=== PATIENT | female | born 1935 | race Caucasian/White ===

== ENCOUNTER 2018-02-03 22:24 | Emergency (ER) | payer MEDICARE, OTHER ==
[~2018-02-03] VITALS: Ht 160 cm; Wt 59.0 kg
--- OUTSIDE RECORDS SUMMARY | 2018-02-03 22:32 | XMS REPORT ---
Author Author [facility] Medical Staff Organization [facility] Address [address], [place] [address] Phone [phone] Summary purpose TRANSITION OF CARE AUTO GENERATION Chief Complaint and Reason for Visit No authorized Reason for Visit (Admitting Diagnosis) is available for this visit. Problem list No authorized problems tracked for continuity of care are available for this visit. Encounters No authorized problems tracked for encounter diagnoses are available for this visit. Medications No medications recorded for this patient visit Allergies, adverse reactions, alerts Allergen Category Ingredient Status Reaction Severity Onset NKDA Drug Allergy NKDA Confirmed but Inactive Bactrim Drug Allergy Bactrim Confirmed or Verified Bactrim Drug Allergy sulfamethoxazole Confirmed or Verified Bactrim Drug Allergy trimethoprim Confirmed or Verified Immunizations No immunizations recorded for this patient visit Relevant diagnostic tests and/or laboratory data RESULTS Chemistry [id number]:00 Result Normal Range Units Sodium 137 134-145 mEq/l Potassium 4.6 3.5-5.1 mEq/l Chloride 103 98-107 mEq/l CO2 25.3 22-28 mEq/l Glucose H 183 70-105 mg/dl BUN H 32 7-18 mg/dl Creatinine H 1.38 0.6-1.0 mg/dl Calcium 8.6 8.4-10.2 mg/dl Magnesium 1.9 1.7-2.8 mg/dl Osmolality 285.4 280-300 mOsm/L Anion GAP 8.7 8-16 BUN/Creatinine Ratio H 23.2 10-20 Estimated GFR L 37 >=60 mL/min/1.7 History of procedures No procedures recorded for this patient visit. Functional status No functional or cognitive status observations are available for this visit. Vital signs No authorized vital signs are available for this visit. Social history No Social History or smoking status observations were recorded for this visit. ( Unknown if ever smoked.) Treatment Plan No treatment plan text is available for this visit. Hospital discharge instructions No discharge instruction text is available for this visit.
--- OUTSIDE RECORDS SUMMARY | 2018-02-03 22:32 | XMS REPORT ---
Author Author [facility] [employer] [facility] Medical Staff Organization [facility] REG [facility] CTR Address [address] [place], [place] [address] Phone [phone] Care Team Providers Care Sr Technical Sales Consultant Name Role Phone SUZIE HERNANDEZ MD PP [phone] Summary purpose TRANSITION OF CARE AUTO GENERATION [...] visit Relevant diagnostic tests and/or laboratory data No authorized results are available for this patient visit History of procedures No procedures recorded for [...]
--- OUTSIDE RECORDS SUMMARY | 2018-02-03 22:32 | XMS REPORT ---
Author Author [facility] [employer] MED CTR Medical Staff Organization [facility] MED [facility] Address [address] [place], [place] [address] Phone [phone] Care Team Providers Care Filenet Developer Name Role Phone SUZIE HERNANDEZ MD PP [phone] Summary purpose TRANSITION OF CARE AUTO GENERATION [...] Bactrim Drug Allergy trimethoprim Confirmed or Verified metformin Drug Allergy metformin Confirmed or Verified Immunizations No immunizations recorded for this patient visit Relevant diagnostic tests and/or laboratory data No authorized results are available for this patient visit History of procedures Procedure Code Code Type Description Date Performed Performing Physician 53833 CPT-4 EMERGENCY DEPT VISIT 11-30-2015 SWATHI LUCIEN Functional status Functional Status Finding Observation Time Oxygen no : Temp >100.4 no :29 Temp <96.8 no :29 Chills with rigors no :29 HR > 90bpm no :29 Respirations > 20 no :29 Systolic <90 no :29 headache stiff neck no :29 Nursing Note Pt left AMA- registration attempted to get pt to wait to sign AMA paper work but pt refused. :15 Vital signs Type Value Date Respiration Rate 18breaths per minute :29 Pulse 86beats per minute :29 Oxygen Saturation 93% :29 BP Systolic 122mmHg :29 BP Diastolic 62mmHg :29 Temperature 99.5F :29 Social history Type Value Smoking Status NEVER SMOKER Treatment Plan No treatment plan text is available for this visit. Hospital discharge instructions DC Inst/Educ Give Comment: AMA Flu Vac 2014
--- OUTSIDE RECORDS SUMMARY | 2018-02-03 22:32 | XMS REPORT ---
Author Author [facility] [employer] [facility] Medical Staff Organization [facility] Address [address] [place], [place] [address] Phone [phone] Care Team Providers Care Hr Analyst Name Role Phone DAVID VARELA, SUZIE OSBORN [phone] Summary purpose TRANSITION OF CARE AUTO GENERATION [...] Code Type Description Date Performed Performing Physician 45332 CPT-4 NEUROMUSCULAR REEDUCATION 03-20-2015 SUZIE HERNANDEZ 84797 CPT-4 NEUROMUSCULAR REEDUCATION 03-27-2015 SUZIE HERNANDEZ Functional status No functional or cognitive status [...]
--- OUTSIDE RECORDS SUMMARY | 2018-02-03 22:32 | XMS REPORT ---
Author Author [employer] REG MED CTR Medical Staff Organization [facility] MED CTR Address [address] [place], [place] [address] Phone [phone] Care Team Providers Care Block Breaker Name Role Phone SUZIE HERNANDEZ MD PP [phone] Summary purpose TRANSITION OF CARE AUTO GENERATION Chief Complaint and Reason for Visit Admit Diagnosis 1 ADJUST DIS-ANXIETY/DEPR Problem list No authorized problems tracked for [...]
--- OUTSIDE RECORDS SUMMARY | 2018-02-03 22:32 | XMS REPORT ---
Author Author [facility] [employer] REG [facility] CTR Medical Staff Organization [facility] REG MED CTR Address [address] [place], [place] [address] Phone [phone] Care Team Providers Care Laborer Petroleum Refinery Name Role Phone SUZIE HERNANDEZ MD PP [phone] Summary purpose TRANSITION OF CARE AUTO GENERATION [...]
--- OUTSIDE RECORDS SUMMARY | 2018-02-03 22:32 | XMS REPORT ---
Author Author [email or web address] [employer] REG MED CTR Medical Staff Organization [facility] REG MED CTR Address [address] [place] [address] Phone [phone] Care Team Providers Care Ironing Pleater Name Role Phone SUZIE HERNANDEZ MD PP [phone] Summary purpose TRANSITION OF CARE AUTO GENERATION [...] Code Type Description Date Performed Performing Physician 74116 CPT-4 PSYTX PT&/FAMILY 45 MINUTES 03-25-2015 KARLEE SETTNIRAV Functional status No functional or cognitive status [...]
--- OUTSIDE RECORDS SUMMARY | 2018-02-03 22:32 | XMS REPORT ---
Author Author [facility] [employer] [facility] Medical Staff Organization [facility] Address [address] [place], [place] [address] Phone [phone] Summary purpose TRANSITION OF CARE AUTO GENERATION [...] Relevant diagnostic tests and/or laboratory data RESULTS Radiology Results [id number] CAROTID DUPLEX PACs Image DATE OF EXAM: Nov 06 2015 [id number] CAROTID DUPLEX SONO : RADIOLOGY REPORT DATE OF SERVICE: 11/06/2015 HISTORY: Patient has hyperlipidemia, transient ischemic attack, and dizziness. CAROTID DOPPLER SONOGRAM 1450 HOURS There is plaque formation of mild to perhaps moderate degree in the carotid bulb locations bilaterally. However, no increase of velocities or velocity ratios is seen of any significance. Vertebral arteries show antegrade flow. IMPRESSION:Less than 40% stenosis bilaterally. This is not considered hemodynamically significant. DO SUZANNE Merlos/cdj11/06/2015 18:37:00 / 11/06/2015 21:16:40 cc:Martha Johnston PA-C This document has been electronically Signed by: On: DATE OF EXAM: Nov 06 2015 [id number] CAROTID DUPLEX SONO : RADIOLOGY REPORT DATE OF SERVICE: 11/06/2015 HISTORY: Patient has hyperlipidemia, transient ischemic attack, and dizziness. CAROTID DOPPLER SONOGRAM 1450 HOURS There is plaque formation of mild to perhaps moderate degree in the carotid bulb locations bilaterally. However, no increase of velocities or velocity ratios is seen of any significance. Vertebral arteries show antegrade flow. IMPRESSION:Less than 40% stenosis bilaterally. This is not considered hemodynamically significant. Swathi Padilla DO MW/cdj11/06/2015 18:37:00 / 11/06/2015 21:16:40 cc:Martha Johnston PA-C This document has been electronically Signed by: SWATHI APDILLA DO On: Nov 07 20154:27P Result Amended on 2015-11-07 at 16:27:29. Previous status was HI. History of procedures Procedure Code Code Type Description Date Performed Performing Physician 52576 CPT-4 EXTRACRANIAL STUDY 11-06-2015 MARTHA JOHNSTON Functional status No functional or cognitive status [...]
--- OUTSIDE RECORDS SUMMARY | 2018-02-03 22:32 | XMS REPORT ---
Author Author [employer] [facility] Medical Staff Organization [facility] [employer] MED CTR Address [address] [place], [place] [address] Phone [phone] Care Team Providers Care Geriatric Social Worker Name Role Phone SUZIE HERNANDEZ MD PP [phone] Summary purpose TRANSITION OF CARE AUTO GENERATION [...]
--- OUTSIDE RECORDS SUMMARY | 2018-02-03 22:32 | XMS REPORT ---
Author Author [facility] [employer] [facility] Medical Staff Organization [facility] MED [facility] Address [address] [place], [place] [address] Phone [phone] Care Team Providers Care Senior Strategy Manager Name Role Phone SUZIE HERNANDEZ MD PP [phone] Summary purpose TRANSITION OF CARE AUTO GENERATION [...] recorded for this patient visit. Functional status Functional Status Finding Observation Time Oxygen no :29 Temp >100.4 no : Temp <96.8 no :29 Chills with rigors [...] Oxygen Saturation 93% :29 BP Systolic 122mmHg [id number]:29 BP Diastolic 62mmHg :29 Temperature 99.5F :29 Social history Type Value Smoking Status NEVER SMOKER Treatment Plan No treatment plan text is available for this visit. Hospital discharge instructions DC Inst/Educ Give Comment: AMA Flu Vac 2014
--- OUTSIDE RECORDS SUMMARY | 2018-02-03 22:32 | XMS REPORT ---
Author Author [facility] [employer] REG MED CTR Medical Staff Organization [facility] REG [facility] Address [address] [place], [place] [address] Phone [phone] Care Team Providers Care Bag Filler Name Role Phone SUZIE HERNANDEZ MD PP [phone] Summary purpose TRANSITION OF CARE AUTO GENERATION [...]
--- OUTSIDE RECORDS SUMMARY | 2018-02-03 22:32 | XMS REPORT ---
Author Author [facility] Medical Staff Organization [facility] MED [facility] Address [address] [place], [place] [address] Phone [phone] Care Team Providers Care Chief Lock Tender Operator Name Role Phone SUZIE HERNANDEZ MD PP [phone] Summary purpose TRANSITION OF CARE AUTO GENERATION [...]
--- OUTSIDE RECORDS SUMMARY | 2018-02-03 22:33 | XMS REPORT ---
Author Author [employer] REG MED CTR Medical Staff Organization [facility] [employer] MED CTR Address [address] [place], [place] [address] Phone [phone] Care Team Providers Care Director Of Special Events Name Role Phone SUZIE HERNANDEZ MD PP [phone] Summary purpose TRANSITION OF CARE AUTO GENERATION [...]
--- OUTSIDE RECORDS SUMMARY | 2018-02-03 22:33 | XMS REPORT ---
Author Author [facility] Medical Staff Organization [facility] Address [address] [place], [place] [address] Phone [phone] Summary purpose TRANSITION OF CARE AUTO GENERATION [...] Code Type Description Date Performed Performing Physician 17103 CPT-4 PSYTX PT&/FAMILY 45 MINUTES 10-22-2015 KARLEE SETTER Functional status No functional or cognitive status [...]
--- OUTSIDE RECORDS SUMMARY | 2018-02-03 22:33 | XMS REPORT ---
Author Author [facility] [employer] REG [facility] CTR Medical Staff Organization [facility] REG [facility] Address [address] [place], [place] [address] Phone [phone] Care Team Providers Care Youth Director Name Role Phone SUZIE HERNANDEZ MD PP [phone] Summary purpose TRANSITION OF CARE AUTO GENERATION [...]
--- OUTSIDE RECORDS SUMMARY | 2018-02-03 22:33 | XMS REPORT ---
Author Author [facility] [employer] REG [facility] Medical Staff Organization [facility] Address [address] [place] [address] Phone [phone] Care Team Providers Care Lab Instructor Name Role Phone SUZIE HERNANDEZ MD PP [phone] Summary purpose TRANSITION OF CARE AUTO GENERATION [...]
--- OUTSIDE RECORDS SUMMARY | 2018-02-03 22:33 | XMS REPORT ---
Author Author [facility] [employer] REG MED CTR Medical Staff Organization [facility] REG MED CTR Address [address] [place], [place] [address] Phone [phone] Care Team Providers Care Financial Accountant Name Role Phone SUZIE HERNANDEZ MD PP [phone] Summary purpose TRANSITION OF CARE AUTO GENERATION [...]
--- OUTSIDE RECORDS SUMMARY | 2018-02-03 22:33 | XMS REPORT ---
Author Author [facility] [employer] REG [facility] CTR Medical Staff Organization [facility] REG MED CTR Address [address] [place], [place] [address] Phone [phone] Care Team Providers Care Ballistics Professor Name Role Phone SUZIE HERNANDEZ MD PP [phone] Summary purpose TRANSITION OF CARE AUTO GENERATION [...]
--- OUTSIDE RECORDS SUMMARY | 2018-02-03 22:33 | XMS REPORT ---
Author Author [facility] Medical Staff Organization [facility] Address [address], [place] [address] Phone [phone] Care Team Providers Care Scientist Name Role Phone DAVID VARELA, SUZIE PP [phone] SUZIE HERNANDEZ MD, PP [phone] Summary purpose TRANSITION OF CARE AUTO GENERATION Chief Complaint and Reason for Visit Admit Diagnosis 1 HYPERGLYCEMIA FEVER UNKNOWN ORIGIN Admit Diagnosis 2 LACTIC ACIDOSIS Problem list No authorized problems tracked for continuity of care are available for this visit. Encounters The following conditions tracked for encounter diagnoses were recorded for this visit: Finding or Diagnosis Status Certainty Chronicity Onset *FEVER Active *DIABETES MELLITUS TYPE 1 UNCONTROLLED Active Medications Discharge Medications Status Medication Directions Current aspirin 81 mg tablet 81 milligram (s) oral Daily Current enalapril maleate 10 mg tablet 1 tab(s) oral Daily in evening Current Fish Oil Concentrate 1,000 mg capsule 1 capsule(s) oral 3 xDaily Current fluoxetine 10 mg capsule 1 capsule(s) oral Daily Current glyburide 2.5 mg tablet 2.5 milligram (s) oral Daily Current Levemir 100 unit/mL subcutaneous solution 7 unit(s) subcutaneous Bedtime daily Current magnesium oxide 400 mg tablet 400 milligram (s) oral Daily Current metformin 500 mg tablet 1 tab(s) oral Twice a day Current metoprolol tartrate 25 mg tablet 12.5 milligram (s) oral Twice a day Current multivitamin tablet 1 tab(s) oral Daily Current omeprazole 20 mg capsule,delayed release 1 capsule(s) oral Daily Current oxybutynin chloride 5 mg Tab 5 milligram (s) oral Twice a day Current simvastatin 40 mg Tab 40 milligram (s) oral Bedtime daily Current Vitamin C 500 mg capsule,extended release 1 capsule(s) oral Daily Allergies, adverse reactions, alerts Allergen Category Ingredient Status Reaction Severity Onset NKDA Drug Allergy NKDA Confirmed but Inactive Bactrim Drug Allergy Bactrim Confirmed or Verified Bactrim Drug Allergy sulfamethoxazole Confirmed or Verified Bactrim Drug Allergy trimethoprim Confirmed or Verified Immunizations No immunizations recorded for this patient visit Relevant diagnostic tests and/or laboratory data RESULTS [id number]:14:00 Discharge Summary DISCHARGE SUMMARY ADMITTING DIAGNOSIS:Hyperglycemia, lactic acidosis, fever of unknown origin. DISCHARGE DIAGNOSIS: Hyperglycemia. HISTORY OF PRESENT ILLNESS: This 80 year old female was admitted from the emergency room due to complaints of persistent headache and episode of confusion. She had described this headache as something she has never experienced before. She lives with her granddaughter who witnessed an episode of confusion and encouraged her to go to the emergency room. PHYSICAL EXAMINATION: HEART: Normal sinus rhythm. LUNGS: Sounds clear. ABDOMEN: Soft and nontender. EXTREMITIES: Without edema.VITAL SIGNS: Patient was afebrile with a temperature of 97.3, pulse 70, blood pressure 163/69, respirations 18 with an oxygen saturation of 96% on room air. LABORATORY/X-RAY/EKG DATA: White blood cell count 6100, hemoglobin 12.7. Chemistries were within normal range, creatinine 1.12 with an estimated GFR 47, BUN 15, hemoglobin A1c 10. HOSPITAL COURSE: Upon admission to the emergency room a chest x-ray was obtained with no acute abnormality, CT of head without contrast due to history of headache, brief history of dizziness, confusion and balance disturbance with impression of chronic left parietal infarct and chronic right basal ganglia infarct and there was no acute intracranial process, an MRI with and without contrast of head was ordered, but patient refused. She states she has a history of refusing MRIs. The nature of the exam and question of results had been clearly explained and patient continued to refuse. She was placed on normal saline IV fluids, metoprolol 12.5 mg twice a day for hypertension, Phenergan 12.5 mg IV as needed for nausea, Dilaudid 0.5 mg IV every 4 hours as needed for pain and she was on NovoLog FlexPen sliding scale. DISCHARGE INSTRUCTIONS: MEDICATIONS: Resume with Aspirin 81 mg daily, Enalapril 10 mg daily, Fish oil 1000 mg three times a day, Fluoxetine 10 mg daily, Glyburide 2.5 mg daily, Levemir 100 unit subcutaneous with 7 units at bedtime, Magnesium oxide 400 mg tablet daily, Metformin 500 mg tablet twice a day, Metoprolol 25 mg tablet 1/2 tablet twice a day, Multivitamin daily, Omeprazole 20 mg daily, Oxybutynin 5mg twice a day, Simvastatin 40 mg at bedtime, Vitamin C 500 mg daily. DIET: Patient was counseled on accurate blood sugar log and diabetic diet. FOLLOW UP: A consultation appointment will be set up with Chela Conte for further diabetic counseling and medication adjustments. Patient is to followup in clinic next week. Ashwini Edge RN, BUGGY LADLE TENDER for Suzie Hernandez MD /ma 10/01/2015 12:14:28/10/01/2015 13:17:15 <[facility] [address] [facility] [place] [address] <END HEADER> [id number]:10:00 Progress Note PROGRESS NOTE 09/30/2015 09:10:00 S:Bhupinder is resting in bed this morning. She awakens easily. She denies any complaints of pain. She states she has not eaten breakfast due to feeling a little nauseous. She states her headache has greatly improved since yesterday. O: VITAL SIGNS:The patient is afebrile with a temperature of 98, pulse 82, blood pressure 180/91, respirations 20, and oxygen saturation 96% on room air. LABORATORY/X-RAY/ELECTROCARDIOGRAM DATA:White blood cell count is 5700, hemoglobin 11.6, glucose has improved from yesterday at 229, creatinine 1.27 with estimated glomerular filtration rate of 40, fluid balance yesterday was positive for 310. HEART: Normal sinus rhythm. LUNGS: Clear. ABDOMEN: Soft and nontender. EXTREMITIES:Without edema. A: 1.Headache, improving. 2.Hyperglycemia. 3.History of fever of unknown origin. P: 1.I have ordered Phenergan as needed to help with nausea. 2.We will check a hemoglobin A1c today. 3.Recheck a complete blood count with manual differential and basic metabolic profile in the morning. 4.We will review home medications and look at restarting those with her history of hypertension. Ashwini Edge RN, BUGGY LADLE TENDER for MD SAY Pizarro/cdj09/30/2015 09:10:00/09/30/2015 12:10:08 Clinic Code: cc: <[facility] [address] [place] [address]<END HEADER> Routine Urinalysis [id number]:00:00 Result Normal Range Units Color YELLOW Clarity Clear Specific Kimberly 1.010 1.003-1.035 pH 5.5 4.5-8.0 Glucose 3+ Bilirubin NEGATIVE Ketones NEGATIVE Protein NEGATIVE Urobilinogen 0.2 0-0.2 E.U./dL Nitrites NEGATIVE Blood NEGATIVE Leukocytes NEGATIVE WBCs 0-5 RBCs No RBC's Seen. Squamous Epithelial Few Blood Cultures [id number]:35:00 Blood Culture Plate Date and Time 09/29/2015 21:40 SourceBLOOD CULTURE REPORT NoGrowth at 1 day. Unless otherwise notified. Final report in 5 Days. Release Date/Time: 10/01/2015 08:04 RIGHT ARM CULTURE REPORT No growth in 5 days. Release Date/Time: 10/05/2015 08:59 RIGHT ARM [id number]:20:00 Blood Culture Plate Date and Time 09/29/2015 21:40 SourceBLOOD CULTURE REPORT NoGrowth at 1 day. Unless otherwise notified. Final report in 5 Days. Release Date/Time: 10/01/2015 08:04 LEFT HAND CULTURE REPORT No growth in 5 days. Release Date/Time: 10/05/2015 08:59 LEFT HAND Chemistry [id number]:45:00 Result Normal Range Units Sodium 136 134-145 mEq/l Potassium 4.2 3.5-5.1 mEq/l Chloride 106 98-107 mEq/l CO2 22.9 22-28 mEq/l Glucose H 190 70-105 mg/dl BUN 15 7-18 mg/dl Creatinine H 1.12 0.6-1.0 mg/dl Calcium L 8.2 8.4-10.2 mg/dl Osmolality L 277.9 280-300 mOsm/L Anion GAP L 7.1 8-16 BUN/Creatinine Ratio 13.4 10-20 Estimated GFR L 47 >=60 mL/min/1.7 [id number]:00:00 Result Normal Range Units Sodium 136 134-145 mEq/l Potassium 4.2 3.5-5.1 mEq/l Chloride 103 98-107 mEq/l CO2 25.8 22-28 mEq/l Glucose H 229 70-105 mg/dl BUN 15 7-18 mg/dl Creatinine H 1.27 0.6-1.0 mg/dl Calcium 8.4 8.4-10.2 mg/dl Osmolality 280.0 280-300 mOsm/L Anion GAP L 7.2 8-16 BUN/Creatinine Ratio 11.8 10-20 Estimated GFR L 40 >=60 mL/min/1.7 Lactic Acid 1.4 0.4-2.0 mmol/L :15:00 Result Normal Range Units Lactic Acid 1.2 0.4-2.0 mmol/L :35:00 Result Normal Range Units Lactic Acid H 2.8 0.4-2.0 mmol/L :20:00 Result Normal Range Units Sodium L 132 134-145 mEq/l Potassium 4.4 3.5-5.1 mEq/l Chloride L 97 98-107 mEq/l CO2 24.8 22-28 mEq/l Glucose H@ 650 70-105 mg/dl Repeated Test BUN H 20 7-18 mg/dl Creatinine H 1.65 0.6-1.0 mg/dl Calcium 8.8 8.4-10.2 mg/dl TP - Total Protein 7.7 6.0-8.3 g/dl Albumin 3.5 3.5-5 g/dl Bilirubin - Total 0.3 0.1-1.0 mg/dl AST 14 10-42 IU/L ALT 17 12-65 IU/L ALP H 79 25-72 IU/L Osmolality 297.8 280-300 mOsm/L Albumin/Globulin Ratio 0.8 0-8 Anion GAP 10.2 8-16 BUN/Creatinine Ratio 12.1 10-20 Estimated GFR L 30 >=60 mL/min/1.7 Hematology [id number]:45:00 Result Normal Range Units WBC 6.1 4.8-10.8 103/uL RBC 4.2 4.2-5.4 106/uL HGB 12.7 12.0-16.0 g/dl HCT 38.3 36.9-47.0 % MCV 90.8 81-99 FL MCH 30.1 27-31 pg MCHC 33.2 33-37 g/dl RDW 12.2 11.5-15.5 % PLT 196 130-400 103/uL MPV H 11.0 7.3-10.4 FL Neutro % 42.2 40-70 % Lymph % H 46.4 20-40 % [place] % 7.9 0-10.0 % Eos % 2.5 0-7.0 % Baso % 0.7 0-2 % Neutro # 2.6 1.5-7.5 103/uL Lymph # 2.8 0.9-4.0 103/uL [place] # 0.5 0-0.8 103/uL Eos # 0.2 0-0.6 103/uL Baso # 0.0 0-0.1 103/uL [id number]:00:00 Result Normal Range Units WBC 5.7 4.8-10.8 103/uL RBC L 4.0 4.2-5.4 106/uL HGB L 11.6 12.0-16.0 g/dl HCT L 34.7 36.9-47.0 % MCV 87.4 81-99 FL MCH 29.2 27-31 pg MCHC 33.4 33-37 g/dl RDW 12.0 11.5-15.5 % PLT 195 130-400 103/uL MPV H 10.6 7.3-10.4 FL Neutro % 50.1 40-70 % Lymph % 37.7 20-40 % [place] % 9.4 0-10.0 % Eos % 1.9 0-7.0 % Baso % 0.7 0-2 % Neutro # 2.9 1.5-7.5 103/uL Lymph # 2.2 0.9-4.0 103/uL [place] # 0.5 0-0.8 103/uL Eos # 0.1 0-0.6 103/uL Baso # 0.0 0-0.1 103/uL :20:00 Result Normal Range Units WBC 6.0 4.8-10.8 103/uL RBC 4.6 4.2-5.4 106/uL HGB 13.5 12.0-16.0 g/dl HCT 40.6 36.9-47.0 % MCV 88.6 81-99 FL MCH 29.5 27-31 pg MCHC 33.3 33-37 g/dl RDW 12.3 11.5-15.5 % PLT 219 130-400 103/uL MPV H 11.4 7.3-10.4 FL Neutro % 60.0 40-70 % Lymph % 29.6 20-40 % [place] % 7.9 0-10.0 % Eos % 1.5 0-7.0 % Baso % 0.8 0-2 % Neutro # 3.6 1.5-7.5 103/uL Lymph # 1.8 0.9-4.0 103/uL [place] # 0.5 0-0.8 103/uL Eos # 0.1 0-0.6 103/uL Baso # 0.1 0-0.1 103/uL Special Chemistry [id number]:00:00 Result Normal Range Units Hemoglobin A1C H 10.0 4.5-6.2 % Body Fluid [id number]:00:00 Result Normal Range Units pH 5.5 4.5-8.0 Radiology Results [id number]:45:00 Result Normal Range Units MPV H 11.0 7.3-10.4 FL [id number]:44:00 CT HEAD W/O CONT PACs Image DATE OF EXAM: Sep 29 2015 [id number] HEAD WO CONTRAST : RADIOLOGY REPORT DATE OF SERVICE: 09/29/15 HISTORY: Headache, currently being treated for UTI. There is also a history of dizziness and balance disturbance. NONCONTRAST CT [id number] HOURS Axial scans were obtained at 5 mm intervals. No contrast was administered. The prior MRI brain study of 11/15/2012 is not currently available for comparison. There is a 2.7 x 4 cm area of lucency in the left posterior parietal lobe consistent with chronic infarct. Tiny chronic lacunar infarct is also present in the right basal ganglia. There is no mass or midline shift. Ventricular size is normal. There is no hemorrhage or additional infarction. The cerebellum and brainstem are normal. The bony calvarium is intact. 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 No other acute intracranial process. MD MARIANA Delgado/ma09/30/2015 08:38:00 / 09/30/2015 08:43:25 cc:Dr. Suzie Hernandez This document has been electronically Signed by: On: DATE OF EXAM: Sep 29 2015 [id number] HEAD WO CONTRAST : RADIOLOGY REPORT DATE OF SERVICE: 09/29/15 HISTORY: Headache, currently being treated for UTI. There is also a history of dizziness and balance disturbance. NONCONTRAST CT [id number] HOURS Axial scans were obtained at 5 mm intervals. No contrast was administered. The prior MRI brain study of 11/15/2012 is not currently available for comparison. There is a 2.7 x 4 cm area of lucency in the left posterior parietal lobe consistent with chronic infarct. Tiny chronic lacunar infarct is also present in the right basal ganglia. There is no mass or midline shift. Ventricular size is normal. There is no hemorrhage or additional infarction. The cerebellum and brainstem are normal. The bony calvarium is intact. 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 No other acute intracranial process. MD MARIANA Delgado/ma09/30/2015 08:38:09/30/2015 08:43:25 cc:Dr. Suzie Hernandez This document has been electronically Signed by: GABINO SALEH MD On: Sep 30 2015 10:44A HYPERGLYCEMIAFEVER UNKNOWN O LACTIC ACIDOSIS Result Amended on 2015-09-30 at 10:44:33. Previous status was NH. HYPERGLYCEMIAFEVER UNKNOWN O LACTIC ACIDOSIS Chest X-Ray - 2 View PACs Image DATE OF EXAM: Sep 29 2015 RAD 0300-CHEST XRAY 2 VIEW : RADIOLOGY REPORT DATE OF SERVICE: 09/29/15 HISTORY: Headache, urinary tract infection, history of coronary artery disease. CHEST 2 VIEWS 2248 HOURS Comparison is made with 09/26/2011. The lungs are clear. Heart size and pulmonary vessels are normal. The thoracic aorta is atherosclerotic. There are changes of prior coronary artery surgery. There are old healed rib fractures on the right side. IMPRESSION: No acute chest abnormality. MD MARIANA Delgado/ma09/30/2015 08:13: / 09/30/2015 08:30:36 cc:Dr. Suzie Hernandez This document has been electronically Signed by: On: DATE OF EXAM: Sep 29 2015 RAD 0300-CHEST XRAY 2 VIEW : RADIOLOGY REPORT DATE OF SERVICE: 09/29/15 HISTORY: Headache, urinary tract infection, history of coronary artery disease. CHEST 2 VIEWS 2248 HOURS Comparison is made with 09/26/2011. The lungs are clear. Heart size and pulmonary vessels are normal. The thoracic aorta is atherosclerotic. There are changes of prior coronary artery surgery. There are old healed rib fractures on the right side. IMPRESSION: No acute chest abnormality. Gabino Saleh MD MWOsbaldo/nh09/30/2015 08:13:00 / 09/30/2015 08:30:36 cc:Dr. Suzie Hernandez This document has been electronically Signed by: GABINO SALEH MD On: Sep 30 2015 10:44A HYPERGLYCEMIAFEVER UNKNOWN O LACTIC ACIDOSIS Result Amended on 2015-09-30 at 10:45:02. Previous status was NH. HYPERGLYCEMIAFEVER UNKNOWN O LACTIC ACIDOSIS [id number]:00:00 Result Normal Range Units MPV H 10.6 7.3-10.4 FL [id number]:20:00 Result Normal Range Units MPV H 11.4 7.3-10.4 FL History of procedures No procedures recorded for this patient visit. Functional status Functional Status Finding Observation Time Hearing Prob Loc none 90-67-112792:22 Vision Problems yes :22 Vision Correct Dev glasses 08-66-867782:22 Ambulation Asst Dev cane 02-46-569860:22 Range of Motion full 80-14-542665:12 Muscle Strength RUE 5 ROM full resist 14-87-569441:12 Muscle Strength RLE 5 ROM full resist 90-34-834073:12 Muscle Strength LUE 5 ROM full resist 57-46-401150:12 Muscle Strength LLE 5 ROM full resist 79-96-215850:12 Transfers assist x 1 00-35-075408:12 Ambulation in hallway 06-33-612736:12 Balance steady 70-18-725836:12 Bathing Assistance none :22 Eating Assistance none :22 Dressing Assistance none 07-43-942203:22 Toileting Assistance none :22 Transfer Assistance none :22 Decline Slf Care/Mob no 49-33-121006:22 Phys Cond Stable yes :22 Nutrition normal :12 Diet ADA specify calorie Comment: 1800 :12 Oral Cavity moist and intact 36-51-164610:12 Teeth intact 90-99-583601:12 Dental Hygiene good 53-07-401959:12 Abdomen Appearance round 04-02-878410:12 Abdomen soft :12 Bowel Sounds present :12 NG Tube no :12 Feeding Tube none :12 [place] no :12 Cont Bladder Irr no :12 Ostomy no :12 Stool other (specify) Comment: none noted at this time :12 Urination normal :12 Urine Clarity clear :12 Urine Color pale yellow 28-93-363173:12 Quality sym/unlabored :12 Cough absent :12 Secretions no :12 Breath Sounds RUL clear :12 Breath Sounds RML clear :12 Breath Sounds RLL clear :12 Breath Sounds EULALIA clear :12 Breath Sounds LLL clear 01-81-158458:12 Airway natural :12 Chest Tube no :12 Oxygen no 91-97-473174:18 Oxygen Flow Rate RA 16-57-898265:12 C-PAP no :12 BI-PAP no :12 Temp >100.4 no :12 Temp <96.8 no :12 Chills with rigors no :12 HR > 90bpm no :12 Respirations > 20 no :12 Systolic <90 no 25-42-242685:12 headache stiff neck no 70-38-400626:12 WBC > 96807 no 63-26-960750:12 WBC < 4000 no :12 IV Site Location Right wrist :15 IV Type peripheral :15 IV Site Information discontinued :15 IV Site Start Attmpt 2 times 27-76-567421:15 IV Site Samy 20 :14 IV Site Appearance WNL :14 IV Site Color clear :14 IV Site Patent yes :14 Dressing Changed no (explain) Comment: c/d/i :14 Dressing Type occlusive :14 Nursing Note Pt reports she is feeling much better, did not realize how bad she felt before. She is getting around the house, is able to eat and drink, and is using the bathroom without difficulty. f/u is scheduled for Friday 10/06 @ 1330 with Bonifacio Bruce, pt reports she is aware. :45 Cognitive Status Finding Observation Time Oriented To Date 5 Yes :[address] 5 Yes : Name 3 Objects 3 Yes : Name Object in Rm 2 Yes : Recall 3 Objects 3 Yes :22 Repeats a Phrase 1 Yes : Follows Verbal Direc 3 Yes : Follows Written Dire 1 Yes : Write a Sentance 1 Yes : Draw an Object 1 Yes :22 Mini Mental Total 25 points :22 Less than 20 Phys not applicable :22 Learning Ability comprehends well :14 Neurological no :14 Psychological no :14 Physical no :14 Hearing no :14 Sharepoint Web Developer Needed no :14 Sign Language no :14 Emotional no :14 Vision yes :14 Laguage no :14 Financial no :14 Vital signs Type Value Date Respiration Rate 18breaths per minute : Pulse 75beats per minute :18 Oxygen Saturation 95% :18 BP Systolic 155mmHg :18 BP Diastolic 74mmHg :18 Temperature 98.9F :18 Height 60inches :14 Weight 140.3LB 76-12-362857:14 Social history Type Value Smoking Status NEVER SMOKER Treatment Plan No treatment plan text is available for this visit. Hospital discharge instructions Discharge Date/Time 10-01-2015 13:25:00 Accompanied By Natalia Relationship other (explain) Comment: granddaughter Dismissal Condition good Disposition on DC home Valuables yes Valuable Type billfold/purse Comment: cell phone, cane, clothing Valuables Returned T patient DC Inst/Educ Give yes Exit Care Educ Given yes Med/Side Effects Rev yes DC Med Rec Rev yes PNE Vac 2015 Flu Vac unknown Tetanus Vac 07-30-2010 Medical Equipment cane Comment: from home Diet Explained yes Follow up appt already scheduled Follow Up Appt D/T 10-07-15 13:30:00
--- OUTSIDE RECORDS SUMMARY | 2018-02-03 22:33 | XMS REPORT ---
Author Author [facility] Medical Staff Organization [facility] Address [address] [place], [place] [address] Phone [phone] Care Team Providers Care Ignition Mechanic Name Role Phone SUZIE HERNANDEZ MD PP [phone] Summary purpose TRANSITION OF CARE AUTO GENERATION [...] Code Type Description Date Performed Performing Physician 17520 CPT-4 PSYTX PT&/FAMILY 45 MINUTES 03-25-2015 KARLEE [...]
--- OUTSIDE RECORDS SUMMARY | 2018-02-03 22:33 | XMS REPORT ---
Author Author [facility] [facility] Medical Staff Organization [facility] Address [address] [place], [place] [address] Phone [phone] Care Team Providers Care Masonry Teacher Name Role Phone SUZIE HERNANDEZ MD PP [phone] Summary purpose TRANSITION OF CARE AUTO GENERATION [...]
--- OUTSIDE RECORDS SUMMARY | 2018-02-03 22:33 | XMS REPORT ---
Author Author [facility] Medical Staff Organization [facility] Address [address] [place], [place] [address] Phone [phone] Care Team Providers Care Pulpwood Buyer Name Role Phone SUZIE HERNANDEZ MD PP [phone] Summary purpose TRANSITION OF CARE AUTO GENERATION [...]
--- OUTSIDE RECORDS SUMMARY | 2018-02-03 22:33 | XMS REPORT ---
Author Author [facility] Medical Staff Organization [facility] Address [address] [place], [place] [address] Phone [phone] Care Team Providers Care Air/Ocean Export Clerk Name Role Phone DAVID VARELA, SUZIE OSBORN [phone] Summary purpose TRANSITION OF CARE AUTO GENERATION [...] Code Type Description Date Performed Performing Physician 08206 CPT-4 NEUROMUSCULAR REEDUCATION 03-20-2015 SUZIE HERNANDEZ 23631 CPT-4 NEUROMUSCULAR REEDUCATION 03-27-2015 SUZIE HERNANDEZ Functional [...]
--- OUTSIDE RECORDS SUMMARY | 2018-02-03 22:34 | XMS REPORT ---
Author Author [facility] Medical [facility] Organization [facility] Address [address], [place] [address] Phone [phone] Summary purpose TRANSITION OF CARE AUTO GENERATION [...] Code Type Description Date Performed Performing Physician 17967 CPT-4 PSYTX PT&/FAMILY 45 MINUTES 10-22-2015 KARLEE [...]
--- OUTSIDE RECORDS SUMMARY | 2018-02-03 22:34 | XMS REPORT ---
Author Author [facility] Medical Staff Organization [facility] Address [address] [place] [address] Phone [phone] Care Team Providers Care Waterproofer Helper Name Role Phone SUZIE HERNANDEZ MD PP [phone] Summary purpose TRANSITION OF CARE AUTO GENERATION [...]
--- OUTSIDE RECORDS SUMMARY | 2018-02-03 22:34 | XMS REPORT ---
Author [facility] Organization [facility] Address [address], [place] [address] Phone [phone] Care Team Providers Care Automatic Vulcanizing Operator Name Role Phone DAVID VARELA, SUZIE PP [phone] SUZIE HERNANDEZ MD, PP [phone] Summary purpose TRANSITION OF CARE AUTO GENERATION [...] Relevant diagnostic tests and/or laboratory data RESULTS [id number]:14:00 Discharge Summary DISCHARGE SUMMARY ADMITTING DIAGNOSIS:Hyperglycemia, lactic [...] in clinic next week. Ashwini Edge RN, BOBTAIL DRIVER for Suzie Hernandez MD /al 10/01/2015 12:14:28/10/01/2015 13:17:15 <[facility] [address] [facility] [address] <END HEADER> [id number]:10:00 Progress Note PROGRESS NOTE 09/30/2015 09:10:00 S:Vanesa is resting in bed this morning. She [...] her history of hypertension. Ashwini Edge RN, BOBTAIL DRIVER for MD SAY Pizarro/cdj09/30/2015 09:10:00/09/30/2015 12:10:08 Clinic Code: cc: <[facility] [address] [place] [address]<END HEADER> Routine Urinalysis [id number]:00:00 Result Normal Range Units Color YELLOW Clarity Clear Specific Aubrey 1.010 1.003-1.035 pH 5.5 4.5-8.0 Glucose 3+ Bilirubin NEGATIVE Ketones NEGATIVE Protein NEGATIVE Urobilinogen 0.2 0-0.2 E.U./dL Nitrites NEGATIVE Blood NEGATIVE Leukocytes NEGATIVE WBCs 0-5 RBCs No RBC's Seen. Squamous Epithelial Few Blood Cultures [id number]:35:00 Blood Culture Plate Date and Time 09/29/2015 21:40 SourceBLOOD CULTURE REPORT NoGrowth at 1 day. Unless otherwise notified. Final report in 5 Days. Release Date/Time: 10/01/2015 08:04 RIGHT ARM [id number]:20:00 Blood Culture Plate Date and Time 09/29/2015 21:40 SourceBLOOD CULTURE REPORT NoGrowth at 1 day. Unless otherwise notified. Final report in 5 Days. Release Date/Time: 10/01/2015 08:04 LEFT HAND Chemistry [id number]:45:00 Result Normal Range Units Sodium 136 134-145 mEq/l Potassium 4.2 3.5-5.1 mEq/l Chloride 106 98-107 mEq/l CO2 22.9 22-28 mEq/l Glucose H 190 70-105 mg/dl BUN 15 7-18 mg/dl Creatinine H 1.12 0.6-1.0 mg/dl Calcium L 8.2 8.4-10.2 mg/dl Osmolality L 277.9 280-300 mOsm/L Anion GAP L 7.1 8-16 BUN/Creatinine Ratio 13.4 10-20 Estimated GFR L 47 >=60 mL/min/1.7 [id number]:00:00 Result Normal Range Units Sodium 136 134-145 [...] Estimated GFR L 30 >=60 mL/min/1.7 Hematology :45:00 Result Normal Range Units WBC 6.1 4.8-10.8 103/uL RBC 4.2 4.2-5.4 106/uL HGB 12.7 12.0-16.0 g/dl HCT 38.3 36.9-47.0 % MCV 90.8 81-99 FL MCH 30.1 27-31 pg MCHC 33.2 33-37 g/dl RDW 12.2 11.5-15.5 % PLT 196 130-400 103/uL MPV H 11.0 7.3-10.4 FL Neutro % 42.2 40-70 % Lymph % H 46.4 20-40 % [place] % 7.9 0-10.0 % Eos % 2.5 0-7.0 % Baso % 0.7 0-2 % Neutro # 2.6 1.5-7.5 103/uL Lymph # 2.8 0.9-4.0 103/uL [place] # 0.5 0-0.8 103/uL Eos # 0.2 0-0.6 103/uL Baso # 0.0 0-0.1 103/uL :00:00 Result Normal Range Units WBC 5.7 4.8-10.8 103/uL RBC L 4.0 4.2-5.4 106/uL HGB L 11.6 12.0-16.0 g/dl HCT L 34.7 36.9-47.0 % MCV 87.4 81-99 FL MCH 29.2 27-31 pg MCHC 33.4 33-37 g/dl RDW 12.0 11.5-15.5 % PLT 195 130-400 103/uL MPV H 10.6 7.3-10.4 FL Neutro % 50.1 40-70 % Lymph % 37.7 20-40 % [place] % 9.4 0-10.0 % Eos % 1.9 0-7.0 % Baso % 0.7 0-2 % Neutro # 2.9 1.5-7.5 103/uL Lymph # 2.2 0.9-4.0 103/uL [place] # 0.5 0-0.8 103/uL Eos # 0.1 [...] 40-70 % Lymph % 29.6 20-40 % [place] % 7.9 0-10.0 % Eos % 1.5 0-7.0 % Baso % 0.8 0-2 % Neutro # 3.6 1.5-7.5 103/uL Lymph # 1.8 0.9-4.0 103/uL [place] # 0.5 0-0.8 103/uL Eos # 0.1 0-0.6 103/uL Baso # 0.1 0-0.1 103/uL Special Chemistry [id number]:00:00 Result Normal Range Units Hemoglobin A1C H 10.0 4.5-6.2 % Body Fluid [id number]:00:00 Result Normal Range Units pH 5.5 4.5-8.0 Radiology Results [id number]:45:00 Result Normal Range Units MPV H 11.0 7.3-10.4 FL [id number]:44:00 CT HEAD W/O CONT PACs Image DATE OF EXAM: Sep 29 2015 [id number] HEAD WO CONTRAST : RADIOLOGY REPORT DATE OF SERVICE: 09/29/15 HISTORY: Headache, currently being treated for UTI. There is also a history of dizziness and balance disturbance. NONCONTRAST CT [id number] HOURS Axial scans were obtained at 5 [...] No other acute intracranial process. MD MARIANA Delgado/al09/30/2015 08:38:00 / 09/30/2015 08:43:25 cc:Dr. Suzie Hernandez This document has been electronically Signed by: On: DATE OF EXAM: Sep 29 2015 [id number] HEAD WO CONTRAST : RADIOLOGY REPORT DATE OF SERVICE: 09/29/15 HISTORY: Headache, currently being treated for UTI. There is also a history of dizziness and balance disturbance. NONCONTRAST CT [id number] HOURS Axial scans were obtained at 5 [...] No other acute intracranial process. MD MARIANA Delgado/ilene09/30/2015 08:38:09/30/2015 08:43:25 cc:Dr. Suzie Hernandez This document has been electronically Signed by: GABINO DOTY MD On: Sep 30 2015 10:44A HYPERGLYCEMIAFEVER UNKNOWN O LACTIC ACIDOSIS Result Amended on 2015-09-30 at 10:44:33. Previous status was ND. HYPERGLYCEMIAFEVER UNKNOWN O LACTIC ACIDOSIS Chest X-Ray [...] IMPRESSION: No acute chest abnormality. MD MARIANA Delgado/ilene09/30/2015 08:13:09/30/2015 08:30:36 cc:Dr. Suzie Hernandez This document has [...] IMPRESSION: No acute chest abnormality. MD MARIANA Delgado/sharifa 08:13:09/30/2015 08:30:36 cc:Dr. Suzie Hernandez This document has been electronically Signed by: GABINO DOTY MD On: Sep 30 2015 10:44A HYPERGLYCEMIAFEVER UNKNOWN O LACTIC ACIDOSIS Result Amended on 2015-09-30 at 10:45:02. Previous status was ND. HYPERGLYCEMIAFEVER UNKNOWN O LACTIC ACIDOSIS :00:00 Result Normal Range Units MPV H 10.6 7.3-10.4 FL :20:00 Result Normal Range Units MPV H 11.4 7.3-10.4 FL History of procedures No procedures recorded for this patient visit. Functional status Functional Status Finding Observation Time Hearing Prob Loc none :22 Vision Problems yes :22 Vision Correct Dev glasses :22 Ambulation Asst Dev cane 81-37-123740:22 Range of Motion full 28-57-675517:12 Muscle Strength RUE 5 ROM full resist 50-69-878769:12 Muscle Strength RLE 5 ROM full resist 93-85-572431:12 Muscle Strength LUE 5 ROM full resist 57-84-075252:12 Muscle Strength LLE 5 ROM full resist 58-91-150880:12 Transfers assist x 1 12-51-909403:12 [address] in hallway 24-92-599911:12 Balance steady 99-52-065640:12 Bathing Assistance none 17-46-071428:22 Eating Assistance none :22 Dressing Assistance none :22 Toileting Assistance none :22 Transfer Assistance none :22 Decline Slf Care/Mob no :22 Phys Cond Stable yes 54-49-594783:22 Nutrition normal 16-15-910662:12 Diet ADA specify calorie Comment: 1800 33-10-113981:12 Oral Cavity moist and intact 33-32-385442:12 Teeth intact 51-83-459966:12 Dental Hygiene good 67-17-742952:12 Abdomen Appearance round 27-93-727799:12 Abdomen soft 19-40-255309:12 Bowel Sounds present 40-93-675918:12 NG Tube no 57-20-737746:12 Feeding Tube none 10-90-723406:12 [place] no :12 Cont Bladder Irr no :12 Ostomy no :12 Stool other (specify) Comment: none noted at this time :12 Urination normal :12 Urine Clarity clear :12 Urine Color pale yellow :12 Quality sym/unlabored :12 Cough absent :12 Secretions no :12 Breath Sounds RUL clear :12 Breath Sounds RML clear :12 Breath Sounds RLL clear :12 Breath Sounds EULALIA clear :12 Breath Sounds LLL clear :12 Airway natural :12 Chest Tube no :12 Oxygen no :18 Oxygen Flow Rate RA :12 C-PAP no :12 BI-PAP no :12 Temp >100.4 no :12 Temp <96.8 no :12 Chills with rigors no :12 HR > 90bpm no :12 Respirations > 20 no :12 Systolic <90 no :12 headache stiff neck no :12 WBC > 86634 no :12 WBC < 4000 no 13-20-643063:12 IV Site Location Right wrist :15 IV Type peripheral :15 IV Site Information discontinued :15 IV Site Start Attmpt 2 times :15 IV Site Samy 20 :14 IV Site Appearance WNL :14 IV Site Color clear :14 IV Site Patent yes :14 Dressing Changed no (explain) Comment: c/d/i :14 Dressing Type occlusive :14 Nursing Note Pt left floor via wheelchair in good condition accompanied by her granddaughter, Natalia. :25 Cognitive Status Finding Observation Time Oriented To Date 5 Yes : Oriented To Place 5 Yes :22 Name 3 Objects 3 Yes : Name Object in Rm 2 Yes : Recall 3 Objects 3 Yes : Repeats a Phrase 1 Yes : Follows Verbal Direc 3 Yes : Follows Written Dire 1 Yes : Write a Sentance 1 Yes : Draw an Object 1 Yes : Mini Mental Total 25 points : Less than 20 Phys not applicable : Learning Ability comprehends well :14 Neurological no :14 Psychological no :14 Physical no :14 Hearing no :14 Potable Water Treatment Operator Needed no :14 Sign Language no :14 Emotional no :14 Vision yes :14 Laguage no :14 Financial no :14 Vital signs Type Value Date Respiration Rate 18breaths per minute : Pulse 75beats per minute :18 Oxygen Saturation 95% :18 BP Systolic 155mmHg :18 BP Diastolic 74mmHg :18 Temperature 98.9F :18 Height 60inches :14 Weight 140.3LB :14 Social history Type Value Smoking Status NEVER [...] DC Med Rec Rev yes PNE Vac 2014 Flu Vac unknown Tetanus Vac 07-30-2010 Medical Equipment cane Comment: from home Diet Explained yes Follow up appt already scheduled Follow Up Appt D/T 10-06-16 13:30:00
--- OUTSIDE RECORDS SUMMARY | 2018-02-03 22:34 | XMS REPORT ---
Author Author [facility] Organization [facility] Address [address], [place] [address] Phone [phone] Summary purpose TRANSITION OF CARE AUTO GENERATION [...] Relevant diagnostic tests and/or laboratory data RESULTS Routine Urinalysis [id number]:04:00 Result Normal Range Units Color YELLOW Clarity Cloudy Specific Newton 1.015 1.003-1.035 pH 6.0 4.5-8.0 Glucose NEGATIVE Bilirubin NEGATIVE Ketones NEGATIVE Protein NEGATIVE Urobilinogen 0.2 0-0.2 E.U./dL Nitrites POSITIVE Blood 1+ Leukocytes 3+ WBCs Too numerous to count RBCs 5-10 Squamous Epithelial Few Bacteria 2+ Body Fluid [id number]:04:00 Result Normal Range Units pH 6.0 4.5-8.0 History of procedures No procedures recorded for [...]
--- OUTSIDE RECORDS SUMMARY | 2018-02-03 22:34 | XMS REPORT ---
Author Author [facility] Medical Staff Organization [facility] Address [address] [place], [place] [address] Phone [phone] Care Team Providers Care Crm Architect Name Role Phone DAVID VARELA, SUZIE PP [phone] Summary purpose TRANSITION OF CARE AUTO GENERATION [...] tests and/or laboratory data RESULTS Routine Urinalysis [id number]:28:00 Result Normal Range Units Color YELLOW Clarity Slighty cloudy Specific Viola 1.025 1.003-1.035 pH 6.0 4.5-8.0 Glucose 2+ Bilirubin NEGATIVE Ketones NEGATIVE Protein NEGATIVE Urobilinogen 0.2 0-0.2 E.U./dL Nitrites NEGATIVE Blood NEGATIVE Leukocytes NEGATIVE WBCs 10-20 RBCs 0-5 Squamous Epithelial 3+ Bacteria Occasional Body Fluid 74-55-643333:28:00 Result Normal Range Units pH 6.0 4.5-8.0 [...]
--- OUTSIDE RECORDS SUMMARY | 2018-02-03 22:34 | XMS REPORT ---
Author [facility] Medical Staff Organization [facility] Address [address], [place] [address] Phone [phone] Care Team Providers Care Salesperson Women'S Hats Name Role Phone SUZIE HERNANDEZ MD PP [phone] Summary purpose TRANSITION OF CARE AUTO GENERATION [...] Code Type Description Date Performed Performing Physician 38028 CPT-4 URINALYSIS, AUTO W/SCOPE 09-29-2015 TUCKER DIAZ 16620 CPT-4 BLOOD CULTURE FOR BACTERIA 09-29-2015 TUCKER DIAZ 91960 CPT-4 BLOOD CULTURE FOR BACTERIA 09-29-2015 TUCKER DIAZ 82029 CPT-4 CHEST X-RAY 09-29-2015 TUCKER DIAZ 49060 CPT-4 ASSAY OF LACTIC ACID 09-29-2015 TUCKER DIAZ 35633 CPT-4 COMPLETE CBC W/AUTO DIFF WBC 09-29-2015 TUCKER DIAZ 33688 CPT-4 COMPREHEN METABOLIC PANEL 09-29-2015 TUCKER DIAZ 60179 CPT-4 CT HEAD/BRAIN W/O DYE 09-29-2015 TUCKER DIAZ J1170 CPT-4 HYDROMORPHONE INJECTION 09-29-2015 TUCKER DIAZ J7030 CPT-4 NORMAL SALINE SOLUTION INFUS 09-29-2015 TUCKER DIAZ 51804 CPT-4 ROUTINE VENIPUNCTURE 09-29-2015 TUCKER DIAZ 45819 CPT-4 ROUTINE VENIPUNCTURE 09-29-2015 TUCKER DIAZ 84926 CPT-4 EMERGENCY DEPT VISIT 09-29-2015 TUCKER DIAZ 29947 CPT-4 EMERGENCY DEPT VISIT 09-29-2015 TUCKER DIAZ 44820 CPT-4 TX/PRO/DX INJ NEW DRUG ADDON 09-29-2015 TUCKER DIAZ 74220 CPT-4 THER/PROPH/DIAG IV INF, INIT 09-29-2015 TUCKER DIAZ 54643 CPT-4 HYDRATE IV INFUSION, ADD-ON 09-29-2015 TUCKER DIAZ J7120 CPT-4 RINGERS LACTATE INFUSION 09-29-2015 TUCKER DIAZ J1956 CPT-4 LEVOFLOXACIN INJECTION 09-29-2015 TUCKER DIAZ Functional status No functional or cognitive status [...]
--- OUTSIDE RECORDS SUMMARY | 2018-02-03 22:34 | XMS REPORT ---
Author Author [employer] [facility] Medical Staff Organization [facility] Address [address] [place], [place] [address] Phone [phone] Care Team Providers Care Shipping And Receiving Assistant Name Role Phone SUZIE HERNANDEZ MD PP [phone] Summary purpose TRANSITION OF CARE AUTO GENERATION Chief Complaint and Reason for Visit Admit Diagnosis 1 ADJUST DIS-ANXIETY/DEPR Problem list No authorized problems tracked for continuity of care are available for this visit. Encounters No authorized problems tracked for encounter diagnoses are available for this visit. Medications No home medications recorded for this patient visit Allergies, [...]
--- OUTSIDE RECORDS SUMMARY | 2018-02-03 22:34 | XMS REPORT ---
Author Author [facility] [employer] [facility] Medical Staff Organization [facility] Address [address] [place], [place] [address] Phone [phone] Care Team Providers Care Housekeeping Room Inspector Name Role Phone SUZIE HERNANDEZ MD PP [phone] Summary purpose TRANSITION OF CARE AUTO GENERATION [...]
--- OUTSIDE RECORDS SUMMARY | 2018-02-03 22:34 | XMS REPORT ---
Author Author [employer] [facility] Medical Staff Organization [facility] Address [address] [place], [place] [address] Phone [phone] Care Team Providers Care Special Forces Officer Name Role Phone SUZIE HERNANDEZ MD PP [phone] Summary purpose TRANSITION OF CARE AUTO GENERATION [...]
--- OUTSIDE RECORDS SUMMARY | 2018-02-03 22:35 | XMS REPORT ---
Author Author [facility] Medical Staff Organization [facility] Address [address] [place], [place] [address] Phone [phone] Care Team Providers Care Tool And Die Inspector Name Role Phone SUZIE HERNANDEZ MD [phone] Summary purpose TRANSITION OF CARE AUTO GENERATION Chief Complaint and Reason for Visit Admit Diagnosis 1 SHLDR/UPPER ARM INJ NOS Problem list No authorized problems tracked for [...] tests and/or laboratory data RESULTS Radiology Results [id number]:49:00 SHOULDER XRAY - 3 VIEW PACs Image DATE OF EXAM: Nov 26 2014 RAD 1415-SHOULDER XRAY-3 VIEW- RIGHT: RADIOLOGY REPORT DATE OF SERVICE: 11/26/14 HISTORY: Injury on 11/19/2014, pain RIGHT SHOULDER 3 VIEWS 1013 HOURS There is no fracture. Faint calcifications are present superiorly in the rotator cuff consistent with calcific tendinitis. The AC joint is normal. There are old healed right rib fractures. IMPRESSION: No acute bony abnormality. Old right rib fractures. 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 MD MARIANA Delgado/al11/26/2014 11:47:00 / 11/26/2014 11:49:53 cc:Martha Ghosh PA-C This document has been electronically Signed by: On: DATE OF EXAM: Nov 26 2014 RAD 1415-SHOULDER XRAY-3 VIEW- RIGHT: RADIOLOGY REPORT DATE OF SERVICE: 11/26/14 HISTORY: Injury on 11/19/2014, pain RIGHT SHOULDER 3 VIEWS 1013 HOURS There is no fracture. Faint calcifications are present superiorly in the rotator cuff consistent with calcific tendinitis. The AC joint is normal. There are old healed right rib fractures. IMPRESSION: No acute bony abnormality. Old right rib fractures. 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 Mikel Saleh MD MWOsbaldo/nh11/26/2014 11:47:00 / 11/26/2014 11:49:53 cc:Martha Ghosh PA-C This document has been electronically Signed by: MIKEL SALEH On: Nov 27 20148:49A Result Amended on 2014-11-27 at 08:49:35. Previous status was AL. History of procedures Procedure Code Code Type Description Date Performed Performing Physician 49231 CPT-4 X-RAY EXAM OF SHOULDER 11-26-2014 MARTHA GHOSH Functional status No functional or cognitive status [...]
--- OUTSIDE RECORDS SUMMARY | 2018-02-03 22:35 | XMS REPORT ---
Author Author [employer] [facility] Medical Staff Organization [facility] [employer] [facility] Address [address] [place], [place] [address] Phone [phone] Care Team Providers Care Necktie Turner Name Role Phone SUZIE HERNANDEZ MD PP [phone] Summary purpose TRANSITION OF CARE AUTO GENERATION [...]
--- OUTSIDE RECORDS SUMMARY | 2018-02-03 22:35 | XMS REPORT ---
Author Author [facility] Organization [facility] Address [address], [place] [address] Phone [phone] Summary purpose TRANSITION OF CARE AUTO GENERATION [...]
--- OUTSIDE RECORDS SUMMARY | 2018-02-03 22:35 | XMS REPORT ---
Author Author [facility] [employer] [facility] CTR Medical Staff Organization [facility] Address [address] [place], [place] [address] Phone [phone] Care Team Providers Care Supervisor Dimension Warehouse Name Role Phone DAVID VARELA, SUZIE PP [phone] Summary purpose TRANSITION OF CARE AUTO GENERATION [...] Code Type Description Date Performed Performing Physician 09079 CPT-4 PT EVALUATION 02-17-2015 SUZIE HERNANDEZ 50279 CPT-4 NEUROMUSCULAR REEDUCATION 02-17-2015 SUZIE HERNANDEZ G8981 CPT-4 BODY POS CURRENT STATUS 02-17-2015 SUZIE HERNANDEZ G8982 CPT-4 BODY POS GOAL STATUS 02-17-2015 SUZIE HERNANDEZ 91055 CPT-4 NEUROMUSCULAR REEDUCATION 02-20-2015 MARTHA JOHNSTON Functional status No functional or [...]
--- OUTSIDE RECORDS SUMMARY | 2018-02-03 22:35 | XMS REPORT ---
Author Author [employer] [facility] Medical Staff Organization [facility] [facility] Address [address] [place], [place] [address] Phone [phone] Care Team Providers Care Medical Terminologist Name Role Phone SUZIE HERNANDEZ MD PP [phone] Summary purpose TRANSITION OF CARE AUTO GENERATION [...]
--- OUTSIDE RECORDS SUMMARY | 2018-02-03 22:35 | XMS REPORT ---
Author Author [employer] [facility] Medical Staff Organization [facility] [employer] [facility] Address [address] [place], [place] [address] Phone [phone] Care Team Providers Care Tracing Lathe Set Up Operator Name Role Phone SUZIE HERNANDEZ MD PP [phone] Summary purpose TRANSITION OF CARE AUTO GENERATION [...]
--- OUTSIDE RECORDS SUMMARY | 2018-02-03 22:35 | XMS REPORT ---
Author Author [facility] [employer] [facility] Medical Staff Organization [facility] Address [address] [place] [address] Phone [phone] Care Team Providers Care Temporary Administrative Assistant Name Role Phone SUZIE HERNANDEZ MD PP [phone] Summary purpose TRANSITION OF CARE AUTO GENERATION [...]
--- OUTSIDE RECORDS SUMMARY | 2018-02-03 22:35 | XMS REPORT ---
Author Author [facility] Medical Staff Organization [facility] Address [address] [place], [place] [address] Phone [phone] Care Team Providers Care Sample Mounter Name Role Phone SUZIE HERNANDEZ MD PP [phone] Summary purpose TRANSITION OF CARE AUTO GENERATION [...]
--- OUTSIDE RECORDS SUMMARY | 2018-02-03 22:35 | XMS REPORT ---
Author Author [employer] [facility] [employer] [facility] Medical Staff Organization [facility] Address [address] [place], [place] [address] Phone [phone] Care Team Providers Care Mirror Maker Name Role Phone SUZIE HERNANDEZ MD PP [phone] Summary purpose TRANSITION OF CARE AUTO GENERATION [...]
--- OUTSIDE RECORDS SUMMARY | 2018-02-03 22:36 | XMS REPORT ---
Author Author [email or web address] [employer] [facility] Medical Staff Organization [facility] Address [address] [place], [place] [address] Phone [phone] Care Team Providers Care Sports Analyst Name Role Phone SUZIE HERNANDEZ MD PP [phone] Summary purpose TRANSITION OF CARE AUTO GENERATION [...]
--- OUTSIDE RECORDS SUMMARY | 2018-02-03 22:36 | XMS REPORT ---
Author Author [facility] [facility] Medical Staff Organization [facility] Address [address] [place], [place] [address] Phone [phone] Care Team Providers Care Process Improvement Engineer Name Role Phone DAVID VARELA, SUZIE PP [phone] Summary purpose TRANSITION OF CARE AUTO GENERATION [...] Code Type Description Date Performed Performing Physician 70458 CPT-4 PT EVALUATION 02-17-2015 SUZIE HERNANDEZ 05653 CPT-4 NEUROMUSCULAR REEDUCATION 02-17-2015 SUZIE HERNANDEZ G8981 CPT-4 BODY POS CURRENT STATUS 02-17-2015 SUZIE HERNANDEZ G8982 CPT-4 BODY POS GOAL STATUS 02-17-2015 SUZIE HERNANDEZ 66399 CPT-4 NEUROMUSCULAR REEDUCATION 02-20-2015 MARTHA JOHNSTON Functional [...]
--- OUTSIDE RECORDS SUMMARY | 2018-02-03 22:36 | XMS REPORT ---
Author Author [employer] [facility] Medical Staff Organization [facility] [employer] [facility] Address [address] [place], [place] [address] Phone [phone] Care Team Providers Care Direct Sales Professional Name Role Phone SUZIE HERNANDEZ MD PP [phone] Summary purpose TRANSITION OF CARE AUTO GENERATION [...]
--- OUTSIDE RECORDS SUMMARY | 2018-02-03 22:36 | XMS REPORT ---
Author Author [employer] [facility] Medical Staff Organization [facility] Address [address] [place], [place] [address] Phone [phone] Care Team Providers Care Ferry Captain Name Role Phone SUZIE HERNANDEZ MD PP [phone] Summary purpose TRANSITION OF CARE AUTO GENERATION [...]
--- OUTSIDE RECORDS SUMMARY | 2018-02-03 22:36 | XMS REPORT ---
Author Author [facility] Medical Staff Organization [facility] Address [address] [place], [place] [address] Phone [phone] Care Team Providers Care Dimpling Machine Operator Name Role Phone SUZIE HERNANDEZ MD PP [phone] Summary purpose TRANSITION OF CARE AUTO GENERATION [...]
--- OUTSIDE RECORDS SUMMARY | 2018-02-03 22:36 | XMS REPORT ---
Author Author [facility] Medical Staff Organization [facility] Address [address], [place] [address] Phone [phone] Care Team Providers Care Switchboard Operator Helper Name Role Phone SUZIE HERNANDEZ MD [phone] Summary purpose TRANSITION OF CARE AUTO GENERATION [...] tests and/or laboratory data RESULTS Routine Urinalysis [id number]:04:00 Result Normal Range Units Color YELLOW Clarity Cloudy Specific [place] 1.015 1.003-1.035 pH 6.0 4.5-8.0 Glucose NEGATIVE Bilirubin NEGATIVE Ketones NEGATIVE Protein NEGATIVE Urobilinogen 0.2 0-0.2 E.U./dL Nitrites POSITIVE Blood 1+ Leukocytes 3+ WBCs Too numerous to count RBCs 5-10 Squamous Epithelial Few Bacteria 2+ Routine Cultures [id number]:04:00 Urine Culture Plate Date and Time 11/26/2015 13:04 SourceURINE CULTURE REPORT >100,000 colonies/ml Gram Negative Rods ID & Sensitivity to follow Release Date/Time: 11/27/2015 07:44 ORGID #1:>100,000 colonies/ml ESCHERICHIA COLI Release Date/Time: 11/28/2015 09:00 Sensitivity #1: ESCCOL AMPICILLIN <=8S AMOX CLAV<=8/4 S CEFTRIAXONE<=1S CEFTAZIDIME<=1S CEFOTAXIME <=2S CEFAZOLIN<=2S CIPROFLOXACIN<=1S CEFEPIME <=4S CEFUROXIME <=4S ERTAPENEM<=0.5S GENTAMICIN <=2S AMPICILLIN SULBACTAM <=8/4 S IMIPENEM <=1S LEVOFLOXACIN <=2S MEROPENEM<=1S TRIMETHSULFA <=2/38S TETRACYCLINE <=4S PIPTAZO<=16 S Body Fluid [id number]:04:00 Result Normal Range Units pH 6.0 4.5-8.0 History of procedures Procedure Code Code Type Description Date Performed Performing Physician 85423 CPT-4 URINE CULTURE/COLONY COUNT 11-26-2015 MARTHA JOHNSTON 58440 CPT-4 URINALYSIS, AUTO W/SCOPE 11-26-2015 MARTHA JOHNSTON 31093 CPT-4 CULTURE AEROBIC IDENTIFY 11-26-2015 MARTHA JOHNSTON 55643 CPT-4 MICROBE SUSCEPTIBLE, ESTEBAN 11-26-2015 MARTHA JOHNSTON Functional status No functional or [...]
--- OUTSIDE RECORDS SUMMARY | 2018-02-03 22:36 | XMS REPORT ---
Author Author [facility] Medical Staff Organization [facility] Address [address], [place] [address] Phone [phone] Summary purpose TRANSITION OF CARE AUTO GENERATION [...] diagnostic tests and/or laboratory data RESULTS Chemistry [id number]:00 Result Normal Range Units Sodium 137 134-145 [...] L 37 >=60 mL/min/1.7 History of procedures Procedure Code Code Type Description Date Performed Performing Physician 82491 CPT-4 METABOLIC PANEL TOTAL CA 10-15-2015 MARTHA JOHNSTON 51028 CPT-4 ASSAY OF MAGNESIUM 10-15-2015 MARTHA JOHNSTON Functional status No functional or [...]
--- OUTSIDE RECORDS SUMMARY | 2018-02-03 22:36 | XMS REPORT ---
Author Author [facility] Medical Staff Organization [facility] [facility] Address [address] [place], [place] [address] Phone [phone] Care Team Providers Care Academic Services Professional Name Role Phone SUZIE HERNANDEZ MD PP [phone] Summary purpose TRANSITION OF CARE AUTO GENERATION [...]
--- OUTSIDE RECORDS SUMMARY | 2018-02-03 22:36 | XMS REPORT ---
Author Author [facility] Medical Staff Organization [facility] [facility] Address [address] [place], [place] [address] Phone [phone] Care Team Providers Care Refinery Operator Alkylation Name Role Phone SUZIE HERNANDEZ MD PP [phone] Summary purpose TRANSITION OF CARE AUTO GENERATION [...]
--- OUTSIDE RECORDS SUMMARY | 2018-02-03 22:36 | XMS REPORT ---
Author Author [facility] Medical Staff Organization [facility] Address [address] [place], [place] [address] Phone [phone] Care Team Providers Care Dry Transfer Worker Name Role Phone SUZIE HERNANDEZ MD PP [phone] Summary purpose TRANSITION OF CARE AUTO GENERATION [...]
--- OUTSIDE RECORDS SUMMARY | 2018-02-03 22:36 | XMS REPORT | Clinical Summary ---
Author Author Admin, HERBER Organization [employer] Address Unknown Phone Unavailable Allergies, Adverse Reactions, Alerts Allergy Name Reaction Description Start Date Severity Status Provider BACTRIM Critical Active Viky Mcpherson MD Conditions or Problems Problem Name Problem Code Onset Date Status Entry Date Provider Comment Standard Description Annotate U T I-Recurrent 599.0 Active Viky Mcpherson MD Urinary tract infection, site not specified Incomplete Bladder Emptying 788.21 Active Viky Mcpherson MD Incomplete bladder emptying FH Lung Cancer V16.1 Active Susan Burris CABIN EQUIPMENT SUPERVISOR Family history of malignant neoplasm of trachea, bronchus, and lung Rectal bleeding 569.3 Active Susan Burris CABIN EQUIPMENT SUPERVISOR Hemorrhage of rectum and anus Medication List Medication Instructions Start Date Stop Date Generic Name NDC Status Provider Patient Instruction MAGNESIUM OXIDE 400 MG TABS Take one by mouth daily MAGNESIUM OXIDE 99437142032 No Longer Active Viky Mcpherson MD Active ZOLPIDEM TARTRATE 10 MG TABS 1 tablet by mouth at bedtime as needed for sleep ZOLPIDEM TARTRATE 48818143132 No Longer Active Viky Mcpherson MD Active OXYBUTYNIN CHLORIDE 5 MG TABS Take 1 tablet by mouth twice daily OXYBUTYNIN CHLORIDE 25828436887 No Longer Active Viky Mcpherson MD Active METFORMIN HCL 500 MG TABS 1 tablet by mouth twice daily METFORMIN HCL 21834765127 No Longer Active Viky Mcpherson MD Active OXYBUTYNIN CHLORIDE 5 MG TABS OXYBUTYNIN CHLORIDE 12055900663 No Longer Active Viky Mcpherson MD Active LEVEMIR FLEXPEN 100 UNIT/ML SOLN 7 units SC at bedtime INSULIN DETEMIR 34774223446 Active Susan Burris APRN Active METOPROLOL SUCCINATE 25 MG [id number] 1 pill by mouth twice daily for blood pressure METOPROLOL SUCCINATE 12031856113 Active Susan Burris APRN Active FLUOXETINE HCL 10 MG TABS Take one by mouth daily FLUOXETINE HCL 10815012229 Active Susan Burris APRN Active GLYBURIDE 2.5 MG TAB 1 tablet per day GLYBURIDE 74654987129 No Longer Active Susan Burris APRN Active ENALAPRIL MALEATE 10 MG TABS Take one tablet in the morning. Take two tablets in the evening ENALAPRIL MALEATE 63380839514 Active Viky Mcpherson MD Active ASPIRIN 81 MG TAB 1 tablet by mouth daily ASPIRIN 28444263308 Active Viky Mcpherson MD Active OMEPRAZOLE 20 MG CPDR 1 tablet by mouth daily OMEPRAZOLE 63213025301 Active Viky Mcpherson MD Active SIMVASTATIN 40 MG TABS 1 tab daily at bedtime SIMVASTATIN 46378000096 Active Viky Mcpherson MD Active GLYBURIDE 2.5 MG TAB 1 tablet per day GLYBURIDE 2.5 MG TAB 435774 GLYBURIDE Inactive OXYBUTYNIN CHLORIDE 5 MG TABS OXYBUTYNIN CHLORIDE 5 MG TABS 644926 OXYBUTYNIN CHLORIDE Inactive METFORMIN HCL 500 MG TABS 1 tablet by mouth twice daily METFORMIN HCL 500 MG TABS 569770 METFORMIN HCL Inactive OXYBUTYNIN CHLORIDE 5 MG TABS Take 1 tablet by mouth twice daily OXYBUTYNIN CHLORIDE 5 MG TABS 331198 OXYBUTYNIN CHLORIDE Inactive ZOLPIDEM TARTRATE 10 MG TABS 1 tablet by mouth at bedtime as needed for sleep ZOLPIDEM TARTRATE 10 MG TABS 708570 ZOLPIDEM TARTRATE Inactive MAGNESIUM OXIDE 400 MG TABS Take one by mouth daily MAGNESIUM OXIDE 400 MG TABS 903134 MAGNESIUM OXIDE Inactive Vital Signs Date Name Value Unit Range Description blood pressure, diastolic - 8462-4 87 mm[Hg] BP faria blood pressure, systolic - 8480-6 168 mm[Hg] BP sys pulse rate E&M - 8867-4 83 /min Heart rate temperature E&M 98.0 [degF] Body temperature weight E&M - 3141-9 138 [lb_av] Weight Measured Diagnostic Results Date Name Value Unit Range Description Office Visit: Consult for Chronic Urinary Tract Infections - Chemistry RBC, urine, dipstick non-hemolyzed trace protein, total urine random negative mg/dL Office Visit: Consult for Chronic Urinary Tract Infections - Urinalysis pH, urine, semiquantitative 6 specific gravity, urine 1.015 urinalysis, routine Clean Catch culture status No ketones, urine, by test strip negative bilirubin, urine negative glucose, urine, semiquantitative negative urine color yellow appearance, urine clear leukocyte esterase, urine, by dipstick 1+ nitrite, urine, semiquantitative negative urobilinogen, urine, semiquantitative (dipstick) negative protein, urine, semiquantitative (dipstick) negative Encounters Code Encounter Date Provider Facility CPT-64557 Level 3 Est. Patient 21:12:55 CDT Viky Mcpherson MD [facility] CPT-69209 Level 3 New Patient 16:47:25 CDT Viky Mcpherson MD [facility] Procedures Code Procedure Name Date Entry Date Standard Description CPT-07280 Dil F ureth int 16:47:26 CDT CPT-33328 Bladder Scan 16:47:26 CDT
--- OUTSIDE RECORDS SUMMARY | 2018-02-03 22:36 | XMS REPORT ---
Author Author [facility] Medical [facility] Organization [facility] Address [address] [place], [place] [address] Phone [phone] Care Team Providers Care Spinning Lathe Operator Automatic Name Role Phone SUZIE HERNANDEZ MD PP [phone] Summary purpose TRANSITION OF CARE AUTO GENERATION [...] tests and/or laboratory data RESULTS Routine Urinalysis [id number]:28:00 Result Normal Range Units Color YELLOW Clarity Slighty cloudy Specific [place] 1.025 1.003-1.035 pH 6.0 4.5-8.0 Glucose 2+ Bilirubin NEGATIVE Ketones NEGATIVE Protein NEGATIVE Urobilinogen 0.2 0-0.2 E.U./dL Nitrites NEGATIVE Blood NEGATIVE Leukocytes NEGATIVE WBCs 10-20 RBCs 0-5 Squamous Epithelial 3+ Bacteria Occasional Routine Cultures [id number]:28:00 Urine Culture Plate Date and Time 09/26/2015 13:08 SourceURINE CULTURE REPORT 10,000 colonies/ml Mixed Gram Pos Zandra Release Date/Time: 09/27/2015 07:29 CULTURE REPORT >100,000 colonies/ml Mixed Gram Pos Zandra Release Date/Time: 09/29/2015 07:52 Body Fluid [id number]:28:00 Result Normal Range Units pH 6.0 4.5-8.0 History of procedures Procedure Code Code Type Description Date Performed Performing Physician 47203 CPT-4 URINALYSIS, AUTO W/SCOPE 09-26-2015 SUZIE HERNANDEZ 13900 CPT-4 URINE CULTURE/COLONY COUNT 09-26-2015 SUZIE HERNANDEZ Functional status No functional or [...]
--- OUTSIDE RECORDS SUMMARY | 2018-02-03 22:37 | XMS REPORT | Clinical Summary ---
Author Author Admin, HERBER Organization [facility] Address Unknown Phone Unavailable Allergies, Adverse Reactions, [...] FH Lung Cancer V16.1 Active Susan Burris APRN Family history of malignant neoplasm of trachea, bronchus, and lung Rectal bleeding 569.3 Active Susan Burris APRN Hemorrhage of rectum and anus Medication List Medication Instructions Start Date Stop Date Generic Name NDC Status Provider Patient Instruction LEVEMIR FLEXPEN 100 UNIT/ML SOLN 7 units SC at bedtime INSULIN DETEMIR 56781417728 Active Ssuan Burris APRN Active MAGNESIUM OXIDE 400 MG TABS Take one by mouth daily MAGNESIUM OXIDE 21394272000 Active Susan Burris APRN Active METOPROLOL SUCCINATE 25 MG [id number] 1 pill by mouth twice daily for blood pressure METOPROLOL SUCCINATE 66715258650 Active Susan Wrenl AUTOMOTIVE PARTS SPECIALIST Active FLUOXETINE HCL 10 MG TABS Take one by mouth daily FLUOXETINE HCL 10980373169 Active Susan Burris APRN Active GLYBURIDE 2.5 MG TAB 1 tablet per day GLYBURIDE 51472623216 No Longer Active Susan Burris APRN Active OXYBUTYNIN CHLORIDE 5 MG TABS OXYBUTYNIN CHLORIDE 09899361272 Active Viky Mcpherson MD Active ENALAPRIL MALEATE 10 MG TABS Take one tablet in the morning. Take two tablets in the evening ENALAPRIL MALEATE 19115385380 Active Viky Mcpherson MD Active ZOLPIDEM TARTRATE 10 MG TABS 1 tablet by mouth at bedtime as needed for sleep ZOLPIDEM TARTRATE 52731722931 Active Viky Mcpherson MD Active OXYBUTYNIN CHLORIDE 5 MG TABS Take 1 tablet by mouth twice daily OXYBUTYNIN CHLORIDE 48943689634 Active Viky Mcpherson MD Active METFORMIN HCL 500 MG TABS 1 tablet by mouth twice daily METFORMIN HCL 01206734752 Active Viky Mcpherson MD Active ASPIRIN 81 MG TAB 1 tablet by mouth daily ASPIRIN 48789904740 Active Viky Mcpherson MD Active OMEPRAZOLE 20 MG CPDR 1 tablet by mouth daily OMEPRAZOLE 43113959482 Active Viky Mcpherson MD Active SIMVASTATIN 40 MG TABS 1 tab daily at bedtime SIMVASTATIN 52754095442 Active Viky Mcpherson MD Active GLYBURIDE 2.5 MG TAB 1 tablet per day GLYBURIDE 2.5 MG TAB 267615 GLYBURIDE Inactive Vital Signs Date Name Value Unit Range Description blood pressure, diastolic - 8462-4 74 mm[Hg] BP faria blood pressure, systolic - 8480-6 154 mm[Hg] BP sys pulse rate E&M - 8867-4 61 /min Heart rate temperature E&M 98.5 [degF] Body temperature weight E&M - 3141-9 138 [lb_av] Weight Measured blood pressure, diastolic - 8462-4 92 mm[Hg] BP faria blood pressure, systolic - 8480-6 189 mm[Hg] BP sys height E&M - 8302-2 59 [in_us] Bdy height pulse rate E&M - 8867-4 65 /min Heart rate temperature E&M 99.2 [degF] Body temperature weight E&M - 3141-9 141 [lb_av] Weight Measured Diagnostic Results Date Name Value Unit Range Description Office Visit: ACUTE CYSTITIS - Chemistry RBC, urine, dipstick negative protein, total urine random negative mg/dL Office Visit: ACUTE CYSTITIS - Urinalysis urinalysis, routine Clean Catch ketones, urine, by test strip negative bilirubin, urine negative glucose, urine, semiquantitative negative pH, urine, semiquantitative 5 specific gravity, urine 1.010 urine color yellow appearance, urine clear leukocyte esterase, urine, by dipstick negative nitrite, urine, semiquantitative negative urobilinogen, urine, semiquantitative (dipstick) negative protein, urine, semiquantitative (dipstick) negative Encounters Code Encounter Date Provider Facility CPT-54400 Level 3 New Patient 16:47:25 CDT J Max Mcpherson MD [facility] Procedures Code Procedure Name Date Entry Date Standard Description CPT-61454 Dil F ureth int 16:47:26 CDT CPT-72925 Bladder Scan 16:47:26 CDT
--- OUTSIDE RECORDS SUMMARY | 2018-02-03 22:37 | XMS REPORT ---
Author Author [facility] Medical Staff Organization [facility] Address [address] [place], [place] [address] Phone [phone] Care Team Providers Care Jumpbasting Lining Baster Name Role Phone SUZIE HERNANDEZ MD PP [phone] Summary purpose TRANSITION OF CARE AUTO GENERATION [...]
--- OUTSIDE RECORDS SUMMARY | 2018-02-03 22:37 | XMS REPORT ---
Author Author [facility] Medical Staff Organization [facility] Address [address] [place], [place] [address] Phone [phone] Care Team Providers Care Energy Systems Engineer Name Role Phone DAVID VARELA, SUZIE PP [phone] Summary purpose TRANSITION OF CARE AUTO GENERATION [...] diagnostic tests and/or laboratory data RESULTS Chemistry [id number]:06:00 Result Normal Range Units Potassium 4.9 3.5-5.1 mEq/l History of procedures No procedures recorded for [...]
--- OUTSIDE RECORDS SUMMARY | 2018-02-03 22:37 | XMS REPORT ---
Author Author [facility] Medical Staff Organization [place] [facility] Address [address] [place], [place] [address] Phone [phone] Care Team Providers Care Case Assembler Name Role Phone SUZIE HERNANDEZ MD PP [phone] Summary purpose TRANSITION OF CARE AUTO GENERATION [...]
--- OUTSIDE RECORDS SUMMARY | 2018-02-03 22:37 | XMS REPORT | Clinical Summary ---
Author Author Admin, HERBER Organization [facility] Address Unknown Phone Unavailable Allergies, Adverse Reactions, [...] Active Viky Mcpherson MD Incomplete bladder emptying Medication List Medication Instructions Start Date Stop Date Generic Name [facility] Status Provider Patient Instruction OXYBUTYNIN CHLORIDE 5 MG TABS OXYBUTYNIN CHLORIDE 28576726081 Active Viky Mcpherson MD Active ENALAPRIL MALEATE 10 MG TABS Take one tablet in the morning. Take two tablets in the evening ENALAPRIL MALEATE 61840308989 Active Viky Mcpherson MD Active ZOLPIDEM TARTRATE 10 MG TABS 1 tablet by mouth at bedtime as needed for sleep ZOLPIDEM TARTRATE 07081039487 Active Viky Mcpherson MD Active OXYBUTYNIN CHLORIDE 5 MG TABS Take 1 tablet by mouth twice daily OXYBUTYNIN CHLORIDE 33515179946 Active Viky Mcpherson MD Active GLYBURIDE 2.5 MG TAB 1 tablet per day GLYBURIDE 54929555398 Active Viky Mcpherson MD Active METFORMIN HCL 500 MG TABS 1 tablet by mouth twice daily METFORMIN HCL 85397153398 Active Viky Mcpherson MD Active ASPIRIN 81 MG TAB 1 tablet by mouth daily ASPIRIN 97003944332 Active Viky Mcpherson MD Active OMEPRAZOLE 20 MG CPDR 1 tablet by mouth daily OMEPRAZOLE 87826241147 Active Viky Mcpherson MD Active SIMVASTATIN 40 MG TABS 1 tab daily at bedtime SIMVASTATIN 33682050747 Active J Max Mcpherson MD Active Vital Signs Date Name Value Unit Range Description blood pressure, diastolic - 8462-4 92 mm[Hg] [...] negative Encounters Code Encounter Date Provider Facility CPT-53024 Level 3 New Patient 16:47:25 CDT Viky Mcpherson MD [facility] Procedures Code Procedure Name Date Entry Date Standard Description CPT-46742 Dil F ureth int 16:47:26 CDT CPT-96599 Bladder Scan 16:47:26 CDT
--- OUTSIDE RECORDS SUMMARY | 2018-02-03 22:37 | XMS REPORT ---
Author Author [employer] [facility] Medical Staff Organization [place] [facility] [facility] Address [address] [place], [place] [address] Phone [phone] Care Team Providers Care Software Developer Manager Name Role Phone SUZIE HERNANDEZ MD PP [phone] Summary purpose TRANSITION OF CARE AUTO GENERATION [...]
--- OUTSIDE RECORDS SUMMARY | 2018-02-03 22:37 | XMS REPORT ---
Author Author [facility] Medical Staff Organization [facility] Address [address] [place], [place] [address] Phone [phone] Care Team Providers Care Customer Operations Manager Name Role Phone SUZIE HERNANDEZ MD PP [phone] Summary purpose TRANSITION OF CARE AUTO GENERATION [...]
--- OUTSIDE RECORDS SUMMARY | 2018-02-03 22:37 | XMS REPORT | Clinical Summary ---
Author Author Admin, HERBER Organization [facility] Address Unknown Phone Unavailable Allergies, Adverse [...] 7 units SC at bedtime INSULIN DETEMIR 28712464569 Active Susan Burris APRN Active MAGNESIUM OXIDE 400 MG TABS Take one by mouth daily MAGNESIUM OXIDE 02725080029 Active Susan Burris APRN Active METOPROLOL SUCCINATE 25 MG [id number] 1 pill by mouth twice daily for blood pressure METOPROLOL SUCCINATE 80574740918 Active Susan Wrenl SCHOOL OCCUPATIONAL THERAPIST Active FLUOXETINE HCL 10 MG TABS Take one by mouth daily FLUOXETINE HCL 44494750808 Active Susan Burris APRN Active GLYBURIDE 2.5 MG TAB 1 tablet per day GLYBURIDE 55359348297 No Longer Active Susan Burris APRN Active OXYBUTYNIN CHLORIDE 5 MG TABS OXYBUTYNIN CHLORIDE 78388757601 Active Viky Mcphersno MD Active ENALAPRIL MALEATE 10 MG TABS Take one tablet in the morning. Take two tablets in the evening ENALAPRIL MALEATE 99634906643 Active Viky Mcpherson MD Active ZOLPIDEM TARTRATE 10 MG TABS 1 tablet by mouth at bedtime as needed for sleep ZOLPIDEM TARTRATE 67700950837 Active Viky Mcpherson MD Active OXYBUTYNIN CHLORIDE 5 MG TABS Take 1 tablet by mouth twice daily OXYBUTYNIN CHLORIDE 82783666161 Active Viky Mcpherson MD Active METFORMIN HCL 500 MG TABS 1 tablet by mouth twice daily METFORMIN HCL 43361971529 Active Viky Mcpherson MD Active ASPIRIN 81 MG TAB 1 tablet by mouth daily ASPIRIN 26440239912 Active Viky Mcpherson MD Active OMEPRAZOLE 20 MG CPDR 1 tablet by mouth daily OMEPRAZOLE 21372711638 Active Viky Mcpherson MD Active SIMVASTATIN 40 MG TABS 1 tab daily at bedtime SIMVASTATIN 64367338241 Active Viky Mcpherson MD Active GLYBURIDE 2.5 MG TAB 1 tablet per day GLYBURIDE 2.5 MG TAB 291147 GLYBURIDE Inactive Vital Signs Date Name Value Unit Range Description blood pressure, diastolic 74 mm[Hg] BP faria blood pressure, systolic 154 mm[Hg] BP sys pulse rate E&M 61 /min Heart rate temperature E&M 98.5 [degF] Body temperature weight E&M 138 [lb_av] Weight Measured blood pressure, diastolic 92 mm[Hg] BP faria blood pressure, systolic 189 mm[Hg] BP sys height E&M 59 [in_us] Bdy height pulse rate E&M 65 /min Heart rate temperature E&M 99.2 [degF] Body temperature weight E&M 141 [lb_av] Weight Measured Diagnostic Results Date [...] negative Encounters Code Encounter Date Provider Facility CPT-06231 Level 3 New Patient 16:47:25 CDT J Max Mcpherson MD [facility] Procedures Code Procedure Name Date Entry Date Standard Description CPT-78593 Dil F ureth int 16:47:26 CDT CPT-79780 Bladder Scan 16:47:26 CDT
--- OUTSIDE RECORDS SUMMARY | 2018-02-03 22:37 | XMS REPORT ---
Author Author [facility] Medical Staff Organization [facility] Address [address] [place], [place] [address] Phone [phone] Care Team Providers Care Buckle Sewer Name Role Phone SUZIE HERNANDEZ MD PP [phone] Summary purpose TRANSITION OF CARE AUTO GENERATION [...]
--- OUTSIDE RECORDS SUMMARY | 2018-02-03 22:37 | XMS REPORT | Clinical Summary ---
Author Author Admin, HERBER Organization [facility] Address Unknown Phone Unavailable Allergies, Adverse Reactions, [...] 7 units SC at bedtime INSULIN DETEMIR 36386130932 Active Susan Burris APRN Active MAGNESIUM OXIDE 400 MG TABS Take one by mouth daily MAGNESIUM OXIDE 36050265940 Active Susan Burris APRN Active METOPROLOL SUCCINATE 25 MG [id number] 1 pill by mouth twice daily for blood pressure METOPROLOL SUCCINATE 11918862321 Active Susan Wrenl CATTLE CARE WORKER Active FLUOXETINE HCL 10 MG TABS Take one by mouth daily FLUOXETINE HCL 82282004975 Active Susan Burris APRN Active GLYBURIDE 2.5 MG TAB 1 tablet per day GLYBURIDE 63231865773 No Longer Active Susan Burris APRN Active OXYBUTYNIN CHLORIDE 5 MG TABS OXYBUTYNIN CHLORIDE 41876302909 Active Viky Mcpherson MD Active ENALAPRIL MALEATE 10 MG TABS Take one tablet in the morning. Take two tablets in the evening ENALAPRIL MALEATE 35475067007 Active Viky Mcpherson MD Active ZOLPIDEM TARTRATE 10 MG TABS 1 tablet by mouth at bedtime as needed for sleep ZOLPIDEM TARTRATE 71638423513 Active Viky Mcpherson MD Active OXYBUTYNIN CHLORIDE 5 MG TABS Take 1 tablet by mouth twice daily OXYBUTYNIN CHLORIDE 50592681425 Active Viky Mcpherson MD Active METFORMIN HCL 500 MG TABS 1 tablet by mouth twice daily METFORMIN HCL 82999665534 Active Viky Mcpherson MD Active ASPIRIN 81 MG TAB 1 tablet by mouth daily ASPIRIN 01635923421 Active Viky Mcpherson MD Active OMEPRAZOLE 20 MG CPDR 1 tablet by mouth daily OMEPRAZOLE 82322129098 Active Viky Mcpherson MD Active SIMVASTATIN 40 MG TABS 1 tab daily at bedtime SIMVASTATIN 28027087108 Active Viky Mcpherson MD Active GLYBURIDE 2.5 MG TAB 1 tablet per day GLYBURIDE 2.5 MG TAB 959396 GLYBURIDE Inactive Vital Signs Date Name Value [...] negative Encounters Code Encounter Date Provider Facility CPT-74966 Level 3 New Patient 16:47:25 CDT J Max Mcpherson MD [facility] Procedures Code Procedure Name Date Entry Date Standard Description CPT-07021 Dil F ureth int 16:47:26 CDT CPT-77499 Bladder Scan 16:47:26 CDT
--- OUTSIDE RECORDS SUMMARY | 2018-02-03 22:38 | XMS REPORT | Clinical Summary ---
Author Author Admin, HERBER Organization [facility] Address Unknown Phone Unavailable Allergies, Adverse Reactions, [...] 7 units SC at bedtime INSULIN DETEMIR 03483230185 Active Susan Burris APRN Active MAGNESIUM OXIDE 400 MG TABS Take one by mouth daily MAGNESIUM OXIDE 51644653652 Active Susan Burris APRN Active METOPROLOL SUCCINATE 25 MG [id number] 1 pill by mouth twice daily for blood pressure METOPROLOL SUCCINATE 38742822041 Active Susan Wrenl EXPERIMENTAL PLASTICS FABRICATOR Active FLUOXETINE HCL 10 MG TABS Take one by mouth daily FLUOXETINE HCL 89482332576 Active Susan Burris APRN Active GLYBURIDE 2.5 MG TAB 1 tablet per day GLYBURIDE 00061471256 No Longer Active Susan Burris APRN Active OXYBUTYNIN CHLORIDE 5 MG TABS OXYBUTYNIN CHLORIDE 38836616167 Active Viky Mcpherson MD Active ENALAPRIL MALEATE 10 MG TABS Take one tablet in the morning. Take two tablets in the evening ENALAPRIL MALEATE 95836849667 Active Viky Mcpherson MD Active ZOLPIDEM TARTRATE 10 MG TABS 1 tablet by mouth at bedtime as needed for sleep ZOLPIDEM TARTRATE 24663986314 Active Viky Mcpherson MD Active OXYBUTYNIN CHLORIDE 5 MG TABS Take 1 tablet by mouth twice daily OXYBUTYNIN CHLORIDE 04402156644 Active Viky Mcpherson MD Active METFORMIN HCL 500 MG TABS 1 tablet by mouth twice daily METFORMIN HCL 02086472259 Active Viky Mcpherson MD Active ASPIRIN 81 MG TAB 1 tablet by mouth daily ASPIRIN 12193869958 Active Viky Mcpherson MD Active OMEPRAZOLE 20 MG CPDR 1 tablet by mouth daily OMEPRAZOLE 01838890774 Active Viky Mcpherson MD Active SIMVASTATIN 40 MG TABS 1 tab daily at bedtime SIMVASTATIN 91977014074 Active Viky Mcpherson MD Active GLYBURIDE 2.5 MG TAB 1 tablet per day GLYBURIDE 2.5 MG TAB 097645 GLYBURIDE Inactive Vital Signs Date Name Value [...] negative Encounters Code Encounter Date Provider Facility CPT-00631 Level 3 New Patient 16:47:25 CDT J Max Mcpherson MD [facility] Procedures Code Procedure Name Date Entry Date Standard Description CPT-05773 Dil F ureth int 16:47:26 CDT CPT-40331 Bladder Scan 16:47:26 CDT
--- OUTSIDE RECORDS SUMMARY | 2018-02-03 22:38 | XMS REPORT ---
Author Author [facility] Medical Staff Organization [facility] Address [address] [place], [place] [address] Phone [phone] Care Team Providers Care Shingle Bolt Cutter Name Role Phone SUZIE HERNANDEZ MD PP [phone] Summary purpose TRANSITION OF CARE AUTO GENERATION [...]
--- OUTSIDE RECORDS SUMMARY | 2018-02-03 22:38 | XMS REPORT ---
Author Author [facility] Medical Staff Organization [facility] Address [address] [place], [place] [address] Phone [phone] Care Team Providers Care Wind Development Director Name Role Phone SUZIE HERNANDEZ MD PP [phone] Summary purpose TRANSITION OF CARE AUTO GENERATION [...]
--- OUTSIDE RECORDS SUMMARY | 2018-02-03 22:38 | XMS REPORT ---
Author Author [facility] Organization [facility] Address [address] [place], [place] [address] Phone [phone] Care Team Providers Care Dealer Card Room Name Role Phone SUZIE HERNANDEZ MD PP [phone] Summary purpose TRANSITION OF CARE AUTO GENERATION Chief Complaint and Reason for Visit Admit Diagnosis 1 COLONOSCOPY Problem list No authorized problems tracked for continuity of care are available for this visit. Encounters The following conditions tracked for encounter diagnoses were recorded for this visit: Finding or Diagnosis Status Certainty Chronicity Onset *COLONOSCOPY Active Medications Home Medications Medication Directions Started Status Source oxybutynin chloride 5 mg Tab 5 mg Oral 2 Times Daily Current Medication bottle label omeprazole 20 mg Cap, delayed release 20 mg Oral 1 Daily Current Medication bottle label enalapril maleate 20 mg Tab 20 mg Oral 1 Daily Current Medication bottle label simvastatin 40 mg Tab 40 mg Oral At Bed Time Current Doctor's office zolpidem 10 mg tablet 10 mg Oral At Bed Time Current Doctor's office aspirin 81 mg tablet 1 tablet Oral 1 Daily Current Doctor's office magnesium oxide 400 mg tablet 400 mg Oral 2 Times Daily Current Doctor' s office multivitamin tablet 1 tablet Oral 1 Daily Current Doctor's office Vitamin D3 400 unit tablet 2 tablet Oral 1 Daily Current Doctor's office Fish Oil Concentrate 1,000 mg capsule 1 capsule Oral 3 Times Daily Current Doctor's office Xanax 0.25 mg tablet 0.25 mg Oral PRN 3 Times A Day Current Doctor's office glyburide 2.5 mg tablet 2.5 mg Oral 1 Daily Current Doctor's office enalapril maleate 10 mg tablet 1 tablet oral 1 Daily Current metoprolol tartrate 25 mg tablet 1/2 tablet oral 2 Times Daily Current Patient recall Levemir 100 unit/mL subcutaneous solution 7 units subQ At Bed Time Current Allergies, adverse reactions, alerts Allergen Category Ingredient [...] Correct Dev glasses :22 Ambulation Asst Dev none :22 Range of Motion full :40 Muscle Strength RUE 5 ROM full resist :40 Muscle Strength RLE 5 ROM full resist :40 Muscle Strength LUE 5 ROM full resist :40 Muscle Strength LLE 5 ROM full resist :40 Transfers assist x 1 :40 Ambulation in room :40 Balance unsteady :40 Bathing Assistance none :22 Eating Assistance none :22 Dressing Assistance none :22 Toileting Assistance none :22 Transfer Assistance none :22 Decline Slf Care/Mob no :22 Phys Cond Stable yes :22 Cognitive Status Finding Observation Time Learning Ability comprehends well :30 Neurological no :30 Psychological no :30 Physical no :30 Hearing no :30 Manager Call Center Needed no :30 Sign Language no :30 Emotional no :30 Vision yes :30 Laguage no :30 Financial no :30 Vital signs Type Value Date Respiration Rate 20breaths per minute :30 Pulse 53beats per minute :30 Oxygen Saturation 98% :30 BP Systolic 161mmHg :30 BP Diastolic 66mmHg 69-88-491151:30 Temperature 97.5F 63-15-245021:40 Height 60inches :18 Weight 140LB :18 Social history Type Value Smoking Status NEVER SMOKER Treatment Plan No treatment plan text is available for this visit. Hospital discharge instructions Valuables no
--- OUTSIDE RECORDS SUMMARY | 2018-02-03 22:38 | XMS REPORT ---
Author Author [facility] Medical Staff Organization [facility] Address [address] [place], [place] [address] Phone [phone] Care Team Providers Care Shell Core And Molding Supervisor Name Role Phone SUZIE HERNANDEZ MD PP [phone] Summary purpose TRANSITION OF CARE AUTO GENERATION [...]
--- OUTSIDE RECORDS SUMMARY | 2018-02-03 22:38 | XMS REPORT ---
Author Author [facility] Medical Staff Organization [facility] Address [address] [place], [place] [address] Phone [phone] Care Team Providers Care Automotive Generator Repairer Name Role Phone DAVID VARELA, SUZIE PP [phone] Summary purpose TRANSITION OF CARE AUTO GENERATION Chief Complaint and Reason for Visit Admit Diagnosis 1 HYPERPOTASSEMIA Problem list No authorized problems tracked for [...] diagnostic tests and/or laboratory data RESULTS Chemistry [id number] Result Normal Range Units Potassium 4.9 3.5-5.1 mEq/l History of procedures Procedure Code Code Type Description Date Performed Performing Physician [id number] CPT-4 ASSAY OF SERUM POTASSIUM 03-11-2014 MARTHA JOHNSTON Functional status No functional or [...]
--- OUTSIDE RECORDS SUMMARY | 2018-02-03 22:38 | XMS REPORT | Clinical Summary ---
Author Author Admin, HERBER Organization [facility] Address Unknown Phone Unavailable Allergies, Adverse [...] 7 units SC at bedtime INSULIN DETEMIR 59368017928 Active Susan Burris APRN Active MAGNESIUM OXIDE 400 MG TABS Take one by mouth daily MAGNESIUM OXIDE 26808068841 Active Susan Burris APRN Active METOPROLOL SUCCINATE 25 MG [id number] 1 pill by mouth twice daily for blood pressure METOPROLOL SUCCINATE 14423959073 Active Susan Wrenl COMPUTER TERMINAL OPERATOR Active FLUOXETINE HCL 10 MG TABS Take one by mouth daily FLUOXETINE HCL 03525455003 Active Susan Burris APRN Active GLYBURIDE 2.5 MG TAB 1 tablet per day GLYBURIDE 63207168487 No Longer Active Susan Burris APRN Active OXYBUTYNIN CHLORIDE 5 MG TABS OXYBUTYNIN CHLORIDE 99817244377 Active Viky Mcpherson MD Active ENALAPRIL MALEATE 10 MG TABS Take one tablet in the morning. Take two tablets in the evening ENALAPRIL MALEATE 55368193512 Active Viky Mcpherson MD Active ZOLPIDEM TARTRATE 10 MG TABS 1 tablet by mouth at bedtime as needed for sleep ZOLPIDEM TARTRATE 25021443005 Active Viky Mcpherson MD Active OXYBUTYNIN CHLORIDE 5 MG TABS Take 1 tablet by mouth twice daily OXYBUTYNIN CHLORIDE 27613745312 Active Viky Mcpherson MD Active METFORMIN HCL 500 MG TABS 1 tablet by mouth twice daily METFORMIN HCL 10065746237 Active Viky Mcpherson MD Active ASPIRIN 81 MG TAB 1 tablet by mouth daily ASPIRIN 92980102835 Active Viky Mcpherson MD Active OMEPRAZOLE 20 MG CPDR 1 tablet by mouth daily OMEPRAZOLE 58734036516 Active Viky Mcpherson MD Active SIMVASTATIN 40 MG TABS 1 tab daily at bedtime SIMVASTATIN 82073614051 Active Viky Mcpherson MD Active GLYBURIDE 2.5 MG TAB 1 tablet per day GLYBURIDE 2.5 MG TAB 058741 GLYBURIDE Inactive Vital Signs Date Name Value [...] negative Encounters Code Encounter Date Provider Facility CPT-01919 Level 3 New Patient 16:47:25 CDT J Max Mcpherson MD [facility] Procedures Code Procedure Name Date Entry Date Standard Description CPT-25666 Dil F ureth int 16:47:26 CDT CPT-15175 Bladder Scan 16:47:26 CDT
--- OUTSIDE RECORDS SUMMARY | 2018-02-03 22:38 | XMS REPORT ---
Author Author [facility] Medical Staff Organization [facility] Address [address] [place], [place] [address] Phone [phone] Care Team Providers Care Instructional Technologist Name Role Phone SUZIE HERNANDEZ MD PP [phone] Summary purpose TRANSITION OF CARE AUTO GENERATION [...]
--- OUTSIDE RECORDS SUMMARY | 2018-02-03 22:38 | XMS REPORT ---
Author Author [facility] Medical Staff Organization [facility] Address [address] [place], [place] [address] Phone [phone] Care Team Providers Care Bus Operator Name Role Phone SUZIE HERNANDEZ MD PP [phone] Summary purpose TRANSITION OF CARE AUTO GENERATION [...]
--- OUTSIDE RECORDS SUMMARY | 2018-02-03 22:39 | XMS REPORT | Continuity of Care Document ---
Author Author [facility] Organization [facility] Address Unknown Phone Unavailable Allergies Active Description Code Type Severity Reaction Onset Reported/Identified Relationship to Patient Clinical Status Yes Bactrim 5086 Drug Allergy Unknown N/A Yes Januvia 160352 Drug Allergy Unknown N/A Yes Keflex 6608 Drug Allergy Unknown N/A Yes Metformin 4534 Drug Allergy Unknown N/A Yes Bactrim 5086 Drug Allergy N/A N/A Yes metformin 4534 Drug Allergy N/ A N/A Confirmed or Verified Yes NKDA NKDA Drug Allergy N/A N/A Confirmed but inactive Yes sulfamethoxazole 2827 Drug Allergy N/A N/A Confirmed or Verified Yes trimethoprim 2873 Drug Allergy N/A N/A Confirmed or Verified Yes Bactrim Drug N/A N /A Yes Januvia Drug Mild N/A Yes metFORMIN Drug Severe N/A Yes DIABETIC ADIEB Food Allergy N/ A N/A 03/16/2005 Yes NO KNOWN ALLERGY ANKA Miscellaneous Allergy N/A N/A 03/16/2005 Yes Keflex Drug N/A [id number] 01/14/2016 Medications Medication Packaging Start Date Stop Date Route Dosage Sig MECLIZINE 10/03/2017 10/07/2017 TIDPRN HEPARIN (PORCINE) 5000 UNIT/ML 10/03/2017 PRN HEPARIN (PORCINE)-0.45% NACL 10/03/2017 TITRATE ACETAMINOPHEN 10/03/2017 10/03/2017 Q4HPRN MORPHINE 10/03/2017 PRNACS ONDANSETRON HCL 10/03/2017 10/03/2017 Q6HPRN NITROGLYCERIN IN D5W 10/03/2017 10/07/2017 PRNIV ASPIRIN EC 10/03/2017 10/03/2017 0700 glyBURIDE 10/03/2017 10/07/2017 0700 INSULIN NOVOLOG 10/03/2017 10/07/2017 TIDWM PIPERACILLIN-TAZOBACTAM 201710/04/2017 Q6H ENALAPRIL MALEATE 10/03/2017 10/07/2017 QD FAMOTIDINE 10/03/2017 10/07/2017 BID FLUoxetine 10/03/2017 10/07/2017 QD SODIUM CHLORIDE 0.9 % 10/03/2017 10/07/2017 PRNIV METOPROLOL SUCCINATE 10/03/2017 10/07/2017 QD ACETAMINOPHEN 10/03/2017 10/06/2017 Q4HPRN ONDANSETRON HCL 10/03/2017 10/07/2017 Q6HPRN CLOPIDOGREL 10/03/2017 10/03/2017 ONCE ASPIRIN 10/03/2017 0700 ATORVASTATIN 10/03/2017 10/07/2017 HS SIMVASTATIN 10/03/2017 10/03/2017 HS INSULIN LEVEMIR 10/03/2017 10/07/2017 HS INSULIN NOVOLOG 10/03/2017 10/03/2017 ONCE SODIUM CHLORIDE 0.9 % 10/04/2017 10/07/2017 PRNIV CLOPIDOGREL 10/04/2017 10/07/2017 QD PIPERACILLIN-TAZOBACTAM 201710/07/2017 Q6H ACETAMINOPHEN 10/06/2017 10/07/2017 Q4HPRN ONDANSETRON HCL 10/06/2017 10/06/2017 Q6HPRN CLOPIDOGREL 10/06/2017 10/06/2017 ONCE ASPIRIN 10/06/2017 0700 METOPROLOL TARTRATE 10/06/2017 10/06/2017 ONCE ALBUTEROL SULFATE 10/07/2017 10/07/2017 PRN FUROSEMIDE 10/07/2017 10/07/2017 ONCE amLODIPine 10/07/2017 10/07/2017 ONCE CLOPIDOGREL 10/07/2017 10/06/2017 QD Problems Date Dx Coded Attending Type Code Diagnosis Diagnosed By 07/08/2013 KARLEE ELIZONDO 309.28 ADJUST DIS-ANXIETY/DEPR 07/08/2013 CARO KARLEE D 309.28 ADJUST DIS-ANXIETY/DEPR 08/29/2013 CARO, KARLEE D 309.28 ADJUST DIS-ANXIETY/DEPR 09/13/2013 CARO KARLEE D 309.28 ADJUST DIS-ANXIETY/DEPR 06/15/2014 CARO KARLEE D 309.28 ADJUST DIS-ANXIETY/DEPR 11/26/2014 KARLEE ELIZONDO 309.28 ADJUST DIS-ANXIETY/DEPR 02/12/2015 KARLEE ELIZONDO 309.28 ADJUST DIS-ANXIETY/DEPR Procedures Code Description [place] [address] [place] HEAD/BRAIN W/O DYE 07/08/2013 81229 COMPLETE CBC W/AUTO DIFF WBC 07/08/2013 G0001 SPECIMEN COLLECTION 07/08/2013 J2550 PROMETHAZIEN 25MG/ML 07/08/[address] HEAD/BRAIN W/O DYE 07/08/2013 06150 COMPLETE CBC W/AUTO DIFF WBC 07/08/2013 G0001 SPECIMEN COLLECTION 07/08/2013 J2550 PROMETHAZIEN 25MG/ML 07/08/[address] HEAD/BRAIN W/O DYE 08/29/2013 88982 COMPLETE CBC W/AUTO DIFF WBC 08/29/2013 G0001 SPECIMEN COLLECTION 08/29/2013 J2550 PROMETHAZIEN 25MG/ML 08/29/[address] HEAD/BRAIN W/O DYE 10/01/2013 07508 COMPLETE CBC W/AUTO DIFF WBC 10/01/2013 G0001 SPECIMEN COLLECTION 10/01/2013 J2550 PROMETHAZIEN 25MG/ML 10/01/[address] HEAD/BRAIN W/O DYE 10/21/2013 18694 COMPLETE CBC W/AUTO DIFF WBC 10/21/2013 G0001 SPECIMEN COLLECTION 10/21/2013 J2550 PROMETHAZIEN 25MG/ML 10/21/[address] HEAD/BRAIN W/O DYE 10/21/2013 03195 COMPLETE CBC W/AUTO DIFF WBC 10/21/2013 G0001 SPECIMEN COLLECTION 10/21/2013 J2550 PROMETHAZIEN 25MG/ML 10/21/[address] HEAD/BRAIN W/O DYE 11/26/2014 08499 COMPLETE CBC W/AUTO DIFF WBC 11/26/2014 G0001 SPECIMEN COLLECTION 11/26/2014 J2550 PROMETHAZIEN 25MG/ML 11/26/[address] HEAD/BRAIN W/O DYE 02/17/2015 07803 COMPLETE CBC W/AUTO DIFF WBC 02/17/2015 G0001 SPECIMEN COLLECTION 02/17/2015 J2550 PROMETHAZIEN 25MG/ML 02/17/2015 56647 URINALYSIS, AUTO W/SCOPE 09/26/2015 67088 URINE CULTURE/COLONY COUNT 09/26/[address] HEAD/BRAIN W/O DYE 09/26/2015 64158 COMPLETE CBC W/AUTO DIFF WBC 09/26/2015 G0001 SPECIMEN COLLECTION 09/26/2015 J2550 PROMETHAZIEN 25MG/ML 09/26/[address] HEAD/BRAIN W/O DYE 09/29/2015 52232 COMPLETE CBC W/AUTO DIFF WBC 09/29/2015 G0001 SPECIMEN COLLECTION 09/29/2015 J2550 PROMETHAZIEN 25MG/ML 09/29/2015 72936 ROUTINE VENIPUNCTURE 09/29/[address] HEAD/BRAIN W/O DYE 09/29/2015 15374 CHEST X-RAY 09/29/2015 82755 COMPREHEN METABOLIC PANEL 09/29/2015 04006 URINALYSIS, AUTO W/SCOPE 09/29/2015 31519 ASSAY OF LACTIC ACID 09/29/2015 92625 COMPLETE CBC W/AUTO DIFF WBC 09/29/2015 17731 BLOOD CULTURE FOR BACTERIA 09/29/2015 75055 HYDRATE IV INFUSION, ADD-ON 09/29/2015 26961 THER/PROPH/DIAG IV INF, INIT 09/29/2015 65061 TX/PRO/DX INJ NEW DRUG ADDON 09/29/2015 83186 EMERGENCY DEPT VISIT 09/29/2015 J7120 RINGERS LACTATE INFUSION 09/29/[address] HEAD/BRAIN W/O DYE 09/30/2015 50975 COMPLETE CBC W/AUTO DIFF WBC 09/30/2015 G0001 SPECIMEN COLLECTION 09/30/2015 J2550 PROMETHAZIEN 25MG/ML 09/30/2015 52242 METABOLIC PANEL TOTAL CA 10/15/2015 40493 ASSAY OF MAGNESIUM 10/15/2015 02661 PSYTX PT&/FAMILY 45 MINUTES 11/05/2015 82098 EXTRACRANIAL STUDY 11/06/[address] HEAD/BRAIN W/O DYE 11/06/2015 60272 COMPLETE CBC W/AUTO DIFF WBC 11/06/2015 G0001 SPECIMEN COLLECTION 11/06/2015 J2550 PROMETHAZIEN 25MG/ML 11/06/2015 27039 PSYTX PT&/FAMILY 45 MINUTES 11/06/2015 91456 PSYTX PT&/FAMILY 45 MINUTES 11/13/[address] HEAD/BRAIN W/O DYE 11/25/2015 98687 COMPLETE CBC W/AUTO DIFF WBC 11/25/2015 G0001 SPECIMEN COLLECTION 11/25/2015 J2550 PROMETHAZIEN 25MG/ML 11/25/2015 92420 PSYTX PT&/FAMILY 45 MINUTES 02/27/2016 25175 PSYTX PT&/FAMILY 45 MINUTES 03/26/2016 77360 PSYTX PT&/FAMILY 45 MINUTES 03/26/2016 66735 PSYTX PT&/FAMILY 45 MINUTES 03/26/2016 29925 PSYTX PT&/FAMILY 45 MINUTES 05/20/2016 21922 PSYTX PT&/FAMILY 45 MINUTES 05/20/2016 93718 PSYTX PT&/FAMILY 45 MINUTES 05/20/2016 Results Test Result Range UA - 08/29/13 00:00 PH 7.0 4.5-8.0 SG 1.020 1.003-1.035 UABILI NEGATIVE UABLD 3+ UACOLOR RED UAGLU 1+ UAKET NEGATIVE UALEUK 1+ UANIT NEGATIVE UAURO 0.2 0-0.2 CLARITY CLD PROTEIN 2+ UA WBC R510 UA RBC TNTC SQUAMOUS EPITHELIAL CELLS NOSQUAM BACTERIA 1+ UA - 10/21/13 00:00 PH P7.0 SG 1.010 1.003-1.035 UABILI NEGATIVE UABLD 3+ UACOLOR PINK UAGLU NEGATIVE UAKET NEGATIVE UALEUK 3+ UANIT NEGATIVE UAURO U0.2 CLARITY CLD PROTEIN 1+ UA WBC TNTC UA RBC R2030 SQUAMOUS EPITHELIAL CELLS FEW BACTERIA 2+ K - 03/11/14 00:00 K 4.9 MEQ/L 3.5-5.1 UA - 09/26/15 00:00 PH 6.0 4.5-8.0 SG 1.025 1.003-1.035 UABILI NEGATIVE UABLD NEGATIVE UACOLOR YEL UAGLU 2+ UAKET NEGATIVE UALEUK NEGATIVE UANIT NEGATIVE UAURO 0.2 0-0.2 UCX YES CLARITY SLTCLDY PROTEIN NEGATIVE UA WBC R1020 UA RBC R05 SQUAMOUS EPITHELIAL CELLS 3+ BACTERIA OCC UA - 09/29/15 00:00 PH 5.5 4.5-8.0 SG 1.010 1.003-1.035 UABILI NEGATIVE UABLD NEGATIVE UACOLOR YEL UAGLU 3+ UAKET NEGATIVE UALEUK NEGATIVE UANIT NEGATIVE UAURO 0.2 0-0.2 UCX NO CLARITY CL PROTEIN NEGATIVE UA WBC R05 UA RBC NORBC SQUAMOUS EPITHELIAL CELLS FEW CBC WITH DIFF - 09/29/15 00:00 BASO% 0.8 % 0-2 EOS% 1.5 % 0-7.0 HCT 40.6 % 36.9-47.0 HGB 13.5 G/DL 12.0-16.0 LYMPH% 29.6 % 20-40 MCH 29.5 PG 27-31 MCHC 33.3 G/DL 33-37 MCV 88.6 FL 81-99 MONO% 7.9 % 0-10.0 MPV 11.4 FL 7.3-10.4 NEUTRO% 60.0 % 40-70 PLT 219 10^3u 130-400 RBC 4.6 10^6u 4.2-5.4 RDW 12.3 % 11.5-15.5 WBC 6.0 10^3u 4.8-10.8 NEUTRO# 3.6 10^3u 1.5-7.5 LYMPH# 1.8 10^3u 0.9-4.0 MONO# 0.5 10^3u 0-0.8 EOS# 0.1 10^3u 0-0.6 BASO# 0.1 10^3u 0-0.1 IMM GRANULOCYTE % 0.2 % IMM GRANULOCYTE # 0.0 10^3u 0-5 LACTIC ACID - 09/29/15 00:00 LA 2.8 MMOLL 0.4-2.0 CMP - 09/29/15 00:00 ALB 3.5 G/DL 3.5-5 ALP 79 IU/L 25-72 ALT 17 IU/L 12-65 AST 14 IU/L 10-42 BCR 12.1 10-20 BUN 20 MG/DL 7-18 CA 8.8 MG/DL 8.4-10.2 CL 97 MEQ/L 98-107 CO2 24.8 MEQ/L 22-28 CREA 1.65 MG/DL 0.6-1.0 EGFR 30 eGFR >=60 GLU 650 MG/DL 70-105 K 4.4 MEQ/L 3.5-5.1 NA 132 MEQ/L 134-145 OSMSC 297.8 MOSML 280-300 TBIL 0.3 MG/DL 0.1-1.0 TP 7.7 G/DL 6.0-8.3 Albumin/Globulin Ratio 0.8 0-8 Anion Gap 10.2 8-16 LACTIC ACID - 09/30/15 00:00 LA 1.2 MMOLL 0.4-2.0 CBC WITH DIFF - 09/30/15 00:00 BASO% 0.7 % 0-2 EOS% 1.9 % 0-7.0 HCT 34.7 % 36.9-47.0 HGB 11.6 G/DL 12.0-16.0 LYMPH% 37.7 % 20-40 MCH 29.2 PG 27-31 MCHC 33.4 G/DL 33-37 MCV 87.4 FL 81-99 MONO% 9.4 % 0-10.0 MPV 10.6 FL 7.3-10.4 NEUTRO% 50.1 % 40-70 PLT 195 10^3u 130-400 RBC 4.0 10^6u 4.2-5.4 RDW 12.0 % 11.5-15.5 WBC 5.7 10^3u 4.8-10.8 NEUTRO# 2.9 10^3u 1.5-7.5 LYMPH# 2.2 10^3u 0.9-4.0 MONO# 0.5 10^3u 0-0.8 EOS# 0.1 10^3u 0-0.6 BASO# 0.0 10^3u 0-0.1 IMM GRANULOCYTE % 0.2 % IMM GRANULOCYTE # 0.0 10^3u 0-5 BMP - 09/30/15 00:00 BCR 11.8 10-20 BUN 15 MG/DL 7-18 CA 8.4 MG/DL 8.4-10.2 CL 103 MEQ/L 98-107 CO2 25.8 MEQ/L 22-28 CREA 1.27 MG/DL 0.6-1.0 EGFR 40 eGFR >=60 GLU 229 MG/DL 70-105 K 4.2 MEQ/L 3.5-5.1 NA 136 MEQ/L 134-145 OSMSC 280.0 MOSML 280-300 Anion Gap 7.2 8-16 LACTIC ACID - 09/30/15 00:00 LA 1.4 MMOLL 0.4-2.0 HA1C - 09/30/15 00:00 HA1C 10.0 % 4.5-6.2 CBC WITH DIFF - 10/01/15 00:00 BASO% 0.7 % 0-2 EOS% 2.5 % 0-7.0 HCT 38.3 % 36.9-47.0 HGB 12.7 G/DL 12.0-16.0 LYMPH% 46.4 % 20-40 MCH 30.1 PG 27-31 MCHC 33.2 G/DL 33-37 MCV 90.8 FL 81-99 MONO% 7.9 % 0-10.0 MPV 11.0 FL 7.3-10.4 NEUTRO% 42.2 % 40-70 PLT 196 10^3u 130-400 RBC 4.2 10^6u 4.2-5.4 RDW 12.2 % 11.5-15.5 WBC 6.1 10^3u 4.8-10.8 NEUTRO# 2.6 10^3u 1.5-7.5 LYMPH# 2.8 10^3u 0.9-4.0 MONO# 0.5 10^3u 0-0.8 EOS# 0.2 10^3u 0-0.6 BASO# 0.0 10^3u 0-0.1 IMM GRANULOCYTE % 0.3 % IMM GRANULOCYTE # 0.0 10^3u 0-5 [facility] - 10/01/15 00:00 BCR 13.4 10-20 BUN 15 MG/DL 7-18 CA 8.2 MG/DL 8.4-10.2 CL 106 MEQ/L 98-107 CO2 22.9 MEQ/L 22-28 CREA 1.12 MG/DL 0.6-1.0 EGFR 47 eGFR >=60 GLU 190 MG/DL 70-105 K 4.2 MEQ/L 3.5-5.1 NA 136 MEQ/L 134-145 OSMSC 277.9 MOSML 280-300 Anion Gap 7.1 8-16 MG - 10/15/15 00:00 MG 1.9 MG/DL 1.7-2.8 [facility] - 10/15/15 00:00 BCR 23.2 10-20 BUN 32 MG/DL 7-18 CA 8.6 MG/DL 8.4-10.2 CL 103 MEQ/L 98-107 CO2 25.3 MEQ/L 22-28 CREA 1.38 MG/DL 0.6-1.0 EGFR 37 eGFR >=60 GLU 183 MG/DL 70-105 K 4.6 MEQ/L 3.5-5.1 NA 137 MEQ/L 134-145 OSMSC 285.4 MOSML 280-300 Anion Gap 8.7 8-16 UA - 11/26/15 00:00 PH 6.0 4.5-8.0 SG 1.015 1.003-1.035 UABILI NEGATIVE UABLD 1+ UACOLOR YEL UAGLU NEGATIVE UAKET NEGATIVE UALEUK 3+ UANIT POSITIVE UAURO 0.2 0-0.2 UCX YES CLARITY CLD PROTEIN NEGATIVE UA WBC TNTC UA RBC R510 SQUAMOUS EPITHELIAL CELLS FEW BACTERIA 2+ GLUCOSE, ACCUCHEK - 10/03/17 02:47 GLUCOSE (ACCUCHEK) 174 mg/dl 74- 105 CBC NO DIFF (HEMOGRAM) - 10/03/17 02:48 WBC - WHITE CELL COUNT 8.4 X10(3) uL 4.5-11.0 RBC - RED CELL COUNT 4.53 X10(6) uL 4.20-5.40 PLATELET COUNT 218 X10(3) uL 150-450 HEMOGLOBIN 13.6 g/dl 12.0- 16.0 HEMATOCRIT 40.0 % 38.0- 47.0 MCV 88.3 fL 80.0- 96.0 MCH 30 pg 27-31 MCHC 34.0 % 32.0- 36.0 PTT - 10/03/17 02:48 PTT 45.7 secs 23.0- 33.0 CMP - COMPREHENSIVE METABOLIC PANEL - 10/03/17 02:48 GLUCOSE 152 mg/dl 74- 106 BUN 33 mg/dl 7-18 CREATININE 1.36 mg/dl 0.55- 1.02 SODIUM (NA) 137 mEq/L 136- 146 POTASSIUM, BLOOD 4.0 mEq/L 3.5- 5.1 CHLORIDE 103 mEq/L 98- 107 CO2 (BICARBONATE) 24 mEq/L 21-32 CALCIUM 8.8 mg/dl 8.5- 10.1 ALBUMIN, SERUM 3.5 g/dl 3.4- 5.0 PROTEIN, TOTAL 7.6 g/dl 6.4- 8.2 AST (SGOT) 24 U/L 15-37 ALT (SGPT) 18 U/L 14-59 ALK PHOS 67 U/L 46-116 BILIRUBIN, TOTAL 0.4 mg/dl 0.2- 1.0 eGFR mL/min >=59 CKMB (INCLD. CK, CKMB, INDEX) - 10/03/17 02:48 CPK-CREATINE KINASE 115.00 U/L 26.00 -192.00 CKMB 12.1 ng/ml <= 3.6 CKMB MASS INDEX 10.5 MAGNESIUM - 10/03/17 02:48 MAGNESIUM 1.7 mg/dl 1.8- 2.4 LIPID PANEL - 10/03/17 02:48 CHOLESTEROL 183 mg/dl <=199 HDL CHOLESTEROL 27 mg/dl 40-60 TRIGLYCERIDES 169 mg/dl <=200 LDL, CALCULATED 122.2 mg/dl 0.0- 99.0 VLDL, CALCULATED 33.8 mg/dl 0.0- 130.0 CARDIAC RISK 7 TROPONIN-I - 10/03/17 02:48 TROPONIN-I 2.35 ng/ml <= 0.05 HOLD SPECIMEN FOR BLOOD BANK - 10/03/17 02:48 HOLD SPECIMEN FOR BLOOD BANK [facility] URINALYSIS W/MICROSCOPIC - 10/03/17 05:15 COLOR STRAW STRAW CLARITY/APPEARANCE TURBID CLEAR BILIRUBIN URINE HEADER Interpret positive Bilirubin results with caution. Large amounts of urobilinogen in the urine affect the color change of the bilirubin test (false positive). Highly basic urines (pH>9) might show false-positive readings on bilirubin. False-positive readings are obtained during treatment with imipenem, penicillin, and p- aminosalicyclic acid. UROBILINOGEN (URINALYSIS) NORMAL NORMAL YEAST (URINALYSIS) per hpf UA MICRO VOL HEADER Microscopic reference ranges are based on 12ml total spun volume. CRYSTALS (URINALYSIS) per hpf SP GRAV 1.015 1.005-1.025 PH 5.0 6.0-8.0 LEUKO 500 Ava/ul NEG NITRITE NEG NEG PROTEIN NEG. NEG. GLUCOSE NORMAL NORMAL KETONES NEG NEG BILIRUBIN NEG NEG BLOOD 50 Latrell/uL NEG WBC >50 per hpf NEG. RBC 2-5 per hpf NEG EPITH 0-2 per hpf NEG. BACTERIA NUMEROUS per hpf NEG. MUCUS per hpf NEG. HYAL CAST per lpf NEG. GRAN CAST per lpf SPUN VOLUME 12 ml MRSA SCREEN, INFECTION CONTROL - 10/03/17 09:38 MRSA Screen by Culture Source: Nares Collected: 10/03/17 09:38 GLUCOSE, ACCUCHEK - 10/03/17 10:02 GLUCOSE (ACCUCHEK) 184 mg/dl 74- 105 PTT - 10/03/17 11:03 PTT 81.8 secs 23.0- 33.0 TROPONIN-I - 10/03/17 11:03 TROPONIN-I 1.73 ng/ml <= 0.05 CKMB (INCLD. CK, CKMB, INDEX) - 10/03/17 11:03 CPK-CREATINE KINASE 95.00 U/L 26.00- 192.00 CKMB 8.4 ng/ml <=3.6 CKMB MASS INDEX 8.8 GLUCOSE, ACCUCHEK - 10/03/17 16:21 GLUCOSE (ACCUCHEK) 182 mg/dl 74- 105 GLUCOSE, ACCUCHEK - 10/03/17 22:19 GLUCOSE (ACCUCHEK) 274 mg/dl 74- 105 CKMB (INCLD. CK, CKMB, INDEX) - 10/04/17 00:23 CPK-CREATINE KINASE 62.00 U/L 26.00- 192.00 CKMB 3.1 ng/ml <=3.6 CKMB MASS INDEX 5.0 TROPONIN-I - 10/04/17 00:23 TROPONIN-I 0.56 ng/ml <= 0.05 GLUCOSE, ACCUCHEK - 10/04/17 00:27 GLUCOSE (ACCUCHEK) 163 mg/dl 74- 105 CBC NO DIFF (HEMOGRAM) - 10/04/17 04:30 WBC - WHITE CELL COUNT 8.3 X10(3) uL 4.5-11.0 RBC - RED CELL COUNT 3.36 X10(6) uL 4.20-5.40 PLATELET COUNT 208 X10(3) uL 150-450 HEMOGLOBIN 10.2 g/dl 12.0- 16.0 HEMATOCRIT 29.7 % 38.0- 47.0 MCV 88.4 fL 80.0- 96.0 MCH 30 pg 27-31 MCHC 34.3 % 32.0- 36.0 BMP - BASIC METABOLIC PANEL - 10/04/17 04:30 GLUCOSE 78 mg/dl 74-106 BUN 27 mg/dl 7-18 CREATININE 1.60 mg/dl 0.55- 1.02 SODIUM (NA) 137 mEq/L 136- 146 POTASSIUM, BLOOD 4.3 mEq/L 3.5- 5.1 CHLORIDE 105 mEq/L 98- 107 CO2 (BICARBONATE) 22 mEq/L 21-32 CALCIUM 7.7 mg/dl 8.5- 10.1 eGFR mL/min >=59 GLUCOSE, ACCUCHEK - 10/04/17 09:51 GLUCOSE (ACCUCHEK) 100 mg/dl 74- 105 GLUCOSE, ACCUCHEK - 10/04/17 14:57 GLUCOSE (ACCUCHEK) 177 mg/dl 74- 105 GLUCOSE, ACCUCHEK - 10/04/17 21:19 GLUCOSE (ACCUCHEK) 105 mg/dl 74- 105 CBC NO DIFF (HEMOGRAM) - 10/05/17 04:46 WBC - WHITE CELL COUNT 8.1 X10(3) uL 4.5-11.0 RBC - RED CELL COUNT 2.81 X10(6) uL 4.20-5.40 PLATELET COUNT 163 X10(3) uL 150-450 HEMOGLOBIN 8.6 g/dl 12.0- 16.0 HEMATOCRIT 25.1 % 38.0- 47.0 MCV 89.3 fL 80.0- 96.0 MCH 31 pg 27-31 MCHC 34.3 % 32.0- 36.0 BMP - BASIC METABOLIC PANEL - 10/05/17 04:46 GLUCOSE 123 mg/dl 74- 106 BUN 28 mg/dl 7-18 CREATININE 1.61 mg/dl 0.55- 1.02 SODIUM (NA) 142 mEq/L 136- 146 POTASSIUM, BLOOD 3.8 mEq/L 3.5- 5.1 CHLORIDE 112 mEq/L 98- 107 CO2 (BICARBONATE) 22 mEq/L 21-32 CALCIUM 7.4 mg/dl 8.5- 10.1 eGFR mL/min >=59 GLUCOSE, ACCUCHEK - 10/05/17 10:09 GLUCOSE (ACCUCHEK) 76 mg/dl 74-105 GLUCOSE, ACCUCH - 10/05/17 14:34 GLUCOSE (ACCUCHEK) 207 mg/dl 74- 105 GLUCOSE, ACCUCHEK - 10/05/17 20:42 GLUCOSE (ACCUCHEK) 187 mg/dl 74- 105 CBC NO DIFF (HEMOGRAM) - 10/06/17 04:45 WBC - WHITE CELL COUNT 8.2 X10(3) uL 4.5-11.0 RBC - RED CELL COUNT 2.84 X10(6) uL 4.20-5.40 PLATELET COUNT 167 X10(3) uL 150-450 HEMOGLOBIN 8.6 g/dl 12.0- 16.0 HEMATOCRIT 25.2 % 38.0- 47.0 MCV 88.7 fL 80.0- 96.0 MCH 30 pg 27-31 MCHC 34.1 % 32.0- 36.0 HOLD SPECIMEN FOR BLOOD BANK - 10/06/17 04:45 HOLD SPECIMEN FOR BLOOD BANK [facility] - BASIC METABOLIC PANEL - 10/06/17 04:45 GLUCOSE 91 mg/dl 74-106 BUN 26 mg/dl 7-18 CREATININE 1.48 mg/dl 0.55- 1.02 SODIUM (NA) 139 mEq/L 136- 146 POTASSIUM, BLOOD 3.7 mEq/L 3.5- 5.1 CHLORIDE 109 mEq/L 98- 107 CO2 (BICARBONATE) 19 mEq/L 21-32 CALCIUM 8.0 mg/dl 8.5- 10.1 eGFR mL/min >=59 GLUCOSE, ACCUCHEK - 10/06/17 10:16 GLUCOSE (ACCUCHEK) 97 mg/dl 74-105 GLUCOSE, ACCUCHEK - 10/06/17 14:44 GLUCOSE (ACCUCHEK) 140 mg/dl 74- 105 GLUCOSE, ACCUCHEK - 10/06/17 22:35 GLUCOSE (ACCUCHEK) 171 mg/dl 74- 105 CBC NO DIFF (HEMOGRAM) - 10/07/17 05:15 WBC - WHITE CELL COUNT 9.6 X10(3) uL 4.5-11.0 RBC - RED CELL COUNT 3.12 X10(6) uL 4.20-5.40 PLATELET COUNT 179 X10(3) uL 150-450 HEMOGLOBIN 9.5 g/dl 12.0- 16.0 HEMATOCRIT 27.7 % 38.0- 47.0 MCV 88.8 fL 80.0- 96.0 MCH 30 pg 27-31 MCHC 34.3 % 32.0- 36.0 [facility] - BASIC METABOLIC PANEL - 10/07/17 05:15 GLUCOSE 159 mg/dl 74- 106 BUN 22 mg/dl 7-18 CREATININE 1.45 mg/dl 0.55- 1.02 SODIUM (NA) 136 mEq/L 136- 146 POTASSIUM, BLOOD 3.6 mEq/L 3.5- 5.1 CHLORIDE 104 mEq/L 98- 107 CO2 (BICARBONATE) 21 mEq/L 21-32 CALCIUM 9.1 mg/dl 8.5- 10.1 eGFR mL/min >=59 GLUCOSE, ACCUCHEK - 10/07/17 10:03 GLUCOSE (ACCUCHEK) 148 mg/dl 74- 105 Encounters ACCT No. Visit Date/Time Discharge Status Pt. Type Provider Facility Loc./Unit Complaint [id number] 10/03/2017 02:20:00 10/07/2017 13:00:00 DIS Inpatient MELISSA KNAPP [facility] 200 NSTEMI [id number] 01/20/2018 14:30:00 01/20/2018 23:59:59 CLS Outpatient FLOYD DINERO [facility] [id number] 01/13/2018 23:34:24 01/20/2018 14:05:00 DIS Inpatient SUZIE HERNANDEZ [facility] [place] altered mental status uncontrolled type 2 diabetes weakness [id number] 01/13/2018 22:35:00 01/13/2018 23:30:00 DIS Emergency MENDY ORTIZ [facility] ED ED VISIT [id number] 01/01/2018 23:00:00 01/01/2018 23:59:59 DIS Outpatient SWATHI MCGRAW [facility] [id number] 01/01/2018 15:28:00 01/01/2018 17:30:00 DIS Emergency Chanelle Lee [facility] ER [id number] 12/16/2017 15:45:00 12/16/2017 23:59:59 CLS Outpatient NIRAV DINEROIKA [facility] [id number] 12/14/2017 14:07:00 12/14/2017 23:59:59 CLS Outpatient TUCKER DIAZ [facility] [id number] 12/14/2017 14:32:00 12/14/2017 15:40:00 DIS Emergency SWATHI BULLARD [facility] ED VISIT [id number] 12/09/2017 14:03:45 12/13/2017 13:42:00 DIS Inpatient SUZIE HERNANDEZ [facility] [place] CVA [id number] 12/09/2017 00:00:00 12/09/2017 23:59:59 CLS Outpatient SUZIE HERNANDEZ [facility] [id number] 12/04/2017 00:30:48 12/09/2017 13:55:00 DIS Inpatient SUZIE HERNANDEZ [facility] [place] UTI, altered mental status [id number] 12/05/2017 13:30:00 12/05/2017 23:59:59 CLS Outpatient BAR FLOYD [facility] [id number] 12/03/2017 21:37:00 12/03/2017 23:58:00 DIS Emergency TUCKER DIAZ [facility] ED ed visit [id number] 12/02/2017 13:19:00 12/02/2017 23:59:59 DIS Outpatient TUCKER DIAZ [facility] [id number] 12/02/2017 13:54:00 12/02/2017 16:37:00 DIS Emergency Chanelle Lee [facility] ER VISIT [id number] 11/17/2017 10:30:00 11/17/2017 23:59:59 CLS Outpatient BAR FLOYD [facility] [id number] 10/18/2017 14:30:00 10/18/2017 23:59:59 CLS Outpatient Madhavi Patterson [facility] [id number] 10/12/2017 14:33:39 10/12/2017 23:59:59 DIS Outpatient MELISSA KNAPP [facility] lab [id number] 10/12/2017 14:15:16 10/12/2017 23:59:59 DIS Outpatient FLOYD DINERO [facility] [id number] 10/02/2017 11:51:00 10/03/2017 01:15:00 DIS V SUZIE HERNANDEZ [facility] OBS Chest pain, rule out [place] [id number] 10/02/2017 21:41:17 10/02/2017 23:59:59 DIS Outpatient TUCKER DIAZ Ena [facility] [id number] 10/02/2017 11:22:00 10/02/2017 23:59:59 DIS Outpatient SWATHI MCGRAW [place] [facility] [id number] 09/14/2017 14:52:01 09/14/2017 23:59:59 DIS Outpatient BAR [facility] [id number] 09/12/2017 13:42:51 09/12/2017 23:59:59 DIS Outpatient BAR [facility] lab [id number] 09/12/2017 13:42:06 09/12/2017 23:59:59 DIS Outpatient BAR [facility] [id number] 08/31/2017 11:20:27 08/31/2017 23:59:59 DIS Outpatient Hay [facility] lab [id number] 08/31/2017 10:30:00 08/31/2017 23:59:59 DIS Outpatient Hay [facility] [id number] 08/03/2017 14:30:00 08/03/2017 23:59:59 DIS Outpatient Hay [facility] [id number] 07/19/2017 09:45:00 07/19/2017 23:59:59 CLS Outpatient BAR [facility] [id number] 07/15/2017 14:30:00 07/15/2017 23:59:59 CLS Outpatient BAR [facility] [id number] 07/06/2017 09:30:00 07/06/2017 23:59:59 CLS Outpatient BAR [facility] [id number] 06/29/2017 10:45:00 06/29/2017 23:59:59 CLS Outpatient BAR [facility] [id number] 06/22/2017 15:00:00 06/22/2017 23:59:59 CLS Outpatient FLOYD DINERO [facility] [id number] 06/20/2017 13:30:00 06/20/2017 23:59:59 DIS Outpatient FLOYD DINERO [facility] [id number] 06/13/2017 12:30:03 06/14/2017 16:45:00 DIS Inpatient DAVID KAMILLENELSON [place] [facility] [place] uncontrolled diabetes alt mental status leukocytosis [id number] 06/13/2017 00:00:00 06/13/2017 23:59:59 CLS Outpatient DAVID KAMILLENELSON [place] [facility] [id number] 06/12/2017 04:52:00 06/13/2017 12:28:00 DIS V DAVID KAMILLENELSON [place] [facility] OBS Nausea, vomiting, diarrhea , dehydration, hyperglycemia [id number] 06/12/2017 23:57:48 06/12/2017 23:59:59 DIS Outpatient TUCKER DIAZ [facility] [id number] 06/07/2017 12:27:27 06/07/2017 23:59:59 CLS Preadmit [facility] PT vertigo/weakness [id number] 06/06/2017 14:40:36 06/06/2017 23:59:59 DIS Outpatient BAR FLOYD [facility] [id number] 05/18/2017 14:30:00 05/18/2017 23:59:59 DIS Outpatient BAR FLOYD [facility] [id number] 04/13/2017 16:39:18 04/13/2017 23:59:59 DIS Outpatient BAR [facility] lab [id number] 04/13/2017 15:45:00 04/13/2017 23:59:59 DIS Outpatient BAR [facility] [id number] 03/16/2017 13:30:00 03/16/2017 23:59:59 CLS Outpatient ERIK ARMANDO [facility] [id number] 02/17/2017 13:21:30 02/17/2017 23:59:59 CLS Preadmit BAR [facility] RAD post menopausal, osteoporosis screening [id number] 02/10/2017 10:54:02 02/10/2017 23:59:59 DIS Outpatient BAR [facility] [id number] 02/01/2017 09:45:00 02/01/2017 23:59:59 DIS Outpatient BAR [facility] [id number] 01/04/2017 11:59:12 01/04/2017 23:59:59 DIS Outpatient SUZIE HERNANDEZ [facility] lab [id number] 01/04/2017 11:45:00 01/04/2017 23:59:59 DIS Outpatient SUZIE HERNANDEZ [facility] [id number] 12/21/2016 10:55:59 12/21/2016 23:59:59 DIS Outpatient SUZIE HERNANDEZ [facility] lab [id number] 12/21/2016 10:14:27 12/21/2016 23:59:59 DIS Outpatient BAR [facility] [id number] 10/28/2016 09:00:46 11/23/2016 17:00:00 DIS R BAR [facility] STEVEN PT Balance Difficulties [id number] 10/20/2016 11:35:58 10/20/2016 23:59:59 CLS Outpatient BAR [facility] lab [id number] 10/20/2016 10:33:14 10/20/2016 23:59:59 CLS Outpatient BAR [facility] [id number] 09/24/2016 14:23:38 09/24/2016 23:59:59 CLS Outpatient BAR [facility] lab [id number] 09/24/2016 13:51:25 09/24/2016 23:59:59 CLS Outpatient BAR [facility] [id number] 08/26/2016 14:11:34 08/26/2016 23:59:59 CLS Outpatient FLOYD DINERO [facility] lab [id number] 08/26/2016 13:00:00 08/26/2016 23:59:59 CLS Outpatient BAR [facility] [id number] 07/26/2016 13:34:04 07/26/2016 23:59:59 CLS Outpatient BAR [facility] lab [id number] 07/26/2016 13:00:00 07/26/2016 23:59:59 CLS Outpatient BAR [facility] [id number] 07/21/2016 14:27:24 07/21/2016 23:59:59 CLS Outpatient SUZIE HERNANDEZ [facility] STEVEN LAB lab [id number] 06/28/2016 13:58:38 06/28/2016 23:59:59 CLS Outpatient BAR [facility] Lab lab [id number] 06/28/2016 13:18:40 06/28/2016 23:59:59 CLS Outpatient BAR [facility] [id number] 06/21/2016 14:18:33 06/21/2016 23:59:59 CLS Outpatient BAR [facility] Med Lab xray [id number] 06/21/2016 13:27:50 06/21/2016 23:59:59 CLS Outpatient BAR [facility] [id number] 06/18/2016 11:53:23 06/19/2016 12:45:00 DIS V SUZIE HERNANDEZ [facility] STEVEN OBS uncontrolled diabetes type II left second toe cellulitis [id number] 06/18/2016 09:58:33 06/18/2016 23:59:59 CLS Outpatient MARTHA JOHNSTON [facility] [id number] 06/15/2016 16:27:42 06/15/2016 23:59:59 CLS Outpatient PRESTON [facility] lab [id number] 06/15/2016 15:08:29 06/15/2016 23:59:59 CLS Outpatient PRESTON [facility] [id number] 05/25/2016 14:11:41 05/25/2016 23:59:59 CLS Outpatient PRESTON [facility] lab [id number] 05/25/2016 13:07:41 05/25/2016 23:59:59 CLS Outpatient PRESTON [facility] [id number] 04/30/2016 12:24:01 04/30/2016 23:59:59 CLS Outpatient DAVIDKAMILLE HIGGINSNELSON [place] [facility] STEVEN LAB basic meabolic [id number] 04/26/2016 16:08:40 04/26/2016 23:59:59 CLS Outpatient PRESTON [facility] lab [id number] 04/26/2016 14:15:00 04/26/2016 23:59:59 CLS Outpatient PRESTON [facility] [id number] 04/16/2016 19:21:00 04/16/2016 20:45:00 DIS Emergency Arielle Mckeon [facility] STEVEN ED high glucose level feet swelling [id number] 12/20/2017 02:10:06 Document Registration [id number] 06/12/2017 04:58:43 Document Registration [id number] 03/30/2017 13:12:15 ACT R CARO [facility] STEVEN SS counseling [id number] 09/01/2016 13:16:40 ACT R CARO [facility] STEVEN SS 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 [id number] 04/26/2016 15:24:23 Document Registration [id number] 04/16/2016 19:55:04 Document Registration [id number] 08/01/2017 10:58:01 ACT Unknown [id number] 02/14/2016 00:00:00 03/15/2016 16:02:00 DIS Outpatient SETTER, [facility] PSYCH [id number] 01/15/2016 12:00:00 02/13/2016 16:02:00 DIS Outpatient SETTER, [facility] PSYCH [id number] 12/15/2015 00:01:00 01/14/2016 16:02:00 DIS Outpatient SETTER, [facility] PSYCH [id number] 11/14/2015 00:01:00 12/14/2015 23:59:00 DIS Outpatient SETTER, [facility] PSYCH [id number] 11/30/2015 16:27:00 11/30/2015 17:16:00 DIS Emergency SWATHI MCGRAW [facility] EMR [id number] 11/26/2015 12:07:00 11/26/2015 12:07:00 DIS Outpatient PRESTON [facility] PANACE [id number] 10/15/2015 12:00:00 11/13/2015 23:59:00 DIS Outpatient SETTER, [facility] PSYCH [id number] 11/06/2015 14:16:00 11/06/2015 14:16:00 DIS Outpatient PRESTON [facility] RAD [id number] 10/15/2015 16:20:00 10/15/2015 16:20:00 DIS Outpatient PRESTON MARTHA [facility] PANACE [id number] 09/14/2015 00:01:00 10/14/2015 12:00:00 DIS Outpatient SETTER, [facility] PSYCH [id number] 09/29/2015 23:31:00 10/01/2015 13:25:00 DIS Inpatient SUZIE HERNANDEZ [facility] 2F [id number] 09/29/2015 20:31:00 09/29/2015 23:31:00 DIS Emergency TUCKER DIAZ [facility] EMR [id number] 09/26/2015 10:20:00 09/26/2015 10:20:00 DIS Outpatient SUZIE HERNANDEZ [facility] PANACE [id number] 08/15/2015 00:01:00 09/13/2015 23:59:00 DIS Outpatient SETTER, [facility] PSYCH [id number] 07/15/2015 00:01:00 08/14/2015 23:59:00 DIS Outpatient SETTER, [facility] PSYCH [id number] 06/16/2015 00:01:00 07/14/2015 23:59:00 DIS Outpatient SETTER, [facility] PSYCH [id number] 05/16/2015 00:01:00 06/15/2015 23:59:00 DIS Outpatient SETTER, [facility] PSYCH [id number] 04/15/2015 00:01:00 05/15/2015 23:59:00 DIS Outpatient SETTER, [facility] PSYCH [id number] 04/15/2015 00:01:00 05/15/2015 23:59:00 DIS Outpatient SUZIE HERNANDEZ [facility] PT [id number] 03/16/2015 00:01:00 04/14/2015 23:59:00 DIS Outpatient SETTER, [facility] PSYCH [id number] 03/16/2015 00:01:00 04/14/2015 23:59:00 DIS Outpatient SUZIE HERNANDEZ [facility] PT [id number] 02/17/2015 13:18:00 03/15/2015 23:59:00 DIS Outpatient SUZIE HERNANDEZ [facility] PT [id number] 02/13/2015 00:01:00 03/15/2015 23:59:00 DIS Outpatient SETTER, [facility] PSYCH [id number] 01/14/2015 00:01:00 02/12/2015 23:59:00 DIS Outpatient SETTER, [facility] PSYCH [id number] 12/14/2014 00:01:00 01/13/2015 23:59:00 DIS Outpatient SETTER, [facility] PSYCH [id number] 11/13/2014 00:01:00 12/13/2014 23:59:00 DIS Outpatient SETTER, [facility] PSYCH [id number] 11/26/2014 09:55:00 11/26/2014 09:55:00 DIS Outpatient MARTHA JOHNSTON [facility] PANACE [id number] 10/14/2014 00:01:00 11/12/2014 23:59:00 DIS Outpatient SETTER, [facility] PSYCH [id number] 09/13/2014 00:01:00 10/13/2014 23:59:00 DIS Outpatient SETTER, [facility] PSYCH [id number] 08/14/2014 00:01:00 09/12/2014 23:59:00 DIS Outpatient SETTER, [facility] PSYCH [id number] 07/14/2014 00:01:00 08/13/2014 23:59:00 DIS Outpatient SETTER, [facility] PSYCH [id number] 05/16/2014 00:01:00 05/16/2014 23:59:59 CLS Outpatient SETTER, [facility] PSYCH [id number] 04/15/2014 00:01:00 05/15/2014 23:59:00 DIS Outpatient SETTER, [facility] PSYCH [id number] 03/16/2014 00:01:00 04/14/2014 23:59:00 DIS Outpatient SETTER, [facility] PSYCH [id number] 03/26/2014 06:40:00 03/26/2014 11:50:00 DIS Inpatient ARNAV MACEDO [facility] OPS [id number] 02/13/2014 00:01:00 03/15/2014 23:59:00 DIS Outpatient SETTER, [facility] PSYCH [id number] 03/11/2014 15:16:00 03/11/2014 15:16:00 DIS Outpatient MARTHA JOHNSTON [facility] PANACE [id number] 01/14/2014 00:01:00 02/12/2014 23:59:00 DIS Outpatient SETTER, [facility] PSYCH [id number] 12/14/2013 00:01:00 01/13/2014 23:59:00 DIS Outpatient SETTER, [facility] PSYCH [id number] 01/04/2014 06:30:00 01/04/2014 06:30:00 DIS Outpatient SUZIE HERNANDEZ [facility] RAD [id number] 10/21/2013 17:06:00 10/21/2013 18:15:00 DIS Emergency TUCKER DIAZ [facility] EMR [id number] 10/14/2013 00:00:00 10/14/2013 23:59:59 CLS Outpatient SETTER, [facility] PSYCH [id number] 08/14/2013 00:01:00 09/12/2013 23:59:00 DIS Outpatient SETTER, [facility] PSYCH [id number] 08/29/2013 17:01:00 08/29/2013 18:35:00 DIS Emergency SUZIE HERNANDEZ [facility] EMR [id number] 07/14/2013 00:01:00 08/13/2013 23:59:00 DIS Outpatient SETTER, [facility] PSYCH [id number] 06/16/2013 00:01:00 07/13/2013 23:59:00 DIS Outpatient SETTER, [facility] PSYCH [id number] 07/08/2013 11:14:00 07/08/2013 12:20:00 DIS Emergency ALF SOLANO [facility] EMR [id number] 04/14/2015 00:00:00 Document Registration [id number] 04/14/2015 00:00:00 Document Registration [id number] 04/14/2015 00:00:00 Document Registration [id number] 04/14/2015 00:00:00 Document Registration [id number] 07/08/2013 01:01:53 Document Registration [id number] 04/14/2013 00:00:00 Document Registration [id number] 04/14/2013 00:00:00 Document Registration [id number] 04/14/2013 00:00:00 Document Registration [id number] 05/23/2002 14:08:00 Document Registration
[2018-02-03] MEDS ORDERED: ACETAMINOPHEN 650 MG SUPP (TYLENOL) PR ONE (22:45)
[2018-02-03 22:47] LABS: BILIRUBIN,URINE NEGATIVE (NEGATIVE); CLARITY,URINE SLIGHTLY CLOUDY; COLOR,URINE YELLOW; GLUCOSE, URINE (UA) 2+ (NEGATIVE); KETONES,URINE NEGATIVE (NEGATIVE); LEUKOCYTE ESTERASE ,URINE 1+ (NEGATIVE); NITRITE,URINE NEGATIVE (NEGATIVE); PH,URINE 7 (5-9); PROTEIN,URINE 3+ (NEGATIVE); UROBILINOGEN,URINE NORMAL (NORMAL)
[2018-02-03 22:47] LABS: BASOPHILS % (AUTO) 0 % (0-10); EOSINOPHILS # (AUTO) 0.1 10^3/uL (0.0-0.3); EOSINOPHILS % (AUTO) 1 % (0-10); HEMATOCRIT 40 % (35-52); HEMOGLOBIN 13.1 G/DL (11.5-16.0); LYMPHOCYTES # (AUTO) 0.9 X 10^3 (1.0-4.0); LYMPHOCYTES % (AUTO) 7 % (12-44); MEAN CORPUSCULAR HEMOGLOBIN 29 PG (25-34); MEAN CORPUSCULAR HGB CONC 33 G/DL (32-36); MEAN CORPUSCULAR VOLUME 87 FL (80-99); MEAN PLATELET VOLUME 11.2 FL (7.4-10.4); MONOCYTES # (AUTO) 0.8 X 10^3 (0.0-1.0); MONOCYTES % (AUTO) 6 % (0-12); NEUTROPHILS # (AUTO) 10.5 X 10^3 (1.8-7.8); NEUTROPHILS % (AUTO) 86 % (42-75); PLATELET COUNT 234 10^3/uL (130-400); RED BLOOD COUNT 4.53 10^6/uL (4.35-5.85); RED CELL DISTRIBUTION WIDTH 14.5 % (10.0-14.5); WHITE BLOOD COUNT 12.3 10^3/uL (4.3-11.0)
--- NOTE | 2018-02-03 22:50 | ED General ---
General Chief Complaint: Fever-Adult/Adol Stated Complaint: INCREASED CONFUSION Source of Information: Patient Exam Limitations: No Limitations History of Present Illness Date Seen by Provider: Feb 03, 2018 Time Seen by Provider: 22:48 Initial Comments Patient is an 83-year-old female who presents to the emergency room by [facility] from [facility] with complaints of a sudden onset of nausea , vomiting, high fevers. The patient is alert and oriented on arrival to the emergency room. Denies pain, nausea, or any general complaints. Fever was 102 on arrival to the emergency room. Timing/Duration: Resolved Prior to Arrival Allergies and Home Medications Allergies Coded Allergies: cephalexin (Verified Allergy, Unknown, 02/03/18) metformin (Verified Allergy, Unknown, 02/03/18) sitagliptin (Verified Allergy, Unknown, 02/03/18) sulfamethoxazole (Verified Allergy, Unknown, 02/03/18) trimethoprim (Verified Allergy, Unknown, 02/03/18) Home Medications Ciprofloxacin HCl 500 Mg Tablet, 500 MG PO BID Prescribed by: FREDDY ESCOBAR on 02/04/18 0018 Ondansetron 4 Mg Tab.rapdis, 4 MG SL Q4H PRN for NAUSEA/VOMITING-1ST LINE Prescribed by: FREDDY ESCOBAR on 02/04/18 0018 Patient Home Medication List Home Medication List Reviewed: Yes Review of Systems Review of Systems Constitutional: see HPI; No chills; fever Gastrointestinal: see HPI, nausea, vomiting All Other Systems Reviewed Negative Unless Noted: Yes Past Vjzmmug-Vdnwcl-Qtvbgz Hx Past Med/Social Hx: Reviewed Nursing Past Med/Soc Hx Patient Social History Physical Abuse: No Sexual Abuse: No Family Medical History Reviewed Nursing Family Hx Physical Exam Vital Signs Vital Signs - First Documented 02/03/18 22:24 Temp 102.5 Pulse 81 Resp 26 B/P (MAP) 198/90 (126) Pulse Ox 97 O2 Flow Rate 2.00 Capillary Refill : Height, Weight, BMI Height: '" Weight: lbs. oz. kg; BMI Method: General Appearance: No Apparent Distress, WD/WN Eyes: Bilateral Eye Normal Inspection, Bilateral Eye PERRL, Bilateral Eye EOMI Neck: Full Range of Motion, Normal Inspection, Non Tender, Supple, Carotid Bruit Respiratory: Chest Non Tender, Lungs Clear, Normal Breath Sounds, No Accessory Muscle Use, No Respiratory Distress Cardiovascular: Regular Rate, Rhythm, No Edema, No Gallop, No JVD, No Murmur, Normal Peripheral Pulses Gastrointestinal: Normal Bowel Sounds, No Organomegaly, No Pulsatile Mass, Non Tender, Soft Neurologic/Psychiatric: Alert, Oriented x3, Normal Mood/Affect Skin: Normal Color, Warm/Dry Focused Exam Lactate Level Lactic Acid Level Progress/Results/Core Measures Suspected Sepsis SIRS Temperature: Pulse: Respiratory Rate: Blood Pressure / Mean: Results/Orders Lab Results My Orders Medications Given in ED Vital Signs/I&O Capillary Refill : Progress Note : Time: 00:15 Progress Note I have seen and evaluated the patient. She is still free of nausea and vomiting. Her fever has broken. Her blood pressure has improved. I have given her a dose of iv abx and she agrees with plans for discharge. [facility] was called for transport. Return precautions were given. Departure Impression Primary Impression: Urinary tract infection Disposition: 01 HOME, SELF-CARE Condition: Stable/Unchanged Departure-Patient Inst. Decision time for Depature: 00:16 Referrals: UNKNOWN (PCP) Primary Care Physician Patient Instructions: Urinary Tract Infection, Adult (DC) Add. Discharge Instructions: Take medication as directed. Ibuprofen and Tylenol for fever. Drink plenty of clear liquids to stay hydrated. Follow-up with primary care provider within 1 week for recheck. Return back to the emergency room for any worsening symptoms or concerns as needed. All discharge instructions reviewed with patient and/or family. Voiced understanding. Scripts Ondansetron (Zofran Odt) 4 Mg Tab.rapdis 4 MG SL Q4H PRN for NAUSEA/VOMITING-1ST LINE, #14 TAB Prov: FREDDY ESCOBAR 02/04/18 Ciprofloxacin HCl (Cipro) 500 Mg Tablet 500 MG PO BID for 7 Days, #14 TAB Prov: FREDDY ESCOBAR 02/04/18 FREDDY ESCOBAR Feb 03, 2018 22:50
[2018-02-03 22:55] LABS: WBC,URINE 25-50 /HPF
[2018-02-03 22:56] LABS: BACTERIA,URINE FEW /HPF
[2018-02-03 23:01] LABS: BAND NEUTROPHILS 16 %; BASOPHILS % (MANUAL) 1 %; EOSINOPHILS % (MANUAL) 0 %; LYMPHOCYTES % (MANUAL) 13 %; MONOCYTES % (MANUAL) 6 %; NEUTROPHILS % (MANUAL) 64 %; RBC MORPH NORMAL
[2018-02-03 23:07] LABS: ALBUMIN 4.1 GM/DL (3.2-4.5); BILIRUBIN,TOTAL 0.3 MG/DL (0.1-1.0); CALCIUM 9.3 MG/DL (8.5-10.1); CREATININE SERUM 1.7 MG/DL (0.60-1.30); POTASSIUM 4.1 MMOL/L (3.6-5.0); TOTAL PROTEIN 7.9 GM/DL (6.4-8.2)
[2018-02-03] MEDS ORDERED: NS IV 1000 ML 1,000 ML IV SCH (23:30)
[2018-02-04] MEDS ORDERED: CIPROFLOXACIN 500 MG (CIPRO) TABLET PO SCH (00:15)
[2018-02-04] MEDS ORDERED: CIPR-225 PO (00:18)
[2018-02-04] MEDS ORDERED: ONDA4TAB8 SL (00:18)
[2018-02-04 02:19] VITALS: BP 148/62
== END 2018-02-04 02:19 | disposition home or self-care (01) ==
LOC: ER 22:26
DX: N39.0 Urinary tract infection, site not specified (principal); I10 Essential (primary) hypertension; Z88.1 Allergy status to other antibiotic agents; Z88.8 Allergy status to other drugs, medicaments and biological substances; Z88.2 Allergy status to sulfonamides; Z88.6 Allergy status to analgesic agent
CPT/HCPCS: 36415; 80053; 81000; 82150; 83605; 83690; 85007; 85027; 87040; 87088; 96360; 96361

== ENCOUNTER 2018-04-24 12:58 | Inpatient (IN) | payer MEDICARE ==
[~2018-04-24] VITALS: Ht 167.6 cm; Wt 67.3 kg
[~2018-04-24 12:58] MED LIST: CIPR-225 PO; ONDA4TAB8 SL
--- OUTSIDE RECORDS SUMMARY | 2018-04-24 13:09 | XMS REPORT ---
Author Author ALDEN PACHECO Organization [facility] Address [address] [place] [address] Care Team Providers Care Manager Urgent Care Name Role Phone ALDEN PACHECO Unavailable PROBLEMS Type Condition ICD9-CM Code [id number] Code Onset Dates Condition Status SNOMED Code Problem Type 2 diabetes mellitus with hyperosmolarity without nonketotic hyperglycemic-hyperosmolar coma ([facility]) E11.00 Active 18067188 Problem Inappropriate behavior F99 Active 670231445 Problem snf current use of insulin Z79.4 Active 904021584 Problem Type 2 diabetes mellitus with hyperglycemia E11.65 Active 25765419 Problem Major depressive disorder with single episode, 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 Active 12922239 Problem Coronary artery disease involving [place] coronary artery of [place] heart without angina pectoris I25.10 Active 3914592896326 Problem Gastroesophageal reflux disease, esophagitis presence not specified K21.9 Active 579995799 Problem Type 2 diabetes mellitus with other circulatory complication, without long-term current 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 Active 23882798 Problem Essential hypertension I10 Active 49213571 ALLERGIES No Information ENCOUNTERS Encounter Location Date Diagnosis [facility] [address] [id number] [address] Feb, [facility] [address] [place] [id number] Feb, [facility] [address] [place] [id number] Feb, Discharge planning issues Z02.9 and Noncompliance with diabetes treatment Z91.19 [facility] [id number] [place] [id number] Feb, [facility] [address] [place] [id number] Feb, 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 ; Type 2 diabetes mellitus with hyperglycemia E11.65 and Noncompliance with diabetes treatment Z91.19 [facility] [address] [facility] [id number] [place] [id number] 20 Jan, 2018 [facility] [address] [facility] [id number] [phone] 14 Jan, 2018 Type 2 diabetes mellitus with other circulatory complication , without long-term current 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 ; Coronary artery disease involving [place] coronary artery of [place] heart without angina pectoris I25.10 ; Major depressive disorder with single episode, 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 ; Gastroesophageal reflux disease, esophagitis presence not specified K21.9 and Essential hypertension I10 [facility] [employer] [facility] [address] [place] [id number] 11 Jan, 2018 Type 2 diabetes mellitus with hyperosmolarity without nonketotic hyperglycemic-hyperosmolar coma ([facility]) E11.00 ; Inappropriate behavior F99 and snf current use of insulin Z79.4 IMMUNIZATIONS No Known Immunizations SOCIAL HISTORY Never Assessed REASON FOR VISIT FYI PLAN OF CARE VITAL SIGNS MEDICATIONS Unknown Medications RESULTS No Results PROCEDURES No Known procedures INSTRUCTIONS MEDICATIONS ADMINISTERED No Known Medications MEDICAL (GENERAL) HISTORY Type Description Date Medical History mitral valve regurgitation Medical History Hx of CHF Medical History Type II DM Medical History hyperlipidemia Medical History Hypertension Medical History GERD Medical History Osteoarthritis Medical History Chronic renal insufficiency Medical History recurrent UTI Medical History Frequent falls Surgical History cholecystectomy Surgical History BTL Surgical History Colonoscopy Surgical History Carpal tunnel Surgical History Elbow surgery Surgical History open heart
--- OUTSIDE RECORDS SUMMARY | 2018-04-24 13:09 | XMS REPORT ---
Author Author ALDEN PACHECO Organization [facility] Address [address] [place] [address] Care Team Providers Care Assembler Body Name Role Phone ALDEN PACHECO Unavailable PROBLEMS Type Condition ICD9-CM Code PVL47-CK Code Onset Dates Condition Status SNOMED Code Problem Type 2 diabetes mellitus with hyperosmolarity without nonketotic hyperglycemic-hyperosmolar coma ([facility]) E11.00 Active 48860823 Problem Inappropriate behavior F99 Active 809121500 Problem group home current use of insulin Z79.4 Active 433508484 Problem Type 2 diabetes mellitus with hyperglycemia E11.65 Active 80475624 Problem Major depressive disorder with single episode, 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 Active 36708989 Problem Coronary artery disease involving [place] coronary artery of [place] heart without angina pectoris I25.10 Active 5080965004655 Problem Gastroesophageal reflux disease, esophagitis presence not specified K21.9 Active 879404612 Problem Type 2 diabetes mellitus with other circulatory complication, without long-term current 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 Active 63921214 Problem Essential hypertension I10 Active 21866286 ALLERGIES No Information ENCOUNTERS Encounter Location Date Diagnosis [facility] [address] [id number], [place] [address] Feb, [facility] [address] [place] [id number] Feb, [facility] [address] [place] [id number] Feb, Discharge planning issues Z02.9 and Noncompliance with diabetes treatment Z91.19 [facility] [id number] [place] [id number] Feb, [facility] [address] [place] [id number] Feb, 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 ; Type 2 diabetes mellitus with hyperglycemia E11.65 and Noncompliance with diabetes treatment Z91.19 [facility] [address] [facility] [id number] [place], [place] [id number] 20 Jan, 2018 [facility] [address] [facility] [id number] [address] 14 Jan, 2018 Type 2 diabetes mellitus with other circulatory complication , without long-term current 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 ; Coronary artery disease involving [place] coronary artery of [place] heart without angina pectoris I25.10 ; Major depressive disorder with single episode, 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 ; Gastroesophageal reflux disease, esophagitis presence not specified K21.9 and Essential hypertension I10 [facility] [address] [place], [place] [id number] 11 Jan, 2018 Type 2 diabetes mellitus with hyperosmolarity without nonketotic hyperglycemic-hyperosmolar coma ([facility]) E11.00 ; Inappropriate behavior F99 and group home current use of insulin Z79.4 IMMUNIZATIONS No Known Immunizations SOCIAL HISTORY Never Assessed REASON FOR VISIT Med change PLAN OF CARE VITAL SIGNS MEDICATIONS Medication Instructions Dosage Frequency Start Date End Date Duration Status Sertraline HCl 50 MG Orally Once a day 1 tablet 24h Feb, 30 day (s) Active RESULTS No Results PROCEDURES No Known procedures [...]
--- OUTSIDE RECORDS SUMMARY | 2018-04-24 13:09 | XMS REPORT ---
Author Author ALDEN PACHECO [facility] Address [address] [place] [address] Care Team Providers Care Sample Clerk Name Role Phone ALDEN PACHECO Unavailable PROBLEMS Type Condition ICD9-CM Code [id number] Code Onset Dates Condition Status SNOMED Code Problem Type 2 diabetes mellitus with hyperosmolarity without nonketotic hyperglycemic-hyperosmolar coma ([facility] E11.00 Active 66584443 Problem Inappropriate behavior F99 Active 387708029 Problem assisted current use of insulin Z79.4 Active 803675595 Problem Type 2 diabetes mellitus with hyperglycemia E11.65 Active 33235091 Problem Major depressive disorder with single episode, 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 Active 83951159 Problem Coronary artery disease involving [place] coronary artery of [place] heart without angina pectoris I25.10 Active 4140358800916 Problem Gastroesophageal reflux disease, esophagitis presence not specified K21.9 Active 308308207 Problem Type 2 diabetes mellitus with other circulatory complication, without long-term current 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 Active 23629496 Problem Essential hypertension I10 Active 57124379 ALLERGIES No Information ENCOUNTERS Encounter Location Date Diagnosis [facility] [address] [id number] [address] Mar, Type 2 diabetes mellitus with hyperosmolarity without nonketotic hyperglycemic-hyperosmolar coma ([facility] E11.00 [facility] [address] [facility] [id number], [place] [address] Feb, [facility] [address] [place] [id number] Feb, [facility] [address] [place] [id number] Feb, Discharge planning issues Z02.9 and Noncompliance with diabetes treatment Z91.19 [facility] [id number] [place] [address] [place] [id number] Feb, 2018 [facility] [address] [place] [id number] Feb, assisted current use of insulin Z79.4 ; Type 2 diabetes mellitus with hyperglycemia E11.65 and Noncompliance with diabetes treatment Z91.19 [facility] [address] [facility] [id number] [place] [address] Jan, 2018 [facility] [address] 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
--- OUTSIDE RECORDS SUMMARY | 2018-04-24 13:09 | XMS REPORT ---
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 Active 211891402 Problem Type 2 diabetes mellitus with hyperosmolarity without nonketotic hyperglycemic-hyperosmolar coma ([facility]) E11.00 Active 00969025 Problem Type 2 diabetes mellitus with hyperglycemia E11.65 Active 50215939 Problem Essential hypertension I10 Active 41057985 Problem Major depressive disorder with single episode, 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 Active 69888166 Problem Type 2 diabetes mellitus with other circulatory complication, without long-term current 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 Active 12164351 Problem Coronary artery disease involving [place] coronary artery of [place] heart without angina pectoris I25.10 Active 0658561878855 Problem Gastroesophageal reflux disease, esophagitis presence not specified K21.9 Active 295122343 ALLERGIES Substance Reaction Event Type Date Status Metformin HCl unknown Drug Allergy Jan, Active Keflex rash Drug Allergy Jan, Active Januvia unknown Drug Allergy Jan, Active Bactrim unknown Drug Allergy Jan, Active ENCOUNTERS Encounter Location Date Diagnosis [address] [place], [place] [id number] Feb, 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 ; Type 2 diabetes mellitus with hyperglycemia E11.65 and Noncompliance with diabetes treatment Z91.19 [facility] [address] [facility] [id number] [address] Jan, [facility] [address] [facility] [id number], [place] [address] Jan, Type 2 diabetes mellitus with other circulatory complication , without long-term current 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 ; Coronary artery disease involving [place] coronary artery of [place] heart without angina pectoris I25.10 ; Major depressive disorder with single episode, 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 ; Gastroesophageal reflux disease, esophagitis presence not specified K21.9 and Essential hypertension I10 Via [facility] [address] [place], [place] [id number] Jan, Type 2 diabetes mellitus with hyperosmolarity without nonketotic hyperglycemic-hyperosmolar coma ([facility]) E11.00 and group home current use of insulin Z79.4 IMMUNIZATIONS No Known Immunizations SOCIAL HISTORY Never Assessed REASON FOR VISIT [facility] PLAN OF CARE Activity Details Follow Up 2 Months Reason: VITAL SIGNS Height 60 in 2018-01-27 Weight 145.6 lbs 2018-01-27 Temperature 98.1 degrees Fahrenheit 2018-01-27 Heart Rate 70 bpm 2018-01-27 Respiratory Rate 20 2018-01-27 Oximetry 97 % 2018-01-27 BMI 28.43 kg/m2 2018-01-27 Blood pressure systolic 136 mmHg 2018-01-27 Blood pressure diastolic 70 mmHg 2018-01-27 MEDICATIONS Medication Instructions Dosage Frequency Start Date End Date Duration Status Simple Diagnostics Lancing Dev - TEST BLOOD SUGAR 4 TIMES DAILY ACCORDING TO DOCTOR INSTRUCTIONS 30 Active Fluoxetine HCl 10 MG Orally Once a day 1 capsule 24h 30 day(s) Active Lidocaine 5 % APPLY 2 3 GRAMS TO AFFECTED AREA 2 3 TIMES DAILY NEEDED 30 Active Alcohol Prep 70 % TEST BLOOD SUGAR 4 TIMES DAILY ACCORDING TO DOCTOR INSTRUCTIONS 25 Active Amlodipine Besy-Benazepril HCl 2.5-10 MG as directed Active OneTouch Ultra Test - TEST BLOOD SUGAR 4 TIMES DAILY ACCORDING TO DOCTOR INSTRUCTIONS 25 Active OneTouch Ultra Control - TEST BLOOD SUGAR 4 TIMES DAILY ACCORDING TO DOCTOR INSTRUCTIONS 90 Active Nystatin 345470 UNIT/GM APPLY TOP THREE TIMES DAILY APPLY TO AFFECTED AREAS 15 Active Toprol XL 25 MG Orally Once a day 1 tablet 24h 30 day(s) Active Milk of Magnesia 400 MG/5ML Orally Four times a day 5 ml as needed 6h Active OneTouch Ultra 2 w/Device TEST BLOOD SUGAR 4 TIMES DAILY ACCORDING TO DOCTOR INSTRUCTIONS 30 Active Comfort EZ [place] 31G X 5 MM USE ONE NEEDLE WITH EACH INSULIN DOSE 30 Active Comfort EZ Insulin Syringe 31G X 5/16 USE ONE NEEDLE WITH EACH INSULIN DOSE 30 Active Clopidogrel Bisulfate 75 MG Orally Once a day 1 tablet 24h 30 day(s) Active Tylenol 325 MG Orally every 4 hrs 1 tablet as needed 4h Active Haloperidol 0.5 MG TAKE 1 TABLET BY MOUTH TWICE DAILY 30 Active Pharmacist Choice Lancets - TEST BLOOD SUGAR 4 TIMES DAILY ACCORDING TO DOCTOR INSTRUCTIONS 25 Active GlyBURIDE 5 MG Orally Once a day 1 tablet with breakfast or the first main meal of the day 24h 30 day(s) Active Ranitidine HCl 150 MG Orally Once a day 1 capsule at bedtime 24h 30 day(s) Active Aspir-81 81 MG Orally Once a day 1 tablet 24h 30 day(s) Active Levemir 100 UNIT/ML as directed Active RESULTS No Results PROCEDURES No Known [...]
--- OUTSIDE RECORDS SUMMARY | 2018-04-24 13:09 | XMS REPORT ---
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 Name Role Phone ALDEN PACHECO Unavailable PROBLEMS Type Condition ICD9-CM Code [id number] Code Onset Dates Condition Status SNOMED Code Problem USP current use of insulin Z79.4 Active 074465049 Problem Type 2 diabetes mellitus with hyperosmolarity without nonketotic hyperglycemic-hyperosmolar coma ([facility]) E11.00 Active 18147797 Problem Type 2 diabetes mellitus with hyperglycemia E11.65 Active 11627071 Problem Essential hypertension I10 Active 76072829 Problem Major depressive disorder with single episode, 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 Active 68350589 Problem Type 2 diabetes mellitus with other circulatory complication, without long-term current 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 Active 10377157 Problem Coronary artery disease involving [place] coronary artery of [place] heart without angina pectoris I25.10 Active 1185732392776 Problem Gastroesophageal reflux disease, esophagitis presence not specified K21.9 Active 834939976 ALLERGIES No Information ENCOUNTERS Encounter Location Date Diagnosis [facility] [address] [place], [place] [id number] Feb, Discharge planning issues Z02.9 and Noncompliance with diabetes treatment Z91.19 [address] [id number], [place] [address] Feb, [facility] [address] [place] [id number] Feb, USP current use of insulin Z79.4 ; Type 2 diabetes mellitus with hyperglycemia E11.65 and Noncompliance with diabetes treatment Z91.19 [facility] [address] [id number], [place] [address] Jan, [facility] [address], [place] [address] 14 Jan, 2018 Type 2 diabetes mellitus with other circulatory complication , without long-term current 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 ; Coronary artery disease involving [place] coronary artery of [place] heart without angina pectoris I25.10 ; Major depressive disorder with single episode, 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 ; Gastroesophageal reflux disease, esophagitis presence not specified K21.9 and Essential hypertension I10 [facility] [address] [place] [id number] Jan, 2018 Type 2 diabetes mellitus with hyperosmolarity without nonketotic hyperglycemic-hyperosmolar coma ([facility]) E11.00 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 IMMUNIZATIONS No Known Immunizations SOCIAL HISTORY Never Assessed REASON FOR VISIT group home visit--ALESSANDRO Connors PLAN OF CARE Activity Details Follow Up prn Reason: VITAL SIGNS MEDICATIONS Medication Instructions Dosage Frequency Start Date End Date Duration Status Ranitidine HCl 150 MG Orally twice a day 1 capsule 12h Active Milk of Magnesia 400 MG/5ML Orally Once a day 30ml as needed 24h Active Levemir 100 UNIT/ML Subcutaneous 2 times a day 15 units in the morning and 10 units at bedtime 12h Active Fluoxetine HCl 10 MG Orally Once a day 1 capsule 24h 30 day(s) Active Nystatin 773273 UNIT/GM APPLY TOP THREE TIMES DAILY APPLY TO AFFECTED AREAS 15 Active NovoLog 100 UNIT/ML Subcutaneous before meals and at bedtime per sliding scale Active Clopidogrel Bisulfate 75 MG Orally Once a day 1 tablet 24h 30 day(s) Active Aspir-81 81 MG Orally Once a day 1 tablet 24h 30 day(s) Active GlyBURIDE 5 mg Orally twice a day 0.5 tablets 12h Active Tylenol 325 MG Orally every 4 hrs 1-2 tablets as needed 4h Active Toprol XL 25 MG Orally twice a day 1 tablet 12h Active Haloperidol 0.5 MG Oral Twice a day 1 tablet 12h Active Amlodipine Besylate 2.5 MG Orally Once a day 1 tablet 24h 30 day(s) Active RESULTS No Results PROCEDURES Procedure Date Ordered Result Body Site Minor complication (15 mins) Feb 14, 2018 INSTRUCTIONS MEDICATIONS ADMINISTERED No Known Medications MEDICAL [...]
--- OUTSIDE RECORDS SUMMARY | 2018-04-24 13:09 | XMS REPORT ---
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 Name Role Phone ALDEN PACHECO Unavailable PROBLEMS Type Condition ICD9-CM Code [id number] Code Onset Dates Condition Status SNOMED Code Problem [facility] current use of insulin Z79.4 Active 426540519 Problem Type 2 diabetes mellitus with hyperosmolarity without nonketotic hyperglycemic-[facility]molar [facility] E11.00 Active 52395891 Problem Type 2 diabetes mellitus with hyperglycemia E11.65 Active 09045756 Problem Essential hypertension I10 Active 47749405 Problem Major depressive disorder with single episode, 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 Active 60519594 Problem Type 2 diabetes mellitus with other circulatory complication, without long-term current 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 Active 10226917 Problem Coronary artery disease involving [place] coronary artery of [place] heart without angina pectoris I25.10 Active 6278146450426 Problem Gastroesophageal reflux disease, esophagitis presence not specified K21.9 Active 902926292 ALLERGIES No Information ENCOUNTERS Encounter Location Date Diagnosis Via [facility] [email or web address] [address] [place], [place] [id number] Feb, Discharge planning issues Z02.9 and Noncompliance with diabetes treatment Z91.19 [id number], [place] [address] Feb, [facility] [address] [place] [id number] Feb, [facility] current use of insulin Z79.4 ; Type 2 diabetes mellitus with hyperglycemia E11.65 and Noncompliance with diabetes treatment Z91.19 [facility] [id number], [place] [address] Jan, [facility] [address], [place] [address] 14 Jan, 2018 Type 2 diabetes mellitus with other circulatory complication , without long-term current 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 ; Coronary artery disease involving [place] coronary artery of [place] heart without angina pectoris I25.10 ; Major depressive disorder with single episode, 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
--- OUTSIDE RECORDS SUMMARY | 2018-04-24 13:13 | XMS REPORT | Continuity of Care Document ---
Author Author [facility] Organization [facility] Address Unknown Phone Unavailable Allergies Active Description Code Type Severity Reaction Onset Reported/Identified Relationship to Patient Clinical Status Yes Bactrim 5086 Drug Allergy Unknown N/A Yes Januvia [id number] Drug Allergy Unknown N/A Yes Keflex 6608 [...] N/A N/A 03/16/2005 Yes Keflex Drug N/A [id number] 01/14/2016 Yes cephalexin [id number] Drug Allergy Unknown N/A 02/03/2018 Yes metformin [id number] Drug Allergy Unknown N/A 02/03/2018 Yes sitagliptin [id number] Drug Allergy Unknown N/A 02/03/2018 Yes sulfamethoxazole [id number] Drug Allergy Unknown N/A 02/03/2018 Yes trimethoprim [id number] Drug Allergy Unknown N/A 02/03/2018 Medications Medication Packaging Start Date Stop Date [...] Attending Type Code Diagnosis Diagnosed By 07/08/2013 SETTER, KARLEE D 309.28 ADJUST DIS-ANXIETY/DEPR 07/08/2013 SETTER, KARLEE D 309.28 ADJUST DIS-ANXIETY/DEPR 08/29/2013 SETTER, KARLEE D 309.28 ADJUST DIS-ANXIETY/DEPR 09/13/2013 SETTER, KARLEE D 309.28 ADJUST DIS-ANXIETY/DEPR 06/15/2014 SETTER, KARLEE D 309.28 ADJUST DIS-ANXIETY/DEPR 11/26/2014 SETTER, KARLEE D 309.28 ADJUST DIS-ANXIETY/DEPR 02/12/2015 SETTER, KARLEE D 309.28 ADJUST DIS-ANXIETY/DEPR 02/04/2018 FREDDY ESCOBAR Ot I10 ESSENTIAL (PRIMARY) HYPERTENSION 02/04/2018 MIHA ESCOBARIS Ot N39.0 URINARY TRACT INFECTION, SITE NOT SPECIF 02/04/2018 FREDDY ESCOBAR Ot R11.2 NAUSEA WITH VOMITING, UNSPECIFIED 02/04/2018 FREDDY ESCOBAR Ot Z88.1 ALLERGY STATUS TO OTHER ANTIBIOTIC AGENT 02/04/2018 FREDDY ESCOBAR Ot Z88.2 ALLERGY STATUS TO SULFONAMIDES STATUS 02/04/2018 MIAH ESCOBARIS Ot Z88.6 ALLERGY STATUS TO ANALGESIC AGENT STATUS 02/04/2018 MIAH ESCOBARIS Ot Z88.8 ALLERGY STATUS TO OTH DRUG/MEDS/BIOL SUB 02/06/2018 FREDDY ESCOBAR Ot I10 ESSENTIAL (PRIMARY) HYPERTENSION 02/06/2018 MIAH ESCOBARIS Ot N39.0 URINARY TRACT INFECTION, SITE NOT SPECIF 02/06/2018 MIAH ESCOBARIS Ot R11.2 NAUSEA WITH VOMITING, UNSPECIFIED 02/06/2018 MIAH ESCOBARIS Ot Z88.1 ALLERGY STATUS TO OTHER ANTIBIOTIC AGENT 02/06/2018 LUZ FREDDY Ot Z88.2 ALLERGY STATUS TO SULFONAMIDES STATUS 02/06/2018 MIAH ESCOBARIS Ot Z88.6 ALLERGY STATUS TO ANALGESIC AGENT STATUS 02/06/2018 LUZ FREDDY Ot Z88.8 ALLERGY STATUS TO OTH DRUG/MEDS/BIOL SUB Procedures Code [place] [address] [place] HEAD/BRAIN W/O DYE 07/08/2013 08446 COMPLETE CBC W/AUTO DIFF WBC 07/08/2013 G0001 SPECIMEN COLLECTION 07/08/2013 J2550 PROMETHAZIEN 25MG/ML 07/08/[address] HEAD/BRAIN W/O DYE 07/08/2013 90190 COMPLETE CBC W/AUTO DIFF WBC 07/08/2013 G0001 SPECIMEN COLLECTION 07/08/2013 J2550 PROMETHAZIEN 25MG/ML 07/08/[address] HEAD/BRAIN W/O DYE 08/29/2013 72560 COMPLETE CBC W/AUTO DIFF WBC 08/29/2013 G0001 SPECIMEN COLLECTION 08/29/2013 J2550 PROMETHAZIEN 25MG/ML 08/29/[address] HEAD/BRAIN W/O DYE 10/01/2013 10921 COMPLETE CBC W/AUTO DIFF WBC 10/01/2013 G0001 SPECIMEN COLLECTION 10/01/2013 J2550 PROMETHAZIEN 25MG/ML 10/01/[address] HEAD/BRAIN W/O DYE 10/21/2013 81881 COMPLETE CBC W/AUTO DIFF WBC 10/21/2013 G0001 SPECIMEN COLLECTION 10/21/2013 J2550 PROMETHAZIEN 25MG/ML 10/21/[address] HEAD/BRAIN W/O DYE 10/21/2013 04202 COMPLETE CBC W/AUTO DIFF WBC 10/21/2013 G0001 SPECIMEN COLLECTION 10/21/2013 J2550 PROMETHAZIEN 25MG/ML 10/21/[address] HEAD/BRAIN W/O DYE 11/26/2014 18616 COMPLETE CBC W/AUTO DIFF WBC 11/26/2014 G0001 SPECIMEN COLLECTION 11/26/2014 J2550 PROMETHAZIEN 25MG/ML 11/26/[address] HEAD/BRAIN W/O DYE 02/17/2015 76151 COMPLETE CBC W/AUTO DIFF WBC 02/17/2015 G0001 SPECIMEN COLLECTION 02/17/2015 J2550 PROMETHAZIEN 25MG/ML 02/17/2015 86454 URINALYSIS, AUTO W/SCOPE 09/26/2015 64933 URINE CULTURE/COLONY COUNT 09/26/[address] HEAD/BRAIN W/O DYE 09/26/2015 55551 COMPLETE CBC W/AUTO DIFF WBC 09/26/2015 G0001 SPECIMEN COLLECTION 09/26/2015 J2550 PROMETHAZIEN 25MG/ML 09/26/[address] HEAD/BRAIN W/O DYE 09/29/2015 88229 COMPLETE CBC W/AUTO DIFF WBC 09/29/2015 G0001 SPECIMEN COLLECTION 09/29/2015 J2550 PROMETHAZIEN 25MG/ML 09/29/2015 92642 ROUTINE VENIPUNCTURE 09/29/[address] HEAD/BRAIN W/O DYE 09/29/2015 66462 CHEST X-RAY 09/29/2015 30127 COMPREHEN METABOLIC PANEL 09/29/2015 65830 URINALYSIS, AUTO W/SCOPE 09/29/2015 50962 ASSAY OF LACTIC ACID 09/29/2015 49656 COMPLETE CBC W/AUTO DIFF WBC 09/29/2015 20013 BLOOD CULTURE FOR BACTERIA 09/29/2015 66206 HYDRATE IV INFUSION, ADD-ON 09/29/2015 40002 THER/PROPH/DIAG IV INF, INIT 09/29/2015 66264 TX/PRO/DX INJ NEW DRUG ADDON 09/29/2015 99159 EMERGENCY DEPT VISIT 09/29/2015 J7120 RINGERS LACTATE INFUSION 09/29/[address] HEAD/BRAIN W/O DYE 09/30/2015 52223 COMPLETE CBC W/AUTO DIFF WBC 09/30/2015 G0001 SPECIMEN COLLECTION 09/30/2015 J2550 PROMETHAZIEN 25MG/ML 09/30/2015 79151 METABOLIC PANEL TOTAL CA 10/15/2015 49896 ASSAY OF MAGNESIUM 10/15/2015 79114 PSYTX PT&/FAMILY 45 MINUTES 11/05/2015 78974 EXTRACRANIAL STUDY 11/06/[address] HEAD/BRAIN W/O DYE 11/06/2015 70131 COMPLETE CBC W/AUTO DIFF WBC 11/06/2015 G0001 SPECIMEN COLLECTION 11/06/2015 J2550 PROMETHAZIEN 25MG/ML 11/06/2015 68836 PSYTX PT&/FAMILY 45 MINUTES 11/06/2015 51450 PSYTX PT&/FAMILY 45 MINUTES 11/13/[address] HEAD/BRAIN W/O DYE 11/25/2015 01703 COMPLETE CBC W/AUTO DIFF WBC 11/25/2015 G0001 SPECIMEN COLLECTION 11/25/2015 J2550 PROMETHAZIEN 25MG/ML 11/25/2015 30075 PSYTX PT&/FAMILY 45 MINUTES 02/27/2016 30091 PSYTX PT&/FAMILY 45 MINUTES 03/26/2016 68898 PSYTX PT&/FAMILY 45 MINUTES 03/26/2016 80170 PSYTX PT&/FAMILY 45 MINUTES 03/26/2016 35672 PSYTX PT&/FAMILY 45 MINUTES 05/20/2016 63795 PSYTX PT&/FAMILY 45 MINUTES 05/20/2016 49504 PSYTX PT&/FAMILY 45 MINUTES 05/20/2016 Results Test [...] % IMM GRANULOCYTE # 0.0 10^3u 0-5 [facility] - 10/01/15 00:00 BCR 13.4 10-20 BUN 15 MG/DL 7-18 CA 8.2 MG/DL 8.4-10.2 CL 106 MEQ/L 98-107 CO2 22.9 MEQ/L 22-28 CREA 1.12 MG/DL 0.6-1.0 EGFR 47 eGFR >=60 GLU 190 MG/DL 70-105 K 4.2 MEQ/L 3.5-5.1 NA 136 MEQ/L 134-145 OSMSC 277.9 MOSML 280-300 Anion Gap 7.1 8-16 MG - 10/15/15 00:00 MG 1.9 MG/DL 1.7-2.8 [facility] - 10/15/15 00:00 BCR 23.2 10-20 BUN [...] 10/03/17 02:48 HOLD SPECIMEN FOR BLOOD BANK [facility] URINALYSIS W/MICROSCOPIC - 10/03/17 05:15 COLOR STRAW [...] 10:09 GLUCOSE (ACCUCHEK) 76 mg/dl 74-105 GLUCOSE, ACCUCHEK - 10/05/17 14:34 GLUCOSE (ACCUCHEK) 207 mg/dl [...] 10/06/17 04:45 HOLD SPECIMEN FOR BLOOD BANK [facility] BMP - BASIC METABOLIC PANEL - 10/06/17 04:45 [...] pg 27-31 MCHC 34.3 % 32.0- 36.0 [facility] - BASIC METABOLIC PANEL - 10/07/17 05:15 GLUCOSE 159 mg/dl 74- 106 BUN 22 mg/dl 7-18 CREATININE 1.45 mg/dl 0.55- 1.02 SODIUM (NA) 136 mEq/L 136- 146 POTASSIUM, BLOOD 3.6 mEq/L 3.5- 5.1 CHLORIDE 104 mEq/L 98- 107 CO2 (BICARBONATE) 21 mEq/L 21-32 CALCIUM 9.1 mg/dl 8.5- 10.1 eGFR mL/min >=59 GLUCOSE, ACCUCHEK - 10/07/17 10:03 GLUCOSE (ACCUCHEK) 148 mg/dl 74- 105 Complete blood count (CBC) with automated white blood cell (WBC) differential - 02/03/18 22:29 Blood leukocytes automated count (number/volume) 12.3 10*3/uL 4.3-11.0 Blood erythrocytes automated count (number/volume) 4.53 10*6/uL 4.35-5.85 Venous blood hemoglobin measurement (mass/volume) 13.1 g/dL 11.5-16.0 Blood hematocrit (volume fraction) 40 % 35-52 Automated erythrocyte mean corpuscular volume 87 [foz_us] 80-99 Automated erythrocyte mean corpuscular hemoglobin (mass per erythrocyte) 29 pg 25-34 Automated erythrocyte mean corpuscular hemoglobin concentration measurement ( mass/volume) 33 g/dL 32-36 Automated erythrocyte distribution width ratio 14.5 % 10.0-14.5 Automated blood platelet count (count/volume) 234 10*3/uL 130-400 Automated blood platelet mean volume measurement 11.2 [foz_us] 7.4-10.4 Automated blood neutrophils/100 leukocytes 86 % 42-75 Automated blood lymphocytes/100 leukocytes 7 % 12-44 Blood monocytes/100 leukocytes 6 % 0-12 Automated blood eosinophils/100 leukocytes 1 % 0-10 Automated blood basophils/100 leukocytes 0 % 0-10 Blood neutrophils automated count (number/volume) 10.5 10*3 1.8-7.8 Blood lymphocytes automated count (number/volume) 0.9 10*3 1.0-4.0 Blood monocytes automated count (number/volume) 0.8 10*3 0.0-1.0 Automated eosinophil count 0.1 10*3/uL 0.0-0.3 Automated blood basophil count (count/volume) 0.0 10*3/uL 0.0-0.1 Blood manual differential performed detection - 02/03/18 22:29 Blood monocytes/100 leukocytes 6 % NRG Manual blood segmented neutrophils/100 leukocytes 64 % NRG Blood band neutrophils/100 leukocytes 16 % NRG Manual blood lymphocytes/100 leukocytes 13 % NRG Manual eosinophils/100 leukocytes in nose 0 % NRG Manual blood basophils/100 leukocytes 1 % NRG Blood erythrocyte morphology finding identification NORMAL NR Blood lactic acid measurement (moles/volume) - 02/03/18 22:29 Blood lactic acid measurement (moles/volume) 2.00 mmol/L 0.50-2.00 Comprehensive metabolic panel - 02/03/18 22:29 Serum or plasma sodium measurement (moles/volume) 140 mmol/L 135-145 Serum or plasma potassium measurement (moles/volume) 4.1 mmol/L 3.6-5.0 Serum or plasma chloride measurement (moles/volume) 107 mmol/L 98-107 Carbon dioxide 21 mmol/L 21-32 Serum or plasma anion gap determination (moles/volume) 12 mmol/L 5-14 Serum or plasma urea nitrogen measurement (mass/volume) 33 mg/dL 7-18 Serum or plasma creatinine measurement (mass/volume) 1.70 mg/dL 0.60-1.30 Serum or plasma urea nitrogen/creatinine mass ratio 19 NRG Serum or plasma creatinine measurement with calculation of estimated glomerular filtration rate 29 NRG Serum or plasma glucose measurement (mass/volume) 214 mg/dL 70-105 Serum or plasma calcium measurement (mass/volume) 9.3 mg/dL 8.5-10.1 Serum or plasma total bilirubin measurement (mass/volume) 0.3 mg/dL 0.1-1.0 Serum or plasma alkaline phosphatase measurement (enzymatic activity/volume) 75 U/L 40-136 Serum or plasma aspartate aminotransferase measurement (enzymatic activity/ volume) 14 U/L 5-34 Serum or plasma alanine aminotransferase measurement (enzymatic activity/volume ) 14 U/L 0-55 Serum or plasma protein measurement (mass/volume) 7.9 g/dL 6.4-8.2 Serum or plasma albumin measurement (mass/volume) 4.1 g/dL 3.2-4.5 CALCIUM CORRECTED 9.2 mg/dL 8.5-10.1 Serum or plasma amylase measurement (enzymatic activity/volume) - 02/03/18 22: 29 Serum or plasma amylase measurement (enzymatic activity/volume) 93 U /L 25-125 Lipase - 02/03/18 22:29 Lipase 51 U/L 8-78 Bacterial blood culture - 02/03/18 22:29 Bacterial blood culture NG NRG Complete urinalysis with reflex to culture - 02/03/18 22:35 Urine color determination YELLOW NRG Urine clarity determination SLIGHTLY CLOUDY NRG Urine pH measurement by test strip 7 5-9 Specific gravity of urine by test strip 1.010 1.016- 1.022 Urine protein assay by test strip, semi-quantitative 3+ NEGATIVE Urine glucose detection by automated test strip 2+ NEGATIVE Erythrocytes detection in urine sediment by light microscopy 1+ NEGATIVE Urine ketones detection by automated test strip NEGATIVE NEGATIVE Urine nitrite detection by test strip NEGATIVE NEGATIVE Urine total bilirubin detection by test strip NEGATIVE NEGATIVE Urine urobilinogen measurement by automated test strip (mass/volume) NORMAL NORMAL Urine leukocyte esterase detection by dipstick 1+ NEGATIVE Automated urine sediment erythrocyte count by microscopy (number/high power field) [HPF] NRG Automated urine sediment leukocyte count by microscopy (number/high power field ) [HPF] NRG Bacteria detection in urine sediment by light microscopy FEW NRG Squamous epithelial cells detection in urine sediment by light microscopy 5-10 NRG Crystals detection in urine sediment by light microscopy NONE NRG Casts detection in urine sediment by light microscopy NONE NRG Mucus detection in urine sediment by light microscopy NEGATIVE NRG Complete urinalysis with reflex to culture YES NRG Bacterial urine culture - 02/03/18 22:35 Bacterial urine culture SEE REPORT NRG COLONY COUNT . NRG Bacterial blood culture - 02/03/18 23:08 Bacterial blood culture NG NRG Encounters ACCT No. Visit Date/Time Discharge Status Pt. Type Provider Facility Loc./Unit Complaint [id number] 10/03/2017 02:20:00 10/07/2017 13:00:00 DIS Inpatient MELISSA KNAPP [facility] 200 NSTEMI [id number] 02/22/2018 15:15:00 02/22/2018 23:59:59 CLS Outpatient FLOYD DINERO [facility] [id number] 01/20/2018 14:30:00 01/20/2018 23:59:59 CLS Outpatient FLOYD DINERO [facility] [id number] 01/13/2018 23:34:24 01/20/2018 14:05:00 DIS Inpatient SUZIE HERNANDEZ [facility] altered mental status uncontrolled type 2 diabetes weakness [id number] 01/13/2018 00:00:00 01/13/2018 23:59:59 CLS Outpatient SUZIE HERNANDEZ [facility] [id number] 01/13/2018 22:35:00 01/13/2018 23:30:00 DIS Emergency MENDY ORTIZ [facility] ED ED VISIT [id number] 01/01/2018 23:00:00 01/01/2018 23:59:59 DIS Outpatient SWATHI MCGRAW [facility] [id number] 01/01/2018 15:28:00 01/01/2018 17:30:00 DIS Emergency Chanelle Lee [facility] ED ER [id number] 12/16/2017 15:45:00 12/16/2017 23:59:59 CLS Outpatient FLOYD DINERO [facility] [id number] 12/14/2017 14:07:00 12/14/2017 23:59:59 CLS Outpatient TUCKER DIAZ [facility] [id number] 12/14/2017 14:32:00 12/14/2017 15:40:00 DIS Emergency SWATHI BULLARD [facility] ED ED VISIT [id number] 12/09/2017 14:03:45 12/13/2017 13:42:00 DIS Inpatient SUZIE HERNANDEZ [facility] MS CVA [id number] 12/09/2017 00:00:00 12/09/2017 23:59:59 CLS Outpatient SUZIE HERNANDEZ [facility] [id number] 12/04/2017 00:30:48 12/09/2017 13:55:00 DIS Inpatient SUZIE HERNANDEZ [facility] MS UTI, altered mental status [id number] 12/05/2017 13:30:00 12/05/2017 23:59:59 CLS Outpatient BAR [facility] [id number] 12/03/2017 21:37:00 12/03/2017 23:58:00 DIS Emergency TUCKER DIAZ [facility] ED ed visit [id number] 12/02/2017 13:19:00 12/02/2017 23:59:59 DIS Outpatient TUCKER DIAZ [facility] [id number] 12/02/2017 13:54:00 12/02/2017 16:37:00 DIS Emergency Chanelle Lee [facility] ED ER VISIT [id number] 11/17/2017 10:30:00 11/17/2017 23:59:59 CLS Outpatient BAR, [facility] [id number] 10/18/2017 14:30:00 10/18/2017 23:59:59 CLS Outpatient Madhavi Patterson [facility] [id number] 10/12/2017 14:33:39 10/12/2017 23:59:59 DIS Outpatient LARAEDMOND MELISSA Tank [facility] lab [id number] 10/12/2017 14:15:16 10/12/2017 23:59:59 DIS Outpatient BAR FLOYD [facility] [id number] 10/02/2017 11:51:00 10/03/2017 01:15:00 DIS SUZIE VELA [facility] OBS Chest pain, rule out [place] [id number] 10/02/2017 21:41:17 10/02/2017 23:59:59 DIS Outpatient TUCKER DIAZ [facility] [id number] 10/02/2017 11:22:00 10/02/2017 23:59:59 DIS Outpatient SWATHI MCGRAW [facility] [id number] 09/14/2017 14:52:01 09/14/2017 23:59:59 DIS Outpatient BAR FLOYD [facility] [id number] 09/12/2017 13:42:51 09/12/2017 23:59:59 DIS Outpatient BAR FLOYD [facility] lab [id number] 09/12/2017 13:42:06 09/12/2017 23:59:59 DIS Outpatient BARFLOYD [facility] [id number] 08/31/2017 11:20:27 08/31/2017 23:59:59 DIS Outpatient Hay [facility] lab [id number] 08/31/2017 10:30:00 08/31/2017 23:59:59 DIS Outpatient Hay Erica [facility] [id number] 08/03/2017 14:30:00 08/03/2017 23:59:59 DIS Outpatient Erica Guido [facility] [id number] 07/19/2017 09:45:00 07/19/2017 23:59:59 CLS Outpatient BAR [facility] [id number] 07/15/2017 14:30:00 07/15/2017 23:59:59 CLS Outpatient BAR [facility] [id number] 07/06/2017 09:30:00 07/06/2017 23:59:59 CLS Outpatient BAR [facility] [id number] 06/29/2017 10:45:00 06/29/2017 23:59:59 CLS Outpatient BAR [facility] [id number] 06/22/2017 15:00:00 06/22/2017 23:59:59 CLS Outpatient BAR [facility] [id number] 06/20/2017 13:30:00 06/20/2017 23:59:59 DIS Outpatient BAR [facility] [id number] 06/13/2017 12:30:03 06/14/2017 16:45:00 DIS Inpatient SUZIE HERNANDEZ [facility] MS uncontrolled diabetes alt mental status leukocytosis [id number] 06/13/2017 00:00:00 06/13/2017 23:59:59 CLS Outpatient SUZIE HERNANDEZ [facility] [id number] 06/12/2017 04:52:00 06/13/2017 12:28:00 DIS V SZUIE HERNANDEZ [facility] OBS Nausea, vomiting, diarrhea , dehydration, hyperglycemia [id number] 06/12/2017 23:57:48 06/12/2017 23:59:59 DIS Outpatient TUCKER DIAZ [facility] [id number] 06/07/2017 12:27:27 06/07/2017 23:59:59 CLS Preadmit [facility] PT vertigo/weakness [id number] 06/06/2017 14:40:36 06/06/2017 23:59:59 DIS Outpatient FLOYD DINERO [facility] [id number] 05/18/2017 14:30:00 05/18/2017 23:59:59 DIS Outpatient FLOYD DINERO [facility] [id number] 04/13/2017 16:39:18 04/13/2017 23:59:59 DIS Outpatient FLOYD DINERO [facility] lab [id number] 04/13/2017 15:45:00 04/13/2017 23:59:59 DIS Outpatient FLOYD DINERO [facility] [id number] 03/16/2017 13:30:00 03/16/2017 23:59:59 CLS Outpatient ERIK ARMANDO [facility] [id number] 02/17/2017 13:21:30 02/17/2017 23:59:59 CLS Preadmit BAR [facility] RAD post menopausal, osteoporosis screening [id number] 02/10/2017 10:54:02 02/10/2017 23:59:59 DIS Outpatient FLOYD DINERO [facility] [id number] 02/01/2017 09:45:00 02/01/2017 23:59:59 DIS Outpatient FLOYD DINERO [facility] [id number] 01/04/2017 11:59:12 01/04/2017 23:59:59 DIS Outpatient SUZIE HERNANDEZ [facility] lab [id number] 01/04/2017 11:45:00 01/04/2017 23:59:59 DIS Outpatient SUZIE HERNANDEZ [facility] [id number] 12/21/2016 10:55:59 12/21/2016 23:59:59 DIS Outpatient SUZIE HERNANDEZ [facility] lab [id number] 12/21/2016 10:14:27 12/21/2016 23:59:59 DIS Outpatient FLOYD DINERO [facility] [id number] 10/28/2016 09:00:46 11/23/2016 17:00:00 DIS R BAR [facility] ST[facility] PT Balance Difficulties [id number] 10/20/2016 11:35:58 10/20/2016 23:59:59 CLS Outpatient BRA [facility] Lab lab [id number] 10/20/2016 10:33:14 10/20/2016 23:59:[address] [facility] [id number] 09/24/2016 14:23:38 09/24/2016 23:59:59 CLS Outpatient BAR [facility] Lab lab [id number] 09/24/2016 13:51:25 09/24/2016 23:59:[address] [facility] [id number] 08/26/2016 14:11:34 08/26/2016 23:59:59 CLS Outpatient BAR [facility] Lab lab [id number] 08/26/2016 13:00:00 08/26/2016 23:59:[address] [facility] [id number] 07/26/2016 13:34:04 07/26/2016 23:59:59 CLS Outpatient FLOYD DINERO [facility] Lab lab [id number] 07/26/2016 13:00:00 07/26/2016 23:59:[address] [facility] [id number] 07/21/2016 14:27:24 07/21/2016 23:59:59 CLS Outpatient SUZIE HERNANDEZ [facility] LAB lab [id number] 06/28/2016 13:58:38 06/28/2016 23:59:59 CLS Outpatient BAR [facility] Lab lab [id number] 06/28/2016 13:18:40 06/28/2016 23:59:59 CLS Outpatient BAR [facility] [id number] 06/21/2016 14:18:33 06/21/2016 23:59:59 CLS Outpatient BAR [facility] xray [id number] 06/21/2016 13:27:50 06/21/2016 23:59:59 CLS Outpatient BAR [facility] [id number] 06/18/2016 11:53:23 06/19/2016 12:45:00 DIS V SUZIE HERNANDEZ [facility] STEV[facility] OBS uncontrolled diabetes type II left second toe cellulitis [id number] 06/18/2016 09:58:33 06/18/2016 23:59:59 [facility] [id number] 06/15/2016 16:27:42 06/15/2016 23:59:59 [facility] lab [id number] 06/15/2016 15:08:29 06/15/2016 23:59:59 [facility] [id number] 05/25/2016 14:11:41 05/25/2016 23:59:59 [facility] lab [id number] 05/25/2016 13:07:41 05/25/2016 23:59:59 CLS Outpatient BREITANDREWS [facility] [id number] 04/30/2016 12:24:01 04/30/2016 23:59:59 CLS Outpatient SUZIE HERNANDEZ [facility] LAB basic meabolic [id number] 04/26/2016 16:08:40 04/26/2016 23:59:59 CLS Outpatient BREITANDREWS [facility] lab [id number] 04/26/2016 14:15:00 04/26/2016 23:59:59 CLS Outpatient MARTHA JOHNSTON [facility] [id number] 04/16/2016 19:21:00 04/16/2016 20:45:00 DIS Emergency Arielle Mckeon [facility] ED high glucose level feet swelling [id number] 12/20/2017 02:10:06 Document Registration [id number] 06/12/2017 04:58:43 Document Registration [id number] 03/30/2017 13:12:15 ACT R SETTER, [facility] ST[facility] SS counseling [id number] 09/01/2016 13:16:40 ACT R SETTER, [facility] STEV[facility] SS social insurance administrator [id number] 04/26/2016 15:24:23 Document Registration [id number] 04/16/2016 19:55:04 Document Registration [id number] 02/03/2018 22:26:00 02/04/2018 02:19:00 DIS Emergency FREDDY ESCOBAR [facility] ER INCREASED CONFUSION [id number] 03/30/2018 14:46:00 ACT Unknown [id number] 02/14/2016 00:00:00 03/15/2016 16:02:00 DIS Outpatient SETTER, [facility] PSYCH [id number] 01/15/2016 12:00:00 02/13/2016 16:02:00 DIS Outpatient SETTER, [facility] PSYCH [id number] 12/15/2015 00:01:00 01/14/2016 16:02:00 DIS Outpatient SETTER, [facility] PSYCH [id number] 11/14/2015 00:01:00 12/14/2015 23:59:00 DIS Outpatient SETTER, [facility] PSYCH [id number] 11/30/2015 16:27:00 11/30/2015 17:16:00 DIS Emergency SWATHI MCGRAW [facility] EMR [id number] 11/26/2015 12:07:00 11/26/2015 12:07:00 DIS Outpatient MARTHA JOHNSTON [facility] PANACE [id number] 10/15/2015 12:00:00 11/13/2015 23:59:00 DIS Outpatient SETTER, [facility] PSYCH [id number] 11/06/2015 14:16:00 11/06/2015 14:16:00 DIS Outpatient MARTHA JOHNSTON [facility] RAD [id number] 10/15/2015 16:20:00 10/15/2015 16:20:00 DIS Outpatient BREJEANIMANAKHILMARTHA TIDWELL [facility] PANACE [id number] 09/14/2015 00:01:00 10/14/2015 12:00:00 DIS Outpatient SETTER, [facility] PSYCH [id number] 09/29/2015 23:31:00 10/01/2015 13:25:00 DIS Inpatient SUZIE HERNANDEZ [facility] 2F [id number] 09/29/2015 20:31:00 09/29/2015 23:31:00 DIS Emergency TUCKER DIAZ W [facility] EMR [id number] 09/26/2015 10:20:00 09/26/2015 10:20:00 DIS Outpatient SUZIE HERNANDEZ [facility] PANACE [id number] 08/15/2015 00:01:00 09/13/2015 23:59:00 DIS Outpatient SETTER, [facility] PSYCH [id number] 07/15/2015 00:01:00 08/14/2015 23:59:00 DIS Outpatient SETTER, [facility] PSYCH [id number] 06/16/2015 00:01:00 07/14/2015 23:59:00 DIS Outpatient SETTER, [facility] PSYCH [id number] 05/16/2015 00:01:00 06/15/2015 23:59:00 DIS Outpatient SETTER, [facility] PSYCH [id number] 04/15/2015 00:01:00 05/15/2015 23:59:00 DIS Outpatient SETTER, [facility] PSYCH [id number] 04/15/2015 00:01:00 05/15/2015 23:59:00 DIS Outpatient SUZIE HERNANDEZ [facility] PT [id number] 03/16/2015 00:01:00 04/14/2015 23:59:00 DIS Outpatient SETTER, [facility] PSYCH [id number] 03/16/2015 00:01:00 04/14/2015 23:59:00 DIS Outpatient SUZIE HERNANDEZ [facility] PT [id number] 02/17/2015 13:18:00 03/15/2015 23:59:00 DIS Outpatient SUZIE HERNANDEZ [facility] PT [id number] 02/13/2015 00:01:00 03/15/2015 23:59:00 DIS Outpatient SETTER, [facility] PSYCH [id number] 01/14/2015 00:01:00 02/12/2015 23:59:00 DIS Outpatient SETTER, [facility] PSYCH [id number] 12/14/2014 00:01:00 01/13/2015 23:59:00 DIS Outpatient SETTER, [facility] PSYCH [id number] 11/13/2014 00:01:00 12/13/2014 23:59:00 DIS Outpatient SETTER, [facility] PSYCH [id number] 11/26/2014 09:55:00 11/26/2014 09:55:00 DIS Outpatient MARTHA JOHNSTON [facility] PANACE [id number] 10/14/2014 00:01:00 11/12/2014 23:59:00 DIS Outpatient SETTER, [facility] PSYCH [id number] 09/13/2014 00:01:00 10/13/2014 23:59:00 DIS Outpatient SETTER, [facility] PSYCH [id number] 08/14/2014 00:01:00 09/12/2014 23:59:00 DIS Outpatient SETTER, [facility] PSYCH [id number] 07/14/2014 00:01:00 08/13/2014 23:59:00 DIS Outpatient SETTER, [facility] PSYCH [id number] 05/16/2014 00:01:00 05/16/2014 23:59:59 CLS Outpatient SETTER, [facility] PSYCH [id number] 04/15/2014 00:01:00 05/15/2014 23:59:00 DIS Outpatient SETTER, [facility] PSYCH [id number] 03/16/2014 00:01:00 04/14/2014 23:59:00 DIS Outpatient SETTER, [facility] PSYCH [id number] 03/26/2014 06:40:00 03/26/2014 11:50:00 DIS Inpatient ARNAV MACEDO Osbaldo [facility] OPS [id number] 02/13/2014 00:01:00 03/15/2014 23:59:00 DIS Outpatient SETTER, [facility] PSYCH [id number] 03/11/2014 15:16:00 03/11/2014 15:16:00 DIS Outpatient MARTHA JOHNSTON [facility] PANACE [id number] 01/14/2014 00:01:00 02/12/2014 23:59:00 DIS Outpatient SETTER, [facility] PSYCH [id number] 12/14/2013 00:01:00 01/13/2014 23:59:00 DIS Outpatient SETTER, [facility] PSYCH [id number] 01/04/2014 06:30:00 01/04/2014 06:30:00 DIS Outpatient SUZIE HERNANDEZ [facility] RAD [id number] 10/21/2013 17:06:00 10/21/2013 18:15:00 DIS Emergency TUCKER DIAZ [facility] EMR [id number] 10/14/2013 00:00:00 10/14/2013 23:59:59 CLS Outpatient SETTER, [facility] PSYCH [id number] 08/14/2013 00:01:00 09/12/2013 23:59:00 DIS Outpatient SETTER, [facility] PSYCH [id number] 08/29/2013 17:01:00 08/29/2013 18:35:00 DIS Emergency SUZIE HERNANDEZ [facility] EMR [id number] 07/14/2013 00:01:00 08/13/2013 23:59:00 DIS Outpatient SETTER, [facility] PSYCH [id number] 06/16/2013 00:01:00 07/13/2013 23:59:00 DIS Outpatient KARLEE ELIZONDO [facility] PSYCH [id number] 07/08/2013 11:14:00 07/08/2013 12:20:00 DIS Emergency XIOMARAALF [facility] EMR [id number] 04/14/2015 00:00:00 Document Registration [id number] 04/14/2015 00:00:00 Document Registration [id number] 04/14/2015 00:00:00 Document Registration [id number] 04/14/2015 00:00:00 Document Registration [id number] 07/08/2013 01:01:53 Document Registration [id number] 04/14/2013 00:00:00 Document Registration [id number] 04/14/2013 00:00:00 Document Registration [id number] 04/14/2013 00:00:00 Document Registration [id number] 05/23/2002 14:08:00 Document Registration
[2018-04-24 13:24] LABS: BASOPHILS % (AUTO) 0 % (0-10); EOSINOPHILS % (AUTO) 0 % (0-10); HEMATOCRIT 40 % (35-52); HEMOGLOBIN 13.6 G/DL (11.5-16.0); LYMPHOCYTES # (AUTO) 2.5 X 10^3 (1.0-4.0); LYMPHOCYTES % (AUTO) 31 % (12-44); MEAN CORPUSCULAR HEMOGLOBIN 30 PG (25-34); MEAN CORPUSCULAR HGB CONC 34 G/DL (32-36); MEAN CORPUSCULAR VOLUME 87 FL (80-99); MEAN PLATELET VOLUME 11.1 FL (7.4-10.4); MONOCYTES # (AUTO) 0.9 X 10^3 (0.0-1.0); MONOCYTES % (AUTO) 11 % (0-12); NEUTROPHILS # (AUTO) 4.6 X 10^3 (1.8-7.8); NEUTROPHILS % (AUTO) 57 % (42-75); PLATELET COUNT 217 10^3/uL (130-400); RED BLOOD COUNT 4.55 10^6/uL (4.35-5.85); RED CELL DISTRIBUTION WIDTH 13.5 % (10.0-14.5); WHITE BLOOD COUNT 8.1 10^3/uL (4.3-11.0)
[2018-04-24 13:42] LABS: BILIRUBIN,TOTAL 0.4 MG/DL (0.1-1.0); CALCIUM 9.7 MG/DL (8.5-10.1); CREATININE SERUM 1.57 MG/DL (0.60-1.30); TOTAL PROTEIN 7.6 GM/DL (6.4-8.2)
[2018-04-24 13:53] LABS: FIBRIN DEGRADATION PRODUCTS 2.32 UG/ML (0.00-0.49); PROTHROMBIN TIME PATIENT 13.1 SEC (12.2-14.7)
[2018-04-24 14:03] VITALS: BP 196/89
--- NOTE | 2018-04-24 14:12 | Diagnostic Imaging Report ---
CLINICAL INDICATION: Stroke and slurred speech and altered mental status. EXAM: Axial CT scan of the brain performed without IV contrast. COMPARISON: None. FINDINGS: There is no evidence of intracranial hemorrhage, brain herniation, or hydrocephalus. There is diffuse patchy and confluent areas of low-attenuation white matter changes throughout both cerebral hemispheres. There are multiple areas of chronic cerebral infarct with encephalomalacia seen throughout both cerebral hemispheres. There is a small to moderate-sized area of chronic cerebral infarct involving the left parietal lobe/occipital lobe region. There is a small chronic cerebral infarct involving the right parietal lobe parasagittal region near the vertex and lateral aspect of the right parietal lobe. There are small areas of chronic cerebral infarcts involving the bilateral cerebellum. All of the low-density and infarct changes of both cerebral hemispheres, greatly limit evaluation for acute cerebral infarct, although there is none definitively seen on this given exam. There is motion artifact which limits evaluation of the posterior fossa, brainstem, and portion of the brain near the skull base. There is diffuse brain parenchymal volume loss. Basal cisterns are unremarkable. The extracranial soft tissue, skull, and orbits are unremarkable. Paranasal sinuses and temporal bone structures show no significant abnormality. IMPRESSION: 1: There is no definite CT evidence of interval acute cerebral infarction, intracranial hemorrhage, or mass seen. Given the diffuse low attenuation changes throughout the brain parenchyma which can obscure more subtle findings, if there is clinical concern for acute cerebral infarction, MRI of the brain would better evaluate. 2: There are areas of chronic cerebral infarcts involving both cerebral hemispheres and bilateral cerebellar regions with the largest in the left parietal occipital region, as described above. 3: There is severe diffuse low-attenuation white matter changes throughout both cerebral hemispheres and bilateral cerebellum, likely representing chronic small vessel ischemic disease. Dictated by: Dictated on workstation # [id number]
[2018-04-24 14:18] LABS: BILIRUBIN,URINE NEGATIVE (NEGATIVE); CLARITY,URINE VERY CLOUDY; COLOR,URINE YELLOW; GLUCOSE, URINE (UA) NEGATIVE (NEGATIVE); KETONES,URINE NEGATIVE (NEGATIVE); LEUKOCYTE ESTERASE ,URINE 3+ (NEGATIVE); NITRITE,URINE POSITIVE (NEGATIVE); PH,URINE 7 (5-9); PROTEIN,URINE 3+ (NEGATIVE); UROBILINOGEN,URINE NORMAL (NORMAL)
[2018-04-24 14:21] LABS: BACTERIA,URINE LARGE /HPF; RBC,URINE 0-2 /HPF; WBC,URINE 50-100 /HPF
[2018-04-24] MEDS ORDERED: NS IV 1000 ML 1,000 ML IV ONE (15:53)
[2018-04-24] MEDS ORDERED: MEROPENEM 1,000 MG in NS (IVPB) 100 ML IV ONE (16:00)
--- NOTE | 2018-04-24 16:04 | ED Neurological Problem ---
General Chief Complaint: Neurological Problems Stated Complaint: WEAKNESS Nursing Triage Note: pt arrival by ems. no distress is seen on arrival. loc is slightly confused on arrival. the pt is able to move all extremities on arrival.. Nursing Sepsis Screen: No Definite Risk Source: EMS, [facility] records, old records Exam Limitations: clinical condition History of Present Illness Date Seen by Provider: Apr 24, 2018 Time Seen by Provider: 13:00 Initial Comments This 83-year-old woman is brought to the emergency room via EMS from [facility] with complaints of altered mental status. Fingerstick blood sugar on arrival was 86. Initially EMS stated last known well time was on known. I contacted nursing staff [facility] the [facility] who stated normally patient is ambulatory with a walker independently and is conversational. Patient at this time is unable to answer questions or follow instructions appropriately. She does appear to be moving all 4 extremities. Prior to this conversation a stroke activation was paged. Nursing staff reports symptoms actually started sometime yesterday afternoon when patient was stuttering and stated that she just did not feel right. Symptoms progressed today until she was unable to speak comprehensible or take care of her usual activities of daily living. Staff reported blood sugars were high through the weekend. Allergies and Home Medications Allergies Coded Allergies: cephalexin (Verified Allergy, Unknown, 02/03/18) metformin (Verified Allergy, Unknown, 02/03/18) sitagliptin (Verified Allergy, Unknown, 02/03/18) sulfamethoxazole (Verified Allergy, Unknown, 02/03/18) trimethoprim (Verified Allergy, Unknown, 02/03/18) Home Medications Ciprofloxacin HCl 500 Mg Tablet, 500 MG PO BID Prescribed by: FREDDY ESCOBAR on 02/04/1817 Ondansetron 4 Mg Tab.rapdis, 4 MG SL Q4H PRN for NAUSEA/VOMITING-1ST LINE Prescribed by: FREDDY ESCOBAR on 02/04/1817 Patient Home Medication List Home Medication List Reviewed: Yes Review of Systems Review of Systems Constitutional: see HPI, weakness Eyes: No Symptoms Reported Ears, Nose, Mouth, Throat: no symptoms reported Respiratory: no symptoms reported Cardiovascular: no symptoms reported Gastrointestinal: no symptoms reported Genitourinary: no symptoms reported Musculoskeletal: no symptoms reported Skin: no symptoms reported Psychiatric/Neurological: See HPI Endocrine: No Symptoms Reported Past Mnmobwj-Ftyrtm-Btjqgt Hx Past Med/Social Hx: Reviewed and Corrections made Patient Social History Recent Foreign Travel: No Contact w/Someone Who Travel: No Recent Infectious Disease Expo: No Recent Hopitalizations: No Physical Abuse: No Sexual Abuse: No Mistreated: No Fear: No Seasonal Allergies Seasonal Allergies: No Past Medical History Surgeries: No Respiratory: No Cardiac: Yes High Cholesterol Neurological: Yes Dementia, Stroke, TIA Genitourinary: Yes Renal Failure, UTI-Chronic Gastrointestinal: No Musculoskeletal: Yes Arthritis Endocrine: Yes Diabetes, Insulin dep HEENT: No Cancer: No Psychosocial: No Integumentary: No Blood Disorders: No Physical Exam Vital Signs Vital Signs - First Documented 04/24/18 13:42 Temp 99.9 Pulse 70 Resp 18 B/P (MAP) 196/89 (124) Capillary Refill : Less Than 3 Seconds Height, Weight, BMI Height: 5'4.00" Weight: 170lbs. oz. 77.085745fn; BMI Method:Estimated General Appearance: WD/WN, no apparent distress HEENT: PERRL/EOMI, normal ENT inspection, pharynx normal Neck: normal inspection Respiratory: lungs clear, normal breath sounds, no respiratory distress, no accessory muscle use Cardiovascular: regular rate, rhythm, no edema, no murmur Gastrointestinal: normal bowel sounds, non tender, soft Extremities: normal inspection, no pedal edema Neurologic/Psychiatric: alert, motor weakness (Generalized), disoriented x 3, other (Patient's speech is garbled. She has some comprehensible words. Responses are nonsensical. She does not follow instructions well.) Crainal Nerves: normal hearing, PERRL, abnormal speech Skin: normal color, warm/dry Progress/Results/Core Measures Results/Orders Lab Results Laboratory Tests Test 04/24/18 13:20 04/24/18 13:32 04/24/18 14:00 Range/Units White Blood Count 8.1 4.3-11.0 10^3/uL Red Blood Count 4.55 4.35-5.85 10^6/uL Hemoglobin 13.6 11.5-16.0 G/DL Hematocrit 40 35-52 % Mean Corpuscular Volume 87 80-99 FL Mean Corpuscular Hemoglobin 30 25-34 PG Mean Corpuscular Hemoglobin Concent 34 32-36 G/DL Red Cell Distribution Width 13.5 10.0-14.5 % Platelet Count 217 130-400 10^3/uL Mean Platelet Volume 11.1 H 7.4-10.4 FL Neutrophils (%) (Auto) 57 42-75 % Lymphocytes (%) (Auto) 31 12-44 % Monocytes (%) (Auto) 11 0-12 % Eosinophils (%) (Auto) 0 0-10 % Basophils (%) (Auto) 0 0-10 % Neutrophils # (Auto) 4.6 1.8-7.8 X 10^3 Lymphocytes # (Auto) 2.5 1.0-4.0 X 10^3 Monocytes # (Auto) 0.9 0.0-1.0 X 10^3 Eosinophils # (Auto) 0.0 0.0-0.3 10^3/uL Basophils # (Auto) 0.0 0.0-0.1 10^3/uL Prothrombin Time 13.1 12.2-14.7 SEC INR Comment 1.0 0.8-1.4 Activated Partial Thromboplast Time 26 24-35 SEC D-Dimer 2.32 H 0.00-0.49 UG/ML Sodium Level 139 135-145 MMOL/L Potassium Level 4.0 3.6-5.0 MMOL/L Chloride Level 106 98-107 MMOL/L Carbon Dioxide Level 21 21-32 MMOL/L Anion Gap 12 5-14 MMOL/L Blood Urea Nitrogen 32 H 7-18 MG/DL Creatinine 1.57 H 0.60-1.30 MG/DL Estimat Glomerular Filtration Rate 31 BUN/Creatinine Ratio 20 Glucose Level 92 70-105 MG/DL Calcium Level 9.7 8.5-10.1 MG/DL Corrected Calcium 9.7 8.5-10.1 MG/DL Total Bilirubin 0.4 0.1-1.0 MG/DL Aspartate Amino Transf (AST/SGOT) 15 5-34 U/L Alanine Aminotransferase (ALT/SGPT) 11 0-55 U/L Alkaline Phosphatase 65 40-136 U/L Troponin I < 0.30 <0.30 NG/ML Total Protein 7.6 6.4-8.2 GM/DL Albumin 4.0 3.2-4.5 GM/DL Glucometer 86 70-110 MG/DL Urine Color YELLOW Urine Clarity VERY CLOUDY H Urine pH 7 5-9 Urine Specific [place] 1.010 L 1.016-1.022 Urine Protein 3+ H NEGATIVE Urine Glucose (UA) NEGATIVE NEGATIVE Urine Ketones NEGATIVE NEGATIVE Urine Nitrite POSITIVE H NEGATIVE Urine Bilirubin NEGATIVE NEGATIVE Urine Urobilinogen NORMAL NORMAL MG/DL Urine Leukocyte Esterase 3+ H NEGATIVE Urine RBC (Auto) 2+ H NEGATIVE Urine RBC 0-2 /HPF Urine WBC 50-100 H /HPF Urine Squamous Epithelial Cells NONE /HPF Urine Crystals NONE /LPF Urine Bacteria LARGE H /HPF Urine Casts NONE /LPF Urine Mucus NEGATIVE /LPF Urine Culture Indicated YES My Orders Orders - HANNA DEAN MD Protime With Inr (04/24/18 13:32) Partial Thromboplastin Time (04/24/18 13:32) Fibrin Degradation Products (04/24/18 13:32) Troponin I (04/24/18 13:32) Chest 1 View, Ap/Pa Only (04/24/18 13:32) Catheter(Urinary) Insert & Ass 03,15 (04/24/18 13:32) Ekg Tracing (04/24/18 13:32) Nothing By Mouth (04/24/18 Dinner) Accucheck Stat ONCE (04/24/18 13:32) Saline Lock/Iv-Start (04/24/18 13:32) Vital Signs Stroke Patient Q15M (04/24/18 13:32) Ct Head Wo-R/O Stroke (04/24/18 13:32) O2 (04/24/18 13:32) Intake & Output 06,14,22 (04/24/18 13:32) Monitor-Rhythm Ecg Trace Only (04/24/18 13:32) Dysphagia Screening Tool (04/24/18 13:32) Post Thrombolytic Adminstratio (04/24/18 13:32) Lipid Panel (04/25/18 06:00) Meropenem (Merrem 1000 Mg) (04/24/18 16:00) Saline Lock/Iv-Start (04/24/18 15:53) Ns Iv 1000 Ml (Sodium Chloride 0.9%) (04/24/18 15:53) Medications Given in ED Current Medications Medications Dose Ordered Sig/Johnny Route Start Time Stop Time Status Last Admin Dose Admin Sodium Chloride 1,000 ml @ 0 mls/hr Q0M ONCE IV 04/24/18 15:53 04/24/18 15:56 DC 04/24/18 16:42 2,000 MLS/HR Vital Signs/I&O 04/24/18 04/24/18 04/24/18 04/24/18 13:42 14:03 14:03 15:10 Temp 99.9 Pulse 70 70 82 Resp 18 18 18 B/P (MAP) 196/89 (124) 196/89 196/90 (125) Pulse Ox 98 98 99 O2 Delivery Room Air Blood Pressure Mean: 125 FSBG Bedside Testing Finger Stick Blood Glucose: 86 Blood Glucose Action Taken: none Progress Progress Note : Time: 16:01 Progress Note After discussion with the [facility] staff, it seems patient's symptoms were of gradual and progressive onset. This does not correlate well with CVA. Patient was not a candidate for TPA as there was an unknown time of onset and the clinical picture for stroke was not convincing. No acute findings were found on the CT of the head Patient was found to have a urinary tract infection. Meropenem was prescribed as the initial antibiotic due to penicillin allergy. Case was discussed with Dr. Sinha who agrees to admission. Fingerstick blood sugar was 86 and serum blood sugar was 92. Initial ECG Impression Date: Apr 24, 2018 Initial ECG Impression Time: 13:20 Initial ECG Rate: 77 Comment Sinus rhythm with no ST elevation or depression. [place] interval 236. LVH with secondary repolarization by automated read. Diagnostic Imaging Diagonstic Imaging: CT Plain Films/CT/US/NM/MRI: head Comments CT head viewed by me and report reviewed. See report below: NAME: BHUPINDER RAJPUT [facility] REC#: [id number] PT STATUS: REG ER : 1935 PHYSICIAN: HANNA DEAN MD ADMIT DATE: 04/24/18/ER Draft Date of Exam:04/24/18 CT HEAD WO-R/O STROKE CLINICAL INDICATION: Stroke and slurred speech and altered mental status. EXAM: Axial CT scan of the brain performed without IV contrast. COMPARISON: None. FINDINGS: There is no evidence of intracranial hemorrhage, brain herniation, or hydrocephalus. There is diffuse patchy and confluent areas of low-attenuation white matter changes throughout both cerebral hemispheres. There are multiple areas of chronic cerebral infarct with encephalomalacia seen throughout both cerebral hemispheres. There is a small to moderate-sized area of chronic cerebral infarct involving the left parietal lobe/occipital lobe region. There is a small chronic cerebral infarct involving the right parietal lobe parasagittal region near the vertex and lateral aspect of the right parietal lobe. There are small areas of chronic cerebral infarcts involving the bilateral cerebellum. All of the low-density and infarct changes of both cerebral hemispheres, greatly limit evaluation for acute cerebral infarct, although there is none definitively seen on this given exam. There is motion artifact which limits evaluation of the posterior fossa, brainstem, and portion of the brain near the skull base. There is diffuse brain parenchymal volume loss. Basal cisterns are unremarkable. The extracranial soft tissue, skull, and orbits are unremarkable. Paranasal sinuses and temporal bone structures show no significant abnormality. IMPRESSION: 1: There is no definite CT evidence of interval acute cerebral infarction, intracranial hemorrhage, or mass seen. Given the diffuse low attenuation changes throughout the brain parenchyma which can obscure more subtle findings, if there is clinical concern for acute cerebral infarction, MRI of the brain would better evaluate. 2: There are areas of chronic cerebral infarcts involving both cerebral hemispheres and bilateral cerebellar regions with the largest in the left parietal occipital region, as described above. 3: There is severe diffuse low-attenuation white matter changes throughout both cerebral hemispheres and bilateral cerebellum, likely representing chronic small vessel ischemic disease. Dictated on workstation # [id number] Dict: 04/24/18 1403 Trans: 04/24/18 1412 [id number] Interpreted by: SALVATORE DUNCAN MD Departure Communication (Admissions) Dr. Sinha Impression Primary Impression: Altered mental status Qualified Codes: R41.82 - Altered mental status, unspecified Additional Impression: Urinary tract infection Qualified Codes: N39.0 - Urinary tract infection, site not specified Disposition: ADMITTED INPATIENT Condition: Improved Admissions Decision to Admit Reason: Admit from ER (General) Decision to Admit/Date: Apr 24, 2018 Time/Decision to Admit Time: 13:10 Departure-Patient Inst. Referrals: KATIE LAMAR MD (PCP/Family) Primary Care Physician HANNA DEAN MD Apr 24, 2018 16:04
[2018-04-24] MEDS ORDERED: NS (IVPB) 100 ML ONE (16:33)
[2018-04-24] MEDS: MEROPENEM 500 MG VIAL (MERREM) IV ONE ×2 (16:45→16:52)
[2018-04-24 17:20] VITALS: BP 168/86
--- OUTSIDE RECORDS SUMMARY | 2018-04-24 17:26 | XMS REPORT | Continuity of Care Document ---
Author Author [facility] Organization [facility] Address Unknown Phone Unavailable Allergies Active Description Code Type Severity Reaction Onset Reported/Identified Relationship to Patient Clinical Status Yes Bactrim 5086 Drug Allergy Unknown N/A Yes Januvia 248569 Drug Allergy Unknown N/A Yes Keflex 6608 [...] N/A N/A 03/16/2005 Yes Keflex Drug N/A [id number] 01/14/2016 Yes cephalexin [id number] Drug Allergy Unknown N/A 02/03/2018 Yes metformin [id number] Drug Allergy Unknown N/A 02/03/2018 Yes sitagliptin [id number] Drug Allergy Unknown N/A 02/03/2018 Yes sulfamethoxazole [id number] Drug Allergy Unknown N/A 02/03/2018 Yes trimethoprim [id number] Drug Allergy Unknown N/A 02/03/2018 Medications Medication [...] ESCOBAR Ot I10 ESSENTIAL (PRIMARY) HYPERTENSION 02/04/2018 MIAH ESCOBARIS Ot N39.0 URINARY TRACT INFECTION, [...] Procedures Code [place] [address] [place] HEAD/BRAIN W/O DYE 07/08/2013 79932 COMPLETE CBC W/AUTO DIFF WBC 07/08/2013 G0001 SPECIMEN COLLECTION 07/08/2013 J2550 PROMETHAZIEN 25MG/ML 07/08/[address] HEAD/BRAIN W/O DYE 07/08/2013 38516 COMPLETE CBC W/AUTO DIFF WBC 07/08/2013 G0001 SPECIMEN COLLECTION 07/08/2013 J2550 PROMETHAZIEN 25MG/ML 07/08/[address] HEAD/BRAIN W/O DYE 08/29/2013 30509 COMPLETE CBC W/AUTO DIFF WBC 08/29/2013 G0001 SPECIMEN COLLECTION 08/29/2013 J2550 PROMETHAZIEN 25MG/ML 08/29/[address] HEAD/BRAIN W/O DYE 10/01/2013 47342 COMPLETE CBC W/AUTO DIFF WBC 10/01/2013 G0001 SPECIMEN COLLECTION 10/01/2013 J2550 PROMETHAZIEN 25MG/ML 10/01/[address] HEAD/BRAIN W/O DYE 10/21/2013 09025 COMPLETE CBC W/AUTO DIFF WBC 10/21/2013 G0001 SPECIMEN COLLECTION 10/21/2013 J2550 PROMETHAZIEN 25MG/ML 10/21/[address] HEAD/BRAIN W/O DYE 10/21/2013 33533 COMPLETE CBC W/AUTO DIFF WBC 10/21/2013 G0001 SPECIMEN COLLECTION 10/21/2013 J2550 PROMETHAZIEN 25MG/ML 10/21/[address] HEAD/BRAIN W/O DYE 11/26/2014 60619 COMPLETE CBC W/AUTO DIFF WBC 11/26/2014 G0001 SPECIMEN COLLECTION 11/26/2014 J2550 PROMETHAZIEN 25MG/ML 11/26/[address] HEAD/BRAIN W/O DYE 02/17/2015 96184 COMPLETE CBC W/AUTO DIFF WBC 02/17/2015 G0001 SPECIMEN COLLECTION 02/17/2015 J2550 PROMETHAZIEN 25MG/ML 02/17/2015 35671 URINALYSIS, AUTO W/SCOPE 09/26/2015 96072 URINE CULTURE/COLONY COUNT 09/26/[address] HEAD/BRAIN W/O DYE 09/26/2015 20790 COMPLETE CBC W/AUTO DIFF WBC 09/26/2015 G0001 SPECIMEN COLLECTION 09/26/2015 J2550 PROMETHAZIEN 25MG/ML 09/26/[address] HEAD/BRAIN W/O DYE 09/29/2015 68734 COMPLETE CBC W/AUTO DIFF WBC 09/29/2015 G0001 SPECIMEN COLLECTION 09/29/2015 J2550 PROMETHAZIEN 25MG/ML 09/29/2015 04012 ROUTINE VENIPUNCTURE 09/29/[address] HEAD/BRAIN W/O DYE 09/29/2015 43425 CHEST X-RAY 09/29/2015 05872 COMPREHEN METABOLIC PANEL 09/29/2015 53131 URINALYSIS, AUTO W/SCOPE 09/29/2015 35850 ASSAY OF LACTIC ACID 09/29/2015 44450 COMPLETE CBC W/AUTO DIFF WBC 09/29/2015 27083 BLOOD CULTURE FOR BACTERIA 09/29/2015 93443 HYDRATE IV INFUSION, ADD-ON 09/29/2015 05509 THER/PROPH/DIAG IV INF, INIT 09/29/2015 09695 TX/PRO/DX INJ NEW DRUG ADDON 09/29/2015 33069 EMERGENCY DEPT VISIT 09/29/2015 J7120 RINGERS LACTATE INFUSION 09/29/[address] HEAD/BRAIN W/O DYE 09/30/2015 39134 COMPLETE CBC W/AUTO DIFF WBC 09/30/2015 G0001 SPECIMEN COLLECTION 09/30/2015 J2550 PROMETHAZIEN 25MG/ML 09/30/2015 01293 METABOLIC PANEL TOTAL CA 10/15/2015 08079 ASSAY OF MAGNESIUM 10/15/2015 72015 PSYTX PT&/FAMILY 45 MINUTES 11/05/2015 41850 EXTRACRANIAL STUDY 11/06/[address] HEAD/BRAIN W/O DYE 11/06/2015 38369 COMPLETE CBC W/AUTO DIFF WBC 11/06/2015 G0001 SPECIMEN COLLECTION 11/06/2015 J2550 PROMETHAZIEN 25MG/ML 11/06/2015 17962 PSYTX PT&/FAMILY 45 MINUTES 11/06/2015 23163 PSYTX PT&/FAMILY 45 MINUTES 11/13/[address] HEAD/BRAIN W/O DYE 11/25/2015 52719 COMPLETE CBC W/AUTO DIFF WBC 11/25/2015 G0001 SPECIMEN COLLECTION 11/25/2015 J2550 PROMETHAZIEN 25MG/ML 11/25/2015 36080 PSYTX PT&/FAMILY 45 MINUTES 02/27/2016 35098 PSYTX PT&/FAMILY 45 MINUTES 03/26/2016 88519 PSYTX PT&/FAMILY 45 MINUTES 03/26/2016 06408 PSYTX PT&/FAMILY 45 MINUTES 03/26/2016 30596 PSYTX PT&/FAMILY 45 MINUTES 05/20/2016 07539 PSYTX PT&/FAMILY 45 MINUTES 05/20/2016 42476 PSYTX PT&/FAMILY 45 MINUTES 05/20/2016 Results Test [...] % IMM GRANULOCYTE # 0.0 10^3u 0-5 [facility] - 10/01/15 00:00 BCR 13.4 10-20 BUN 15 MG/DL 7-18 CA 8.2 MG/DL 8.4-10.2 CL 106 MEQ/L 98-107 CO2 22.9 MEQ/L 22-28 CREA 1.12 MG/DL 0.6-1.0 EGFR 47 eGFR >=60 GLU 190 MG/DL 70-105 K 4.2 MEQ/L 3.5-5.1 NA 136 MEQ/L 134-145 OSMSC 277.9 MOSML 280-300 Anion Gap 7.1 8-16 MG - 10/15/15 00:00 MG 1.9 MG/DL 1.7-2.8 [facility] - 10/15/15 00:00 BCR 23.2 [...] 10/03/17 02:48 HOLD SPECIMEN FOR BLOOD BANK [facility] URINALYSIS W/MICROSCOPIC - 10/03/17 05:15 COLOR STRAW [...] 04:45 HOLD SPECIMEN FOR BLOOD BANK [facility] BMP - BASIC METABOLIC PANEL - 10/06/17 [...] pg 27-31 MCHC 34.3 % 32.0- 36.0 [facility] - BASIC METABOLIC PANEL - [...] 02/03/18 23:08 Bacterial blood culture NG NRG Complete blood count (CBC) with automated white blood cell (WBC) differential - 04/24/18 13:20 Blood leukocytes automated count (number/volume) 8.1 10*3/uL 4.3-11.0 Blood erythrocytes automated count (number/volume) 4.55 10*6/uL 4.35-5.85 Venous blood hemoglobin measurement (mass/volume) 13.6 g/dL 11.5-16.0 Blood hematocrit (volume fraction) 40 % 35-52 Automated erythrocyte mean corpuscular volume 87 [foz_us] 80-99 Automated erythrocyte mean corpuscular hemoglobin (mass per erythrocyte) 30 pg 25-34 Automated erythrocyte mean corpuscular hemoglobin concentration measurement ( mass/volume) 34 g/dL 32-36 Automated erythrocyte distribution width ratio 13.5 % 10.0-14.5 Automated blood platelet count (count/volume) 217 10*3/uL 130-400 Automated blood platelet mean volume measurement 11.1 [foz_us] 7.4-10.4 Automated blood neutrophils/100 leukocytes 57 % 42-75 Automated blood lymphocytes/100 leukocytes 31 % 12-44 Blood monocytes/100 leukocytes 11 % 0-12 Automated blood eosinophils/100 leukocytes 0 % 0-10 Automated blood basophils/100 leukocytes 0 % 0-10 Blood neutrophils automated count (number/volume) 4.6 10*3 1.8-7.8 Blood lymphocytes automated count (number/volume) 2.5 10*3 1.0-4.0 Blood monocytes automated count (number/volume) 0.9 10*3 0.0-1.0 Automated eosinophil count 0.0 10*3/uL 0.0-0.3 Automated blood basophil count (count/volume) 0.0 10*3/uL 0.0-0.1 Comprehensive metabolic panel - 04/24/18 13:20 Serum or plasma sodium measurement (moles/volume) 139 mmol/L 135-145 Serum or plasma potassium measurement (moles/volume) 4.0 mmol/L 3.6-5.0 Serum or plasma chloride measurement (moles/volume) 106 mmol/L 98-107 Carbon dioxide 21 mmol/L 21-32 Serum or plasma anion gap determination (moles/volume) 12 mmol/L 5-14 Serum or plasma urea nitrogen measurement (mass/volume) 32 mg/dL 7-18 Serum or plasma creatinine measurement (mass/volume) 1.57 mg/dL 0.60-1.30 Serum or plasma urea nitrogen/creatinine mass ratio 20 NRG Serum or plasma creatinine measurement with calculation of estimated glomerular filtration rate 31 NRG Serum or plasma glucose measurement (mass/volume) 92 mg/dL 70-105 Serum or plasma calcium measurement (mass/volume) 9.7 mg/dL 8.5-10.1 Serum or plasma total bilirubin measurement (mass/volume) 0.4 mg/dL 0.1-1.0 Serum or plasma alkaline phosphatase measurement (enzymatic activity/volume) 65 U/L 40-136 Serum or plasma aspartate aminotransferase measurement (enzymatic activity/ volume) 15 U/L 5-34 Serum or plasma alanine aminotransferase measurement (enzymatic activity/volume ) 11 U/L 0-55 Serum or plasma protein measurement (mass/volume) 7.6 g/dL 6.4-8.2 Serum or plasma albumin measurement (mass/volume) 4.0 g/dL 3.2-4.5 CALCIUM CORRECTED 9.7 mg/dL 8.5-10.1 PT panel in platelet poor plasma by coagulation assay - 04/24/18 13:20 Prothrombin time (PT) in platelet poor plasma by coagulation assay 13.1 s 12.2-14.7 INR in platelet poor plasma or blood by coagulation assay 1.0 0.8-1.4 Activated partial thromboplastin time (aPTT) in platelet poor plasma bycoagulation assay - 04/24/18 13:20 Activated partial thromboplastin time (aPTT) in platelet poor plasma bycoagulation assay 26 s 24-35 Fibrin D-dimer FEU measurement in platelet poor plasma (mass/volume) - 13:20 Fibrin D-dimer FEU measurement in platelet poor plasma (mass/volume) 2.32 ug/mL 0.00-0.49 Serum or plasma troponin i.cardiac measurement (mass/volume) - 04/24/18 13:20 Serum or plasma troponin i.cardiac measurement (mass/volume) < ng/ mL <0.30 Capillary blood glucose measurement by glucometer (mass/volume) - 04/24/18 13: 32 Capillary blood glucose measurement by glucometer (mass/volume) 86 mg/dL 70-110 Complete urinalysis with reflex to culture - 04/24/18 14:00 Urine color determination YELLOW NRG Urine clarity determination VERY CLOUDY NRG Urine pH measurement by test strip 7 5-9 Specific gravity of urine by test strip 1.010 1.016- 1.022 Urine protein assay by test strip, semi-quantitative 3+ NEGATIVE Urine glucose detection by automated test strip NEGATIVE NEGATIVE Erythrocytes detection in urine sediment by light microscopy 2+ NEGATIVE Urine ketones detection by automated test strip NEGATIVE NEGATIVE Urine nitrite detection by test strip POSITIVE NEGATIVE Urine total bilirubin detection by test strip NEGATIVE NEGATIVE Urine urobilinogen measurement by automated test strip (mass/volume) NORMAL NORMAL Urine leukocyte esterase detection by dipstick 3+ NEGATIVE Automated urine sediment erythrocyte count by microscopy (number/high power field) [HPF] NRG Automated urine sediment leukocyte count by microscopy (number/high power field ) [HPF] NRG Bacteria detection in urine sediment by light microscopy LARGE NRG Squamous epithelial cells detection in urine sediment by light microscopy NONE NRG Crystals detection in urine sediment by light microscopy NONE NRG Casts detection in urine sediment by light microscopy NONE NRG Mucus detection in urine sediment by light microscopy NEGATIVE NRG Complete urinalysis with reflex to culture YES NRG Encounters ACCT No. Visit Date/Time Discharge Status Pt. Type Provider Facility Loc./Unit Complaint [id number] 10/03/2017 02:20:00 10/07/2017 13:00:00 DIS Inpatient MELISSA KNAPP [facility] 200 NSTEMI [id number] 02/22/2018 15:15:00 02/22/2018 23:59:59 CLS Outpatient FLOYD DINERO [facility] [id number] 01/20/2018 14:30:00 01/20/2018 23:59:59 CLS Outpatient FLOYD DINERO [facility] [id number] 01/13/2018 23:34:24 01/20/2018 14:05:00 DIS Inpatient SUZIE HERNANDEZ [facility] MS altered mental status uncontrolled type 2 diabetes weakness [id number] 01/13/2018 00:00:00 01/13/2018 23:59:59 CLS Outpatient SUZIE HERNANDEZ [facility] [id number] 01/13/2018 22:35:00 01/13/2018 23:30:00 DIS Emergency MENDY ORTIZ [facility] ED ED VISIT [id number] 01/01/2018 23:00:00 01/01/2018 23:59:59 DIS Outpatient SWATHI MCGRAW [facility] [id number] 01/01/2018 15:28:00 01/01/2018 17:30:00 DIS Emergency Chanelle Lee [facility] ED ER [id number] 12/16/2017 15:45:00 12/16/2017 23:59:59 CLS Outpatient FLOYD DINERO [facility] [id number] 12/14/2017 14:07:00 12/14/2017 23:59:59 CLS Outpatient TUCKER DIAZ [facility] [id number] 12/14/2017 14:32:00 12/14/2017 15:40:00 DIS Emergency SWATHI BULLARD [facility] ED ED VISIT [id number] 12/09/2017 14:03:45 12/13/2017 13:42:00 DIS Inpatient SUZIE HERNANDEZ [facility] MS CVA [id number] 12/09/2017 00:00:00 12/09/2017 23:59:59 CLS Outpatient SUZIE HERNANDEZ [facility] [id number] 12/04/2017 00:30:48 12/09/2017 13:55:00 DIS Inpatient SUZIE HERNANDEZ [facility] MS UTI, altered mental status [id number] 12/05/2017 13:30:00 12/05/2017 23:59:59 CLS Outpatient FLOYD DINERO [facility] [id number] 12/03/2017 21:37:00 12/03/2017 23:58:00 DIS Emergency TUCKER DIAZ [facility] ED ed visit [id number] 12/02/2017 13:19:00 12/02/2017 23:59:59 DIS Outpatient TUCKER DIAZ [facility] [id number] 12/02/2017 13:54:00 12/02/2017 16:37:00 DIS Emergency JesusArmaniChanelle [facility] ED ER VISIT [id number] 11/17/2017 10:30:00 11/17/2017 23:59:59 CLS Outpatient FLOYD DINERO [facility] [id number] 10/18/2017 14:30:00 10/18/2017 23:59:59 CLS Outpatient Madhavi Patterson [facility] [id number] 10/12/2017 14:33:39 10/12/2017 23:59:59 DIS Outpatient MELISSA KNAPP [facility] lab [id number] 10/12/2017 14:15:16 10/12/2017 23:59:59 DIS Outpatient FLOYD DINERO [facility] [id number] 10/02/2017 11:51:00 10/03/2017 01:15:00 DIS V SUZIE HERNANDEZ [facility] ST[facility] OBS Chest pain, rule out [place] [id number] 10/02/2017 21:41:17 10/02/2017 23:59:59 DIS Outpatient TUCKER DIAZ [facility] [id number] 10/02/2017 11:22:00 10/02/2017 23:59:59 DIS Outpatient SWATHI MCGRAW [facility] [id number] 09/14/2017 14:52:01 09/14/2017 23:59:59 DIS Outpatient BAR [facility] [id number] 09/12/2017 13:42:51 09/12/2017 23:59:59 DIS Outpatient BAR [facility] lab [id number] 09/12/2017 13:42:06 09/12/2017 23:59:59 DIS Outpatient BAR [facility] [id number] 08/31/2017 11:20:27 08/31/2017 23:59:59 DIS Outpatient Hay [facility] lab [id number] 08/31/2017 10:30:00 08/31/2017 23:59:59 DIS Outpatient Hay [facility] [id number] 08/03/2017 14:30:00 08/03/2017 23:59:59 DIS Outpatient Hay [facility] [id number] 07/19/2017 09:45:00 07/19/2017 23:59:59 CLS Outpatient BAR [facility] [id number] 07/15/2017 14:30:00 07/15/2017 23:59:59 CLS Outpatient BAR [facility] [id number] 07/06/2017 09:30:00 07/06/2017 23:59:59 CLS Outpatient BAR [facility] [id number] 06/29/2017 10:45:00 06/29/2017 23:59:59 CLS Outpatient BAR [facility] [id number] 06/22/2017 15:00:00 06/22/2017 23:59:59 CLS Outpatient BAR [facility] [id number] 06/20/2017 13:30:00 06/20/2017 23:59:59 DIS Outpatient BAR [facility] [id number] 06/13/2017 12:30:03 06/14/2017 16:45:00 DIS Inpatient SUZIE HERNANDEZ [facility] MS uncontrolled diabetes alt mental status leukocytosis [id number] 06/13/2017 00:00:00 06/13/2017 23:59:59 CLS Outpatient SUZIE HERNANDEZ [facility] [id number] 06/12/2017 04:52:00 06/13/2017 12:28:00 DIS V SUZIE HERNANDEZ [facility] OBS Nausea, vomiting, diarrhea , dehydration, hyperglycemia [id number] 06/12/2017 23:57:48 06/12/2017 23:59:59 DIS Outpatient TUCKER DIAZ [facility] [id number] 06/07/2017 12:27:27 06/07/2017 23:59:59 CLS Preadmit [facility] PT vertigo/weakness [id number] 06/06/2017 14:40:36 06/06/2017 23:59:59 DIS Outpatient [facility] [id number] 05/18/2017 14:30:00 05/18/2017 23:59:59 DIS Outpatient [facility] [id number] 04/13/2017 16:39:18 04/13/2017 23:59:59 DIS Outpatient BAR FLOYD [facility] lab [id number] 04/13/2017 15:45:00 04/13/2017 23:59:59 DIS Outpatient BAR [facility] [id number] 03/16/2017 13:30:00 03/16/2017 23:59:59 CLS Outpatient ERIK ARMANDO [facility] [id number] 02/17/2017 13:21:30 02/17/2017 23:59:59 CLS Preadmit [facility] RAD post menopausal, osteoporosis screening [id number] 02/10/2017 10:54:02 02/10/2017 23:59:59 DIS Outpatient BAR [facility] [id number] 02/01/2017 09:45:00 02/01/2017 23:59:59 DIS Outpatient BAR FLOYD [facility] [id number] 01/04/2017 11:59:12 01/04/2017 23:59:59 DIS Outpatient SUZIE HERNANDEZ [facility] lab [id number] 01/04/2017 11:45:00 01/04/2017 23:59:59 DIS Outpatient SUZIE HERNANDEZ [facility] [id number] 12/21/2016 10:55:59 12/21/2016 23:59:59 DIS Outpatient KAMILLE HERNANDEZNELSON [facility] lab [id number] 12/21/2016 10:14:27 12/21/2016 23:59:59 DIS Outpatient BAR [facility] [id number] 10/28/2016 09:00:46 11/23/2016 17:00:00 DIS R BAR [facility] STEV[facility] PT Balance Difficulties [id number] 10/20/2016 11:35:58 10/20/2016 23:59:59 CLS Outpatient BAR [facility] Lab lab [id number] 10/20/2016 10:33:14 10/20/2016 23:59:59 CLS Outpatient BAR [facility] [id number] 09/24/2016 14:23:38 09/24/2016 23:59:59 CLS Outpatient BAR [facility] lab [id number] 09/24/2016 13:51:25 09/24/2016 23:59:59 CLS Outpatient BAR [facility] [id number] 08/26/2016 14:11:34 08/26/2016 23:59:59 CLS Outpatient BAR [facility] lab [id number] 08/26/2016 13:00:00 08/26/2016 23:59:59 CLS Outpatient BAR [facility] [id number] 07/26/2016 13:34:04 07/26/2016 23:59:59 CLS Outpatient BAR [facility] Lab lab [id number] 07/26/2016 13:00:00 07/26/2016 23:59:59 CLS Outpatient BAR [facility] [id number] 07/21/2016 14:27:24 07/21/2016 23:59:59 CLS Outpatient SUZIE HERNANDEZ [facility] LAB lab [id number] 06/28/2016 13:58:38 06/28/2016 23:59:59 CLS Outpatient BAR [facility] Lab lab [id number] 06/28/2016 13:18:40 06/28/2016 23:59:59 CLS Outpatient BAR [facility] [id number] 06/21/2016 14:18:33 06/21/2016 23:59:59 CLS Outpatient BAR [facility] Med Lab xray [id number] 06/21/2016 13:27:50 06/21/2016 [facility]59:59 [id number]18[facility]2016 11:53:23 06/19/2016 12:45:00 DIS V SUZIE HERNANDEZ [facility] STEV[facility] OBS uncontrolled diabetes type II left second toe cellulitis [id number] 06/18/2016 09:58:33 06/18/2016 23:59:59 CLS Outpatient PRESTON MARTHA [facility] [id number] 06/15/2016 16:27:42 06/15/2016 23:59:59 CLS Outpatient PRESTON [facility] Lab lab [id number] 06/15/2016 15:08:29 06/15/2016 23:59:59 CLS Outpatient PRESTON [facility] [id number] 05/25/2016 14:11:41 05/25/2016 23:59:59 CLS Outpatient PRESTON [facility] Lab lab [id number] 05/25/2016 13:07:41 05/25/2016 23:59:59 CLS Outpatient PRESTON [facility] [id number] 04/30/2016 12:24:01 04/30/2016 23:59:59 CLS Outpatient SUZIE HERNANDEZ [facility] LAB basic meabolic [id number] 04/26/2016 16:08:40 04/26/2016 23:59:59 CLS Outpatient BRECHRISTOPHER [facility] lab [id number] 04/26/2016 14:15:00 04/26/2016 23:59:59 CLS Outpatient PRESTON [facility] [id number] 04/16/2016 19:21:00 04/16/2016 20:45:00 DIS Emergency Arielle Mckeon [facility] ST[facility] ED high glucose level feet swelling [id number] 12/20/2017 02:10:06 Document Registration [id number] 06/12/2017 04:58:43 Document Registration [id number] 03/30/2017 13:12:15 ACT R CARO [facility] STEV[facility] SS counseling [id number] 09/01/2016 13:16:40 ACT R SETTNIRAV [facility] STEV[facility] SS social service worker [id number] 04/26/2016 15:24:23 Document Registration [id number] 04/16/2016 19:55:04 Document Registration [id number] 02/03/2018 22:26:00 02/04/2018 02:19:00 DIS Emergency FREDDY ESCOBAR [facility] ER INCREASED CONFUSION [id number] 04/24/2018 13:25:00 Document Registration [id number] 03/30/2018 14:46:00 ACT Unknown [id number] 02/14/2016 00:00:00 03/15/2016 16:02:00 DIS Outpatient SETTER, [facility] PSYCH [id number] 01/15/2016 12:00:00 02/13/2016 16:02:00 DIS Outpatient SETTER, [facility] PSYCH [id number] 12/15/2015 00:01:00 01/14/2016 16:02:00 DIS Outpatient SETTER, [facility] PSYCH [id number] 11/14/2015 00:01:00 12/14/2015 23:59:00 DIS Outpatient SETTER, [facility] PSYCH [id number] 11/30/2015 16:27:00 11/30/2015 17:16:00 DIS Emergency SWATHI MCGRAW [facility] EMR [id number] 11/26/2015 12:07:00 11/26/2015 12:07:00 DIS Outpatient PRESTON MARTHA [facility] PANACE [id number] 10/15/2015 12:00:00 11/13/2015 23:59:00 DIS Outpatient SETTER, [facility] PSYCH [id number] 11/06/2015 14:16:00 11/06/2015 14:16:00 DIS Outpatient [facility] RAD [id number] 10/15/2015 16:20:00 10/15/2015 16:20:00 DIS Outpatient PRESTON MARTHA [facility] PANACE [id number] 09/14/2015 00:01:00 10/14/2015 12:00:00 DIS Outpatient SETTER, [facility] PSYCH [id number] 09/29/2015 23:31:00 10/01/2015 13:25:00 DIS Inpatient SUZIE HERNANDEZ W [facility] 2F [id number] 09/29/2015 20:31:00 09/29/2015 23:31:00 DIS Emergency TUCKER DIAZ W [facility] EMR [id number] 09/26/2015 10:20:00 09/26/2015 10:20:00 DIS Outpatient DAVIDKAMILLENELSON [facility] PANACE [id number] 08/15/2015 00:01:00 09/13/2015 23:59:00 DIS Outpatient SETTER, [facility] PSYCH [id number] 07/15/2015 00:01:00 08/14/2015 23:59:00 DIS Outpatient SETTER, [facility] PSYCH [id number] 06/16/2015 00:01:00 07/14/2015 23:59:00 DIS Outpatient SETTER, [facility] PSYCH [id number] 05/16/2015 00:01:00 06/15/2015 23:59:00 DIS Outpatient SETTER, [facility] PSYCH [id number] 04/15/2015 00:01:00 05/15/2015 23:59:00 DIS Outpatient SETTER, [facility] PSYCH [id number] 04/15/2015 00:01:00 05/15/2015 23:59:00 DIS Outpatient DAVID, KAMILLENELSON [facility] PT [id number] 03/16/2015 00:01:00 04/14/2015 23:59:00 DIS Outpatient SETTER, [facility] PSYCH [id number] 03/16/2015 00:01:00 04/14/2015 23:59:00 DIS Outpatient DAVID KAMILLENELSON [facility] PT [id number] 02/17/2015 13:18:00 03/15/2015 23:59:00 DIS Outpatient DAVID KAMILLENELSON [facility] PT [id number] 02/13/2015 00:01:00 03/15/2015 23:59:00 DIS Outpatient SETTER, [facility] PSYCH [id number] 01/14/2015 00:01:00 02/12/2015 23:59:00 DIS Outpatient SETTER, [facility] PSYCH [id number] 12/14/2014 00:01:00 01/13/2015 23:59:00 DIS Outpatient SETTER, [facility] PSYCH [id number] 11/13/2014 00:01:00 12/13/2014 23:59:00 DIS Outpatient SETTER, [facility] PSYCH [id number] 11/26/2014 09:55:00 11/26/2014 09:55:00 DIS Outpatient MARTHA JOHNSTON [facility] PANACE [id number] 10/14/2014 00:01:00 11/12/2014 23:59:00 DIS Outpatient SETTER, [facility] PSYCH [id number] 09/13/2014 00:01:00 10/13/2014 23:59:00 DIS Out[facility] [facility] [id number] 08/14/2014 00:01:00 09/12/2014 23:59:00 DIS Outpatient SETTER, [facility] PSYCH [id number] 07/14/2014 00:01:00 08/13/2014 23:59:00 DIS Outpatient SETTER, [facility] PSYCH [id number] 05/16/2014 00:01:00 05/16/2014 23:59:59 CLS Outpatient SETTER, [facility] PSYCH [id number] 04/15/2014 00:01:00 05/15/2014 23:59:00 DIS Outpatient SETTER, [facility] PSYCH [id number] 03/16/2014 00:01:00 04/14/2014 23:59:00 DIS Outpatient SETTER, [facility] PSYCH [id number] 03/26/2014 06:40:00 03/26/2014 11:50:00 DIS Inpatient ARNAV MACEDO [facility] OPS [id number] 02/13/2014 00:01:00 03/15/2014 23:59:00 DIS Outpatient SETTER, [facility] PSYCH [id number] 03/11/2014 15:16:00 03/11/2014 15:16:00 DIS Outpatient MARTHA JOHNSTON [facility] PANACE [id number] 01/14/2014 00:01:00 02/12/2014 23:59:00 DIS Outpatient SETTER, [facility] PSYCH [id number] 12/14/2013 00:01:00 01/13/2014 23:59:00 DIS Outpatient SETTER, [facility] PSYCH [id number] 01/04/2014 06:30:00 01/04/2014 06:30:00 DIS Outpatient KAMILLE HERNANDEZNELSON [place] [facility] RAD [id number] 10/21/2013 17:06:00 10/21/2013 18:15:00 DIS Emergency TUCKER DIAZ [facility] EMR [id number] 10/14/2013 00:00:00 10/14/2013 23:59:59 CLS Outpatient SETTER, [facility] PSYCH [id number] 08/14/2013 00:01:00 09/12/2013 23:59:00 DIS Outpatient SETTER, [facility] PSYCH [id number] 08/29/2013 17:01:00 08/29/2013 18:35:00 DIS Emergency KAMILLE HERNANDEZNELSON [place] [facility] EMR [id number] 07/14/2013 00:01:00 08/13/2013 23:59:00 DIS Outpatient SETTER, [facility] PSYCH [id number] 06/16/2013 00:01:00 07/13/2013 23:59:00 DIS Outpatient SETTER, [facility] PSYCH [id number] 07/08/2013 11:14:00 07/08/2013 12:20:00 DIS Emergency OKSANAALEX ALF Dorsey [facility] EMR [id number] 04/14/2015 00:00:00 Document Registration [id number] 04/14/2015 00:00:00 Document Registration [id number] 04/14/2015 00:00:00 Document Registration [id number] 04/14/2015 00:00:00 Document Registration [id number] 07/08/2013 01:01:53 Document Registration [id number] 04/14/2013 00:00:00 Document Registration [id number] 04/14/2013 00:00:00 Document Registration [id number] 04/14/2013 00:00:00 Document Registration [id number] 05/23/2002 14:08:00 Document Registration
[2018-04-24] MEDS ORDERED: NS IV 1000 ML 0 ML ONE (18:29)
[2018-04-24 19:30] VITALS: BP 154/65
[2018-04-24] MEDS ORDERED: CATHETER FLUSH 10 ML SYR IV PRN (19:45)
[2018-04-24] MEDS ORDERED: FLU QUADRIvalent (5+ YOA) 2018-2019 (AFLURIA) 0.5 ML IM ONE (20:30)
[2018-04-24] MEDS: inSUlin ASPART (NovoLOG) 1 UNIT/0.01 ML (CHARGE PER UNIT) SC SCH (20:37)
[2018-04-25 00:09] VITALS: BP 164/79
[2018-04-25] MEDS: NS IV 1000 ML 1,000 ML IV SCH ×4 (00:40→20:47)
[2018-04-25 04:18] VITALS: BP 149/75
[2018-04-25] MEDS ORDERED: MEROPENEM 500 MG in NS (IVPB) 100 ML IV SCH (05:00)
[2018-04-25] MEDS: inSUlin ASPART (NovoLOG) 1 UNIT/0.01 ML (CHARGE PER UNIT) SC SCH ×4 (05:44→20:46)
[2018-04-25 05:46] LABS: BASOPHILS % (AUTO) 0 % (0-10); EOSINOPHILS % (AUTO) 0 % (0-10); HEMATOCRIT 38 % (35-52); HEMOGLOBIN 12.5 G/DL (11.5-16.0); LYMPHOCYTES # (AUTO) 2.5 X 10^3 (1.0-4.0); LYMPHOCYTES % (AUTO) 31 % (12-44); MEAN CORPUSCULAR HEMOGLOBIN 29 PG (25-34); MEAN CORPUSCULAR HGB CONC 33 G/DL (32-36); MEAN CORPUSCULAR VOLUME 88 FL (80-99); MEAN PLATELET VOLUME 11.1 FL (7.4-10.4); MONOCYTES # (AUTO) 0.9 X 10^3 (0.0-1.0); MONOCYTES % (AUTO) 11 % (0-12); NEUTROPHILS # (AUTO) 4.7 X 10^3 (1.8-7.8); NEUTROPHILS % (AUTO) 58 % (42-75); PLATELET COUNT 201 10^3/uL (130-400); RED BLOOD COUNT 4.34 10^6/uL (4.35-5.85); RED CELL DISTRIBUTION WIDTH 13.3 % (10.0-14.5); WHITE BLOOD COUNT 8.2 10^3/uL (4.3-11.0)
[2018-04-25 06:27] LABS: CALCIUM 8.9 MG/DL (8.5-10.1); CREATININE SERUM 1.26 MG/DL (0.60-1.30); POTASSIUM 3.6 MMOL/L (3.6-5.0)
--- NOTE | 2018-04-25 07:48 | Diagnostic Imaging Report ---
EXAMINATION: Portable erect AP chest at 1:57 PM. INDICATION: CVA. COMPARISON: There are no prior studies available for comparison. FINDINGS: This exam is less than optimal as the patient is rotated and the study was taken in a shallow inspiration. Even allowing for these technical factors, the heart is enlarged. There are sternotomy wires and surgical clips evident, consistent with a prior coronary artery bypass procedure. The lungs, where visualized, are generally clear. There is no evidence for overt failure, pneumonia, or pleural effusion. The mediastinum is not widened. The osseous structures are intact. There are healed displaced fractures of two of the upper ribs on the right. IMPRESSION: 1. There is cardiomegaly and evidence of prior cardiac surgery but there is no sign of an acute cardiopulmonary abnormality on this suboptimal exam. 2. If clinical concern regarding an underlying abnormality persists, then followup PA and lateral chest views would be recommended for further study. Dictated by: Dictated on workstation # [id number]
[2018-04-25 08:00] VITALS: BP 150/68
[2018-04-25] MEDS ORDERED: CLOP75TA28 PO (09:20)
[2018-04-25] MEDS ORDERED: INSU100V16 SC (09:20)
[2018-04-25] MEDS ORDERED: ACET325T38 PO (09:20)
[2018-04-25] MEDS ORDERED: INSU100V5 SQ ×2 (09:20)
[2018-04-25] MEDS ORDERED: ASPI-983 PO (09:20)
[2018-04-25] MEDS ORDERED: ONDN4T PO (09:20)
[2018-04-25] MEDS ORDERED: RANI150T11 PO (09:20)
[2018-04-25] MEDS ORDERED: MAGN400O7 PO (09:20)
[2018-04-25] MEDS ORDERED: METO-387 PO (09:20)
[2018-04-25] MEDS ORDERED: GLYB5TAB6 PO (09:20)
[2018-04-25] MEDS ORDERED: SERT50TA9 PO (09:20)
[2018-04-25] MEDS ORDERED: AMLO2.5T3 PO (09:20)
--- NOTE | 2018-04-25 10:02 | History & Physicial (CHS) ---
GABINO BARBOUR MEDICAL STUDENT 04/25/18 1001: HPI History of Present Illness: 83 year old female was admitted from the ED yesterday for AMS. Pt lives at [facility] and was brought to the ED because staff stated that the pt was becoming more confused and unable to perform activities of daily living. [facility] that pt might have a UTI. Pt is currently slightly confused and does not know why she was brought into the hospital and does not know what year it is. Pt currently does not state that she is in any pain. Exam Limitations: clinical condition Date seen by provider: Apr 25, 2018 Time Seen by Provider: 09:00 Attending Physician Leelee England MD PCP Donnell Oquendo MD Consult Date of Admission Apr 24, 2018 at 15:55 Home Medications Home Medications Reviewed patient Home Medication Reconciliation performed by pharmacy medication reconciliations hazardous materials waste technician and/or nursing. Patients Allergies have been reviewed. Allergies Coded Allergies: cephalexin (Verified Allergy, Unknown, 02/03/18) metformin (Verified Allergy, Unknown, 02/03/18) sitagliptin (Verified Allergy, Unknown, 02/03/18) sulfamethoxazole (Verified Allergy, Unknown, 02/03/18) trimethoprim (Verified Allergy, Unknown, 02/03/18) ZVV-Ecyqql-Cotdko Hx Patient Social History Alcohol Use: Denies Use Recreational Drug Use: No Smoking Status: Never a Smoker Recent Foreign Travel: No Contact w/other who traveled: No Recent Hopitalizations: No Recent Infectious Disease Expo: No Physical Abuse Screen: No Sexual Abuse: No Family Medical History Significant Family History: No Pertinent Family Hx Review of Systems (CHC) Other limited secondary to pt's confusion Reviewed Test Results Reviewed Test Results Lab Laboratory Tests Test 04/24/18 13:20 04/24/18 13:32 04/24/18 14:00 04/24/18 17:30 Range/Units White Blood Count 8.1 4.3-11.0 10^3/uL Red Blood Count 4.55 4.35-5.85 10^6/uL Hemoglobin 13.6 11.5-16.0 G/DL Hematocrit 40 35-52 % Mean Corpuscular Volume 87 80-99 FL Mean Corpuscular Hemoglobin 30 25-34 PG Mean Corpuscular Hemoglobin Concent 34 32-36 G/DL Red Cell Distribution Width 13.5 10.0-14.5 % Platelet Count 217 130-400 10^3/uL Mean Platelet Volume 11.1 H 7.4-10.4 FL Neutrophils (%) (Auto) 57 42-75 % Lymphocytes (%) (Auto) 31 12-44 % Monocytes (%) (Auto) 11 0-12 % Eosinophils (%) (Auto) 0 0-10 % Basophils (%) (Auto) 0 0-10 % Neutrophils # (Auto) 4.6 1.8-7.8 X 10^3 Lymphocytes # (Auto) 2.5 1.0-4.0 X 10^3 Monocytes # (Auto) 0.9 0.0-1.0 X 10^3 Eosinophils # (Auto) 0.0 0.0-0.3 10^3/uL Basophils # (Auto) 0.0 0.0-0.1 10^3/uL Prothrombin Time 13.1 12.2-14.7 SEC INR Comment 1.0 0.8-1.4 Activated Partial Thromboplast Time 26 24-35 SEC D-Dimer 2.32 H 0.00-0.49 UG/ML Sodium Level 139 135-145 MMOL/L Potassium Level 4.0 3.6-5.0 MMOL/L Chloride Level 106 98-107 MMOL/L Carbon Dioxide Level 21 21-32 MMOL/L Anion Gap 12 5-14 MMOL/L Blood Urea Nitrogen 32 H 7-18 MG/DL Creatinine 1.57 H 0.60-1.30 MG/DL Estimat Glomerular Filtration Rate 31 BUN/Creatinine Ratio 20 Glucose Level 92 70-105 MG/DL Calcium Level 9.7 8.5-10.1 MG/DL Corrected Calcium 9.7 8.5-10.1 MG/DL Total Bilirubin 0.4 0.1-1.0 MG/DL Aspartate Amino Transf (AST/SGOT) 15 5-34 U/L Alanine Aminotransferase (ALT/SGPT) 11 0-55 U/L Alkaline Phosphatase 65 40-136 U/L Troponin I < 0.30 <0.30 NG/ML Total Protein 7.6 6.4-8.2 GM/DL Albumin 4.0 3.2-4.5 GM/DL Glucometer 86 212 H 70-110 MG/DL Urine Color YELLOW Urine Clarity VERY CLOUDY H Urine pH 7 5-9 Urine Specific [place] 1.010 L 1.016-1.022 Urine Protein 3+ H NEGATIVE Urine Glucose (UA) NEGATIVE NEGATIVE Urine Ketones NEGATIVE NEGATIVE Urine Nitrite POSITIVE H NEGATIVE Urine Bilirubin NEGATIVE NEGATIVE Urine Urobilinogen NORMAL NORMAL MG/DL Urine Leukocyte Esterase 3+ H NEGATIVE Urine RBC (Auto) 2+ H NEGATIVE Urine RBC 0-2 /HPF Urine WBC 50-100 H /HPF Urine Squamous Epithelial Cells NONE /HPF Urine Crystals NONE /LPF Urine Bacteria LARGE H /HPF Urine Casts NONE /LPF Urine Mucus NEGATIVE /LPF Urine Culture Indicated YES Test 04/24/18 20:13 04/25/18 05:38 04/25/18 05:41 Range/Units Glucometer 265 H 117 H 70-110 MG/DL White Blood Count 8.2 4.3-11.0 10^3/uL Red Blood Count 4.34 L 4.35-5.85 10^6/uL Hemoglobin 12.5 11.5-16.0 G/DL Hematocrit 38 35-52 % Mean Corpuscular Volume 88 80-99 FL Mean Corpuscular Hemoglobin 29 25-34 PG Mean Corpuscular Hemoglobin Concent 33 32-36 G/DL Red Cell Distribution Width 13.3 10.0-14.5 % Platelet Count 201 130-400 10^3/uL Mean Platelet Volume 11.1 H 7.4-10.4 FL Neutrophils (%) (Auto) 58 42-75 % Lymphocytes (%) (Auto) 31 12-44 % Monocytes (%) (Auto) 11 0-12 % Eosinophils (%) (Auto) 0 0-10 % Basophils (%) (Auto) 0 0-10 % Neutrophils # (Auto) 4.7 1.8-7.8 X 10^3 Lymphocytes # (Auto) 2.5 1.0-4.0 X 10^3 Monocytes # (Auto) 0.9 0.0-1.0 X 10^3 Eosinophils # (Auto) 0.0 0.0-0.3 10^3/uL Basophils # (Auto) 0.0 0.0-0.1 10^3/uL Sodium Level 139 135-145 MMOL/L Potassium Level 3.6 3.6-5.0 MMOL/L Chloride Level 108 H 98-107 MMOL/L Carbon Dioxide Level 19 L 21-32 MMOL/L Anion Gap 12 5-14 MMOL/L Blood Urea Nitrogen 29 H 7-18 MG/DL Creatinine 1.26 0.60-1.30 MG/DL Estimat Glomerular Filtration Rate 40 BUN/Creatinine Ratio 23 Glucose Level 125 H 70-105 MG/DL Calcium Level 8.9 8.5-10.1 MG/DL Triglycerides Level 222 H <150 MG/DL Cholesterol Level 211 H < 200 MG/DL LDL Cholesterol Direct 146 H 1-129 MG/DL VLDL Cholesterol 44 H 5-40 MG/DL HDL Cholesterol 28 L 40-60 MG/DL Physical Exam-(CHC) Physical Exam Vital Signs VS - Last 72 Hours, by Label 04/24/18 04/24/18 04/24/18 04/24/18 13:42 14:03 14:03 15:10 Temp 99.9 Pulse 70 70 82 Resp 18 18 18 B/P (MAP) 196/89 (124) 196/89 196/90 (125) Pulse Ox 98 98 99 O2 Delivery Room Air 04/24/18 04/24/18 04/24/18 04/24/18 17:20 19:00 19:30 19:39 Temp 99.8 100.5 Pulse 85 76 77 Resp 16 16 B/P (MAP) 168/86 (113) 154/65 (94) Pulse Ox 90 94 90 O2 Delivery Room Air Room Air Room Air 04/24/18 04/25/18 04/25/18 04/25/18 20:00 00:09 01:00 04:18 Temp 99.1 98.3 Pulse 88 69 75 Resp 24 22 B/P (MAP) 164/79 (107) 149/75 (99) Pulse Ox 96 96 O2 Delivery Room Air Room Air Room Air 04/25/18 08:50 O2 Delivery Room Air Capillary Refill : Less Than 3 Seconds General Appearance: no apparent distress Eyes: Bilateral Eye EOMI Neck: full range of motion Respiratory: lungs clear, normal breath sounds, no accessory muscle use Cardiovascular: regular rate, rhythm, no edema Gastrointestinal: normal bowel sounds, non tender, soft Neurologic/Psychiatric: other (Alert to person and place not to time) Skin: normal color, warm/dry Assessment/Plan Assessment/Plan Admission Status: Inpatient Order (span 2 midnights) Reason for Inpatient Admission: UTI 04/25/18 - will continue pt on IV Abx Clinical Quality Measures DVT/VTE Risk/Contraindication: Risk Factor Score Per Nursin RFS Level Per Nursing on Admit: 4+=Very High Copy Copies To 1: [facility], LUX Pacheco HOLLY R MD 04/25/18 2103: HPI History of Present Illness: Reviewed above HPI with patient. She is still confused this AM but at baseline. States that she has had multiple UTIs recently and she becomes confused more when this happens. Needs help eating meals. Denies any pain or concerns. Home Medications Allergies Coded Allergies: cephalexin (Verified Allergy, Unknown, 02/03/18) metformin (Verified Allergy, Unknown, 02/03/18) sitagliptin (Verified Allergy, Unknown, 02/03/18) sulfamethoxazole (Verified Allergy, Unknown, 02/03/18) trimethoprim (Verified Allergy, Unknown, 02/03/18) SOB-Cjqtfn-Bnltiw Hx Patient Social History Living Status: [facility] Past Medical History Dementia HTN IDDM Review of Systems ([facility]) Constitutional: No chills, No fever; malaise EENTM: no symptoms reported Respiratory: no symptoms reported; No cough, No dyspnea on exertion, No short of breath Cardiovascular: no symptoms reported; No chest pain, No edema, No palpitations Gastrointestinal: no symptoms reported; No abdominal pain, No constipation, No diarrhea, No loss of appetite, No nausea, No vomiting Genitourinary: no symptoms reported; No dysuria, No frequency, No hematuria : No Musculoskeletal: no symptoms reported Skin: no symptoms reported Psychiatric/Neurological: Other (mild confusion) Physical Exam-([facility]) Physical Exam General Appearance: WD/WN, no apparent distress, other (plesantly confused) HEENT: PERRL/EOMI Neck: full range of motion Respiratory: chest non-tender, lungs clear, normal breath sounds, no respiratory distress, no accessory muscle use Cardiovascular: normal peripheral pulses, regular rate, rhythm, no edema Gastrointestinal: normal bowel sounds, soft; No guarding, No rebound Back: no CVA tenderness Extremities: normal range of motion, normal inspection, no pedal edema, no calf tenderness, normal capillary refill 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, no motor/sensory deficits, alert, normal mood/affect, other (Alert to person and place not to time) Skin: normal color, warm/dry Lymphatic: no adenopathy Assessment/Plan Assessment/Plan Admission Status: Inpatient Order (span 2 midnights) Reason for Inpatient Admission: Needs IV antibiotics and fluids, awaiting culture results (1) Altered mental status Status: Acute Assessment & Plan: - Patient seems to be back to baseline after speaking with NH nurse, likely 2/2 to infection, no new medications or med errors Qualifiers: Qualified Codes: R41.82 - Altered mental status, unspecified (2) UTI (urinary tract infection) Status: Acute Assessment & Plan: - Continue IV Rocephin, awaiting culture results, d.c gunter catheter Qualifiers: Qualified Codes: N30.01 - Acute cystitis with hematuria (3) HTN (hypertension) Status: Chronic Assessment & Plan: - Continue home meds Qualifiers: Qualified Codes: I10 - Essential (primary) hypertension (4) Dementia Status: Chronic Assessment & Plan: - Patient seems to be at baseline, needs help with feeding Qualifiers: Qualified Codes: F03.90 - Unspecified dementia without behavioral disturbance (5) DVT prophylaxis Status: Acute Assessment & Plan: - GABINO Banegas MEDICAL STUDENT Apr 25, 2018 10:01 LEELEE ENGLAND MD Apr 25, 2018 21:03
[2018-04-25 12:00] VITALS: BP 162/58
[2018-04-25] MEDS: MEROPENEM 500 MG in NS (IVPB) 100 ML IV SCH ×2 (12:41→20:45)
[2018-04-25] MEDS ORDERED: ACETAMINOPHEN 325 MG TABLET PO PRN (15:00)
[2018-04-25] MEDS ORDERED: NON-FORMULARY MEDICATION 1 EA EA (Ondansetron HCl (Zofran) 4 MG) PO PRN (15:00)
[2018-04-25] MEDS ORDERED: ONDANSETRON 4 MG (ZOFRAN) ORAL DISSOLVE TAB PO PRN (15:15)
[2018-04-25 16:30] VITALS: BP 152/84
[2018-04-25] MEDS: glyBURIDE 5 MG (MICRONASE) TAB PO SCH (16:43)
[2018-04-25 19:40] VITALS: BP 164/88
[2018-04-25] MEDS: FAMOTIDINE 20 MG (PEPCID) TABLET PO SCH (20:45)
[2018-04-25] MEDS: inSUlin DETERMIR 1 UNIT/0.01 ML (LEVEMIR) CHARGE PER UNIT SQ SCH (20:46)
[2018-04-25] MEDS: MILK OF MAGNESIA 400 MG/5 ML 30 ML UDC PO PRN (20:47)
[2018-04-25] MEDS ORDERED: NON-FORMULARY MEDICATION 1 EA EA (Ranitidine HCl 150 MG) PO SCH (21:00)
[2018-04-25] MEDS ORDERED: ENOXAPARIN 40 MG/0.4 ML (LOVENOX) SYR SQ SCH (21:00)
[2018-04-25] MEDS ORDERED: inSUlin DETERMIR 1000 UNITS/10 ML VIAL (LEVEMIR) SQ SCH (21:00)
[2018-04-26 00:29] VITALS: BP 151/76
[2018-04-26 04:45] VITALS: BP 134/77
[2018-04-26] MEDS: inSUlin ASPART (NovoLOG) 1 UNIT/0.01 ML (CHARGE PER UNIT) SC SCH ×4 (05:48→20:53)
[2018-04-26 05:49] LABS: BASOPHILS % (AUTO) 0 % (0-10); EOSINOPHILS # (AUTO) 0.1 10^3/uL (0.0-0.3); EOSINOPHILS % (AUTO) 2 % (0-10); HEMATOCRIT 38 % (35-52); HEMOGLOBIN 12.5 G/DL (11.5-16.0); LYMPHOCYTES # (AUTO) 2.2 X 10^3 (1.0-4.0); LYMPHOCYTES % (AUTO) 32 % (12-44); MEAN CORPUSCULAR HEMOGLOBIN 29 PG (25-34); MEAN CORPUSCULAR HGB CONC 33 G/DL (32-36); MEAN CORPUSCULAR VOLUME 88 FL (80-99); MEAN PLATELET VOLUME 10.9 FL (7.4-10.4); MONOCYTES # (AUTO) 0.8 X 10^3 (0.0-1.0); MONOCYTES % (AUTO) 11 % (0-12); NEUTROPHILS # (AUTO) 3.8 X 10^3 (1.8-7.8); NEUTROPHILS % (AUTO) 55 % (42-75); PLATELET COUNT 194 10^3/uL (130-400); RED BLOOD COUNT 4.33 10^6/uL (4.35-5.85); RED CELL DISTRIBUTION WIDTH 13.6 % (10.0-14.5)
[2018-04-26] MEDS: NS IV 1000 ML 1,000 ML IV SCH (05:50)
[2018-04-26] MEDS: MEROPENEM 500 MG in NS (IVPB) 100 ML IV SCH ×3 (05:51→20:54)
[2018-04-26 06:16] LABS: CALCIUM 8.6 MG/DL (8.5-10.1); CREATININE SERUM 1.09 MG/DL (0.60-1.30); POTASSIUM 3.9 MMOL/L (3.6-5.0)
[2018-04-26] MEDS: glyBURIDE 5 MG (MICRONASE) TAB PO SCH ×2 (07:07→16:40)
[2018-04-26 08:00] VITALS: BP 167/79
[2018-04-26] MEDS: CLOPIDOGREL 75 MG (PLAVIX) TABLET PO SCH (08:35)
[2018-04-26] MEDS: MILK OF MAGNESIA 400 MG/5 ML 30 ML UDC PO PRN (08:35)
[2018-04-26] MEDS: SERTRALINE 50 MG (ZOLOFT) TABLET PO SCH (08:35)
[2018-04-26] MEDS: ASPIRIN E.C. 81 MG (ECOTRIN) TAB PO SCH (08:35)
[2018-04-26] MEDS: inSUlin DETERMIR 1 UNIT/0.01 ML (LEVEMIR) CHARGE PER UNIT SQ SCH ×2 (08:38→21:19)
[2018-04-26] MEDS ORDERED: inSUlin DETERMIR 1000 UNITS/10 ML VIAL (LEVEMIR) SQ SCH (09:00)
--- NOTE | 2018-04-26 09:30 | Consultation-Cardiology ---
HPI-Cardiology Cardiology Consultation: Date of Consultation 04/26/18 Date of Admission Attending Physician Danni Sinha MD Admitting Physician Donnell Oquendo MD Consulting Physician Richard KEITH MD HPI: Time Seen by a Provider: 09:15 Chief Complaint: Irregular rhythm This is a 83 year old lady who was brought to the ER from via [facility] for altered mental status. She denies syncope, near-syncope, dizziness, chest pain or shortness of breath. 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 Review of Systems-Cardiology Review of Systems Constitutional: As described under HPI; No As described under HPI, No no symptoms reported, No chills, No fever, No lightheadedness Eyes: No As described under HPI, No no symptoms reported, No blindness, No blurred vision, No contact lenses, No drainage, No decreased acuity, No foreign body sensation, No pain, No vision change Ears/Nose/Throat: No As described under HPI, No no symptoms reported, No chronic hearing loss, No ear discharge, No ear pain, No nasal drainage, No ulcerations Respiratory: No no symptoms reported; As described under HPI; No As described under HPI, No cough, No orthopnea, No shortness of breath, No SOB with excertion Cardiovascular: No no symptoms reported; As described under HPI; No As described under HPI, No chest pain, No edema, No irregular heart rate, No lightheadedness, No palpitations Gastrointestinal: No no symptoms reported, No As described under HPI, No abdomen distended, No abdominal pain, No blood streaked bowels, No constipation , No diarrhea, No nausea, No vomiting, No stool coloration changes Genitourinary: No As described under HPI, No burning, No dysuria, No discharge , No frequency, No flank pain, No hematuria, No urgency : No Musculoskeletal: No no symptoms reported, No As describe under HPI, No back pain, No gout, No joint pain, No joint swelling, No muscle pain, No muscle stiffness, No neck pain, No other Skin: No no symptoms reported, No As described under HPI, No change in color, No change in hair/nails, No dryness, No lesions, No lumps, No rash, No other, No skin related problems, No ulcerations, No rash on exposed areas, No ulcerations on exposed areas Psychiatric/Neurological: No anxiety, No depression, No seizure, No focal weakness, No syncope Hematologic: No bleeding abnormalities UGG-Ayesza-Poidxc Hx Patient Social History Living Status: [facility] Alcohol Use: Denies Use Recreational Drug Use: No Smoking Status: Never a Smoker Recent Foreign Travel: No Recent Infectious Disease Expo: No Hospitalization with Isolation: Denies Physical Abuse Screen: No Sexual Abuse: No Past Medical History PMH As described under Assessment. Allergies and Home Medications Allergies Coded Allergies: cephalexin (Verified Allergy, Unknown, 02/03/18) metformin (Verified Allergy, Unknown, 02/03/18) sitagliptin (Verified Allergy, Unknown, 02/03/18) sulfamethoxazole (Verified Allergy, Unknown, 02/03/18) trimethoprim (Verified Allergy, Unknown, 02/03/18) Home Medications Acetaminophen 325 Mg Tablet, 650 MG PO Q4H PRN for PAIN-MILD, (Reported) TAKES 2 (325MG) TABLETS Amlodipine Besylate 2.5 Mg Tablet, 2.5 MG PO DAILY, (Reported) Aspirin 81 Mg Tablet.dr, 81 MG PO DAILY, (Reported) Clopidogrel Bisulfate 75 Mg Tablet, 75 MG PO DAILY, (Reported) Glyburide 5 Mg Tablet, 2.5 MG PO BID, (Reported) TAKES 1/2 (5MG) TABLET Insulin Aspart 100 Unit/1 Ml Susp, SC QID, (Reported) 150-199 =2 UNITS 200-249 =4 UNITS 250-299 =6 UNITS 300-349 =8 UNITS 350-399 = 10 UNITS 400-999 =12 UNITS CALL PCP <60 OR >400 Insulin Determir 1,000 Units/10 Ml Soln, 10 UNITS SQ HS, (Reported) Insulin Determir 1,000 Units/10 Ml Soln, 15 UNITS SQ DAILY, (Reported) Magnesium Hydroxide 400 Mg/5 Ml Oral.susp, 30 ML PO DAILY PRN for CONSTIPATION- 7TH LINE, (Reported) Metoprolol Succinate 25 Mg Tab.er.24h, 25 MG PO BID, (Reported) Ondansetron HCl 4 Mg Tab, 4 MG PO Q4H PRN for NAUSEA/VOMITING-1ST LINE, ( Reported) Ranitidine HCl 150 Mg Tablet, 150 MG PO BID, (Reported) Sertraline HCl 50 Mg Tablet, 50 MG PO DAILY, (Reported) Patient Home Medication List Home Medication List Reviewed: Yes Physical Exam-Cardiology Physical Exam Vital Signs/I&O 04/26/18 04/26/18 04/26/18 04/26/18 12:00 13:01 16:30 19:00 Temp 98.2 99.9 Pulse 75 72 85 88 Resp 18 16 B/P (MAP) 148/71 (96) 168/93 (118) Pulse Ox 98 98 O2 Delivery Room Air Room Air 04/26/18 00:00 Intake Total 1890 ml Output Total 2000 ml Balance -110 ml Capillary Refill : Less Than 3 Seconds Constitutional: appears stated age; No apparent distress; well-developed, well- nourished HEENT: PERRL; No normal ENT inspection, No TMs normal, No pharynx normal, No scleral icterus (R), No scleral icterus (L), No pale conjunctivae (R), No pale conjunctivae (L), No photophobia, No TM abnormal (R), No TM abnormal (L), No pharyngeal erythema, No tonsillar exudate, No other, No discharge, No EOMI; hearing is well preserved; No hard of hearing; oral hygience is good; No ulceration, No xanthelasmas are seen Neck: No non-tender, No full range of motion, No supple, No normal inspection, No carotid bruit, No limited range of motion, No lymphadenopathy (R), No lymphadenopathy (L), No tender lateral, No tender midline, No thyromegaly, No other; carotid pulses are 2 + bilaterally; No with good upstrokes Respiratory: No accessory muscle use, No respiratory distress, No chest tender , No chest expansion is symmetric; chest is bilaterally symmetric; No lungs clear to percussion; lungs clear to auscultation; No crackles, No rhonchi, No rales, No stridor, No wheezing, No pleural rub, No other Cardiovascular: regular rate-rhythm; No irregularly irregular, No extra beats, No parasternal heave is noted, No JVD, No edema, No bradycardia, No tachycardia , No point of maximal impulse, No cardiac thrills are palpable; S1 and S2; No gallop/S3, No gallop/S4, No diastolic murmur, No systolic murmur, No friction rub, No click, No other Gastrointestinal: No tender, No soft, No round, No distended, No pulsatile mass , No organomegaly, No guarding, No rebound, No tenderness, No hernia, No mass, No audible bowel sounds, No abnormal bowel sounds, No abdominal bruits, No spleenomegaly, No other Rectal: deferred Extremities: No normal range of motion, No non-tender, No normal inspection, No pedal edema, No calf tenderness, No normal capillary refill, No pelvis stable , No calf tenderness, No inflammation, No pedal edema, No slow capillary refill , No swelling, No other, No abrasion, No clubbing, No cyanosis, No ecchymosis, No laceration, No no lower extremity edema bilateral, No significant edema, No tenderness, No wound Neurologic/Psychiatric: alert, oriented x 3, power is 5/5 both on sides Skin: No rash, No ulcerations Lymphatic: no adenopathy Data Review Labs Laboratory Tests 04/26/18 05:15: Glucometer 117H 04/26/18 05:42: White Blood Count 7.0, Red Blood Count 4.33L, Hemoglobin 12.5, Hematocrit 38, Mean Corpuscular Volume 88, Mean Corpuscular Hemoglobin 29, Mean Corpuscular Hemoglobin Concent 33, Red Cell Distribution Width 13.6, Platelet Count 194, Mean Platelet Volume 10.9H, Neutrophils (%) (Auto) 55, Lymphocytes (%) (Auto) 32 , Monocytes (%) (Auto) 11, Eosinophils (%) (Auto) 2, Basophils (%) (Auto) 0, Neutrophils # (Auto) 3.8, Lymphocytes # (Auto) 2.2, Monocytes # (Auto) 0.8, Eosinophils # (Auto) 0.1, Basophils # (Auto) 0.0, Sodium Level 139, Potassium Level 3.9, Chloride Level 111H, Carbon Dioxide Level 20L, Anion Gap 8, Blood Urea Nitrogen 26H, Creatinine 1.09, Estimat Glomerular Filtration Rate 48, BUN/ Creatinine Ratio 24, Glucose Level 120H, Calcium Level 8.6 04/26/18 11:02: Glucometer 114H 04/26/18 16:33: Glucometer 151H 04/26/18 20:04: Glucometer 195H Microbiology 04/24/18 Urine Culture - Preliminary, Resulted Gram Negative Bacillus 1 ECG Impression ECG Initial ECG Impression: 2nd Degree AV Block Comment Sinus rhythm with second degree AV block, Wenkebach. A/P-Cardiology Assessment/Admission Diagnosis Altered mental status, UTI sepsis, CAD/CABG, Second degree AV block Plan Defer to Primary team for UTI sepsis and Altered mental status. Improved mentation on my history. history of CAD and CABG. Continue aspirin, plavix. Second degree AV block, wenkebach. patient denies symptoms. Will hold BB and see if it improves. However, we will consider that BB is essential drug therapy for CAD and the patient may require a pacemaker, especially if there are any symptoms. continue telemetry. recommend echocardiogram. Thank you for your consultation. Please call me if you have any questions. Samantha Keith MD, FACP, FACC, FSCAI, FHRS, CCDS Interventional Cardiology Cardiac Electrophysiology Vascular Medicine and Endovascular Interventions Clinical Quality Measures DVT/VTE Risk/Contraindication: Risk Factor Score Per Nursin RFS Level Per Nursing on Admit: 4+=Very High Richard KEITH MD Apr 26, 2018 09:30
[2018-04-26 12:00] VITALS: BP 148/71
[2018-04-26 16:30] VITALS: BP 168/93
[2018-04-26 19:20] VITALS: BP 157/87
--- NOTE | 2018-04-26 19:52 | Progress Note (SOAP) ---
Subjective Subjective/Events-last exam Patient doing well this AM. States that she is feeling much better. ON had some episodes of bradycardia, patient did not feel any different during these episodes. Cardiology was consulted this AM. Review of Systems Date Seen by Provider: Apr 26, 2018 Time Seen by Provider: 10:45 General: No Chills Pulmonary: No Dyspnea, No Cough Cardiovascular: No: Chest Pain, Palpitations, Edema, Lt Headedness Gastrointestinal: No: Nausea, Vomiting, Abdominal Pain Genitourinary: Frequency Objective Exam Last Set of Vital Signs Vital Signs Date Time Temp Pulse Resp B/P (MAP) Pulse Ox O2 Delivery O2 Flow Rate FiO2 04/26/18 16:30 99.9 85 16 168/93 (118) 98 Room Air Capillary Refill : Less Than 3 Seconds I&O Intake and Output 04/26/18 00:00 Intake Total 2260 ml Output Total 2450 ml Balance -190 ml Intake Oral 1060 ml IV Total 1200 ml Output Urine Total 2450 ml General: Alert, No Acute Distress, Other (oriented to person ) HEENT: Mucous Memb Moist/[place] Lungs: Clear to Auscultation, Normal Air Movement Heart: Regular Rate, No Murmurs Abdomen: Normal Bowel Sounds, Soft, No Tenderness, No Masses Extremities: No Edema, No Tenderness/Swelling Psych/Mental Status: Mental Status NL, Mood NL Results/Procedures Lab Laboratory Tests 04/25/18 20:17: Glucometer 234H 04/26/18 05:15: Glucometer 117H 04/26/18 05:42: White Blood Count 7.0, Red Blood Count 4.33L, Hemoglobin 12.5, Hematocrit 38, Mean Corpuscular Volume 88, Mean Corpuscular Hemoglobin 29, Mean Corpuscular Hemoglobin Concent 33, Red Cell Distribution Width 13.6, Platelet Count 194, Mean Platelet Volume 10.9H, Neutrophils (%) (Auto) 55, Lymphocytes (%) (Auto) 32 , Monocytes (%) (Auto) 11, Eosinophils (%) (Auto) 2, Basophils (%) (Auto) 0, Neutrophils # (Auto) 3.8, Lymphocytes # (Auto) 2.2, Monocytes # (Auto) 0.8, Eosinophils # (Auto) 0.1, Basophils # (Auto) 0.0, Sodium Level 139, Potassium Level 3.9, Chloride Level 111H, Carbon Dioxide Level 20L, Anion Gap 8, Blood Urea Nitrogen 26H, Creatinine 1.09, Estimat Glomerular Filtration Rate 48, BUN/ Creatinine Ratio 24, Glucose Level 120H, Calcium Level 8.6 04/26/18 11:02: Glucometer 114H 04/26/18 16:33: Glucometer 151H Microbiology 04/24/18 Urine Culture - Preliminary, Resulted Gram Negative Bacillus 1 Assessment/Plan Assessment/Plan (1) Altered mental status Status: Acute Assessment & Plan: - Patient seems to be back to baseline after speaking with NH nurse, likely 2/2 to infection, no new medications or med errors 04/26- patient at baseline Qualifiers: Qualified Codes: R41.82 - Altered mental status, unspecified (2) Bradycardia Status: Acute Assessment & Plan: 04/26- Cardiology consulted and they feel that patient may have heart block, discussed treatment options if it is heart block and patient states that she does not desire to have a pace maker placed. Holding BB. (3) UTI (urinary tract infection) Status: Acute Assessment & Plan: - Continue IV Rocephin, awaiting culture results, d.c gunter catheter Qualifiers: Qualified Codes: N30.01 - Acute cystitis with hematuria (4) HTN (hypertension) Status: Chronic Assessment & Plan: - Continue home meds Qualifiers: Qualified Codes: I10 - Essential (primary) hypertension (5) Dementia Status: Chronic Assessment & Plan: - Patient seems to be at baseline, needs help with feeding Qualifiers: Qualified Codes: F03.90 - Unspecified dementia without behavioral disturbance (6) DVT prophylaxis Status: Acute Assessment & Plan: - Lovenox Clinical Quality Measures DVT/VTE Risk/Contraindication: Risk Factor Score Per Nursin RFS Level Per Nursing on Admit: 4+=Very High LEELEE ENGLAND MD Apr 26, 2018 19:52
[2018-04-26] MEDS: FAMOTIDINE 20 MG (PEPCID) TABLET PO SCH (21:19)
[2018-04-27 00:07] VITALS: BP 145/67
[2018-04-27] MEDS: MEROPENEM 500 MG in NS (IVPB) 100 ML IV SCH ×2 (03:51→13:00)
[2018-04-27 04:09] VITALS: BP 138/70
[2018-04-27] MEDS: inSUlin ASPART (NovoLOG) 1 UNIT/0.01 ML (CHARGE PER UNIT) SC SCH ×2 (06:28→11:00)
[2018-04-27 08:00] VITALS: BP 138/70
[2018-04-27] MEDS: SERTRALINE 50 MG (ZOLOFT) TABLET PO SCH (08:56)
[2018-04-27] MEDS: glyBURIDE 5 MG (MICRONASE) TAB PO SCH (08:57)
[2018-04-27] MEDS: CLOPIDOGREL 75 MG (PLAVIX) TABLET PO SCH (08:57)
[2018-04-27] MEDS: ASPIRIN E.C. 81 MG (ECOTRIN) TAB PO SCH (08:57)
[2018-04-27] MEDS: inSUlin DETERMIR 1 UNIT/0.01 ML (LEVEMIR) CHARGE PER UNIT SQ SCH (09:00)
--- NOTE | 2018-04-27 11:16 | Discharge Summary ---
Diagnosis/Chief Complaint Date of Admission Apr 24, 2018 at 15:55 Date of Discharge 04/27/18 Admission Diagnosis Admission Diagnosis Altered Mental Status UTI- Klebsiella HTN Bradycardia Dementia Discharge Diagnosis See Below Problems/Diagnosis: (1) Altered mental status Assessment & Plan: - Patient seems to be back to baseline after speaking with [place] nurse, likely 2/2 to infection, no new medications or med errors 04/26- patient at baseline Qualifiers: Qualified Codes: R41.82 - Altered mental status, unspecified Status: Acute (2) Bradycardia Assessment & Plan: 04/26- Cardiology consulted and they feel that patient may have heart block, discussed treatment options if it is heart block and patient states that she does not desire to have a pace maker placed. Holding BB. 04/27- Updated med list, d/c BB Status: Acute (3) UTI (urinary tract infection) Assessment & Plan: - Continue IV Rocephin, awaiting culture results, d.c gunter catheter Qualifiers: Qualified Codes: N30.01 - Acute cystitis with hematuria Status: Acute (4) HTN (hypertension) Assessment & Plan: - Continue home meds Qualifiers: Qualified Codes: I10 - Essential (primary) hypertension Status: Chronic (5) Dementia Assessment & Plan: - Patient seems to be at baseline, needs help with feeding Qualifiers: Qualified Codes: F03.90 - Unspecified dementia without behavioral disturbance Status: Chronic (6) DVT prophylaxis Assessment & Plan: - Lovenox Status: Acute Chief Complaint/HPI Chief Complaint/HPI Reviewed above HPI with patient. She is still confused this AM but at baseline. States that she has had multiple UTIs recently and she becomes confused more when this happens. Needs help eating meals. Denies any pain or concerns. Discharge Summary-Simple/Stand Consultations Discharge Physical Examination Allergies: Coded Allergies: cephalexin (Verified Allergy, Unknown, 02/03/18) metformin (Verified Allergy, Unknown, 02/03/18) sitagliptin (Verified Allergy, Unknown, 02/03/18) sulfamethoxazole (Verified Allergy, Unknown, 02/03/18) trimethoprim (Verified Allergy, Unknown, 02/03/18) Vitals & I&Os Vital Sign - Last 12Hours Date Time Temp Pulse Resp B/P (MAP) Pulse Ox O2 Delivery O2 Flow Rate FiO2 04/27/18 08:00 Room Air 04/27/18 08:00 98.5 75 20 138/70 (92) 95 Intake and Output 04/27/18 00:00 Intake Total 1170 ml Output Total 1350 ml Balance -180 ml General Appearance: Alert, Cooperative, No Acute Distress HEENT: Mucous Memb Moist/[place] Respiratory: Clear to Auscultation, Normal Air Movement Cardiovascular: Regular Rate, No Murmurs Abdominal: Normal Bowel Sounds, Soft, No Tenderness, No Hepatosplenomegaly Extremities: No Edema, No Tenderness/Swelling Neuro: Sensation Intact, Cranial Nerves 3-12 NL Hospital Course See final discharge diagnosis. Discussion & Recommendations 83 yo F admitted for altered mental status found to have UTI. Patient back to baseline after IV hydration and antibiotics. Culture grew out mcdonough susceptible Klebsiella. Will discharge back to [facility] with Skilled orders. Discharge Condition at discharge stable Instructions to patient/family Please see electronic discharge instructions given to patient. Discharge Medications Reviewed and agree with Discharge Medication list on patient's Discharge Instruction sheet Clinical Quality Measures DVT/VTE Risk/Contraindication: Risk Factor Score Per Nursin RFS Level Per Nursing on Admit: 4+=Very High LEELEE ENGLAND MD Apr 27, 2018 11:16
[2018-04-27] MEDS ORDERED: LEVO750T9 PO (11:21)
--- NOTE | 2018-04-27 11:24 | Discharge Inst-Skilled Nursing ---
Discharge Inst-Skilled NF Patient Instructions Patient Problems: Altered Mental Status UTI for Klebsiella HTN Bradycardia Dementia Advanced Age Debilty Goal: - PT for gait stability - complete antibiotics for UTI Consult/Follow Up/Orders Follow up appt.: Lore Machado will see you in the NH next week Skilled NF Admit to: [facility] Certifications SNF I certify that SNF services are required to be given on an inpatient basis because of the above named patient's need for longterm care on a continuing basis for the conditions(s) for which he/she was receiving inpatient hospital services prior to his/her transfer to the SNF. Halfway Facility Order: Nursing Services, Physical Therapy-Evaluate & Treat Discharge Diet: ADA Diet Daily Activity as Tolerated: Yes New & Resume Previous Orders New & Resume Previous Orders - Resume previous orders prior to admission - Start PO antibiotics x 3 days - PT/OT Pneu Vac Indicated: Yes Discharge Medications New, Converted or Re-Newed RX: Transmitted to Pharmacy New Medications: Levofloxacin (Levaquin) 750 Mg Tablet 750 MG PO DAILY, #3 TAB Continued Medications: Acetaminophen (Tylenol) 325 Mg Tablet 650 MG PO Q4H PRN for PAIN-MILD, TAB TAKES 2 (325MG) TABLETS Amlodipine Besylate (Amlodipine Besylate) 2.5 Mg Tablet 2.5 MG PO DAILY, TAB Aspirin (Aspirin EC) 81 Mg Tablet.dr 81 MG PO DAILY, TAB Clopidogrel Bisulfate (Clopidogrel) 75 Mg Tablet 75 MG PO DAILY, TAB Glyburide (Glyburide) 5 Mg Tablet 2.5 MG PO BID, TAB TAKES 1/2 (5MG) TABLET Insulin Aspart (Novolog) 100 Unit/1 Ml Susp SC QID for SLIDING SCALE, EA 150-199 =2 UNITS 200-249 =4 UNITS 250-299 =6 UNITS 300-349 =8 UNITS 350-399 =10 UNITS 400-999 =12 UNITS CALL PCP <60 OR >400 Insulin Determir (Levemir) 1,000 Units/10 Ml Soln 10 UNITS SQ HS, EA Insulin Determir (Levemir) 1,000 Units/10 Ml Soln 15 UNITS SQ DAILY, EA Magnesium Hydroxide (Milk of Magnesia) 400 Mg/5 Ml Oral.susp 30 ML PO DAILY PRN for CONSTIPATION-7TH LINE, ML Ondansetron HCl (Zofran) 4 Mg Tab 4 MG PO Q4H PRN for NAUSEA/VOMITING-1ST LINE, TAB Ranitidine HCl (Ranitidine HCl) 150 Mg Tablet 150 MG PO BID, TAB Sertraline HCl (Sertraline HCl) 50 Mg Tablet 50 MG PO DAILY, TAB Discontinued Medications: Metoprolol Succinate (Metoprolol Succinate) 25 Mg Tab.er.24h 25 MG PO BID, TAB Leelee Sinha Apr 27, 2018 11:22 LEELEE SINHA MD Apr 27, 2018 11:24
[2018-04-27 12:00] VITALS: BP 140/84
[2018-04-27 12:50] VITALS: BP 140/84
[2018-04-27] MEDS ORDERED: LEVOFLOXACIN 750 MG TAB (LEVAQUIN) PO NR (13:43)
--- NOTE | 2018-04-27 13:58 | Cardiology Progress Note ---
Cardiology SOAP Progress Note Subjective: No cardiac complaints. Objective: I&O/Vital Signs 04/27/18 04/27/18 04/27/18 04/27/18 04:09 07:44 08:00 08:00 Temp 97.3 98.5 Pulse 80 71 75 Resp 16 20 B/P (MAP) 138/70 (92) 138/70 (92) Pulse Ox 96 95 O2 Delivery Room Air Room Air Room Air 04/27/18 12:00 Temp 98.5 Pulse 77 Resp 18 B/P (MAP) 140/84 (102) Pulse Ox 97 O2 Delivery Room Air 04/27/18 00:00 Intake Total 1170 ml Output Total 1350 ml Balance -180 ml Weight (Pounds): 148 Weight (Ounces): 6.0 Weight (Calculated Kilograms): 67.232315 Constitutional: appears stated age; No apparent distress; well-developed, well- nourished Respiratory: No accessory muscle use, No respiratory distress, No chest tender , No chest expansion is symmetric; chest is bilaterally symmetric; No lungs clear to percussion; lungs clear to auscultation; No crackles, No rhonchi, No rales, No stridor, No wheezing, No pleural rub, No other Cardiovascular: regular rate-rhythm; No irregularly irregular, No extra beats, No parasternal heave is noted, No JVD, No edema, No bradycardia, No tachycardia , No point of maximal impulse, No cardiac thrills are palpable; S1 and S2; No gallop/S3, No gallop/S4, No diastolic murmur, No systolic murmur, No friction rub, No click, No other Gastrointestional: No tender, No soft, No round, No distended, No pulsatile mass, No organomegaly, No guarding, No rebound, No tenderness, No hernia, No mass, No audible bowel sounds, No abnormal bowel sounds, No abdominal bruits, No spleenomegaly, No other Extremities: No normal range of motion, No non-tender, No normal inspection, No pedal edema, No calf tenderness, No normal capillary refill, No pelvis stable , No calf tenderness, No inflammation, No pedal edema, No slow capillary refill , No swelling, No other, No abrasion, No clubbing, No cyanosis, No ecchymosis, No laceration, No no lower extremity edema bilateral, No significant edema, No tenderness, No wound Neurologic/Psychiatric: alert, oriented x 3, power is 5/5 both on sides Skin: No rash, No ulcerations Results/Procedures: Labs Laboratory Tests 04/26/18 16:33: Glucometer 151H 04/26/18 20:04: Glucometer 195H 04/27/18 05:13: Glucometer 100 04/27/18 11:25: Glucometer 164H Microbiology 04/24/18 Urine Culture - Final, Complete Klebsiella variicola A/P: Assessment/Dx: Altered mental status, UTI sepsis, CAD/CABG, Second degree AV block Plan: Defer to Primary team for UTI sepsis and Altered mental status. Improved mentation on my history. history of CAD and CABG. Continue aspirin, plavix. Second degree AV block, wenkebach. patient denies symptoms. BB held with resolution of the second degree AV block. currently in sinus rhythm. BB is essential drug therapy for CAD and therefore we will address it as an outpatient. recommend echocardiogram. Thank you for your consultation. Please call me if you have any questions. Samantha Keith MD, FACP, FACC, FSCAI, FHRS, CCDS Interventional Cardiology Cardiac Electrophysiology Vascular Medicine and Endovascular Interventions Richard KEITH MD Apr 27, 2018 13:58
[2018-04-29] MEDS ORDERED: RANI-514 PO (16:55)
[2018-05-01] MEDS ORDERED: METO-387 PO (10:56)
[2018-05-01] MEDS ORDERED: RANI150T11 PO (10:56)
[2018-05-02] MEDS ORDERED: ACHD5005 PO (10:10)
== END 2018-04-27 14:50 | DRG 690 ==
LOC: EDUNIT# 12:58 → ER 12:59 → 4TH 15:55
PROVIDERS: ADMIT Family Medicine; ATTEND Family Medicine
DX: N39.0 Urinary tract infection, site not specified (principal); B96.1 Klebsiella pneumoniae [K. pneumoniae] as the cause of diseases classified elsewhere; R41.82 Altered mental status, unspecified; E78.00 Pure hypercholesterolemia, unspecified; E11.9 Type 2 diabetes mellitus without complications; F03.90 Unspecified dementia, unspecified severity, without behavioral disturbance, psychotic disturbance, mood disturbance, and anxiety; I44.1 Atrioventricular block, second degree; Z66 Do not resuscitate; R00.1 Bradycardia, unspecified; I25.10 Atherosclerotic heart disease of native coronary artery without angina pectoris; M19.91 Primary osteoarthritis, unspecified site; Z95.1 Presence of aortocoronary bypass graft; Z86.73 Personal history of transient ischemic attack (TIA), and cerebral infarction without residual deficits; Z79.4 Long term (current) use of insulin
CPT/HCPCS: 36415; 70450; 71045; 80048; 80053; 80061; 81000; 82962; 84484; 85025; 85379; 85610; 85730; 87077; 87088; 87186; 92977; 93005; 93041; 93306; 96374

== ENCOUNTER 2018-05-03 09:21 | Emergency (ER) | payer MEDICARE ==
[~2018-05-03] VITALS: Ht 152.4 cm; Wt 70.0 kg
[~2018-05-03 09:21] MED LIST changes: +ACET325T38 PO; +ACHD5005 PO; +AMLO2.5T3 PO; +ASPI-983 PO; +CLOP75TA28 PO; +GLYB5TAB6 PO; +INSU100V16 SC; +INSU100V5 SQ; +LEVO750T9 PO; +MAGN400O7 PO; +METO-387 PO; +ONDN4T PO; +RANI-514 PO; +RANI150T11 PO; +SERT50TA9 PO
[2018-05-03] MEDS ORDERED: HYDROcodone/APAP 7.5 MG/325 MG (LORTAB, LORCET PLUS) TABLET PO STA (09:27)
--- OUTSIDE RECORDS SUMMARY | 2018-05-03 09:38 | XMS REPORT ---
Author Author ALDEN PACHECO [facility] Address [address] [place] [address] Care Team Providers Care Assistant [employer] Name Role Phone ALDEN PACHECO Unavailable PROBLEMS Type Condition ICD9-CM Code [id number] Code Onset Dates Condition Status SNOMED Code Problem Type 2 diabetes mellitus with hyperosmolarity without nonketotic hyperglycemic-hyperosmolar coma [facility] E11.00 Active 58014072 Problem Inappropriate behavior F99 Active 973989361 Problem correction current use of insulin Z79.4 Active 823147697 Problem Type 2 diabetes mellitus with hyperglycemia E11.65 Active 02361750 Problem Major depressive disorder with single episode, 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 Active 69294055 Problem Coronary artery disease involving solomon coronary artery of solomon heart without angina pectoris I25.10 Active 2503793118102 Problem Gastroesophageal reflux disease, esophagitis presence not specified K21.9 Active 298777201 Problem Type 2 diabetes mellitus with other circulatory complication, without long-term current 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 Active 51673548 Problem Essential hypertension I10 Active 96873366 ALLERGIES No Information ENCOUNTERS Encounter Location Date Diagnosis [facility] [address], [place] [address] Apr, [facility] [id number] [place] [phone] Apr, Type 2 diabetes mellitus with hyperglycemia E11.65 [facility] [address] [place] [phone] Apr, [facility] [id number] [place] [address] Mar, Type 2 diabetes mellitus with hyperosmolarity without nonketotic hyperglycemic-hyperosmolar coma ([facility]) E11.00 [facility] [address] [address] 31 Feb, 2018 [facility] [address] [place] [phone] Feb, [facility] [address] [place] [phone] Feb, Discharge planning issues Z02.9 and Noncompliance with diabetes treatment Z91.19 [facility] [id number] [address] 04 Feb, 2018 [facility] [address] [place] [id number] 02 Feb, 2018 correction current use of insulin Z79.4 ; Type 2 diabetes mellitus with hyperglycemia E11.65 and Noncompliance with diabetes treatment Z91.19 [place] [address] [id number] Jan, [facility] [facility] [address], [place] [address] 14 Jan, 2018 Type 2 diabetes mellitus with other circulatory complication , without long-term current 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 ; Coronary artery disease involving solomon coronary artery of solomon heart without angina pectoris I25.10 ; Major depressive disorder with single episode, 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 ; Gastroesophageal reflux disease, esophagitis presence not specified K21.9 and Essential hypertension I10 [facility] [address] [place] [id number] Jan, Type 2 diabetes mellitus with hyperosmolarity without nonketotic hyperglycemic-hyperosmolar coma ([facility]) E11.00 ; Inappropriate behavior F99 and correction current use of insulin Z79.4 IMMUNIZATIONS No Known Immunizations SOCIAL HISTORY Never Assessed REASON FOR VISIT long-term PLAN OF CARE VITAL SIGNS MEDICATIONS Medication Instructions Dosage Frequency Start Date End Date Duration Status Humalog 100 UNIT/ML Subcutaneous 3 times a day Per sliding scale before meals 8h Apr, 30 days Active RESULTS No Results PROCEDURES No Known [...]
--- NOTE | 2018-05-03 09:43 | ED General ---
General Chief Complaint: General Problems/Pain Stated Complaint: R HIP PAIN Source of Information: Patient Exam Limitations: Physical Impairments History of Present Illness Date Seen by Provider: May 03, 2018 Time Seen by Provider: 09:20 Initial Comments Here by EMS with report of shortened and rotated right leg with complaint of right leg pain. The leg is neither shortened nor rotated. She does have some swelling. Results hospitalization for cellulitis of the right lower extremity and had sensitive workup including ultrasound for the swelling which did not show DVT. Today he is complaining of pain. Apparently she has not [facility] because it has not been delivered yet. No reported nausea or vomiting. Patient does have dementia which does limit the history somewhat. Timing/Duration: 4-5 Days Severity: Moderate Associated Systoms: No Fever/Chills, No Nausea/Vomiting, No Shortness of Air Allergies and Home Medications Allergies Coded Allergies: cephalexin (Verified Allergy, Unknown, 02/03/18) metformin (Verified Allergy, Unknown, 02/03/18) sitagliptin (Verified Allergy, Unknown, 02/03/18) sulfamethoxazole (Verified Allergy, Unknown, 02/03/18) trimethoprim (Verified Allergy, Unknown, 02/03/18) Home Medications Acetaminophen 325 Mg Tablet, 650 MG PO Q4H PRN for PAIN-MILD, (Reported) TAKES 2 (325MG) TABLETS Amlodipine Besylate 2.5 Mg Tablet, 2.5 MG PO DAILY, (Reported) Aspirin 81 Mg Tablet.dr, 81 MG PO DAILY, (Reported) Clopidogrel Bisulfate 75 Mg Tablet, 75 MG PO DAILY, (Reported) Glyburide 5 Mg Tablet, 2.5 MG PO BID, (Reported) TAKES 1/2 (5MG) TABLET Hydrocodone Bit/Acetaminophen 1 Tab Tab, 1 TAB PO Q6HR PRN for PAIN-MODERATE Prescribed by: SAMPSON GUTIERREZ on 05/02/18 1010 Insulin Aspart 100 Unit/1 Ml Susp, SC QID, (Reported) 150-199 =2 UNITS 200-249 =4 UNITS 250-299 =6 UNITS 300-349 =8 UNITS 350-399 = 10 UNITS 400-999 =12 UNITS CALL PCP <60 OR >400 Insulin Determir 1,000 Units/10 Ml Soln, 10 UNITS SQ HS, (Reported) Insulin Determir 1,000 Units/10 Ml Soln, 15 UNITS SQ DAILY, (Reported) Magnesium Hydroxide 400 Mg/5 Ml Oral.susp, 30 ML PO DAILY PRN for CONSTIPATION- 7TH LINE, (Reported) Metoprolol Succinate 25 Mg Tab.er.24h, 25 MG PO DAILY, (Reported) Ondansetron HCl 4 Mg Tab, 4 MG PO Q4H PRN for NAUSEA/VOMITING-1ST LINE, ( Reported) Ranitidine HCl 150 Mg Tablet, 150 MG PO BID, (Reported) Sertraline HCl 50 Mg Tablet, 50 MG PO DAILY, (Reported) Patient Home Medication List Home Medication List Reviewed: Yes Review of Systems Review of Systems Constitutional: see HPI; No chills, No fever Respiratory: no symptoms reported Cardiovascular: no symptoms reported Musculoskeletal: see HPI, joint pain, muscle pain Skin: see HPI, other (swelling right lower extremity) Past Uwgxcyc-Qzhijj-Dwcpie Hx Past Med/Social Hx: Reviewed Nursing Past Med/Soc Hx Patient Social History Alcohol Use: Denies Use Recreational Drug Use: No Smoking Status: Unknown if Ever Smoked Recent Hopitalizations: No Seasonal Allergies Seasonal Allergies: No Past Medical History Surgeries: No Respiratory: No Cardiac: Yes High Cholesterol Neurological: Yes Dementia, Stroke, TIA Genitourinary: Yes Renal Failure, UTI-Chronic Gastrointestinal: No Musculoskeletal: Yes Arthritis Endocrine: Yes Diabetes, Insulin dep HEENT: No Cancer: No Psychosocial: No Integumentary: No Blood Disorders: No Family Medical History Reviewed Nursing Family Hx No Pertinent Family Hx Physical Exam Vital Signs Vital Signs - First Documented 05/03/18 09:21 Temp 96.2 Pulse 92 Resp 18 B/P (MAP) 123/69 (87) Capillary Refill : Height, Weight, BMI Height: 5'0.00" Weight: 154lbs. 6.0oz. 70.705514cl; 30.2 BMI Method:Estimated General Appearance: WD/WN, Mild Distress (intermittent right leg pain) HEENT: Other Neck: Full Range of Motion, Non Tender, Supple Respiratory: Lungs Clear, Normal Breath Sounds Cardiovascular: Regular Rate, Rhythm, No Murmur Gastrointestinal: Non Tender, Soft Back: Normal Inspection, No CVA Tenderness, No Vertebral Tenderness Extremity: No Pedal Edema (or lower extremity edema to mid tibia. Tender around leg but has reported tenderness in multiple areas. ), Other (she is moving bilateral lower extremities and there is no rotation or shortening of the right lower extremity) Neurologic/Psychiatric: Alert, Other (confused but historically at baseline.) Skin: Normal Color, Warm/Dry Progress/Results/Core Measures Suspected Sepsis SIRS Temperature: Pulse: Respiratory Rate: Blood Pressure / Mean: Results/Orders My Orders Orders - CANELO STEWART MD Hydrocodone/Apap 7.5/325 Tab (Lortab 7. (05/03/18 09:27) Pelvis With Right Hip 2-3views (05/03/18 09:27) Vital Signs/I&O 05/03/18 09:21 Temp 96.2 Pulse 92 Resp 18 B/P (MAP) 123/69 (87) Capillary Refill : Progress Note : Progress Note Seen and evaluated. We will go ahead and get x-ray of the right hip and pelvis. Hydrocodone 7.5/325 one tab by mouth given. Monitor patient. 1035: No acute findings on x-ray. Patient is much more comfortable now. [facility] back [facility] with return precautions. Patient verbalize understanding instructions and agreement with plan. Diagnostic Imaging Diagonstic Imaging: Xray Plain Films/CT/US/NM/MRI: pelvis, hip Comments [facility] [place] NAME: ATIYABHUPINDER Osbaldo [facility] REC#: [id number] PT STATUS: REG ER : 1935 PHYSICIAN: CANELO STEWART MD ADMIT DATE: 05/03/18/ER Draft Date of Exam:05/03/18 PELVIS WITH RIGHT HIP 2-3VIEWS Indication: Rotation, lower extremity shortening on the right, swelling at the ankle. Findings: AP pelvis and two-view right hip showed no fracture or dislocation. Arthritic changes to the visualized lumbar spine, symphysis, SI joints and bilateral hips with chronic atherosclerotic vascular calcifications. Impression: No acute-appearing abnormality. Dictated on workstation # [id number] Dict: 05/03/18949 Trans: 05/03/18951 CV [id number] Interpreted by: YOHANNES KENNEY Electronically signed by: Departure Impression Primary Impression: Right leg pain Disposition: 01 HOME, SELF-CARE Condition: Improved Departure-Patient Inst. Decision time for Depature: 10:37 Referrals: KATIE LAMAR MD (PCP/Family) Primary Care Physician Patient Instructions: Muscle and Bone Pain (DC) Add. Discharge Instructions: All discharge instructions reviewed with patient and/or family. Voiced understanding. Take pain medications as directed. You should follow-up with your doctor for further pain prescriptions as this does appear to be helping your pain. You do not have fractures of your hip or leg. You do not have blood clots in your leg. Return for worse pain, fever, vomiting, weakness, breathing problems or other concerns as needed. Scripts Hydrocodone Bit/Acetaminophen (Hydrocodone/Acetaminophen 5/325mg Tablet) 1 Tab Tab 1 EACH PO Q6H PRN for PAIN-MODERATE MDD 10, #20 TAB 0 Refills Prov: CANELO STEWART MD 05/03/18 CANELO STEWART MD May 03, 2018 09:43
--- NOTE | 2018-05-03 09:53 | Diagnostic Imaging Report ---
Indication: Rotation, lower extremity shortening on the right, swelling at the ankle. Findings: AP pelvis and two-view right hip showed no fracture or dislocation. Arthritic changes to the visualized lumbar spine, symphysis, SI joints and bilateral hips with chronic atherosclerotic vascular calcifications. Impression: No acute-appearing abnormality. Dictated by: Dictated on workstation # [id number]
[2018-05-03] MEDS ORDERED: ACHD5005 PO (10:40)
[2018-05-03 10:55] VITALS: BP 160/70
== END 2018-05-03 10:55 | disposition home or self-care (01) ==
LOC: EDUNIT# 09:21 → ER 09:21
DX: M79.661 Pain in right lower leg (principal); F03.90 Unspecified dementia, unspecified severity, without behavioral disturbance, psychotic disturbance, mood disturbance, and anxiety; E78.00 Pure hypercholesterolemia, unspecified; E11.9 Type 2 diabetes mellitus without complications; Z87.440 Personal history of urinary (tract) infections; Z86.73 Personal history of transient ischemic attack (TIA), and cerebral infarction without residual deficits; Z88.1 Allergy status to other antibiotic agents; Z88.8 Allergy status to other drugs, medicaments and biological substances; Z88.2 Allergy status to sulfonamides; Z79.52 Long term (current) use of systemic steroids; Z79.4 Long term (current) use of insulin

== ENCOUNTER 2018-05-23 10:04 | Emergency (ER) | payer MEDICARE ==
[~2018-05-23] VITALS: Ht 152.4 cm; Wt 70.0 kg
[2018-05-23] MEDS ORDERED: fentaNYL INJECTION 100 MCG/2 ML AMP IVP ONE (10:15)
--- NOTE | 2018-05-23 10:15 | ED Fall/Injury ---
General Source: patient, EMS, [facility] records Exam Limitations: no limitations History of Present Illness Date Seen by Provider: May 23, 2018 Time Seen by Provider: 10:00 Initial Comments The patient presents to ER by EMS [email or web address] with chief complaint that back on May 12, 2018, 11 days ago she was fishing a adult briefs out of the bag and fell backwards onto her tailbone. She had pain at that time but she said they examined her and told her she had some swelling and bruising but there is probably nothing wrong with her. No radiographic examination was made. Onset time she's had pain in her low back and pain in her right femur. She is normally ambulatory at baseline with a walker but she's not been ambulatory since. She has not taken anything today for the pain. She rates it as about 8 out of 10. Worse with movement. She does not history of hip replacement, hip or knee surgeries. She's had no back surgery. She's had no worsening loss of continence or urinary hesitancy. She's had no saddle anesthesia numbness or weakness. The patient reports Being on a blood thinner for a blood clot in her right leg. half-way records do not reveal blood thinners but she is on Plavix. Previous ER records demonstrate on May 02, 2018 she was admitted to the hospital for acute renal failure and cellulitis versus DVT but ultrasound revealed no DVT. She was treated appropriately and discharged with pain meds for her discomfort. She did return the next day for increased pain because the pain meds and not been delivered yet but after receiving a single dose of [place] she was much more comfortable and allowed to return to the [facility]. She does have some level of dementia which obfuscates the history. Allergies and Home Medications Allergies Coded Allergies: cephalexin (Verified Allergy, Unknown, 02/03/18) metformin (Verified Allergy, Unknown, 02/03/18) sitagliptin (Verified Allergy, Unknown, 02/03/18) sulfamethoxazole (Verified Allergy, Unknown, 02/03/18) trimethoprim (Verified Allergy, Unknown, 02/03/18) Home Medications Acetaminophen 325 Mg Tablet, 650 MG PO Q4H PRN for PAIN-MILD, (Reported) TAKES 2 (325MG) TABLETS Amlodipine Besylate 2.5 Mg Tablet, 2.5 MG PO DAILY, (Reported) Aspirin 81 Mg Tablet.dr, 81 MG PO DAILY, (Reported) Clopidogrel Bisulfate 75 Mg Tablet, 75 MG PO DAILY, (Reported) Glyburide 5 Mg Tablet, 2.5 MG PO BID, (Reported) TAKES 1/2 (5MG) TABLET Hydrocodone Bit/Acetaminophen 1 Tab Tab, 1 TAB PO Q6HR PRN for PAIN-MODERATE Prescribed by: SAMPSON GUTIERREZ on 05/02/18 1010 Hydrocodone Bit/Acetaminophen 1 Tab Tab, 1 EACH PO Q6H PRN for PAIN-MODERATE Prescribed by: CANELO STEWART on 05/03/18 1040 Insulin Aspart 100 Unit/1 Ml Susp, SC QID, (Reported) 150-199 =2 UNITS 200-249 =4 UNITS 250-299 =6 UNITS 300-349 =8 UNITS 350-399 = 10 UNITS 400-999 =12 UNITS CALL PCP <60 OR >400 Insulin Determir 1,000 Units/10 Ml Soln, 10 UNITS SQ HS, (Reported) Insulin Determir 1,000 Units/10 Ml Soln, 15 UNITS SQ DAILY, (Reported) Magnesium Hydroxide 400 Mg/5 Ml Oral.susp, 30 ML PO DAILY PRN for CONSTIPATION- 7TH LINE, (Reported) Metoprolol Succinate 25 Mg Tab.er.24h, 25 MG PO DAILY, (Reported) Ondansetron HCl 4 Mg Tab, 4 MG PO Q4H PRN for NAUSEA/VOMITING-1ST LINE, ( Reported) Ranitidine HCl 150 Mg Tablet, 150 MG PO BID, (Reported) Sertraline HCl 50 Mg Tablet, 50 MG PO DAILY, (Reported) Patient Home Medication List Home Medication List Reviewed: Yes Review of Systems Review of Systems Constitutional: No chills, No fever Eyes: Denies Blindness, Denies Blurred Vision, Denies Drainage Ears, Nose, Mouth, Throat: denies ear pain, denies ear discharge Respiratory: No cough, No short of breath Cardiovascular: No chest pain, No edema Gastrointestinal: No abdominal pain, No constipation, No diarrhea Genitourinary: No discharge, No dysuria Musculoskeletal: back pain; No joint pain; other (pain in the right femur midshaft) Past Fvkuhwj-Cetoad-Bkowgo Hx Patient Social History Alcohol Use: Denies Use Recreational Drug Use: No Smoking Status: Never a Smoker Recent Hopitalizations: No Seasonal Allergies Seasonal Allergies: No Past Medical History Surgeries: No Respiratory: No Cardiac: Yes High Cholesterol Neurological: Yes Dementia, Stroke, TIA Genitourinary: Yes Renal Failure, UTI-Chronic Gastrointestinal: No Musculoskeletal: Yes Arthritis Endocrine: Yes Diabetes, Insulin dep HEENT: No Cancer: No Psychosocial: No Integumentary: No Blood Disorders: No Family Medical History No Pertinent Family Hx Physical Exam Vital Signs Vital Signs - First Documented 05/23/18 10:04 Pulse 85 Resp 18 B/P (MAP) 163/75 (104) Pulse Ox 99 O2 Delivery Room Air Capillary Refill : Height, Weight, BMI Height: 5'0.00" Weight: 154lbs. 6.0oz. 70.586769ss; 30.2 BMI Method:Estimated General Appearance: WD/WN, moderate distress HEENT: PERRL/EOMI, pharynx normal Neck: non-tender, full range of motion, normal inspection Cardiovascular: normal peripheral pulses, regular rate, rhythm, no edema Respiratory: lungs clear, normal breath sounds, no respiratory distress, no accessory muscle use Peripheral Pulses: 2+ Dorsalis Pedis (R), 2+ Left Dors-Pedis (L) Gastrointestinal: normal bowel sounds, non tender, soft Pelvic: normal external exam, other (nontender to palpation over bilateral hips ) Back: normal inspection, vertebral tenderness (lumbar sacral spine) Extremities: normal range of motion, normal inspection, no pedal edema, normal capillary refill, other (tenderness palpation over the midshaft of the right femur without obvious deformity, ecchymoses or erythema) Neurologic/Psychiatric: no motor/sensory deficits (bilateral feet with good sensations and motor innervation intact.), alert Skin: ecchymosis (abdominal wall, old) Progress/Results/Core Measures Results/Orders Lab Results Laboratory Tests Test 05/23/18 10:18 Range/Units White Blood Count 6.3 4.3-11.0 10^3/uL Red Blood Count 4.34 L 4.35-5.85 10^6/uL Hemoglobin 12.3 11.5-16.0 G/DL Hematocrit 38 35-52 % Mean Corpuscular Volume 87 80-99 FL Mean Corpuscular Hemoglobin 28 25-34 PG Mean Corpuscular Hemoglobin Concent 33 32-36 G/DL Red Cell Distribution Width 13.6 10.0-14.5 % Platelet Count 253 130-400 10^3/uL Mean Platelet Volume 10.6 H 7.4-10.4 FL Neutrophils (%) (Auto) 61 42-75 % Lymphocytes (%) (Auto) 28 12-44 % Monocytes (%) (Auto) 8 0-12 % Eosinophils (%) (Auto) 2 0-10 % Basophils (%) (Auto) 1 0-10 % Neutrophils # (Auto) 3.8 1.8-7.8 X 10^3 Lymphocytes # (Auto) 1.8 1.0-4.0 X 10^3 Monocytes # (Auto) 0.5 0.0-1.0 X 10^3 Eosinophils # (Auto) 0.2 0.0-0.3 10^3/uL Basophils # (Auto) 0.0 0.0-0.1 10^3/uL Sodium Level 137 135-145 MMOL/L Potassium Level 4.7 3.6-5.0 MMOL/L Chloride Level 106 98-107 MMOL/L Carbon Dioxide Level 20 L 21-32 MMOL/L Anion Gap 11 5-14 MMOL/L Blood Urea Nitrogen 29 H 7-18 MG/DL Creatinine 1.77 H 0.60-1.30 MG/DL Estimat Glomerular Filtration Rate 27 BUN/Creatinine Ratio 16 Glucose Level 299 H 70-105 MG/DL Calcium Level 9.1 8.5-10.1 MG/DL Corrected Calcium 9.3 8.5-10.1 MG/DL Total Bilirubin 0.2 0.1-1.0 MG/DL Aspartate Amino Transf (AST/SGOT) 12 5-34 U/L Alanine Aminotransferase (ALT/SGPT) 13 0-55 U/L Alkaline Phosphatase 73 40-136 U/L Total Protein 7.3 6.4-8.2 GM/DL Albumin 3.7 3.2-4.5 GM/DL My Orders Orders - FLOR PIKE Fentanyl Injection (Sublimaze Injection (05/23/18 10:15) Cbc With Automated Diff (05/23/18 10:09) Comprehensive Metabolic Panel (05/23/18 10:09) Ct Lumbar Spine Wo (05/23/18 10:09) Femur, Right, 2 Views (05/23/18 10:09) Knee, Right, 3 Views (05/23/18 10:09) Pelvis With Right Hip 2-3views (05/23/18 10:09) Saline Lock/Iv-Start (05/23/18 10:50) Ns Iv 1000 Ml (Sodium Chloride 0.9%) (05/23/18 10:50) Medications Given in ED Current Medications Medications Dose Ordered Sig/Johnny Route Start Time Stop Time Status Last Admin Dose Admin Fentanyl Citrate 50 mcg ONCE ONCE IVP 05/23/18 10:15 05/23/18 10:16 DC 05/23/18 10:25 50 MCG Vital Signs/I&O 05/23/18 10:04 Pulse 85 Resp 18 B/P (MAP) 163/75 (104) Pulse Ox 99 O2 Delivery Room Air Progress Progress Note #1: Time: 10:25 Progress Note Ecchymoses on the abdominal wall probably from the blood thinner she received while she was being worked up for possible DVT. Since she has a history of acute renal failure and she's had decreased mobility we'll get some labs to make sure she is hydrated well. We'll give her fentanyl 50 g per IV for her pain of 8 out of 10. We'll obtain x-ray of her femur and then the joint above and below as well as CT of her lumbar and sacral spine. Progress Note #2: Time: 11:38 Progress Note Nothing in the current imaging or labs suggest why she is having her right leg pain however the history demonstrates she was having this similar leg pain on 03 May and was evaluated that time and given hydrocodone and her pain got better. Tylenol this is reminiscent of her cellulitis or if she just having some bad osteoarthritis pain however her pain did improve with fentanyl. She has an acute kidney injury today and so we've given her a liter of fluids. No other real reason for it other than she probably had decreased appetite and drinking secondary to her immobility and pain. Talked her primary care team to see if they want to send her back to the [facility] and repeat labs in the morning versus an observation stay. Diagnostic Imaging Diagonstic Imaging: Xray Plain Films/CT/US/NM/MRI: pelvis (right hip) Comments No acute osseous abnormalities noted on the pelvis with right hip. [facility] [place], [place] NAME: BHUPINDER RAJPUT Osbaldo [facility] REC#: [id number] PT STATUS: REG ER : 1935 PHYSICIAN: FLOR PIKE MD ADMIT DATE: 05/23/18/ER Draft Date of Exam:05/23/18 PELVIS WITH RIGHT HIP 2-3VIEWS INDICATION: Fall, right hip pain. COMPARISON: None. FINDINGS: Single view of the pelvis, two views right hip demonstrate no acute fracture dislocation. Articular surfaces are age-appropriate. No osseous lesion is seen. IMPRESSION: No fracture dislocation. Dictated on workstation # [id number] Dict: 05/23/18 1129 Trans: 05/23/18 1131 [facility] [id number] Interpreted by: BHAVIK MCKINNEY Electronically signed by: Reviewed: Reviewed by [place] Diagonstic Imaging: Xray Plain Films/CT/US/NM/MRI: knee (right) Comments No acute osseous abnormalities noted on the right knee 3 view. [facility] [place] [place] NAME: ATIYAALBERTBHUPINDER Osbaldo [facility] REC#: [id number] PT STATUS: REG ER : 1935 PHYSICIAN: FLOR PIKE MD ADMIT DATE: 05/23/18/ER Draft Date of Exam:05/23/18 KNEE, RIGHT, 3 VIEWS INDICATION: Fall, right knee pain. COMPARISON: None. FINDINGS: Three views of the right knee demonstrate no fracture or dislocation. Articular surfaces are age-appropriate. No joint effusion is identified. Atherosclerosis is present. IMPRESSION: No acute fracture or dislocation. Dictated on workstation # [id number] Dict: 05/23/18 1130 Trans: 05/23/18 1132 [facility] [id number] Interpreted by: BHAVIK MCKINNEY Electronically signed by: Reviewed: Reviewed by [place] Diagonstic Imaging: CT (noncontrasted) Plain Films/CT/US/NM/MRI: other (lumbar/sacral spine) Comments [facility] [place] NAME: ATIYABHUPNIDER Osbaldo [facility] REC#: [id number] PT STATUS: REG ER : 1935 PHYSICIAN: FLOR PIKE MD ADMIT DATE: 05/23/18/ER Draft Date of Exam:05/23/18 CT LUMBAR SPINE WO PROCEDURE: CT lumbar spine without contrast. TECHNIQUE: Multiple contiguous axial images were obtained through the lumbar spine without the use of intravenous contrast. Sagittal and coronal reformations were then performed. INDICATION: Fall. Low back and sacral pain. COMPARISON: None. FINDINGS: There are 5 lumbar type vertebral bodies. Normal alignment. Schmorl's node in the inferior endplate of T12. Vertebral body heights are otherwise preserved. No fractures. There are fyqjkgfj-lu-omfyskct degenerative endplate changes, greatest at L1-L3. Facet arthropathy is greatest at L4-S1. No high-grade spinal canal narrowing is evident on this non-intrathecal contrast exam. Scattered neuroforaminal narrowing is more aevvkout-vp-yfulxmkh on the right at L2-L3 and on the left at L1-L2. Moderate atherosclerotic calcifications including a normal caliber abdominal aorta. Cholecystectomy. IMPRESSION: 1. No acute CT findings in the lumbar spine. 2. Spondylotic changes result in high-grade neuroforaminal narrowing on the left at L1-L2 and on the right at L2-L3. No high-grade spinal canal narrowing is evident on this non-intrathecal contrast exam. Dictated on workstation # [id number] Dict: 05/23/18 1043 Trans: 05/23/18 1054 [facility] [id number] Interpreted by: KEVIN HILARIO MD Electronically signed by: Reviewed: Reviewed by [place] Diagonstic Imaging: Xray Plain Films/CT/US/NM/MRI: other (right femur) Comments No acute osseous abnormalities noted. [facility] [place] [place] NAME: BHUPINDER RAJPUT [facility] REC#: [id number] PT STATUS: REG ER : 1935 PHYSICIAN: FLOR PIKE MD ADMIT DATE: 05/23/18/ER Draft Date of Exam:05/23/18 FEMUR, RIGHT, 2 VIEWS INDICATION: Right leg injury, pain, fall. COMPARISON: None. FINDINGS: Multiple views of the right femur demonstrate no fracture or dislocation. Articular surfaces are age-appropriate. No joint effusion or foreign body seen. Atherosclerosis is present. IMPRESSION: No fracture or dislocation. Dictated on workstation # [id number] Dict: 05/23/18 1129 Trans: 05/23/18 1131 [id number] Interpreted by: BHAVIK MCKINNEY Electronically signed by: Reviewed: Reviewed by Me Departure Communication (PCP) Discussed the case with Dr. Harding and she agrees with the plan to send the patient back to the [facility] have a BMP drawn in one day and encourage oral fluids. Impression Primary Impression: Fall Qualified Codes: W19.XXXD - Unspecified fall, subsequent encounter Additional Impressions: Right leg pain Acute kidney injury Moderate dehydration Disposition: 01 HOME, SELF-CARE Condition: Improved Departure-Patient Inst. Decision time for Depature: 12:30 Referrals: KATIE LAMAR MD (PCP/Family) Primary Care Physician Patient Instructions: Creatinine Level Test Add. Discharge Instructions: Encourage lots of fluids. Get a BMP done in the morning and 7 the results to your primary care doctor's office. If you have pain use the Tylenol, [place] as prescribed. Avoid NSAIDs. Follow-up with primary care provider at regular interval. FLOR PIKE May 23, 2018 10:15
[2018-05-23 10:27] LABS: BASOPHILS % (AUTO) 1 % (0-10); EOSINOPHILS # (AUTO) 0.2 10^3/uL (0.0-0.3); EOSINOPHILS % (AUTO) 2 % (0-10); HEMATOCRIT 38 % (35-52); HEMOGLOBIN 12.3 G/DL (11.5-16.0); LYMPHOCYTES # (AUTO) 1.8 X 10^3 (1.0-4.0); LYMPHOCYTES % (AUTO) 28 % (12-44); MEAN CORPUSCULAR HEMOGLOBIN 28 PG (25-34); MEAN CORPUSCULAR HGB CONC 33 G/DL (32-36); MEAN CORPUSCULAR VOLUME 87 FL (80-99); MEAN PLATELET VOLUME 10.6 FL (7.4-10.4); MONOCYTES # (AUTO) 0.5 X 10^3 (0.0-1.0); MONOCYTES % (AUTO) 8 % (0-12); NEUTROPHILS # (AUTO) 3.8 X 10^3 (1.8-7.8); NEUTROPHILS % (AUTO) 61 % (42-75); PLATELET COUNT 253 10^3/uL (130-400); RED BLOOD COUNT 4.34 10^6/uL (4.35-5.85); RED CELL DISTRIBUTION WIDTH 13.6 % (10.0-14.5); WHITE BLOOD COUNT 6.3 10^3/uL (4.3-11.0)
[2018-05-23 10:44] LABS: ALBUMIN 3.7 GM/DL (3.2-4.5); BILIRUBIN,TOTAL 0.2 MG/DL (0.1-1.0); CALCIUM 9.1 MG/DL (8.5-10.1); CREATININE SERUM 1.77 MG/DL (0.60-1.30); POTASSIUM 4.7 MMOL/L (3.6-5.0); TOTAL PROTEIN 7.3 GM/DL (6.4-8.2)
[2018-05-23] MEDS ORDERED: NS IV 1000 ML 1,000 ML IV SCH (10:50)
--- OUTSIDE RECORDS SUMMARY | 2018-05-23 10:52 | XMS REPORT ---
Author Author ALDEN PACHECO [facility] Address [address] [place] [address] Care Team Providers Care Tenter Feeder Name Role Phone ALDEN PACHECO Unavailable PROBLEMS Type Condition ICD9-CM Code [id number] Code Onset Dates Condition Status SNOMED Code Problem Type 2 diabetes mellitus with hyperosmolarity without nonketotic hyperglycemic-hyperosmolar coma [facility] E11.00 Active 13633512 Problem Inappropriate behavior F99 Active 536838315 Problem [facility] current use of insulin Z79.4 Active 539889139 Problem Type 2 diabetes mellitus with hyperglycemia E11.65 Active 87731114 Problem Major depressive disorder with single episode, 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 Active 32268608 Problem Coronary artery disease involving [place] coronary artery of [place] heart without angina pectoris I25.10 Active [id number] Problem Gastroesophageal reflux disease, esophagitis presence not specified K21.9 Active 997582992 Problem Type 2 diabetes mellitus with other circulatory complication, without long-term current 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 Active 84288374 Problem Essential hypertension I10 Active 09135033 ALLERGIES No Information ENCOUNTERS Encounter Location Date Diagnosis [facility] [id number] [address] Apr, [facility] [id number] [place] [address] Apr, Type 2 diabetes mellitus with hyperglycemia E11.65 [facility] [id number] [place] [address] Apr, [facility] [id number] [place] [phone] Mar, Type 2 diabetes mellitus with hyperosmolarity without nonketotic hyperglycemic-hyperosmolar coma ([facility]) E11.00 [facility] [id number] [address] 31 Feb, 2018 [facility] [address] [place] [id number] Feb, [facility] [address] [place] [id number] Feb, Discharge planning issues Z02.9 and Noncompliance with diabetes treatment Z91.19 [facility] [id number] [address] 04 Feb, 2018 [facility] [address] [place] [id number] 02 Feb, 2018 [facility] current use of insulin Z79.4 ; Type 2 diabetes mellitus with hyperglycemia E11.65 and Noncompliance with diabetes treatment Z91.19 [id number] [phone] 20 Jan, 2018 [place] [id number] [address] 14 Jan, 2018 Type 2 diabetes mellitus with other circulatory complication , without long-term current 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 ; Coronary artery disease involving [place] coronary artery of [place] heart without angina pectoris I25.10 ; Major depressive disorder with single episode, 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
--- NOTE | 2018-05-23 10:55 | Diagnostic Imaging Report ---
PROCEDURE: CT lumbar spine without contrast. TECHNIQUE: Multiple contiguous axial images were obtained through the lumbar spine without the use of intravenous contrast. Sagittal and coronal reformations were then performed. INDICATION: Fall. Low back and sacral pain. COMPARISON: None. FINDINGS: There are 5 lumbar type vertebral bodies. Normal alignment. Schmorl's node in the inferior endplate of T12. Vertebral body heights are otherwise preserved. No fractures. There are uurfbime-hp-efokwsft degenerative endplate changes, greatest at L1-L3. Facet arthropathy is greatest at L4-S1. No high-grade spinal canal narrowing is evident on this non-intrathecal contrast exam. Scattered neuroforaminal narrowing is more rnmtemck-oo-sgsmxpet on the right at L2-L3 and on the left at L1-L2. Moderate atherosclerotic calcifications including a normal caliber abdominal aorta. Cholecystectomy. IMPRESSION: 1. No acute CT findings in the lumbar spine. 2. Spondylotic changes result in high-grade neuroforaminal narrowing on the left at L1-L2 and on the right at L2-L3. No high-grade spinal canal narrowing is evident on this non-intrathecal contrast exam. Dictated by: Dictated on workstation # [id number]
--- NOTE | 2018-05-23 11:32 | Diagnostic Imaging Report ---
INDICATION: Fall, right hip pain. COMPARISON: None. FINDINGS: Single view of the pelvis, two views right hip demonstrate no acute fracture dislocation. Articular surfaces are age-appropriate. No osseous lesion is seen. IMPRESSION: No fracture dislocation. Dictated by: Dictated on workstation # [id number]
--- NOTE | 2018-05-23 11:32 | Diagnostic Imaging Report ---
INDICATION: Fall, right knee pain. COMPARISON: None. FINDINGS: Three views of the right knee demonstrate no fracture or dislocation. Articular surfaces are age-appropriate. No joint effusion is identified. Atherosclerosis is present. IMPRESSION: No acute fracture or dislocation. Dictated by: Dictated on workstation # [id number]
--- NOTE | 2018-05-23 11:32 | Diagnostic Imaging Report ---
INDICATION: Right leg injury, pain, fall. COMPARISON: None. FINDINGS: Multiple views of the right femur demonstrate no fracture or dislocation. Articular surfaces are age-appropriate. No joint effusion or foreign body seen. Atherosclerosis is present. IMPRESSION: No fracture or dislocation. Dictated by: Dictated on workstation # [id number]
[2018-05-23 13:18] VITALS: BP 157/67
== END 2018-05-23 13:18 | disposition home or self-care (01) ==
LOC: EDUNIT# 10:05 → ER 10:06
DX: S37.001A Unspecified injury of right kidney, initial encounter (principal); M79.604 Pain in right leg; E86.0 Dehydration; M25.551 Pain in right hip; M25.561 Pain in right knee; M54.5 Low back pain; F03.90 Unspecified dementia, unspecified severity, without behavioral disturbance, psychotic disturbance, mood disturbance, and anxiety; E78.00 Pure hypercholesterolemia, unspecified; E11.9 Type 2 diabetes mellitus without complications; Z87.448 Personal history of other diseases of urinary system; Z87.440 Personal history of urinary (tract) infections; Z86.73 Personal history of transient ischemic attack (TIA), and cerebral infarction without residual deficits; Z88.1 Allergy status to other antibiotic agents; Z88.2 Allergy status to sulfonamides; Z88.8 Allergy status to other drugs, medicaments and biological substances; Z79.82 Long term (current) use of aspirin; Z79.02 Long term (current) use of antithrombotics/antiplatelets; Z79.4 Long term (current) use of insulin; W18.30XA Fall on same level, unspecified, initial encounter
CPT/HCPCS: 36415; 72131; 73552; 73562; 80053; 85025; 96361; 96374

== ENCOUNTER → 2018-05-25 | Outpatient (CLI) | payer MEDICARE | LOC: CVS 16:29 | PROVIDERS: ATTEND Internal Medicine | DX: R82.998 Other abnormal findings in urine (principal) | CPT/HCPCS: 87088 ==

== ENCOUNTER 2018-07-19 14:08 | Emergency (ER) | payer MEDICARE ==
[~2018-07-19] VITALS: Ht 160 cm; Wt 66.7 kg
[~2018-07-19 14:08] MED LIST changes: -AMLO2.5T3 PO; +AMLO2.5T4 PO
--- NOTE | 2018-07-19 14:15 | ED General ---
General Stated Complaint: FALL Source of Information: Patient, EMS Exam Limitations: No Limitations History of Present Illness Date Seen by Provider: Jul 19, 2018 Time Seen by Provider: 14:13 Initial Comments To ER per EMS from via [facility] with reports of a fall in the shower. She struck the back of her head against the wall. Denies neck pain. She did not have any loss of consciousness. She complains of a headache. No dizziness and no vomiting. She does not know if she is on blood thinners. She does have a large hematoma to the occipital scalp. She also complains of spasm midline low back. No pain in her hips, she was able to stand up after the fall. Timing/Duration: 1/2 Hour Severity: Moderate Associated Systoms: Headaches Allergies and Home Medications Allergies Coded Allergies: cephalexin (Verified Allergy, Unknown, 02/03/18) metformin (Verified Allergy, Unknown, 02/03/18) sitagliptin (Verified Allergy, Unknown, 02/03/18) sulfamethoxazole (Verified Allergy, Unknown, 02/03/18) trimethoprim (Verified Allergy, Unknown, 02/03/18) Home Medications Acetaminophen 325 Mg Tablet, 650 MG PO Q4H PRN for PAIN-MILD, (Reported) TAKES 2 (325MG) TABLETS Amlodipine Besylate 2.5 Mg Tablet, 2.5 MG PO DAILY, (Reported) Aspirin 81 Mg Tablet.dr, 81 MG PO DAILY, (Reported) Clopidogrel Bisulfate 75 Mg Tablet, 75 MG PO DAILY, (Reported) Glyburide 5 Mg Tablet, 2.5 MG PO BID, (Reported) TAKES 1/2 (5MG) TABLET Hydrocodone Bit/Acetaminophen 1 Tab Tab, 1 TAB PO Q6HR PRN for PAIN-MODERATE Prescribed by: SAMPSON GUTIERREZ on 05/02/18 1010 Hydrocodone Bit/Acetaminophen 1 Tab Tab, 1 EACH PO Q6H PRN for PAIN-MODERATE Prescribed by: CANELO STEWART on 05/03/18 1040 Insulin Aspart 100 Unit/1 Ml Susp, SC QID, (Reported) 150-199 =2 UNITS 200-249 =4 UNITS 250-299 =6 UNITS 300-349 =8 UNITS 350-399 = 10 UNITS 400-999 =12 UNITS CALL PCP <60 OR >400 Insulin Determir 1,000 Units/10 Ml Soln, 10 UNITS SQ HS, (Reported) Insulin Determir 1,000 Units/10 Ml Soln, 15 UNITS SQ DAILY, (Reported) Magnesium Hydroxide 400 Mg/5 Ml Oral.susp, 30 ML PO DAILY PRN for CONSTIPATION- 7TH LINE, (Reported) Metoprolol Succinate 25 Mg Tab.er.24h, 25 MG PO DAILY, (Reported) Ondansetron HCl 4 Mg Tab, 4 MG PO Q4H PRN for NAUSEA/VOMITING-1ST LINE, ( Reported) Ranitidine HCl 150 Mg Tablet, 150 MG PO BID, (Reported) Sertraline HCl 50 Mg Tablet, 50 MG PO DAILY, (Reported) Tramadol HCl 50 Mg Tablet, 50 MG PO Q6H PRN for PAIN-MODERATE TO SEVERE Prescribed by: SHANTE CARPENTER on 07/19/18 2460 Patient Home Medication List Home Medication List Reviewed: Yes Review of Systems Review of Systems Constitutional: see HPI EENTM: see HPI Respiratory: no symptoms reported Cardiovascular: no symptoms reported Genitourinary: no symptoms reported Musculoskeletal: no symptoms reported Skin: no symptoms reported Psychiatric/Neurological: See HPI, Headache Hematologic/Lymphatic: No Symptoms Reported Past Zmxdqpk-Nmzrws-Dzehdc Hx Patient Social History Recent Hopitalizations: No Immunizations Up To Date Tetanus Booster (TDap): Unknown Seasonal Allergies Seasonal Allergies: No Past Medical History Surgeries: No Respiratory: No Cardiac: Yes High Cholesterol Neurological: Yes Dementia, Stroke, TIA Genitourinary: Yes Renal Failure, UTI-Chronic Gastrointestinal: No Musculoskeletal: Yes Arthritis Endocrine: Yes Diabetes, Insulin dep HEENT: No Cancer: No Psychosocial: No Integumentary: No Blood Disorders: No Family Medical History No Pertinent Family Hx Physical Exam Vital Signs Vital Signs - First Documented 07/19/18 14:08 Temp 97.9 Pulse 89 Resp 16 B/P (MAP) 155/83 (107) Pulse Ox 99 Capillary Refill : Height, Weight, BMI Height: 5'0.00" Weight: 154lbs. 6.0oz. [id number]; 30.2 BMI Method:Stated General Appearance: No Apparent Distress, WD/WN Eyes: Bilateral Eye Normal Inspection, Bilateral Eye PERRL, Bilateral Eye EOMI HEENT: PERRL/EOMI, TMs Normal, Other (large large occipital scalp hematoma without laceration or bleeding. No Marie sign, no raccoon eyes, GCS 15. She recalls all events.) Neck: Full Range of Motion, Normal Inspection; No Tender Lateral, No Tender Midline Respiratory: No Accessory Muscle Use, No Respiratory Distress Gastrointestinal: Normal Bowel Sounds, Non Tender, Soft Extremity: Normal Capillary Refill, Normal Inspection Neurologic/Psychiatric: Alert, Oriented x3 Skin: Normal Color, Warm/Dry Progress/Results/Core Measures Suspected Sepsis SIRS Temperature: Pulse: Respiratory Rate: Blood Pressure / Mean: Results/Orders My Orders Orders - SHANTE CARPENTER APRN Ct Head/Cervical Spine Wo (07/19/18 14:12) Ct Cerv/Thoracic/Lumbar Wo (07/19/18 14:16) Vital Signs/I&O 07/19/18 14:08 Temp 97.9 Pulse 89 Resp 16 B/P (MAP) 155/83 (107) Pulse Ox 99 Capillary Refill : Diagnostic Imaging Diagonstic Imaging: CT Comments NAME: BHUPINDER [facility]JPUT [facility] REC#: [id number] PT STATUS: REG ER : 1935 PHYSICIAN: SHANTE CARPENTER APRN ADMIT DATE: 07/19/18/ER Draft Date of Exam:07/19/18 CT CERV/THORACIC/LUMBAR WO INDICATION: Fall with back pain. EXAMINATION: CT thoracic and lumbar spine was obtained without IV contrast. Axial slices were obtained with sagittal and coronal reconstructions. FINDINGS: In the lumbar region, the vertebrae are normal in height and alignment. There is diffuse degenerative change throughout the lumbar spine with disc space narrowing and osteophyte formation. There is diffuse facet degenerative change throughout the lumbar region. There is a lucency along the inferior portion of T12 with some loss of height. This may represent a pathologic compression fracture. Would recommend further evaluation with MRI pre and post contrast. Remainder of the thoracic vertebrae are normal in height and alignment with diffuse disc space narrowing and osteophyte formation. IMPRESSION: There are diffuse degenerative changes throughout the thoracic and lumbar spine. There is a compression deformity involving the inferior endplate of T12, with some underlying lucency, raising the possibility that this may be a pathologic fracture. Consider further evaluation with MRI pre and post IV contrast. Dictated on workstation # [id number] Dict: 07/19/18 1718 Trans: 07/19/18 1734 [facility] [id number] Interpreted by: ALF LOERA MD Electronically signed by: Departure Communication (Admissions) [id number]- patient is up walking about the hallway with only standby assistance and minimal pain. CT thoracolumbar spine shows some compression deformity of T12 with a possible lucency which could represent pathologic fracture and follow-up with MRI pre-and post contrast is recommended. This can be arranged in the outpatient setting. I'll fax this copy to primary care. I'll prescribe Ultram for pain control in the meantime. Impression Primary Impression: Scalp hematoma Qualified Codes: S00.03XA - Contusion of scalp, initial encounter Additional Impression: Compression fracture of T12 vertebra Disposition: HOME, SELF-CARE Condition: Stable Departure-Patient Inst. Decision time for Depature: 16:54 Referrals: KATIE LAMAR MD (PCP/Family) Primary Care Physician Patient Instructions: Concussion in Adults, HEMATOMA Add. Discharge Instructions: 1. Return to ER for any concerns Such as vomiting, confusion, intolerable headache. 2. Follow-up with her doctor later next week and . discuss scheduling an MRI of the thoracic/lumbar spine Scripts Tramadol HCl (Ultram) 50 Mg Tablet 50 MG PO Q6H PRN for PAIN-MODERATE TO SEVERE, #14 TAB Prov: SHANTE CARPENTER APRN 07/19/18 Copy Copies To 1: KATIE LAMAR MD, PETER J APRN Jul 19, 2018 14:15
--- NOTE | 2018-07-19 16:16 | Diagnostic Imaging Report ---
CLINICAL INDICATION: Patient fell in bathroom this morning and has knot on posterior head, with neck pain. EXAM: Head CT without IV contrast. Axial CT scan of the cervical spine with sagittal and coronal reformations. COMPARISON: CT scan of the brain performed without IV contrast dated 04/24/2018. FINDINGS: Head CT: There is no evidence of acute intracranial hemorrhage, acute cerebral infarct, brain herniation, or midline shift. There is no hydrocephalus. There is interval development of a small area of extracranial soft tissue swelling involving the left posterior aspect of the head likely related to patient's recent trauma. There is no skull fracture. There is mild mucosal thickening involving the ethmoid sinuses. There are stable scattered areas of chronic cerebral infarct involving the bilateral cerebellar regions, left occipital lobe, left parietal lobe, right parietal lobe, and scattered areas involving the bilateral frontal lobes. There are diffuse patchy and confluent areas of low-attenuation white matter changes likely representing chronic small vessel ischemic disease and leukoaraiosis. Diffuse brain parenchymal volume loss is again seen. Basal cisterns are unremarkable. Cervical spine: There is limited visualization of the bony structures due to patient body habitus. There is no acute cervical spine fracture. There is grade 1 anterolisthesis of C2 on C3 and C3 on C4 with no pars defects seen, likely degenerative. There are hypertrophic vertebral body spurs seen throughout cervical spine and facet arthropathy. There is severe loss of intervertebral disc height with disc spurs seen involving the C4-C5, C5-C6, and C6-C7 levels with some uncinate spurs. There is [id number] bilateral neural foramen narrowing involving the C3-C4, C4-C5, C5-C6, and C6-C7 levels. There is at least moderate central canal narrowing seen at the C4-C5 level and C5-C6 level and at least [id number] central canal narrowing at the C3-C4 level. There is no significant paraspinal soft tissue abnormality. Visualized upper lung minor show no significant abnormality. IMPRESSION: 1: There is no evidence of acute intracranial hemorrhage. 2: There is a small area of extracranial soft tissue swelling involving the left posterior aspect of the head. There is no skull fracture. 3: There is multilevel cervical spine degenerative disease with no acute cervical spine fracture. There is grade 1 anterolisthesis of C2 on C3 and C3 on C4 with no pars defect, and is likely degenerative. Dictated by: Dictated on workstation # [id number]
--- NOTE | 2018-07-19 17:30 | NUR ---
[facility] NOTIFIED OF NEED FOR TRANSFER BACK TO [place]
[2018-07-19] MEDS ORDERED: TRAM-42 PO (17:34)
--- NOTE | 2018-07-19 17:34 | Diagnostic Imaging Report ---
INDICATION: Fall with back pain. EXAMINATION: CT thoracic and lumbar spine was obtained without IV contrast. Axial slices were obtained with sagittal and coronal reconstructions. FINDINGS: In the lumbar region, the vertebrae are normal in height and alignment. There is diffuse degenerative change throughout the lumbar spine with disc space narrowing and osteophyte formation. There is diffuse facet degenerative change throughout the lumbar region. There is a lucency along the inferior portion of T12 with some loss of height. This may represent a pathologic compression fracture. Would recommend further evaluation with MRI pre and post contrast. Remainder of the thoracic vertebrae are normal in height and alignment with diffuse disc space narrowing and osteophyte formation. IMPRESSION: There are diffuse degenerative changes throughout the thoracic and lumbar spine. There is a compression deformity involving the inferior endplate of T12, with some underlying lucency, raising the possibility that this may be a pathologic fracture. Consider further evaluation with MRI pre and post IV contrast. Dictated by: Dictated on workstation # [id number]
--- NOTE | 2018-07-19 18:20 | NUR ---
CALLED [place] FOR TRANSFER BACK
[2018-07-19 18:44] VITALS: BP 155/83
== END 2018-07-19 18:44 | disposition home or self-care (01) ==
LOC: EDUNIT# 14:08 → ER 14:08
DX: S22.080A Wedge compression fracture of T11-T12 vertebra, initial encounter for closed fracture (principal); S00.03XA Contusion of scalp, initial encounter; E78.00 Pure hypercholesterolemia, unspecified; F03.90 Unspecified dementia, unspecified severity, without behavioral disturbance, psychotic disturbance, mood disturbance, and anxiety; E11.9 Type 2 diabetes mellitus without complications; Z87.440 Personal history of urinary (tract) infections; Z86.73 Personal history of transient ischemic attack (TIA), and cerebral infarction without residual deficits; Z88.8 Allergy status to other drugs, medicaments and biological substances; Z88.2 Allergy status to sulfonamides; Z79.82 Long term (current) use of aspirin; Z79.02 Long term (current) use of antithrombotics/antiplatelets; Z79.4 Long term (current) use of insulin; W01.198A Fall on same level from slipping, tripping and stumbling with subsequent striking against other object, initial encounter; Y92.002 Bathroom of unspecified non-institutional (private) residence as the place of occurrence of the external cause
CPT/HCPCS: 70450; 72125; 72128; 72131

== ENCOUNTER → 2018-12-05 | Outpatient (CLI) | payer MEDICARE ==
[~2018-12-05] MED LIST changes: +TRAM-42 PO
== END ==
LOC: CARD 09:03
PROVIDERS: ATTEND Internal Medicine Interventional Cardiology
DX: I08.0 Rheumatic disorders of both mitral and aortic valves (principal); I25.10 Atherosclerotic heart disease of native coronary artery without angina pectoris
CPT/HCPCS: 93306

== ENCOUNTER 2020-12-03 18:53 | Emergency (ER) | payer MEDICARE ==
[~2020-12-03] VITALS: Ht 172 cm; Wt 70.4 kg
[~2020-12-03 18:53] MED LIST changes: +ASPI-1238 PO; -ASPI-983 PO; +GLBR5T PO; -GLYB5TAB6 PO; -METO-387 PO; +MTP25TSR PO; -RANI-514 PO; +RANI-607 PO; +SERT-413 PO; -SERT50TA9 PO
[2020-12-03] MEDS ORDERED: NITROGLYCERIN 2% OINT 1 GM UNIT DOSE PACKET TOP STA (18:59)
[2020-12-03] MEDS ORDERED: ASPIRIN 81 MG CHEW (CHILDREN'S ASA) PO ONE (19:00)
[2020-12-03 19:21] LABS: INR 0.9 (0.8-1.4); PROTHROMBIN TIME PATIENT 12.8 SEC (12.2-14.7)
[2020-12-03 19:29] LABS: BASOPHILS # (AUTO) 0.1 10^3/uL (0.0-0.1); BASOPHILS % (AUTO) 1 % (0-10); EOSINOPHILS # (AUTO) 0.2 10^3/uL (0.0-0.3); EOSINOPHILS % (AUTO) 3 % (0-10); HEMATOCRIT 42 % (35-52); HEMOGLOBIN 13.2 g/dL (11.5-16.0); LYMPHOCYTES % (AUTO) 27 % (12-44); MEAN CORPUSCULAR HEMOGLOBIN 29 pg (25-34); MEAN CORPUSCULAR HGB CONC 32 g/dL (32-36); MEAN CORPUSCULAR VOLUME 92 fL (80-99); MEAN PLATELET VOLUME 10.8 fL (9.0-12.2); MONOCYTES # (AUTO) 0.5 10^3/uL (0.0-1.0); MONOCYTES % (AUTO) 7 % (0-12); NEUTROPHILS # (AUTO) 4.6 10^3/uL (1.8-7.8); NEUTROPHILS % (AUTO) 63 % (42-75); PLATELET COUNT 212 10^3/uL (130-400); WHITE BLOOD COUNT 7.3 10^3/uL (4.3-11.0)
--- NOTE | 2020-12-03 19:38 | Diagnostic Imaging Report ---
INDICATION: Portable erect AP chest at 7:14 PM INDICATION: Chest pain. FINDINGS: There is a better inspiratory effort on this study than on the prior exam of 04/24/2018. Allowing for this technical factor, the heart size is at the upper limits of normal. The sternotomy wires and surgical clips noted previously are again evident and no different. The lungs are generally clear. There may be a very small amount of atelectasis/infiltrate in the left lung base. This could be chronic in nature but the possibility of mild pneumonia/atelectasis should still be considered. The mediastinum is not widened. The osseous structures are intact. IMPRESSION: 1. The small area of increased density in the left lung base may well be chronic in nature but the possibility of mild acute pneumonia/atelectasis should still be considered. Clinical follow-up is recommended. 2. There is no acute cardiopulmonary abnormality noted otherwise. Dictated by: Dictated on workstation # [id number]
[2020-12-03 19:57] LABS: ALBUMIN 3.6 GM/DL (3.2-4.5); BILIRUBIN,TOTAL 0.3 MG/DL (0.1-1.0); CALCIUM 8.6 MG/DL (8.5-10.1); CREATININE SERUM 1.73 MG/DL (0.60-1.30); MAGNESIUM 1.6 MG/DL (1.6-2.4); POTASSIUM 4.2 MMOL/L (3.6-5.0); TOTAL PROTEIN 7.4 GM/DL (6.4-8.2)
[2020-12-03 20:17] LABS: CREATINE KINASE MB 2.2 NG/ML (<6.6)
--- NOTE | 2020-12-03 23:11 | ED Chest Pain ---
General Chief Complaint: Chest Pain Stated Complaint: CHEST PAIN Nursing Triage Note: PT PRESENTS TO THE ED VIA EMS TO ROOM 3. PT STATES EARLIER THIS AFTERNOON SHE WAS EXPERIENCING CP, STATES IT IS NOT PRESEENT AT THIS TIME. DENIES SOB. VERBALIZES A CARDIAC HX. Allergies and Home Medications Allergies Coded Allergies: cephalexin (Verified Allergy, Unknown, 02/03/18) metformin (Verified Allergy, Unknown, 02/03/18) sitagliptin (Verified Allergy, Unknown, 02/03/18) sulfamethoxazole (Verified Allergy, Unknown, 02/03/18) trimethoprim (Verified Allergy, Unknown, 02/03/18) Home Medications Acetaminophen 325 Mg Tablet, 650 MG PO Q4H PRN for PAIN-MILD, (Reported) TAKES 2 (325MG) TABLETS Amlodipine Besylate 2.5 Mg Tablet, 2.5 MG PO DAILY, (Reported) Aspirin 81 Mg Tablet.dr, 81 MG PO DAILY, (Reported) Clopidogrel Bisulfate 75 Mg Tablet, 75 MG PO DAILY, (Reported) Glyburide 5 Mg Tablet, 2.5 MG PO BID, (Reported) TAKES 1/2 (5MG) TABLET Hydrocodone Bit/Acetaminophen 1 Tab Tab, 1 TAB PO Q6HR PRN for PAIN-MODERATE Prescribed by: SAMPSON GUTIERREZ on 05/02/18 1010 Hydrocodone Bit/Acetaminophen 1 Tab Tab, 1 EACH PO Q6H PRN for PAIN-MODERATE Prescribed by: CANELO STEWART on 05/03/18 1040 Insulin Aspart 100 Unit/1 Ml Susp, SC QID, (Reported) 150-199 =2 UNITS 200-249 =4 UNITS 250-299 =6 UNITS 300-349 =8 UNITS 350-399 =10 UNITS 400-999 =12 UNITS CALL PCP <60 OR >400 Insulin Determir 1,000 Units/10 Ml Soln, 10 UNITS SQ HS, (Reported) Insulin Determir 1,000 Units/10 Ml Soln, 15 UNITS SQ DAILY, (Reported) Magnesium Hydroxide 400 Mg/5 Ml Oral.susp, 30 ML PO DAILY PRN for CONSTIPATION- 7TH LINE, (Reported) Metoprolol Succinate 25 Mg Tab.er.24h, 25 MG PO DAILY, (Reported) Ondansetron HCl 4 Mg Tab, 4 MG PO Q4H PRN for NAUSEA/VOMITING-1ST LINE, (Reported) Ranitidine HCl 150 Mg Tablet, 150 MG PO BID, (Reported) Sertraline HCl 50 Mg Tablet, 50 MG PO DAILY, (Reported) Tramadol HCl 50 Mg Tablet, 50 MG PO Q6H PRN for PAIN-MODERATE TO SEVERE Prescribed by: SHANTE CARPENTER on 07/19/18 8550 Past Ypigwyt-Ctjfks-Gtkzce Hx Patient Social History Tobacco Use?: No Substance use?: No Immunizations Up To Date Tetanus Booster (TDap): Unknown Seasonal Allergies Seasonal Allergies: No Past Medical History Surgeries: No Respiratory: No Cardiac: Yes High Cholesterol Neurological: Yes Dementia, Stroke, TIA Genitourinary: Yes Renal Failure, UTI-Chronic Gastrointestinal: No Musculoskeletal: Yes Arthritis Endocrine: Yes Diabetes, Insulin dep HEENT: No Cancer: No Psychosocial: No Integumentary: No Blood Disorders: No Family Medical History No Pertinent Family Hx Physical Exam Vital Signs Vital Signs - First Documented 12/03/20 19:02 Temp 36.3 Pulse 70 Resp 18 B/P (MAP) 192/79 (116) Pulse Ox 99 O2 Delivery Room Air Capillary Refill : Less Than 3 Seconds Height, Weight, BMI Height: 5'3.00" Weight: 147lbs. 6.0oz. 66.326532em; 23.00 BMI Method:Estimated Progress/Results/Core Measures Results/Orders Lab Results Laboratory Tests Test 12/03/20 19:02 12/03/20 22:27 Range/Units White Blood Count 7.3 4.3-11.0 10^3/uL Red Blood Count 4.55 3.80-5.11 10^6/uL Hemoglobin 13.2 11.5-16.0 g/dL Hematocrit 42 35-52 % Mean Corpuscular Volume 92 80-99 fL Mean Corpuscular Hemoglobin 29 25-34 pg Mean Corpuscular Hemoglobin Concent 32 32-36 g/dL Red Cell Distribution Width 15.9 H 10.0-14.5 % Platelet Count 212 130-400 10^3/uL Mean Platelet Volume 10.8 9.0-12.2 fL Immature Granulocyte % (Auto) 0 % Neutrophils (%) (Auto) 63 42-75 % Lymphocytes (%) (Auto) 27 12-44 % Monocytes (%) (Auto) 7 0-12 % Eosinophils (%) (Auto) 3 0-10 % Basophils (%) (Auto) 1 0-10 % Neutrophils # (Auto) 4.6 1.8-7.8 10^3/uL Lymphocytes # (Auto) 2.0 1.0-4.0 10^3/uL Monocytes # (Auto) 0.5 0.0-1.0 10^3/uL Eosinophils # (Auto) 0.2 0.0-0.3 10^3/uL Basophils # (Auto) 0.1 0.0-0.1 10^3/uL Immature Granulocyte # (Auto) 0.0 0.0-0.1 10^3/uL Prothrombin Time 12.8 12.2-14.7 SEC INR Comment 0.9 0.8-1.4 Activated Partial Thromboplast Time 28 24-35 SEC Sodium Level 139 135-145 MMOL/L Potassium Level 4.2 3.6-5.0 MMOL/L Chloride Level 113 H 98-107 MMOL/L Carbon Dioxide Level 17 L 21-32 MMOL/L Anion Gap 9 5-14 MMOL/L Blood Urea Nitrogen 28 H 7-18 MG/DL Creatinine 1.73 H 0.60-1.30 MG/DL Estimat Glomerular Filtration Rate 28 BUN/Creatinine Ratio 16 Glucose Level 231 H 70-105 MG/DL Calcium Level 8.6 8.5-10.1 MG/DL Corrected Calcium 8.9 8.5-10.1 MG/DL Magnesium Level 1.6 1.6-2.4 MG/DL Total Bilirubin 0.3 0.1-1.0 MG/DL Aspartate Amino Transf (AST/SGOT) 15 5-34 U/L Alanine Aminotransferase (ALT/SGPT) 10 0-55 U/L Alkaline Phosphatase 69 40-136 U/L Total Creatine Kinase 52 29-168 U/L Creatine Kinase MB 2.2 <6.6 NG/ML Myoglobin 67.0 10.0-92.0 NG/ML Troponin I < 0.028 < 0.028 <0.028 NG/ML B-Type Natriuretic Peptide 137.8 H <100.0 PG/ML Total Protein 7.4 6.4-8.2 GM/DL Albumin 3.6 3.2-4.5 GM/DL Amylase Level 69 25-125 U/L Lipase 81 H 8-78 U/L My Orders Orders - ELVIA CERVANTES DO Ed Iv/Invasive Line Start (12/03/20 18:59) Cbc With Automated Diff (12/03/20 18:59) Magnesium (12/03/20 18:59) Chest 1 View, Ap/Pa Only (12/03/20 18:59) Ekg Tracing (12/03/20 18:59) Comprehensive Metabolic Panel (12/03/20 18:59) Myoglobin Serum (12/03/20 18:59) Protime With Inr (12/03/20 18:59) Partial Thromboplastin Time (12/03/20 18:59) O2 (12/03/20 18:59) Monitor-Rhythm Ecg Trace Only (12/03/20 18:59) Ed Iv/Invasive Line Start (12/03/20 18:59) Creatine Kinase (12/03/20 18:59) Creatine Kinase Mb (12/03/20 18:59) Lipase (12/03/20 18:59) Amylase (12/03/20 18:59) BNP (12/03/20 18:59) Troponin I (12/03/20 18:59) Nitroglycerin Ointment (Nitrobid Ointme (12/03/20 18:59) Aspirin Chewable Tablet (Baby Aspirin Ch (12/03/20 19:00) Troponin I (12/03/20 21:19) Ekg Tracing (12/03/20 21:19) Medications Given in ED Current Medications Medications Dose Ordered Sig/Johnny Route Start Time Stop Time Status Last Admin Dose Admin Aspirin 324 mg ONCE ONCE PO 12/03/20 19:00 12/03/20 19:01 DC 12/03/20 19:08 324 MG Vital Signs/I&O 12/03/20 19:02 Temp 36.3 Pulse 70 Resp 18 B/P (MAP) 192/79 (116) Pulse Ox 99 O2 Delivery Room Air Blood Pressure Mean: 116 Departure Impression Primary Impression: Chest pain Disposition: XFER SNF Condition: Improved Departure-Patient Inst. Decision time for Depature: 23:10 Referrals: KATIE LAMAR MD (PCP/Family) Primary Care Physician Patient Instructions: Chest Pain (DC) Add. Discharge Instructions: CONTINUE ALL CURRENT MEDICATIONS PRESCRIBED FOLLOW UP WITH YOUR TRAFFIC DIRECTOR THIS WEEK RETURN TO ER IF CHEST PAIN RETURNS All discharge instructions reviewed with patient and/or family. Voiced understanding. ELVIA CERVANTES DO Dec 03, 2020 23:11
[2020-12-03 23:21] VITALS: BP 138/83
== END 2020-12-03 23:25 ==
LOC: EDUNIT# 18:53 → ER 18:55
DX: R07.9 Chest pain, unspecified (principal); E11.9 Type 2 diabetes mellitus without complications; Z86.73 Personal history of transient ischemic attack (TIA), and cerebral infarction without residual deficits; Z79.82 Long term (current) use of aspirin; Z79.01 Long term (current) use of anticoagulants; Z79.4 Long term (current) use of insulin
CPT/HCPCS: 36415; 71045; 80053; 82150; 82550; 82553; 83690; 83735; 83874; 83880; 84484; 85025; 85610; 85730; 93005; 93041

== ENCOUNTER 2021-01-05 18:37 | Inpatient (IN) | payer MEDICARE, MEDICAID ==
[~2021-01-05] VITALS: Ht 152 cm; Wt 66.0 kg
[2021-01-05] MEDS ORDERED: NS IV 1000 ML 1,000 ML IV SCH (19:00)
--- NOTE | 2021-01-05 19:03 | ED Fall/Injury ---
General Chief Complaint: Trauma-Non Activation Stated Complaint: FALL Nursing Triage Note: PT BROUGHT IN BY [facility] FROM [place] WITH COMPLAINT OF FALL. PT HAS A SHORTENED RIGHT LEG. CAP REFILL ON RIGHT FOOT 4 SECONDS. DOPPLERED POPLITEAL PULSE. UNABLE TO DOPPLER DORSALIS PEDIS AND TIBALIS PULSES. PT STATES [place]. PT HAS AN OLD BRUISE ON FOREHEAD. GIVEN 100MCG OF FENTANYL BY EMS Source: patient, EMS Exam Limitations: no limitations History of Present Illness Date Seen by Provider: Jan 05, 2021 Time Seen by Provider: 18:46 Initial Comments Patient to the ER by EMS from [facility] where she was discovered after having a fall. She says she did not lose consciousness. She has an old bruise on her right forehead. She has obvious deformity and rotation externally of the right lower extremity. She says she had to have her knee repaired surgically in the past but no other orthopedic surgery. Allergies and Home Medications Allergies Coded Allergies: cephalexin (Verified Allergy, Unknown, 02/03/18) metformin (Verified Allergy, Unknown, 02/03/18) sitagliptin (Verified Allergy, Unknown, 02/03/18) sulfamethoxazole (Verified Allergy, Unknown, 02/03/18) trimethoprim (Verified Allergy, Unknown, 02/03/18) Home Medications Acetaminophen 325 Mg Tablet, 650 MG PO Q4H PRN for PAIN-MILD, (Reported) TAKES 2 (325MG) TABLETS Amlodipine Besylate 2.5 Mg Tablet, 2.5 MG PO DAILY, (Reported) Aspirin 81 Mg Tablet.dr, 81 MG PO DAILY, (Reported) Clopidogrel Bisulfate 75 Mg Tablet, 75 MG PO DAILY, (Reported) Glyburide 5 Mg Tablet, 2.5 MG PO BID, (Reported) TAKES 1/2 (5MG) TABLET Hydrocodone Bit/Acetaminophen 1 Tab Tab, 1 TAB PO Q6HR PRN for PAIN-MODERATE Prescribed by: SAMPSON GUTIERREZ on 05/02/18 1010 Hydrocodone Bit/Acetaminophen 1 Tab Tab, 1 EACH PO Q6H PRN for PAIN-MODERATE Prescribed by: CANELO STEWART on 05/03/18 1040 Insulin Aspart 100 Unit/1 Ml Susp, SC QID, (Reported) 150-199 =2 UNITS 200-249 =4 UNITS 250-299 =6 UNITS 300-349 =8 UNITS 350-399 =10 UNITS 400-999 =12 UNITS CALL PCP <60 OR >400 Insulin Determir 1,000 Units/10 Ml Soln, 10 UNITS SQ HS, (Reported) Insulin Determir 1,000 Units/10 Ml Soln, 15 UNITS SQ DAILY, (Reported) Magnesium Hydroxide 400 Mg/5 Ml Oral.susp, 30 ML PO DAILY PRN for CONSTIPATION- 7TH LINE, (Reported) Metoprolol Succinate 25 Mg Tab.er.24h, 25 MG PO DAILY, (Reported) Ondansetron HCl 4 Mg Tab, 4 MG PO Q4H PRN for NAUSEA/VOMITING-1ST LINE, (Reported) Ranitidine HCl 150 Mg Tablet, 150 MG PO BID, (Reported) Sertraline HCl 50 Mg Tablet, 50 MG PO DAILY, (Reported) Tramadol HCl 50 Mg Tablet, 50 MG PO Q6H PRN for PAIN-MODERATE TO SEVERE Prescribed by: SHANTE CARPENTER on 07/19/18 3387 Patient Home Medication List Home Medication List Reviewed: Yes Review of Systems Review of Systems Constitutional: No chills, No fever Eyes: Denies Blindness, Denies Drainage Ears, Nose, Mouth, Throat: denies ear pain, denies ear discharge Respiratory: No cough, No short of breath Cardiovascular: No chest pain, No edema Gastrointestinal: No abdominal pain, No nausea, No vomiting Genitourinary: No discharge, No dysuria Musculoskeletal: No back pain, No joint pain All Other Systems Reviewed Negative Unless Noted: Yes Past Dqoaemm-Amfvsg-Nwzytj Hx Patient Social History Tobacco Use?: No Substance use?: No Alcohol Use?: No Pt feels they are or have been: No Immunizations Up To Date Tetanus Booster (TDap): Unknown Seasonal Allergies Seasonal Allergies: No Past Medical History Surgery/Hospitalization HX: CARDIAC CATHS--STENTS X 8, PER PT Surgeries: Yes Cardiac, Coronary Stent Respiratory: No Cardiac: Yes (STENTS X 8; CHRONIC CP, PALPITATIONS, TACHYCARDIA) Coronary Artery Disease, High Cholesterol, Hypertension, Irregular Heartbeat, Palpitations Neurological: Yes Dementia, Stroke, TIA Genitourinary: Yes Renal Failure, UTI-Chronic Gastrointestinal: No Musculoskeletal: Yes Arthritis Endocrine: Yes Diabetes, Insulin dep HEENT: No Cancer: No Psychosocial: No Integumentary: No Blood Disorders: No Family Medical History No Pertinent Family Hx Physical Exam Vital Signs Vital Signs - First Documented 01/05/21 18:37 Pulse 74 Resp 16 B/P (MAP) 165/66 (99) Pulse Ox 96 O2 Delivery Nasal Cannula O2 Flow Rate 2.00 Capillary Refill : Height, Weight, BMI Height: 5'3.00" Weight: 147lbs. 6.0oz. 66.649249yu; 28.00 BMI Method:Estimated General Appearance: no apparent distress, moderate distress HEENT: PERRL/EOMI, normal ENT inspection, pharynx normal Neck: full range of motion, normal inspection Cardiovascular: normal peripheral pulses, regular rate, rhythm Respiratory: no respiratory distress, no accessory muscle use Peripheral Pulses: 2+ Radial Pulses (R), 2+ Radial Pulses (L) Gastrointestinal: normal bowel sounds, non tender, soft Neurologic/Psychiatric: alert, normal mood/affect, oriented x 3 Skin: normal color, warm/dry [place] Coma Score Best Eye Response: (4) Open Spontaneously Best Verbal Response: (5) Oriented Best Motor Response: (6) Obeys Commands Bria Total: 15 Progress/Results/Core Measures Results/Orders Lab Results Laboratory Tests Test 01/05/21 18:49 01/05/21 19:05 01/05/21 20:40 Range/Units White Blood Count 8.0 4.3-11.0 10^3/uL Red Blood Count 3.99 3.80-5.11 10^6/uL Hemoglobin 11.6 11.5-16.0 g/dL Hematocrit 36 35-52 % Mean Corpuscular Volume 91 80-99 fL Mean Corpuscular Hemoglobin 29 25-34 pg Mean Corpuscular Hemoglobin Concent 32 32-36 g/dL Red Cell Distribution Width 14.6 H 10.0-14.5 % Platelet Count 221 130-400 10^3/uL Mean Platelet Volume 11.1 9.0-12.2 fL Immature Granulocyte % (Auto) 1 % Neutrophils (%) (Auto) 73 42-75 % Lymphocytes (%) (Auto) 18 12-44 % Monocytes (%) (Auto) 5 0-12 % Eosinophils (%) (Auto) 3 0-10 % Basophils (%) (Auto) 1 0-10 % Neutrophils # (Auto) 5.9 1.8-7.8 10^3/uL Lymphocytes # (Auto) 1.4 1.0-4.0 10^3/uL Monocytes # (Auto) 0.4 0.0-1.0 10^3/uL Eosinophils # (Auto) 0.2 0.0-0.3 10^3/uL Basophils # (Auto) 0.0 0.0-0.1 10^3/uL Immature Granulocyte # (Auto) 0.1 0.0-0.1 10^3/uL Sodium Level 138 135-145 MMOL/L Potassium Level 4.4 3.6-5.0 MMOL/L Chloride Level 114 H 98-107 MMOL/L Carbon Dioxide Level 16 L 21-32 MMOL/L Anion Gap 8 5-14 MMOL/L Blood Urea Nitrogen 34 H 7-18 MG/DL Creatinine 1.62 H 0.60-1.30 MG/DL Estimat Glomerular Filtration Rate 30 BUN/Creatinine Ratio 21 Glucose Level 265 H 70-105 MG/DL Calcium Level 8.3 L 8.5-10.1 MG/DL Corrected Calcium 8.9 8.5-10.1 MG/DL Total Bilirubin 0.2 0.1-1.0 MG/DL Aspartate Amino Transf (AST/SGOT) 15 5-34 U/L Alanine Aminotransferase (ALT/SGPT) 11 0-55 U/L Alkaline Phosphatase 67 40-136 U/L Total Protein 7.1 6.4-8.2 GM/DL Albumin 3.3 3.2-4.5 GM/DL Glucometer 259 H 70-110 MG/DL Urine Color YELLOW Urine Clarity CLOUDY Urine pH 5.5 5-9 Urine Specific [place] 1.015 L 1.016-1.022 Urine Protein TRACE H NEGATIVE Urine Glucose (UA) 3+ H NEGATIVE Urine Ketones NEGATIVE NEGATIVE Urine Nitrite NEGATIVE NEGATIVE Urine Bilirubin NEGATIVE NEGATIVE Urine Urobilinogen 0.2 < = 1.0 MG/DL Urine Leukocyte Esterase 2+ H NEGATIVE Urine RBC (Auto) 3+ H NEGATIVE Urine RBC TNTC H /HPF Urine WBC 50-100 H /HPF Urine Crystals NONE /LPF Urine Bacteria FEW H /HPF Urine Casts NONE /LPF Urine Mucus NEGATIVE /LPF Urine Culture Indicated YES My Orders Orders - FLOR PIKE Cbc With Automated Diff (01/05/21 19:00) Comprehensive Metabolic Panel (01/05/21 19:00) Ua Culture If Indicated (01/05/21 19:00) Catheter(Urinary) Insert & Ass (01/05/21 19:00) Ed Iv/Invasive Line Start (01/05/21 19:00) Ns Iv 1000 Ml (Sodium Chloride 0.9%) (01/05/21 19:00) Chest 1 View, Ap/Pa Only (01/05/21 19:00) Tibia/Fibula, Right, 2 Views (01/05/21 19:00) Hip, Right, 2 Views (01/05/21 19:00) Ct Head/Cervical Spine Wo (01/05/21 19:00) O2 (01/05/21 19:00) Accucheck Stat ONCE (01/05/21 19:08) Continuous Ekg Monitoring (01/05/21 19:08) Ekg Tracing (01/05/21 19:08) Insulin (Regular) Human (Novolin R (Per (01/05/21 19:30) Fentanyl Inj (Sublimaze Injection) (01/05/21 19:45) Urine Culture (01/05/21 20:40) Ceftriaxone (Rocephin) (01/05/21 21:15) Medications Given in ED Current Medications Medications Dose Ordered Sig/Johnny Route Start Time Stop Time Status Last Admin Dose Admin Ceftriaxone Sodium 1000 mg/ Sterile Water 10 ml @ 200 mls/hr ONCE ONCE IV 01/05/21 21:15 01/05/21 21:17 DC 01/05/21 21:44 200 MLS/HR Fentanyl Citrate 50 mcg ONCE ONCE IVP 01/05/21 19:45 01/05/21 19:46 DC 01/05/21 19:46 50 MCG Fentanyl Citrate 75 mcg ONCE ONCE IVP 01/05/21 21:00 01/05/21 21:01 DC 01/05/21 20:55 75 MCG Insulin Human Regular 5 unit ONCE ONCE SC 01/05/21 19:30 01/05/21 19:31 DC 01/05/21 20:32 5 UNIT Vital Signs/I&O 01/05/21 01/05/21 18:37 18:49 Pulse 74 Resp 16 B/P (MAP) 165/66 (99) Pulse Ox 96 O2 Delivery Nasal Cannula Nasal Cannula O2 Flow Rate 2.00 2.00 Blood Pressure Mean: 99 Progress Progress Note #1: Time: 19:06 Progress Note Nurse alerted this provider that they could not Doppler a pulse in her dorsal pedal or posterior tibial right side. She had no palpable pulse on her left side either. We reduced traction and then ended up taking it off and still could not Doppler either a dorsal pedal or posterior tibial pulse. She has a great dopplerable pulse in her popliteal artery. It would seem that the obstruction is distal to the popliteal. Plan to get films. Patient is comfortable right now. We will put her back in the traction after the x-rays are obtained. Progress Note #2: Time: 21:06 Progress Note Discussed the case with Maria Eugenia her daughter and gave her the expectation that her mother would be admitted consult with surgery and talk about fixing her fractured hip. Initial ECG Impression Date: Jan 05, 2021 Initial ECG Impression Time: 19:15 Initial ECG Rate: 75 Initial ECG Rhythm: Normal Sinus Initial ECG Intervals: PA Initial ECG Impression: Normal, Nonspecific Changes Comment Normal sinus rhythm with prolonged PA interval and no relevant ST changes. Diagnostic Imaging Diagonstic Imaging: Xray Plain Films/CT/US/NM/MRI: chest Comments [facility] [place], [place] NAME: ATIYABHUPINDER D [facility] REC#: [id number] PT STATUS: REG ER : 1935 PHYSICIAN: FLOR PIKE MD ADMIT DATE: 01/05/21/ER Draft Date of Exam:01/05/21 CHEST 1 VIEW, AP/PA ONLY HISTORY: Fall, chest injury TECHNIQUE: Frontal view of the chest. COMPARISON: 12/03/2020 FINDINGS: Lung volumes are low. There appears to be mild central vascular congestion which may be accentuated by the low lung volumes. There are old right-sided rib fractures. No definite acute displaced rib fracture is seen. The cardiac silhouette is stable in size. Sternotomy wires and post-CABG changes are seen. There is no pneumothorax or pleural effusion. IMPRESSION: 1. Prominent interstitial markings, may represent edema/congestion. Dictated on workstation # [id number] Dict: 01/05/212041 Trans: 01/05/212047 [facility] [id number] Interpreted by: ARNAV LORENZO MD Electronically signed by: Reviewed: Reviewed by Me Diagonstic Imaging: Xray Plain Films/CT/US/NM/MRI: hip (Right) Comments [facility] [place] [place] NAME: BHUPINDER RAJPUT [facility] REC#: [id number] PT STATUS: REG ER : 1935 PHYSICIAN: FLOR PIKE MD ADMIT DATE: 01/05/21/ER Draft Date of Exam:01/05/21 HIP, RIGHT, 2 VIEWS HISTORY: Fall, right hip pain TECHNIQUE: 2 views of the right hip COMPARISON: None FINDINGS: There is a mildly posteriorly angulated, impacted intertrochanteric fracture of the proximal right femur. The femoral head is well-seated in the acetabulum and there are moderate degenerative changes present. Small joint bodies are seen about the right hip. IMPRESSION: 1. Intertrochanteric fracture of the proximal right femur. Dictated on workstation # [id number] Dict: 01/05/212042 Trans: 01/05/212046 [facility] [id number] Interpreted by: ARNAV LORENZO MD Electronically signed by: Reviewed: Reviewed by Pa Diagonstic Imaging: Xray Plain Films/CT/US/NM/MRI: leg (Right) Comments No acute osseous abnormality. This appears to be a left leg however pigment pumper insists that it was shot posterior to anterior and is a right tib- fib. [facility] [place] [place] NAME: BHUPINDER RAJPUT [facility] REC#: [id number] PT STATUS: REG ER : 1935 PHYSICIAN: FLOR PIKE MD ADMIT DATE: 01/05/21/ER Signed Date of Exam:01/05/21 TIBIA/FIBULA, RIGHT, 2 VIEWS HISTORY: Fall, right leg pain. TECHNIQUE: 2 views of the right tibia/fibula COMPARISON: None FINDINGS: No acute fracture is seen in the right tibia/fibula. Alignment is normal. There are degenerative changes in the right knee. There is calcific atherosclerosis. IMPRESSION: 1. No acute osseous abnormality is seen in the right tibia/fibula. Dictated by: Dictated on workstation # [id number] Dict: 01/05/212043 Trans: 01/05/212099 [facility] [id number] Interpreted by: ARNAV LORENZO MD Electronically signed by: ARNAV LORENZO MD 01/05/212099 Reviewed: Reviewed by Me Diagonstic Imaging: CT Plain Films/CT/US/NM/MRI: c-spine, head Comments [facility] [place] [place] NAME: BHUPINDER RAJPUT [facility] REC#: [id number] PT STATUS: ADM IN : 1935 PHYSICIAN: FLOR PIKE MD ADMIT DATE: 01/05/21 Signed Date of Exam:01/05/21 CT HEAD/CERVICAL SPINE WO PROCEDURE: CT head and CT cervical spine without contrast. TECHNIQUE: Multiple contiguous axial images were obtained through the brain and cervical spine without the use of intravenous contrast. Sagittal and coronal reformations through the cervical spine were then performed. Auto Exposure Controls were utilized during the CT exam to meet ALARA standards for radiation dose reduction. INDICATION: Fall, head and neck injury. COMPARISON: 07/19/2018 FINDINGS: CT HEAD: There is motion artifact present, and some images were repeated. The ventricles and cortical sulci are diffusely prominent from generalized parenchymal volume loss. There is no midline shift or mass effect. No acute intracranial hemorrhage is seen. There is no CT evidence of acute territorial ischemia. There are scattered areas of hypoattenuation throughout the white matter consistent with chronic microvascular disease. In addition, there are multifocal areas of encephalomalacia in both hemispheres of the cerebrum, as well as the left cerebellum, consistent with old infarcts. The calvarium appears intact. Visualized paranasal sinuses are clear. CT CERVICAL SPINE: There is reversal of the cervical lordosis centered at C4. There is grade 1 anterolisthesis at C3-C4. There are severe degenerative changes at C4-C5, C5-C6 and C6-C7. There is marked facet arthropathy, left greater than right. There is motion artifact on multiple images. No acute fracture is seen. There is calcific atherosclerosis. IMPRESSION: 1. No acute intracranial hemorrhage or CT findings of acute territorial ischemia. 2. 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 3. Advanced degenerative change in the cervical spine with no acute fracture seen. Dictated by: Dictated on workstation # [id number] Dict: 01/05/212043 Trans: 01/05/212336 [facility] [id number] Interpreted by: ARNAV LORENZO MD Electronically signed by: ARNAV LORENZO MD 01/05/212336 Reviewed: Reviewed by Me Departure Communication (Admissions) Time/Spoke to Admitting Phy: 21:20 Discussed the case with Dr. Gutierrez and she agrees with Chris. Consult to cardiology for clearance and orthopedic surgery. Time/Spoke to Consulting Phy: 21:15 Discussed the case with Dr. Posey, orthopedics and he agrees to consult on the case. N.p.o. and he would like cardiac clearance. 5 pounds of Edmond's traction. 2119: Discussed the case with Dr. Dillard and he would like an echocardiogram in the morning. Impression Primary Impression: Fall Qualified Codes: W19.XXXA - Unspecified fall, initial encounter Additional Impressions: Closed right hip fracture Qualified Codes: S72.001A - Fracture of unspecified part of neck of right femur, initial encounter for closed fracture UTI (urinary tract infection) Qualified Codes: N30.01 - Acute cystitis with hematuria Disposition: ADMITTED INPATIENT Condition: Stable Admissions Decision to Admit Reason: Admit from ER (General) Decision to Admit/Date: Jan 05, 2021 Time/Decision to Admit Time: 21:00 Departure-Patient Inst. Referrals: KATIE LAMAR MD (PCP/Family) Primary Care Physician FLOR PIKE Jan 05, 2021 19:03
[2021-01-05 19:10] LABS: BASOPHILS % (AUTO) 1 % (0-10); EOSINOPHILS # (AUTO) 0.2 10^3/uL (0.0-0.3); EOSINOPHILS % (AUTO) 3 % (0-10); HEMATOCRIT 36 % (35-52); HEMOGLOBIN 11.6 g/dL (11.5-16.0); LYMPHOCYTES # (AUTO) 1.4 10^3/uL (1.0-4.0); LYMPHOCYTES % (AUTO) 18 % (12-44); MEAN CORPUSCULAR HEMOGLOBIN 29 pg (25-34); MEAN CORPUSCULAR HGB CONC 32 g/dL (32-36); MEAN CORPUSCULAR VOLUME 91 fL (80-99); MEAN PLATELET VOLUME 11.1 fL (9.0-12.2); MONOCYTES # (AUTO) 0.4 10^3/uL (0.0-1.0); MONOCYTES % (AUTO) 5 % (0-12); NEUTROPHILS # (AUTO) 5.9 10^3/uL (1.8-7.8); NEUTROPHILS % (AUTO) 73 % (42-75); PLATELET COUNT 221 10^3/uL (130-400)
[2021-01-05 19:28] LABS: ALBUMIN 3.3 GM/DL (3.2-4.5); BILIRUBIN,TOTAL 0.2 MG/DL (0.1-1.0); CALCIUM 8.3 MG/DL (8.5-10.1); CREATININE SERUM 1.62 MG/DL (0.60-1.30); POTASSIUM 4.4 MMOL/L (3.6-5.0); TOTAL PROTEIN 7.1 GM/DL (6.4-8.2)
[2021-01-05] MEDS ORDERED: inSUlin (REGULAR) HUMAN 1 UNIT/0.01 ML (CHARGE PER UNIT) SC ONE (19:30)
[2021-01-05] MEDS ORDERED: fentaNYL INJ 100 MCG/2 ML AMP IVP ONE ×2 (19:45→21:00)
--- NOTE | 2021-01-05 20:47 | Diagnostic Imaging Report ---
HISTORY: Fall, right leg pain. TECHNIQUE: 2 views of the right tibia/fibula COMPARISON: None FINDINGS: No acute fracture is seen in the right tibia/fibula. Alignment is normal. There are degenerative changes in the right knee. There is calcific atherosclerosis. IMPRESSION: 1. No acute osseous abnormality is seen in the right tibia/fibula. Dictated by: Dictated on workstation # [id number]
--- NOTE | 2021-01-05 20:48 | Diagnostic Imaging Report ---
HISTORY: Fall, right hip pain TECHNIQUE: 2 views of the right hip COMPARISON: None FINDINGS: There is a mildly posteriorly angulated, impacted intertrochanteric fracture of the proximal right femur. The femoral head is well-seated in the acetabulum and there are moderate degenerative changes present. Small joint bodies are seen about the right hip. IMPRESSION: 1. Intertrochanteric fracture of the proximal right femur. Dictated by: Dictated on workstation # [id number]
--- NOTE | 2021-01-05 20:49 | Diagnostic Imaging Report ---
HISTORY: Fall, chest injury TECHNIQUE: Frontal view of the chest. COMPARISON: 12/03/2020 FINDINGS: Lung volumes are low. There appears to be mild central vascular congestion which may be accentuated by the low lung volumes. There are old right-sided rib fractures. No definite acute displaced rib fracture is seen. The cardiac silhouette is stable in size. Sternotomy wires and post-CABG changes are seen. There is no pneumothorax or pleural effusion. IMPRESSION: 1. Prominent interstitial markings, may represent edema/congestion. Dictated by: Dictated on workstation # [id number]
--- NOTE | 2021-01-05 20:52 | Diagnostic Imaging Report ---
PROCEDURE: CT head and CT cervical spine without contrast. TECHNIQUE: Multiple contiguous axial images were obtained through the brain and cervical spine without the use of intravenous contrast. Sagittal and coronal reformations through the cervical spine were then performed. Auto Exposure Controls were utilized during the CT exam to meet ALARA standards for radiation dose reduction. INDICATION: Fall, head and neck injury. COMPARISON: 07/19/2018 FINDINGS: CT HEAD: There is motion artifact present, and some images were repeated. The ventricles and cortical sulci are diffusely prominent from generalized parenchymal volume loss. There is no midline shift or mass effect. No acute intracranial hemorrhage is seen. There is no CT evidence of acute territorial ischemia. There are scattered areas of hypoattenuation throughout the white matter consistent with chronic microvascular disease. In addition, there are multifocal areas of encephalomalacia in both hemispheres of the cerebrum, as well as the left cerebellum, consistent with old infarcts. The calvarium appears intact. Visualized paranasal sinuses are clear. CT CERVICAL SPINE: There is reversal of the cervical lordosis centered at C4. There is grade 1 anterolisthesis at C3-C4. There are severe degenerative changes at C4-C5, C5-C6 and C6-C7. There is marked facet arthropathy, left greater than right. There is motion artifact on multiple images. No acute fracture is seen. There is calcific atherosclerosis. IMPRESSION: 1. No acute intracranial hemorrhage or CT findings of acute territorial ischemia. 2. 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 3. Advanced degenerative change in the cervical spine with no acute fracture seen. Dictated by: Dictated on workstation # [id number]
[2021-01-05 20:53] LABS: BILIRUBIN,URINE NEGATIVE (NEGATIVE); CLARITY,URINE CLOUDY; COLOR,URINE YELLOW; GLUCOSE, URINE (UA) 3+ (NEGATIVE); KETONES,URINE NEGATIVE (NEGATIVE); LEUKOCYTE ESTERASE ,URINE 2+ (NEGATIVE); NITRITE,URINE NEGATIVE (NEGATIVE); PH,URINE 5.5 (5-9); PROTEIN,URINE TRACE (NEGATIVE)
[2021-01-05 21:01] LABS: RBC,URINE TNTC /HPF; WBC,URINE 50-100 /HPF
[2021-01-05 21:02] LABS: BACTERIA,URINE FEW /HPF
[2021-01-05] MEDS ORDERED: cefTRIAXone 1,000 MG in WATER (STERILE) FOR INJECTION 10 ML IV ONE (21:15)
[2021-01-05] MEDS ORDERED: ONDANSETRON 4 MG/2 ML (SDV) Z0FRAN IV PRN (22:00)
[2021-01-05] MEDS ORDERED: morphine INJ 4 MG/ML 1 ML (VIAL/SYRINGE) IV PRN (22:15)
[2021-01-05] MEDS ORDERED: fentaNYL INJ 100 MCG/2 ML AMP IV PRN (22:15)
[2021-01-05] MEDS ORDERED: ACETAMINOPHEN 650 MG SUPP (TYLENOL) PR PRN (22:15)
[2021-01-05] MEDS: BACLOFEN 10 MG (LIORESAL) TAB PO PRN (22:43)
[2021-01-05 22:49] VITALS: BP 160/94
[2021-01-05] MEDS: LACTATED RINGERS 1,000 ML IV SCH (23:52)
[2021-01-06] VITALS (15 sets, daily range): BP systolic 118–154; BP diastolic 49–97
[2021-01-06] MEDS: BACLOFEN 10 MG (LIORESAL) TAB PO PRN (03:57)
[2021-01-06] MEDS: ACETAMINOPHEN 325 MG TABLET PO PRN (03:57)
[2021-01-06 05:27] LABS: BASOPHILS % (AUTO) 0 % (0-10); EOSINOPHILS % (AUTO) 0 % (0-10); HEMATOCRIT 37 % (35-52); HEMOGLOBIN 11.8 g/dL (11.5-16.0); LYMPHOCYTES # (AUTO) 1.3 10^3/uL (1.0-4.0); LYMPHOCYTES % (AUTO) 12 % (12-44); MEAN CORPUSCULAR HEMOGLOBIN 29 pg (25-34); MEAN CORPUSCULAR HGB CONC 32 g/dL (32-36); MEAN CORPUSCULAR VOLUME 91 fL (80-99); MEAN PLATELET VOLUME 10.9 fL (9.0-12.2); MONOCYTES # (AUTO) 0.7 10^3/uL (0.0-1.0); MONOCYTES % (AUTO) 6 % (0-12); NEUTROPHILS # (AUTO) 8.4 10^3/uL (1.8-7.8); NEUTROPHILS % (AUTO) 80 % (42-75); PLATELET COUNT 219 10^3/uL (130-400); WHITE BLOOD COUNT 10.4 10^3/uL (4.3-11.0)
[2021-01-06 05:41] LABS: ALBUMIN 3.5 GM/DL (3.2-4.5); POTASSIUM 4.5 MMOL/L (3.6-5.0)
[2021-01-06 05:42] LABS: CALCIUM 8.7 MG/DL (8.5-10.1)
[2021-01-06 05:43] LABS: TOTAL PROTEIN 7.2 GM/DL (6.4-8.2)
[2021-01-06 05:45] LABS: BILIRUBIN,TOTAL 0.3 MG/DL (0.1-1.0)
[2021-01-06 05:47] LABS: CREATININE SERUM 1.33 MG/DL (0.60-1.30)
[2021-01-06] MEDS: inSUlin ASPART (NovoLOG) 1 UNIT/0.01 ML (CHARGE PER UNIT) SC SCH ×4 (06:05→21:02)
[2021-01-06] MEDS ORDERED: CATHETER FLUSH 10 ML SYR IV PRN (06:30)
[2021-01-06] MEDS: LACTATED RINGERS 1,000 ML IV SCH ×3 (07:51→21:14)
[2021-01-06] MEDS ORDERED: OXYB10TA29 PO (08:30)
[2021-01-06] MEDS ORDERED: EMPA25TA PO (08:30)
[2021-01-06] MEDS ORDERED: LACTATED RINGERS 1,000 ML IV PRN (08:30)
[2021-01-06] MEDS ORDERED: SERT-412 PO (08:30)
[2021-01-06] MEDS ORDERED: LISI20TA26 PO (08:30)
[2021-01-06] MEDS ORDERED: PANT20TA18 PO (08:30)
[2021-01-06] MEDS ORDERED: INSU100I32 SC (08:30)
[2021-01-06] MEDS ORDERED: morphine INJ 10 MG/ML 1ML (SYR OR VIAL) IVP STA (09:27)
--- NOTE | 2021-01-06 09:49 | Consultation - Ortho ---
Consult - Ortho Subjective Date of Exam 01/06/21 Chief Complaint Intertrochanteric fracture right hip HPI/Events since last exam Is an 85-year-old white female who fell late yesterday afternoon. She is a resident at [facility]. She was seen in the emergency room where she was evaluated and x-rayed noted to have a 3 part intertrochanteric fracture of her right hip. She was admitted for surgical treatment of the right hip fracture. I spoke with her daughter who said that she has been ambulating with a walker and doing fairly well over the past few weeks but did develop a urinary tract infection this past weekend. She had also fallen late Tuesday early Satu morning as well. Medical, Surgical History Reviewed and no additions or changes Social History Reviewed and no additions or changes Family History Reviewed and no additions or changes Review of Systems Reviewed and no additions or changes Allergies: Coded Allergies: cephalexin (Verified Allergy, Unknown, 02/03/18) metformin (Verified Allergy, Unknown, 02/03/18) sitagliptin (Verified Allergy, Unknown, 02/03/18) sulfamethoxazole (Verified Allergy, Unknown, 02/03/18) trimethoprim (Verified Allergy, Unknown, 02/03/18) Home Meds Reported Medications Insulin Degludec (Tresiba Flextouch U-100) 100 Unit/1 Ml Insuln.pen, 38 UNITS SC HS, UNITS 01/06/21 Empagliflozin (Jardiance) 25 Mg Tablet, 25 MG PO DAILY, TAB 01/06/21 Sertraline HCl (Sertraline HCl) 25 Mg Tablet, 25 MG PO HS, TAB 01/06/21 Oxybutynin Chloride (Oxybutynin Chloride ER) 10 Mg Tab.er.24, 10 MG PO DAILY, TAB 01/06/21 Pantoprazole Sodium (Pantoprazole Sodium) 20 Mg Tablet.dr, 20 MG PO DAILY, TAB 01/06/21 Lisinopril (Lisinopril) 20 Mg Tablet, 20 MG PO DAILY, TAB 01/06/21 Sertraline HCl (Sertraline HCl) 50 Mg Tablet, 50 MG PO DAILY, TAB 04/25/18 Clopidogrel Bisulfate (Clopidogrel) 75 Mg Tablet, 75 MG PO DAILY, TAB 04/25/18 Aspirin (Aspirin EC) 81 Mg Tablet.dr, 81 MG PO DAILY, TAB 04/25/18 Discontinued Reported Medications Metoprolol Succinate (Metoprolol Succinate) 25 Mg Tab.er.24h, 25 MG PO DAILY, TAB 05/01/18 Ranitidine HCl (Ranitidine HCl) 150 Mg Tablet, 150 MG PO BID, TAB 05/01/18 Amlodipine Besylate (Amlodipine Besylate) 2.5 Mg Tablet, 2.5 MG PO DAILY, TAB 04/25/18 Ondansetron HCl (Zofran) 4 Mg Tab, 4 MG PO Q4H PRN for NAUSEA/VOMITING-1ST LINE, TAB 04/25/18 Insulin Aspart (Novolog) 100 Unit/1 Ml Susp, SC QID for SLIDING SCALE, EA 150-199 =2 UNITS 200-249 =4 UNITS 250-299 =6 UNITS 300-349 =8 UNITS 350-399 =10 UNITS 400-999 =12 UNITS CALL PCP <60 OR >400 04/25/18 Glyburide (Glyburide) 5 Mg Tablet, 2.5 MG PO BID, TAB TAKES 1/2 (5MG) TABLET 04/25/18 Insulin Determir (Levemir) 1,000 Units/10 Ml Soln, 15 UNITS SQ DAILY, EA 04/25/18 Insulin Determir (Levemir) 1,000 Units/10 Ml Soln, 10 UNITS SQ HS, EA 04/25/18 Acetaminophen (Tylenol) 325 Mg Tablet, 650 MG PO Q4H PRN for PAIN-MILD, TAB TAKES 2 (325MG) TABLETS 04/25/18 Magnesium Hydroxide (Milk of Magnesia) 400 Mg/5 Ml Oral.susp, 30 ML PO DAILY PRN for CONSTIPATION-7TH LINE, ML 04/25/18 Discontinued Scripts Tramadol HCl (Ultram) 50 Mg Tablet, 50 MG PO Q6H PRN for PAIN-MODERATE TO SEVERE, #14 TAB Prov:SHANTE CARPENTER APRN 07/19/18 Hydrocodone Bit/Acetaminophen (LORTAB 5 MG TABLET) 1 Tab Tab, 1 EACH PO Q6H PRN for PAIN-MODERATE MDD 10, #20 TAB 0 Refills Prov:CANELO STEWART MD 05/03/18 Hydrocodone Bit/Acetaminophen (LORTAB 5 MG TABLET) 1 Tab Tab, 1 TAB PO Q6HR PRN for PAIN-MODERATE, #15 TAB Prov:SAMPSON GUTIERREZ DO 05/02/18 Objective Exam Constitutional: [] HEENT: [] Neck: [No pain with palpation or range of motion] Cardiovascular: [] Respiratory: [] Gastrointestinal: [] Genitourinary: [] Skin: [] Back/Spine: [No pain with palpation] Extremities: [Full range of motion without pain. No swelling or bruising. No crepitation or deformity. She states she has normal sensation to the fingers and thumb with good cap refill and equal radial pulses Lower extremitiesshe has pain right hip. No pain left hip no pain either knee or ankle. She has absent pulses dorsalis pedis and posterior tibial. ER attempted pulses with Doppler and were unable to obtain either but she did have a good popliteal pulse bilateral. She states she has normal sensation of the foot and toes with good cap refill] Neurologic: [] Psychiatric: [] Hematologic/lymphatic/immunologic: [] Vital Signs Vital Signs Date Time Temp Pulse Resp B/P (MAP) Pulse Ox O2 Delivery O2 Flow Rate FiO2 01/06/21 08:00 Nasal Cannula 2.00 01/06/21 08:00 94 Room Air 2.00 01/06/21 07:31 36.8 109 20 127/49 (75) 94 Nasal Cannula 2.00 01/06/21 06:58 94 01/06/21 04:21 36.6 63 21 146/97 (113) 91 Nasal Cannula 2.00 01/06/21 00:11 36.5 82 19 154/81 (105) 96 Nasal Cannula 2.00 01/05/21 22:49 36.4 99 22 160/94 (116) 96 Nasal Cannula 2.00 01/05/21 22:00 95 Nasal Cannula 2.00 01/05/21 21:47 84 14 166/77 (99) 97 Nasal Cannula 2.00 01/05/21 18:49 Nasal Cannula 2.00 01/05/21 18:37 74 16 165/66 (99) 96 Nasal Cannula 2.00 I & O 01/06/21 07:00 Intake Total 1060 ml Output Total 1300 ml Balance -240 ml Lab Results Laboratory Tests 01/05/21 18:49: White Blood Count 8.0, Red Blood Count 3.99, Hemoglobin 11.6, Hematocrit 36, Mean Corpuscular Volume 91, Mean Corpuscular Hemoglobin 29, Mean Corpuscular Hemoglobin Concent 32, Red Cell Distribution Width 14.6H, Platelet Count 221, Mean Platelet Volume 11.1, Immature Granulocyte % (Auto) 1, Neutrophils (%) (Auto) 73, Lymphocytes (%) (Auto) 18, Monocytes (%) (Auto) 5, Eosinophils (%) (Auto) 3, Basophils (%) (Auto) 1, Neutrophils # (Auto) 5.9, Lymphocytes # (Auto) 1.4, Monocytes # (Auto) 0.4, Eosinophils # (Auto) 0.2, Basophils # (Auto) 0.0, Immature Granulocyte # (Auto) 0.1, Sodium Level 138, Potassium Level 4.4, Chloride Level 114H, Carbon Dioxide Level 16L, Anion Gap 8, Blood Urea Nitrogen 34H, Creatinine 1.62H, Estimat Glomerular Filtration Rate 30, BUN/Creatinine Ratio 21, Glucose Level 265H, Calcium Level 8.3L, Corrected Calcium 8.9, Total Bilirubin 0.2, Aspartate Amino Transf (AST/SGOT) 15, Alanine Aminotransferase (ALT/SGPT) 11, Alkaline Phosphatase 67, Total Protein 7.1, Albumin 3.3 01/05/21 19:05: Glucometer 259H 01/05/21 20:40: Urine Color YELLOW, Urine Clarity CLOUDY, Urine pH 5.5, Urine Specific [place] 1.015L, Urine Protein TRACEH, Urine Glucose (UA) 3+H, Urine Ketones NEGATIVE, Urine Nitrite NEGATIVE, Urine Bilirubin NEGATIVE, Urine Urobilinogen 0.2, Urine Leukocyte Esterase 2+H, Urine RBC (Auto) 3+H, Urine RBC TNTCH, Urine WBC 50-100H , Urine Crystals NONE, Urine Bacteria FEWH, Urine Casts NONE, Urine Mucus NEGATIVE, Urine Culture Indicated YES 01/05/21 22:14: Glucometer 157H 01/06/21 05:00: White Blood Count 10.4, Red Blood Count 4.10, Hemoglobin 11.8, Hematocrit 37, Mean Corpuscular Volume 91, Mean Corpuscular Hemoglobin 29, Mean Corpuscular Hemoglobin Concent 32, Red Cell Distribution Width 14.6H, Platelet Count 219, Mean Platelet Volume 10.9, Immature Granulocyte % (Auto) 0, Neutrophils (%) (Auto) 80H, Lymphocytes (%) (Auto) 12, Monocytes (%) (Auto) 6, Eosinophils (%) (Auto) 0, Basophils (%) (Auto) 0, Neutrophils # (Auto) 8.4H, Lymphocytes # (Auto) 1.3, Monocytes # (Auto) 0.7, Eosinophils # (Auto) 0.0, Basophils # (Auto) 0.0, Immature Granulocyte # (Auto) 0.0, Sodium Level 140, Potassium Level 4.5, Chloride Level 115H, Carbon Dioxide Level 17L, Anion Gap 8, Blood Urea Nitrogen 28H, Creatinine 1.33H, Estimat Glomerular Filtration Rate 38, BUN/Creatinine Ratio 21, Glucose Level 143H, Calcium Level 8.7, Corrected Calcium 9.1, Total Bilirubin 0.3, Aspartate Amino Transf (AST/SGOT) 18, Alanine Aminotransferase (ALT/SGPT) 13, Alkaline Phosphatase 70, Total Protein 7.2, Albumin 3.5 Imaging Three-part intertrochanteric fracture right hip. Negative x-rays of the right tibia Assessment and Plan Assessment Three-part intertrochanteric fracture right hip Problem List Three-part intertrochanteric fracture right hip Plan I spoke with the patient's daughter Constanza. We talked about surgical treatment and nonoperative treatment. She wants to proceed with surgical treatment understanding the procedure, risks and complications. I did speak with Dr. Gutierrez and she thought she was fine for surgery from her point of view but were awaiting cardiology evaluation. If cleared plan on surgery about 11:00. Plan Short TFN. Her daughter understands she is at increased risk and she may never return to level she was before she fractured her hip but her goal is to get her back ambulating. Final Diagonsis Three-part intertrochanteric fracture right hip Level of the visit: Level 3 DANA AVILA MD Jan 06, 2021 09:49
--- NOTE | 2021-01-06 09:56 | Consultation-Cardiology ---
HPI-Cardiology Cardiology Consultation: Date of Consultation 01/06/21 Time Seen by a Provider: 09:40 Date of Admission 01-05-21 Attending Physician Nuria Don DO Admitting Physician Donnell Oquendo MD Consulting Physician Eugene Dillard MD HPI: Chief Complaint: Pre-surgical cardiac risk eval Ms. Rajput is an 85 yr old female admitted to [facility] from [facility] where she had a non-syncopal fall per documentation. She is unable to answer any of my questions except to tell me she fell. She reports right hip pain. She is oriented to self only. Review of Systems-Cardiology Review of Systems Other comments Unable to obtain d/t confusion All Other Systems Reviewed Negative Unless Noted: Yes LUL-Iijeoz-Qnamhu Hx Patient Social History Have you traveled recently?: No Alcohol Use?: No Pt feels they are or have been: No Immunizations Up To Date Tetanus Booster (TDap): Unknown Past Medical History PMH As described under Assessment. Family Medical History Family Medical History: Unable to obtain d/t confusion Allergies and Home Medications Allergies Coded Allergies: cephalexin (Verified Allergy, Unknown, 02/03/18) metformin (Verified Allergy, Unknown, 02/03/18) sitagliptin (Verified Allergy, Unknown, 02/03/18) sulfamethoxazole (Verified Allergy, Unknown, 02/03/18) trimethoprim (Verified Allergy, Unknown, 02/03/18) Home Medications Aspirin 81 Mg Tablet.dr, 81 MG PO DAILY, (Reported) Last Action: Held Clopidogrel Bisulfate 75 Mg Tablet, 75 MG PO DAILY, (Reported) Last Action: Held Empagliflozin 25 Mg Tablet, 25 MG PO DAILY, (Reported) Last Action: Held Insulin Degludec 100 Unit/1 Ml Insuln.pen, 38 UNITS SC HS, (Reported) Last Action: Held Lisinopril 20 Mg Tablet, 20 MG PO DAILY, (Reported) Last Action: Held Oxybutynin Chloride 10 Mg Tab.er.24, 10 MG PO DAILY, (Reported) Last Action: Held Pantoprazole Sodium 20 Mg Tablet.dr, 20 MG PO DAILY, (Reported) Last Action: Continued Sertraline HCl 50 Mg Tablet, 50 MG PO DAILY, (Reported) Last Action: Continued Sertraline HCl 25 Mg Tablet, 25 MG PO HS, (Reported) Last Action: Converted Physical Exam-Cardiology Physical Exam Vital Signs/I&O 01/06/21 01/07/21 01/07/21 01/07/21 22:33 00:36 01:00 02:23 Temp 37.0 Pulse 92 84 Resp 18 B/P (MAP) 122/67 (85) Pulse Ox 95 96 94 O2 Delivery Nasal Cannula Nasal Cannula Nasal Cannula O2 Flow Rate 2.00 2.50 2.00 01/07/21 01/07/21 01/07/21 01/07/21 04:14 06:48 07:42 08:00 Temp 36.4 36.8 Pulse 88 80 78 Resp 20 16 B/P (MAP) 158/65 (96) 161/71 (101) Pulse Ox 94 93 92 O2 Delivery Nasal Cannula Nasal Cannula Nasal Cannula O2 Flow Rate 1.50 2.00 1.50 01/07/21 00:00 Intake Total 1000 ml Output Total 700 ml Balance 300 ml Capillary Refill : Constitutional: other (oriented to self only) HEENT: PERRL, hard of hearing Neck: No carotid bruit; carotid pulses are 2 + bilaterally Respiratory: No accessory muscle use, No respiratory distress; chest expansion is symmetric, chest is bilaterally symmetric, lungs clear to auscultation Cardiovascular: regular rate-rhythm; No JVD; S1 and S2, systolic murmur Gastrointestinal: soft, audible bowel sounds Extremities: no lower extremity edema bilateral Neurologic/Psychiatric: other (moves all extremities; right leg in traction - not manipulated) Skin: No rash on exposed areas, No ulcerations on exposed areas Data Review Labs Laboratory Tests 01/06/21 10:33: Glucometer 141H 01/06/21 16:35: Glucometer 189H 01/06/21 20:46: Glucometer 164H 01/07/21 05:10: White Blood Count 10.8, Red Blood Count 3.24L, Hemoglobin 9.3#L, Hematocrit 30L, Mean Corpuscular Volume 93, Mean Corpuscular Hemoglobin 29, Mean Corpuscular Hemoglobin Concent 31L, Red Cell Distribution Width 14.8H, Platelet Count 212, Mean Platelet Volume 10.7, Immature Granulocyte % (Auto) 1, Neutrophils (%) (Auto) 80H, Lymphocytes (%) (Auto) 13, Monocytes (%) (Auto) 6, Eosinophils (%) (Auto) 0, Basophils (%) (Auto) 0, Neutrophils # (Auto) 8.6H, Lymphocytes # (Auto) 1.4, Monocytes # (Auto) 0.7, Eosinophils # (Auto) 0.0, Basophils # (Auto) 0.0, Immature Granulocyte # (Auto) 0.1, Sodium Level 142, Potassium Level 4.7, Chloride Level 114H, Carbon Dioxide Level 18L, Anion Gap 10, Blood Urea Nitrogen 26H, Creatinine 1.49H, Estimat Glomerular Filtration Rate 33, BUN/Creatinine Ratio 17, Glucose Level 176H, Calcium Level 8.6, Corrected Calcium 9.3, Total Bilirubin 0.3, Aspartate Amino Transf (AST/SGOT) 16, Alanine Aminotransferase (ALT/SGPT) 13, Alkaline Phosphatase 62, Total Protein 6.5, Albumin 3.1L Microbiology 01/06/21 MRSA Screen - Final, Complete MRSA not isolated 01/05/21 Urine Culture - Preliminary, Resulted YEAST Radiology NAME: BHUPINDER RAJPUT [facility] REC#: [id number] PT STATUS: ADM IN : 1935 PHYSICIAN: FLOR PIKE MD ADMIT DATE: 01/05/21 Signed Date of Exam:01/05/21 CHEST 1 VIEW, AP/PA ONLY HISTORY: Fall, chest injury TECHNIQUE: Frontal view of the chest. COMPARISON: 12/03/2020 FINDINGS: Lung volumes are low. There appears to be mild central vascular congestion which may be accentuated by the low lung volumes. There are old right-sided rib fractures. No definite acute displaced rib fracture is seen. The cardiac silhouette is stable in size. Sternotomy wires and post-CABG changes are seen. There is no pneumothorax or pleural effusion. IMPRESSION: 1. Prominent interstitial markings, may represent edema/congestion. 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 Keith showed LVEF 55-65%. Mild to mod MR. Mod AoR. PASP approx 34 mmHg HTN (per [facility] history) DM 2 (per [facility] history) Dementia (per [facility] history) Discussion and Recomendations Cardiac risk for non-cardiac surgery is difficult to determine d/t inability to obtain history from the patient. Risk is considered to be at least intermediate. Echocardiogram today Continue current medication regimen Monitor lab closely Further recs will be based on her hospital course We would like to thank Dr. Don for the consult GREG MUÑOZ Jan 06, 2021 09:56
[2021-01-06] MEDS ORDERED: NEO/POLY/BAC (NEOSPORIN) OINT 15 GM TUBE ONE (10:14)
[2021-01-06] MEDS ORDERED: ONDANSETRON 4 MG/2 ML (SDV) Z0FRAN ONE (10:40)
[2021-01-06] MEDS ORDERED: proPOfol 200 MG/20 ML (DIPRIVAN) VIAL IV ONE (10:40)
[2021-01-06] MEDS ORDERED: LIDOCAINE PF 2% 5 ML (XYLOCAINE) VIAL ONE (10:40)
[2021-01-06] MEDS ORDERED: fentaNYL INJ 100 MCG/2 ML AMP ONE (10:41)
--- NOTE | 2021-01-06 11:11 | History & Physical-Hospitalist ---
JOSÉ MANUEL JOHNSON 01/06/21 1111: History of Present Illness HPI/Chief Complaint 85yo WF, a resident at [facility], with PMH of DM, CAD, Hypercholesterol, HTN, Dementia, Stroke, TIA presents with a R hip fracture secondary to a fall without syncope yesterday. Pt continues to state she is fine, but seems to be in severe distress and writhing in a lot of pain. Her R hip is padded and R LE is braced. She reports chest pain, but denies any other s ymptom. Cardiology (Dr. Dillard) and Ortho (Dr. Posey) were consulted. Proceed with surgery due to delaying surgery may lead to further and permanent debility. Surgical benefits outweigh risks due to dementia, CAD, HTN, and stroke. Source: patient, EMS notes reviewed Exam Limitations: clinical condition Date Seen 01/06/21 Time Seen by a Provider: 08:00 Attending Physician Nuria Gutierrez DO PCP Donnell Oquendo MD Referring Physician Date of Admission Jan 05, 2021 at 21:20 Home Medications & Allergies Home Medications Reviewed patient Home Medication Reconciliation performed by pharmacy medication reconciliations event technician and/or nursing. Patients Allergies have been reviewed. 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) Tobacco Use?: No Use of E-Cig and/or Vaping dev: No Substance use?: No Alcohol Use?: No Pt feels they are or have been: No Immunizations Up To Date Tetanus Booster (TDap): Unknown Hepatitis A: No Seasonal Allergies Seasonal Allergies: No Current Status status: No status: No Advance Directives: No Communicates: Verbally Primary Language: [place] Islander Preferred Spoken Language: [place] Islander Is interpretation needed?: No Implanted or Applied Medical D: None Past Medical History Surgeries: Cardiac, Coronary Stent Coronary Artery Disease, High Cholesterol, Hypertension, Irregular Heartbeat, Palpitations Dementia, Stroke, TIA Renal Failure, UTI-Chronic Arthritis Diabetes, Insulin dep Blood Disorders: No Dementia HTN IDDM Bradycardia 2/2 heart block, patient declined pacemaker Family Medical History No Pertinent Family Hx Review of Systems Constitutional: No chills, No fever; other (Limited due to pt condition) EENTM: other (Limited due to pt condition) Respiratory: other (Limited due to pt condition) Cardiovascular: chest pain, other (Limited due to pt condition) Gastrointestinal: No diarrhea, No nausea, No vomiting; other (Limited due to pt condition) Genitourinary: other (Limited due to pt condition) Musculoskeletal: other (Limited due to pt condition) Skin: other (Limited due to pt condition) Psychiatric/Neurological: Denies Headache; Other (Limited due to pt condition) Physical Exam Physical Exam Vital Signs Vital Signs - First Documented 01/05/21 01/05/21 18:37 22:49 Temp 36.4 Pulse 74 Resp 16 B/P (MAP) 165/66 (99) Pulse Ox 96 O2 Delivery Nasal Cannula O2 Flow Rate 2.00 Capillary Refill : Height, Weight, BMI Height: 5'3.00" Weight: 147lbs. 6.0oz. 66.262372ft; 28.56 BMI Method:Estimated General Appearance: Anxious, Chronically ill, Severe Distress HEENT: PERRL/EOMI Neck: Full Range of Motion, Non Tender, Supple Respiratory: Decreased Breath Sounds Gastrointestinal: Non Tender, Soft Extremity: No Normal Inspection, No Normal Range of Motion; Non Tender, No Pedal Edema Neurologic/Psychiatric: No Oriented x3; Disoriented; No Sensory Deficit Skin: Normal Color Results Results/Procedures Labs Laboratory Tests 01/05/21 18:49 01/06/21 05:00 Patient resulted labs reviewed. Assessment/Plan Admission Diagnosis Assessment: Unspecified fall w/ no syncope Closed right hip fracture Acute cystitis Hematuria HTN Dementia 01/06/21: Rocephin Cardiology Consult (Dr. Dillard) - Clearance and ECHO Ortho (Dr. Posey) -Held Levemir -NPO for surgery -Surgical benefits outweigh risk due to PMH Abd/Chest NURIA CHANG DO 01/07/21 0601: History of Present Illness HPI/Chief Complaint CC: Right hip fracture after fall HPI: This is an 85yoWF assisted living at [facility] of Dr. Davila who has a PMH of dementia, DM and chronic UTI who presented after a fall at [facility]. She was found to have a right hip fracture. Dr. Posey is in the midst of getting her cleared to go to surgery. She has a history of multiple stents and CAD and she currently has an active UTI, Rocephin was initiated. Bicarbonate is 17 consistent with chronic metabolic acidosis. CT scan was negative and CXR shows pulmonary congestion. Creatinine is 1.3. Benefits outweigh the medical risks due to significant pain issue and it would be prude to proceed on with surgery. 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) Past Medical History Surgeries: Coronary Stent COPD Coronary Artery Disease, High Cholesterol, Hypertension Dementia Review of Systems Constitutional: see HPI Physical Exam Physical Exam General Appearance: Anxious, Chronically ill, Moderate Distress Eyes: Right Eye Normal Inspection, Right Eye PERRL HEENT: PERRL/EOMI, Normal ENT Inspection, Pharynx Normal, Moist Mucous Membranes Neck: Full Range of Motion, Normal Inspection, Non Tender Respiratory: Chest Non Tender, Lungs Clear, No Accessory Muscle Use, No Respiratory Distress, Decreased Breath Sounds Cardiovascular: Regular Rate, Rhythm, No Edema, No Gallop, No JVD, No Murmur, Normal Peripheral Pulses Gastrointestinal: Normal Bowel Sounds, No Organomegaly, No Pulsatile Mass, Non Tender, Soft Back: Normal Inspection, No CVA Tenderness, No Vertebral Tenderness Extremity: Normal Capillary Refill, Normal Inspection, Normal Range of Motion (Except right leg), Non Tender, No Calf Tenderness, No Pedal Edema Neurologic/Psychiatric: Alert, No Motor/Sensory Deficits, Normal Mood/Affect, Disoriented Skin: Normal Color, Warm/Dry Lymphatic: No Adenopathy Assessment/Plan Admission Diagnosis Proceed on with repair of right hip fracture since benefits outweigh medical risk Monitor closely Admission Status: Inpatient Order (span 2 midnights) Reason for Inpatient Admission: Right hip fracture Supervisory-Addendum Brief Verification & Attestation Participated in pt care: history, MDM, physical Personally performed: exam, history, MDM, supervision of care Care discussed with: Medical Student Procedures: n/a Results interpretation: Verified all documentation Verification and Attestation of Medical Student E/M Service A medical student performed and documented this service in my presence. I reviewed and verified all information documented by the medical student and made modifications to such information, when appropriate. I personally performed the physical exam and medical decision making. Nuria Gutierrez, Jan 07, 2021,06:01 JOSÉ MANUEL JOHNSON Jan 06, 2021 11:11 NURIA GUTIERREZ DO Jan 07, 2021 06:01
[2021-01-06] MEDS ORDERED: ceFAZolin INJECTION 2,000 MG ONE (11:13)
[2021-01-06] MEDS ORDERED: ESMOLOL 100 MG/10 ML (BREVIBLOC) VIAL ONE (11:34)
--- NOTE | 2021-01-06 13:06 | Anesthesia-General Post-Op ---
General Patient Condition Mental Status/LOC: Same as Preop Cardiovascular: Satisfactory Nausea/Vomiting: Absent Respiratory: Satisfactory Pain: Controlled Complications: Absent Post Op Complications Complications None Follow Up Care/Instructions Patient Instructions None needed. Anesthesia/Patient Condition Patient Condition Patient is doing well in PACU with LMA out, does not appear to be in pain, stable vital signs, no apparent adverse anesthesia problems. MISAH ANDRADE DO Jan 06, 2021 13:06
[2021-01-06] MEDS ORDERED: morphine INJ 10 MG/ML 1ML (SYR OR VIAL) IVP ONE (13:15)
[2021-01-06] MEDS ORDERED: ONDANSETRON 4 MG/2 ML (SDV) Z0FRAN IVP PRN (13:15)
--- NOTE | 2021-01-06 13:16 | Diagnostic Imaging Report ---
INDICATION: Right hip fracture Intraoperative fluoroscopy views are obtained with portable intensifier in surgery. 4 views are obtained. Total of 91.4 seconds of fluoroscopy time was used. Intertrochanteric fracture is seen with anatomic alignment, with hardware in the femoral neck and proximal shaft. There is no unexpected foreign body on these views. IMPRESSION: Well aligned intertrochanteric fracture of right proximal femur, status post surgery. Hardware appears in good alignment. Dictated by: Dictated on workstation # [id number]
--- NOTE | 2021-01-06 13:19 | Consultation-Cardiology ---
HPI-Cardiology Cardiology Consultation: Date of Consultation 01/06/21 Time Seen by a Provider: 10:30 Date of Admission Attending Physician Nuria Don DO Admitting Physician Donnell Oquendo MD Consulting Physician HPI: Chief Complaint: Reason for Cardiology consultation: Pre-surgical cardiac risk eval HPI Ms. Morocho is an 85 yr old female admitted to [facility] from [facility] where she had a non-syncopal fall, per ER documentation. She is unable to answer any of my questions except to tell me she fell. She reports right hip pain. She is oriented to self only. 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 Family Medical History Family Medical History: Unable to obtain because the patient is confused Allergies and Home Medications Allergies Coded Allergies: cephalexin (Verified Allergy, Unknown, 02/03/18) metformin (Verified Allergy, Unknown, 02/03/18) sitagliptin (Verified Allergy, Unknown, 02/03/18) sulfamethoxazole (Verified Allergy, Unknown, 02/03/18) trimethoprim (Verified Allergy, Unknown, 02/03/18) Home Medications Aspirin 81 Mg Tablet.dr, 81 MG PO DAILY, (Reported) Last Action: Reviewed Clopidogrel Bisulfate 75 Mg Tablet, 75 MG PO DAILY, (Reported) Last Action: Reviewed Empagliflozin 25 Mg Tablet, 25 MG PO DAILY, (Reported) Last Action: Reviewed Insulin Degludec 100 Unit/1 Ml Insuln.pen, 38 UNITS SC HS, (Reported) Last Action: Reviewed Lisinopril 20 Mg Tablet, 20 MG PO DAILY, (Reported) Last Action: Reviewed Oxybutynin Chloride 10 Mg Tab.er.24, 10 MG PO DAILY, (Reported) Last Action: Reviewed Pantoprazole Sodium 20 Mg Tablet.dr, 20 MG PO DAILY, (Reported) Last Action: Reviewed Sertraline HCl 50 Mg Tablet, 50 MG PO DAILY, (Reported) Last Action: Reviewed Sertraline HCl 25 Mg Tablet, 25 MG PO HS, (Reported) Last Action: Reviewed Patient Home Medication List Home Medication List Reviewed: Yes Physical Exam-Cardiology Physical Exam Vital Signs/I&O 01/06/21 01/06/21 01/06/21 01/06/21 04:21 06:58 07:31 08:00 Temp 36.6 36.8 Pulse 63 94 109 Resp 21 20 B/P (MAP) 146/97 (113) 127/49 (75) Pulse Ox 91 94 94 O2 Delivery Nasal Cannula Nasal Cannula Room Air O2 Flow Rate 2.00 2.00 2.00 01/06/21 01/06/21 01/06/21 01/06/21 08:00 12:23 12:23 12:27 Temp 37.1 Resp 20 B/P (MAP) 143/61 (88) Pulse Ox 95 O2 Delivery Nasal Cannula OxyMask OxyMask Nasal Cannula O2 Flow Rate 2.00 6 6 01/06/21 01/06/21 01/06/21 01/06/21 12:30 12:35 12:40 12:43 Resp 20 18 B/P (MAP) 139/58 (85) 151/62 (91) Pulse Ox 95 94 O2 Delivery OxyMask OxyMask OxyMask OxyMask O2 Flow Rate 6 6 6 6 01/06/21 01/06/21 01/06/21 01/06/21 12:50 12:53 12:57 13:00 Resp 18 18 B/P (MAP) 144/63 (90) 144/63 (90) Pulse Ox 93 94 O2 Delivery OxyMask OxyMask OxyMask OxyMask O2 Flow Rate 6 6 6 6 01/06/21 01/06/21 01/06/21 13:02 13:09 13:10 Resp 18 B/P (MAP) 138/60 (86) Pulse Ox 93 O2 Delivery OxyMask OxyMask OxyMask O2 Flow Rate 6 6 6 01/06/21 00:00 Intake Total 1010 ml Balance 1010 ml Capillary Refill : Constitutional: No AAO x 3; other (oriented to self only) HEENT: PERRL, hard of hearing Neck: No carotid bruit; carotid pulses are 2 + bilaterally Respiratory: No accessory muscle use, No respiratory distress; chest expansion is symmetric, chest is bilaterally symmetric, lungs clear to auscultation Cardiovascular: regular rate-rhythm; No JVD; S1 and S2, systolic murmur Gastrointestinal: soft, audible bowel sounds Extremities: no lower extremity edema bilateral Neurologic/Psychiatric: No oriented x 3; other (moves all extremities; right leg in traction - not manipulated) Skin: No rash on exposed areas, No ulcerations on exposed areas Data Review Labs Laboratory Tests 01/05/21 18:49: White Blood Count 8.0, Red Blood Count 3.99, Hemoglobin 11.6, Hematocrit 36, Mean Corpuscular Volume 91, Mean Corpuscular Hemoglobin 29, Mean Corpuscular Hemoglobin Concent 32, Red Cell Distribution Width 14.6H, Platelet Count 221, Mean Platelet Volume 11.1, Immature Granulocyte % (Auto) 1, Neutrophils (%) (Auto) 73, Lymphocytes (%) (Auto) 18, Monocytes (%) (Auto) 5, Eosinophils (%) (Auto) 3, Basophils (%) (Auto) 1, Neutrophils # (Auto) 5.9, Lymphocytes # (Auto) 1.4, Monocytes # (Auto) 0.4, Eosinophils # (Auto) 0.2, Basophils # (Auto) 0.0, Immature Granulocyte # (Auto) 0.1, Sodium Level 138, Potassium Level 4.4, Chloride Level 114H, Carbon Dioxide Level 16L, Anion Gap 8, Blood Urea Nitrogen 34H, Creatinine 1.62H, Estimat Glomerular Filtration Rate 30, BUN/Creatinine Ratio 21, Glucose Level 265H, Calcium Level 8.3L, Corrected Calcium 8.9, Total Bilirubin 0.2, Aspartate Amino Transf (AST/SGOT) 15, Alanine Aminotransferase (ALT/SGPT) 11, Alkaline Phosphatase 67, Total Protein 7.1, Albumin 3.3 01/05/21 19:05: Glucometer 259H 01/05/21 20:40: Urine Color YELLOW, Urine Clarity CLOUDY, Urine pH 5.5, Urine Specific [place] 1.015L, Urine Protein TRACEH, Urine Glucose (UA) 3+H, Urine Ketones NEGATIVE, Urine Nitrite NEGATIVE, Urine Bilirubin NEGATIVE, Urine Urobilinogen 0.2, Urine Leukocyte Esterase 2+H, Urine RBC (Auto) 3+H, Urine RBC TNTCH, Urine WBC 50-100H , Urine Crystals NONE, Urine Bacteria FEWH, Urine Casts NONE, Urine Mucus NEGATIVE, Urine Culture Indicated YES 01/05/21 22:14: Glucometer 157H 01/06/21 05:00: White Blood Count 10.4, Red Blood Count 4.10, Hemoglobin 11.8, Hematocrit 37, Mean Corpuscular Volume 91, Mean Corpuscular Hemoglobin 29, Mean Corpuscular Hemoglobin Concent 32, Red Cell Distribution Width 14.6H, Platelet Count 219, Mean Platelet Volume 10.9, Immature Granulocyte % (Auto) 0, Neutrophils (%) (Auto) 80H, Lymphocytes (%) (Auto) 12, Monocytes (%) (Auto) 6, Eosinophils (%) (Auto) 0, Basophils (%) (Auto) 0, Neutrophils # (Auto) 8.4H, Lymphocytes # (Auto) 1.3, Monocytes # (Auto) 0.7, Eosinophils # (Auto) 0.0, Basophils # (Auto) 0.0, Immature Granulocyte # (Auto) 0.0, Sodium Level 140, Potassium Level 4.5, Chloride Level 115H, Carbon Dioxide Level 17L, Anion Gap 8, Blood Urea Nitrogen 28H, Creatinine 1.33H, Estimat Glomerular Filtration Rate 38, BUN/Creatinine Ratio 21, Glucose Level 143H, Calcium Level 8.7, Corrected Calcium 9.1, Total Bilirubin 0.3, Aspartate Amino Transf (AST/SGOT) 18, Alanine Aminotransferase (ALT/SGPT) 13, Alkaline Phosphatase 70, Total Protein 7.2, Albumin 3.5 01/06/21 10:33: Glucometer 141H A/P-Cardiology Assessment/Admission Diagnosis S/P non-syncopal fall resulting in right hip fracture CAD - Evidence of thoracotomy; suspect CABG - details unknown - ECG of 01-05-21 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 Keith showed LVEF 55-65%. Mild to mod MR. Mod AoR. PASP approx 34 mmHg HTN (per prison history) DM 2 (per prison history) Dementia (per prison history) Discussion and Recomendations Cardiac risk for non-cardiac surgery is difficult to determine d/t inability to obtain history from the patient. Risk is considered to be at least intermediate. Echocardiogram today Continue current medication regimen Monitor lab closely Further recs will be based on her hospital course We would like to thank Dr. Don for the consult JOSSELYN SARKAR MD FACP FACC CCDS Jan 06, 2021 13:19
--- NOTE | 2021-01-06 13:24 | Operative Report - Ortho ---
Operative Report Surgeon (s)/Environmental Studies Program Director (s) Surgeon DANA AVILA MD Environmental Studies Program Director n/a Pre-Operative Diagnosis Three-part intertrochanteric fracture right hip Post-Operative Diagnosis same Operative Report Date of Procedure: Jan 06, 2021 Name of Procedure Performed: Short TFN right hip using a 10 mm x 170 mm brittney with a 90 Millimeter helical blade and a 32 mm distal locking screw Description & Findings The patient was seen in the preoperative area and had no questions or concerns. I did spoken to her daughter earlier this morning about the procedure and she would like to proceed. Patient was then taken to the operating room and after administration of general anesthesia was placed on the fracture table. She was given 2 g Ancef IV preoperatively. She has on her allergies she is allergic to cephalexin but she had already received a dose of Rocephin from last night with no reaction. She was given the Ancef and had no reaction. The right foot was placed in the traction boot and the left leg was placed in the well-leg maharaj. The right leg was positioned in adduction and internal rotation And traction was applied. Image was used to visualize the fracture. The fracture was reduced except on the lateral view the base of the neck in the intertrochanteric region was flipped up a little anteriorly. At this point the right hip and thigh were prepped and draped in the usual sterile manner. An incision was made just proximal to the tip of the greater trochanter. This was taken down through subcutaneous tissue and through the gluteal fascia. The trochanter was palpated and a guidewire was placed in the central aspect of the greater trochanter at the tip on both the AP views and on the lateral view in the central aspect of the canal. This was then overreamed with the opening reamer. A 10 mm x 170 mm brittney was selected and this was inserted through the trochanter and then across fracture site into the proximal femoral shaft. This aligned the fracture up very well on the AP but on the lateral view the anterior aspect of the base of the neck again was flipped up. Through a small incision a small Hohmann was inserted and placed at the base of the neck and with direct pressure The alignment was improved but not anatomic. But acceptable. At this point the lateral guide was inserted through an incision down to the lateral cortex. A guidewire was placed through the lateral cortex into the central aspect of the neck and head on both AP and lateral views again with pressure from the home and anteriorly on the neck holding the reduction. The guidewire was then measured and a 90 mm helical blade was selected. This was then inserted over the guidewire after opening the lateral cortex. This was placed into the subcho ndral bone within 5 mm Of the articular surface on both AP and lateral views. Again the neck on the lateral view was a little displaced but felt to be acceptable. At this point the locking Mechanism was engaged and compression was placed across fracture site. At this point the distal screw guide was inserted drilled and a 32 mm distal locking screw was inserted through the femur and distal brittney.The guides were removed. Final x-rays were obtained both AP and lateral views. Good alignment was noted of the TFN distal locking screw and fracture. This point the wounds were irrigated with normal saline and closed with 0 Vicryl, 2-0 Vicryl and skin clips. Wounds were dressed with antibiotic ointment, Adaptic and 4 x 4's and ABDs which were taped in position. The patient was thenTransferred to her hospital bed and to recovery room in good condition she tolerated procedure well. Again she had no reaction from the Ancef. She had no pulses distally either leg in the emergency room, preop or postop.Good alignment of the right leg was noted compared to the left Estimated blood [id number] mL Replacementnone Drainsnone Complicationsnone n/a Anesthesia Type General Estimated Blood Loss 150 mL Packing none. Specimen(s) collected/removed None DANA AVILA MD Jan 06, 2021 13:24
[2021-01-06] MEDS ORDERED: ceFAZolin 2 GM IV Premixed 50 ML IV SCH (19:00)
[2021-01-06] MEDS: cefTRIAXone 1,000 MG/SWFI 10 ML IV PUSH IV SCH ×2 (21:52)
[2021-01-06] MEDS: ENOXAPARIN 30 MG/0.3 ML (LOVENOX) SYR SC SCH (21:52)
[2021-01-06] MEDS: SERTRALINE 50 MG (ZOLOFT) TABLET PO SCH (22:35)
[2021-01-06] MEDS: ceFAZolin 2 GM IV Premixed 50 ML IV SCH (22:57)
[2021-01-07] VITALS (7 sets, daily range): BP systolic 122–175; BP diastolic 65–79
[2021-01-07 05:18] LABS: BASOPHILS % (AUTO) 0 % (0-10); EOSINOPHILS % (AUTO) 0 % (0-10); HEMATOCRIT 30 % (35-52); HEMOGLOBIN 9.3 g/dL (11.5-16.0); LYMPHOCYTES # (AUTO) 1.4 10^3/uL (1.0-4.0); LYMPHOCYTES % (AUTO) 13 % (12-44); MEAN CORPUSCULAR HEMOGLOBIN 29 pg (25-34); MEAN CORPUSCULAR HGB CONC 31 g/dL (32-36); MEAN CORPUSCULAR VOLUME 93 fL (80-99); MEAN PLATELET VOLUME 10.7 fL (9.0-12.2); MONOCYTES # (AUTO) 0.7 10^3/uL (0.0-1.0); MONOCYTES % (AUTO) 6 % (0-12); NEUTROPHILS # (AUTO) 8.6 10^3/uL (1.8-7.8); NEUTROPHILS % (AUTO) 80 % (42-75); PLATELET COUNT 212 10^3/uL (130-400); WHITE BLOOD COUNT 10.8 10^3/uL (4.3-11.0)
[2021-01-07 05:32] LABS: ALBUMIN 3.1 GM/DL (3.2-4.5); POTASSIUM 4.7 MMOL/L (3.6-5.0)
[2021-01-07 05:33] LABS: CALCIUM 8.6 MG/DL (8.5-10.1)
[2021-01-07 05:34] LABS: TOTAL PROTEIN 6.5 GM/DL (6.4-8.2)
[2021-01-07 05:36] LABS: BILIRUBIN,TOTAL 0.3 MG/DL (0.1-1.0)
[2021-01-07] MEDS: inSUlin ASPART (NovoLOG) 1 UNIT/0.01 ML (CHARGE PER UNIT) SC SCH ×4 (05:37→20:47)
[2021-01-07 05:38] LABS: CREATININE SERUM 1.49 MG/DL (0.60-1.30)
[2021-01-07] MEDS: LACTATED RINGERS 1,000 ML IV SCH ×3 (05:55→23:38)
[2021-01-07] MEDS: ceFAZolin 2 GM IV Premixed 50 ML IV SCH ×2 (05:55→13:41)
[2021-01-07] MEDS: PANTOPRAZOLE 20 MG TABLET (PROTONIX) PO SCH ×2 (05:55→08:25)
[2021-01-07] MEDS: SERTRALINE 50 MG (ZOLOFT) TABLET PO SCH ×2 (08:25→20:46)
[2021-01-07] MEDS: fentaNYL INJ 100 MCG/2 ML AMP IVP PRN (08:31)
--- NOTE | 2021-01-07 08:57 | Progress Note - Ortho ---
Progress Note Subjective Date of Exam 01/07/21 Chief Complaint POD#1 Short TFN right hip for a 3 part intertrochanteric fracture HPI/Events since last exam Mrs. Pandya is 1 day postop short TFN right hip for a 3 part intertrochanteric fracture. She is lying in bed when I evaluated her and she appeared in no pain Review of Systems No additions or changes Allergies: Coded Allergies: cephalexin (Verified Allergy, Unknown, 02/03/18) metformin (Verified Allergy, Unknown, 02/03/18) sitagliptin (Verified Allergy, Unknown, 02/03/18) sulfamethoxazole (Verified Allergy, Unknown, 02/03/18) trimethoprim (Verified Allergy, Unknown, 02/03/18) Home Meds Reported Medications Insulin Degludec (Tresiba Flextouch U-100) 100 Unit/1 Ml Insuln.pen, 38 UNITS SC HS, UNITS 01/06/21 Empagliflozin (Jardiance) 25 Mg Tablet, 25 MG PO DAILY, TAB 01/06/21 Sertraline HCl (Sertraline HCl) 25 Mg Tablet, 25 MG PO HS, TAB 01/06/21 Oxybutynin Chloride (Oxybutynin Chloride ER) 10 Mg Tab.er.24, 10 MG PO DAILY, TAB 01/06/21 Pantoprazole Sodium (Pantoprazole Sodium) 20 Mg Tablet.dr, 20 MG PO DAILY, TAB 01/06/21 Lisinopril (Lisinopril) 20 Mg Tablet, 20 MG PO DAILY, TAB 01/06/21 Sertraline HCl (Sertraline HCl) 50 Mg Tablet, 50 MG PO DAILY, TAB 04/25/18 Clopidogrel Bisulfate (Clopidogrel) 75 Mg Tablet, 75 MG PO DAILY, TAB 04/25/18 Aspirin (Aspirin EC) 81 Mg Tablet.dr, 81 MG PO DAILY, TAB 04/25/18 Discontinued Reported Medications Metoprolol Succinate (Metoprolol Succinate) 25 Mg Tab.er.24h, 25 MG PO DAILY, TAB 05/01/18 Ranitidine HCl (Ranitidine HCl) 150 Mg Tablet, 150 MG PO BID, TAB 05/01/18 Amlodipine Besylate (Amlodipine Besylate) 2.5 Mg Tablet, 2.5 MG PO DAILY, TAB 04/25/18 Ondansetron HCl (Zofran) 4 Mg Tab, 4 MG PO Q4H PRN for NAUSEA/VOMITING-1ST LINE, TAB 04/25/18 Insulin Aspart (Novolog) 100 Unit/1 Ml Susp, SC QID for SLIDING SCALE, EA 150-199 =2 UNITS 200-249 =4 UNITS 250-299 =6 UNITS 300-349 =8 UNITS 350-399 =10 UNITS 400-999 =12 UNITS CALL PCP <60 OR >400 04/25/18 Glyburide (Glyburide) 5 Mg Tablet, 2.5 MG PO BID, TAB TAKES 1/2 (5MG) TABLET 04/25/18 Insulin Determir (Levemir) 1,000 Units/10 Ml Soln, 15 UNITS SQ DAILY, EA 04/25/18 Insulin Determir (Levemir) 1,000 Units/10 Ml Soln, 10 UNITS SQ HS, EA 04/25/18 Acetaminophen (Tylenol) 325 Mg Tablet, 650 MG PO Q4H PRN for PAIN-MILD, TAB TAKES 2 (325MG) TABLETS 04/25/18 Magnesium Hydroxide (Milk of Magnesia) 400 Mg/5 Ml Oral.susp, 30 ML PO DAILY PRN for CONSTIPATION-7TH LINE, ML 04/25/18 Discontinued Scripts Tramadol HCl (Ultram) 50 Mg Tablet, 50 MG PO Q6H PRN for PAIN-MODERATE TO SEVERE, #14 TAB Prov:SHANTE CARPENTER APRN 07/19/18 Hydrocodone Bit/Acetaminophen (LORTAB 5 MG TABLET) 1 Tab Tab, 1 EACH PO Q6H PRN for PAIN-MODERATE MDD 10, #20 TAB 0 Refills Prov:CANELO STEWART MD 05/03/18 Hydrocodone Bit/Acetaminophen (LORTAB 5 MG TABLET) 1 Tab Tab, 1 TAB PO Q6HR PRN for PAIN-MODERATE, #15 TAB Prov:SAMPSON GUTIERREZ DO 05/02/18 Objective Exam Constitutional: [] HEENT: [] Neck: [] Cardiovascular: [] Respiratory: [] Gastrointestinal: [] Genitourinary: [] Skin: [] Back/Spine: [] Extremities: [Pain with motion right hip. Is hard to evaluate her sensation but I do. She has equal sensation to both feet. She can dorsiflex and plantarflex the foot and ankle as well as the toes. No calf swelling or tenderness. She does have some duskiness in the right foot but she has no pulses on Doppler on evaluation in the emergency room either lower extremity from the knee down] Neurologic: [] Psychiatric: [] Hematologic/lymphatic/immunologic: [] Vital Signs Vital Signs Date Time Temp Pulse Resp B/P (MAP) Pulse Ox O2 Delivery O2 Flow Rate FiO2 01/07/21 07:42 93 Nasal Cannula 2.00 01/07/21 06:48 80 01/07/21 04:14 36.4 88 20 158/65 (96) 94 Nasal Cannula 1.50 01/07/21 02:23 94 Nasal Cannula 2.00 01/07/21 01:00 84 01/07/21 00:36 37.0 92 18 122/67 (85) 96 Nasal Cannula 2.50 01/06/21 22:33 95 Nasal Cannula 2.00 01/06/21 20:30 Room Air 2.50 01/06/21 20:00 35.8 88 19 125/71 (89) 96 Nasal Cannula 2.50 01/06/21 19:09 85 01/06/21 19:06 99 Nasal Cannula 5.00 01/06/21 16:00 36.2 89 18 121/69 (86) 96 Nasal Cannula 5.00 01/06/21 14:12 95 Nasal Cannula 5.00 01/06/21 13:51 35.8 83 20 118/65 (82) 92 OxyMask 5.00 01/06/21 13:40 OxyMask 6 01/06/21 13:40 36.4 18 132/72 (92) 93 OxyMask 6 01/06/21 13:31 OxyMask 6 01/06/21 13:30 18 136/65 (88) 93 OxyMask 6 01/06/21 13:25 OxyMask 6 01/06/21 13:20 18 119/64 (82) 93 OxyMask 6 01/06/21 13:10 18 138/60 (86) 93 OxyMask 6 01/06/21 13:09 OxyMask 6 01/06/21 13:02 OxyMask 6 01/06/21 13:00 18 144/63 (90) 94 OxyMask 6 01/06/21 12:57 OxyMask 6 01/06/21 12:53 OxyMask 6 01/06/21 12:50 18 144/63 (90) 93 OxyMask 6 01/06/21 12:43 OxyMask 6 01/06/21 12:40 18 151/62 (91) 94 OxyMask 6 01/06/21 12:35 OxyMask 6 01/06/21 12:30 20 139/58 (85) 95 OxyMask 6 01/06/21 12:27 Nasal Cannula 01/06/21 12:23 37.1 20 143/61 (88) 95 OxyMask 6 01/06/21 12:23 OxyMask 6 I & O 01/07/21 07:00 Intake Total 2020 ml Output Total 950 ml Balance 1070 ml Lab Results Laboratory Tests 01/06/21 10:33: Glucometer 141H 01/06/21 16:35: Glucometer 189H 01/06/21 20:46: Glucometer 164H 01/07/21 05:10: White Blood Count 10.8, Red Blood Count 3.24L, Hemoglobin 9.3#L, Hematocrit 30L, Mean Corpuscular Volume 93, Mean Corpuscular Hemoglobin 29, Mean Corpuscular Hemoglobin Concent 31L, Red Cell Distribution Width 14.8H, Platelet Count 212, Mean Platelet Volume 10.7, Immature Granulocyte % (Auto) 1, Neutrophils (%) (Auto) 80H, Lymphocytes (%) (Auto) 13, Monocytes (%) (Auto) 6, Eosinophils (%) (Auto) 0, Basophils (%) (Auto) 0, Neutrophils # (Auto) 8.6H, Lymphocytes # (Auto) 1.4, Monocytes # (Auto) 0.7, Eosinophils # (Auto) 0.0, Basophils # (Auto) 0.0, Immature Granulocyte # (Auto) 0.1, Sodium Level 142, Potassium Level 4.7, Chloride Level 114H, Carbon Dioxide Level 18L, Anion Gap 10, Blood Urea Nitrogen 26H, Creatinine 1.49H, Estimat Glomerular Filtration Rate 33, BUN/Creatinine Ratio 17, Glucose Level 176H, Calcium Level 8.6, Corrected Calcium 9.3, Total Bilirubin 0.3, Aspartate Amino Transf (AST/SGOT) 16, Alanine Aminotransferase (ALT/SGPT) 13, Alkaline Phosphatase 62, Total Protein 6.5, Albumin 3.1L Microbiology 01/06/21 MRSA Screen - Final, Complete MRSA not isolated 01/05/21 Urine Culture - Preliminary, Resulted Slight Growth Present Assessment and Plan Assessment Doing well first day postop Problem List Unchanged Plan Physical therapy for walker ambulation weightbearing as tolerated on the right. Did talk to her daughter about her vascular disease and lower extremities. She is not aware and has never been told that her mother has vascular issues. She also did not know about her allergies. She was given Rocephin as well as Ancef and had no reaction so she does not have an allergy to cephalexin Final Diagonsis Three-part intertrochanteric fracture right hip status post short TFN Level of the visit: Level 3 DANA AVILA MD Jan 07, 2021 08:57
[2021-01-07] MEDS ORDERED: HYDROmorphone 2 MG/ML VIAL (DILAUDID) IVP PRN (09:30)
[2021-01-07] MEDS ORDERED: WATER (STERILE) FOR INJ 10 ML BTL INJ PRN (09:45)
[2021-01-07] MEDS ORDERED: ZIPRASIDONE 20 MG INJ (GEODON) VIAL IM PRN (09:45)
--- NOTE | 2021-01-07 09:54 | Progress Note - Cardiology ---
Cardiology SOAP Progress Note Subjective: In bed Oriented to self only C/O right hip pain Objective: I&O/Vital Signs 01/06/21 01/07/21 01/07/21 01/07/21 22:33 00:36 01:00 02:23 Temp 37.0 Pulse 92 84 Resp 18 B/P (MAP) 122/67 (85) Pulse Ox 95 96 94 O2 Delivery Nasal Cannula Nasal Cannula Nasal Cannula O2 Flow Rate 2.00 2.50 2.00 01/07/21 01/07/21 01/07/21 01/07/21 04:14 06:48 07:42 08:00 Temp 36.4 36.8 Pulse 88 80 78 Resp 20 16 B/P (MAP) 158/65 (96) 161/71 (101) Pulse Ox 94 93 92 O2 Delivery Nasal Cannula Nasal Cannula Nasal Cannula O2 Flow Rate 1.50 2.00 1.50 01/07/21 00:00 Intake Total 1000 ml Output Total 700 ml Balance 300 ml Weight (Pounds): 147 Weight (Ounces): 6.0 Weight (Calculated Kilograms): [id number] Constitutional: No AAO x 3; other (oriented to self only) Respiratory: No accessory muscle use, No respiratory distress; chest expansion is symmetric, chest is bilaterally symmetric, lungs clear to auscultation Cardiovascular: regular rate-rhythm; No JVD; S1 and S2, systolic murmur Gastrointestional: soft, audible bowel sounds Extremities: no lower extremity edema bilateral Neurologic/Psychiatric: No oriented x 3; other (moves all extremities; right leg in traction - not manipulated) Skin: No rash on exposed areas, No ulcerations on exposed areas Results/Procedures: Labs Laboratory Tests 01/06/21 10:33: Glucometer 141H 01/06/21 16:35: Glucometer 189H 01/06/21 20:46: Glucometer 164H 01/07/21 05:10: White Blood Count 10.8, Red Blood Count 3.24L, Hemoglobin 9.3#L, Hematocrit 30L, Mean Corpuscular Volume 93, Mean Corpuscular Hemoglobin 29, Mean Corpuscular Hemoglobin Concent 31L, Red Cell Distribution Width 14.8H, Platelet Count 212, Mean Platelet Volume 10.7, Immature Granulocyte % (Auto) 1, Neutrophils (%) (Auto) 80H, Lymphocytes (%) (Auto) 13, Monocytes (%) (Auto) 6, Eosinophils (%) (Auto) 0, Basophils (%) (Auto) 0, Neutrophils # (Auto) 8.6H, Lymphocytes # (Auto) 1.4, Monocytes # (Auto) 0.7, Eosinophils # (Auto) 0.0, Basophils # (Auto) 0.0, Immature Granulocyte # (Auto) 0.1, Sodium Level 142, Potassium Level 4.7, Chloride Level 114H, Carbon Dioxide Level 18L, Anion Gap 10, Blood Urea Nitrogen 26H, Creatinine 1.49H, Estimat Glomerular Filtration Rate 33, BUN/Creatinine Ratio 17, Glucose Level 176H, Calcium Level 8.6, Corrected Calcium 9.3, Total Bilirubin 0.3, Aspartate Amino Transf (AST/SGOT) 16, Alanine Aminotransferase (ALT/SGPT) 13, Alkaline Phosphatase 62, Total Protein 6.5, Albumin 3.1L Microbiology 01/06/21 MRSA Screen - Final, Complete MRSA not isolated 01/05/21 Urine Culture - Preliminary, Resulted YEAST Laboratory Tests 01/05/21 18:49 01/06/21 05:00 01/07/21 05:10 A/P: Assessment: S/P non-syncopal fall resulting in right hip fracture - POD #1 - managed by Dr. 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 Mild to mod calcified mitral valve annulus. AoV sclerosis. HTN (per senior care history) DM 2 (per senior care history) Dementia (per senior care history) Plan: Continue current medication regimen Monitor lab closely Replace electrolytes as indicated GREG MUÑOZ Jan 07, 2021 09:54
--- NOTE | 2021-01-07 12:02 | Progress Note - Hospitalist ---
SHEILA CASTILLO MED STUDENT 01/07/21 1202: Subjective HPI/CC On Admission Date Seen by Provider: Jan 07, 2021 Time Seen by Provider: 07:05 CC: Right hip fracture after fall HPI: This is an 85yoWF assisted living at [facility] of Dr. Davila who has a PMH of dementia, DM and chronic UTI who presented after a fall at [facility]. She was found to have a right hip fracture. Dr. Posey is in the midst of getting her cleared to go to surgery. She has a history of multiple stents and CAD and she currently has an active UTI, Rocephin was initiated. Bicarbonate is 17 consistent with chronic metabolic acidosis. CT scan was negative and CXR shows pulmonary congestion. Creatinine is 1.3. Benefits ou tweigh the medical risks due to significant pain issue and it would be prude to proceed on with surgery. Subjective/Events-last exam Patient lying in bed writhing about continuously moaning, groaning, and grimacing. She was unable to verbally respond to any questions. Was pointing and touching area over right hip. Review of Systems General: Other (unable to obtain due to pt. condition) HEENT: Other (unable to obtain due to pt. condition) Cardiovascular: Other (unable to obtain due to pt. condition) Gastrointestinal: Other (unable to obtain due to pt. condition) Genitourinary: Other (unable to obtain due to pt. condition) Musculoskeletal: other (unable to obtain due to pt. condition) Neurological: Other (unable to obtain due to pt. condition) Objective Exam Vital Signs Vital Signs Date Time Temp Pulse Resp B/P (MAP) Pulse Ox O2 Delivery O2 Flow Rate FiO2 01/07/21 10:13 95 Nasal Cannula 2.00 01/07/21 08:00 36.8 78 16 161/71 (101) Capillary Refill : General Appearance: Anxious, Chronically ill, Mild Distress (pt. writhing about, grimacing and moaning) HEENT: PERRL/EOMI, Moist Mucous Membranes, Pale Conjunctivae (L) Neck: Full Range of Motion, Non Tender Respiratory: Chest Non Tender, Lungs Clear, Normal Breath Sounds, No Accessory Muscle Use, No Respiratory Distress Cardiovascular: Regular Rate, Rhythm, No Edema, Other (1+ pedal pulses bilaterally) Gastrointestinal: Normal Bowel Sounds, Non Tender, Soft Rectal: Deferred Back: Normal Inspection, No Vertebral Tenderness Extremity: Normal Capillary Refill, No Calf Tenderness, Other (S/P short TFN right hip. Dressing C/D/I. ) Neurologic/Psychiatric: Disoriented (disorieted to person, place, and time) Skin: Warm/Dry, Pallor Lymphatic: No Adenopathy Results/Procedures Lab Laboratory Tests 01/07/21 05:10 Patient resulted labs reviewed. Assessment/Plan Assessment and Plan Assess & Plan/Chief Complaint S/P non-syncopal fall -fall precautions Right 3 part intertrochanteric femur fx -POD #1 s/p right short TFN repair -dressing c/d/i -ortho following -pain management UTI -receiving rocephin AMS -probably related to anesthesia, UTI, and narcotics -likely delirium Anemia -hgb 8.7 today -continue to monitor -ebl in OR of 150ml GI ppx -protonix DVT ppx -lovenox IDDM -accuchecks achs, SSI CAD -cardiology consulted HTN -monitor HLP -monitor Dementia -reorient frequently -fall precautions NURIA GUTIERREZ DO 01/07/217: Subjective Subjective/Events-last exam Daughter at the bedside who is DPOA Had multiple questions for me and I answered all to the best of my ability Creatinine 1.49 Hgb 9.3 Has a lot of pain, I changed her pain medication to Dilaudid and gave her Geodon 10 mg IM Urine culture pending Rocephin maintained Social work consult for retirement placement at [facility] where she was in 2018 Review of Systems Neurological: Confusion Objective Exam General Appearance: No Apparent Distress, Anxious, Chronically ill, Mild Distress (pt. writhing about, grimacing and moaning) Respiratory: Lungs Clear Cardiovascular: Regular Rate, Rhythm Neurologic/Psychiatric: Disoriented (disorieted to person, place, and time) Assessment/Plan Assessment and Plan Assess & Plan/Chief Complaint Supportive care Await delirium clearance Via [facility] for skilled Supervisory-Addendum Brief Verification & Attestation Participated in pt care: history, MDM, physical Personally performed: exam, history, MDM, supervision of care Care discussed with: Medical Student Procedures: n/a Results interpretation: Verified all documentation Verification and Attestation of Medical Student E/M Service A medical student performed and documented this service in my presence. I reviewed and verified all information documented by the medical student and made modifications to such information, when appropriate. I personally performed the physical exam and medical decision making. Nuria Gutierrez, Jan 07, 2021,21:46 SHEILA CASTILLO MED STUDENT Jan 07, 2021 12:02 NURIA GUTIERREZ DO Jan 07, 2021 21:47
[2021-01-07] MEDS: FLUCONAZOLE 100 MG/50 ML IVPB IV SCH ×2 (13:00)
--- NOTE | 2021-01-07 13:37 | Physical Therapy Evaluation ---
PT Evaluation-General Medical Diagnosis Admission Date Jan 05, 2021 at 21:20 Medical Diagnosis: TFN right hip Onset Date: Jan 06, 2021 Therapy Diagnosis Therapy Diagnosis: impaired mobility, strength, endurance, ROM Height/Weight Height (Feet): 5 Height (Inches): 3.00 Weight (Pounds): 147 Weight (Ounces): 6.0 Precautions Precautions/Isolations: Fall Prevention, Standard Precautions Weight Bear Status Right Lower Extremity: Right Weight Bearing/Tolerated Left Lower Extremity: Left Full Weight Bearing Referral Physician: Kalpesh Reason for Referral: Evaluation/Treatment Medical History Additional Medical History Past Medical History Surgeries: Cardiac, Coronary Stent Coronary Artery Disease, High Cholesterol, Hypertension, Irregular Heartbeat, Palpitations Dementia, Stroke, TIA Renal Failure, UTI-Chronic Arthritis Diabetes, Insulin dep Blood Disorders: No Dementia HTN IDDM Bradycardia 2/2 heart block, patient declined pacemaker Current History patient had a 3 part intertrochanteric right hip fx Reviewed History: Yes Social History Home: Assisted Living Entry Into Home: Level Entry Daughter in room provides info Prior Prior Level of Function SCALE: Activities may be completed with or without assistive devices. 1-Jqwbltvsgn-gnzttkp completes the activity by him/herself with no assistance from a helper. 5-Set-up or Clean-up Assistance-helper sets up or cleans up; patient completes activity. Harleigh assists only prior to or following the activity. 4-Supervision or Touching Assistance-helper provides verbal cues and/or touching/steadying and/or contact guard assistance as patient completes activity. Assistance may be provided throughout the activity or intermittently. 3-Partial/Moderate Assistance-helper does LESS THAN HALF the effort. Harleigh lifts, holds or supports trunk or limbs, but provides less than half the effort. 2-Substantial/Maximal Assistance-helper does MORE THAN HALF the effort. Harleigh lifts or holds trunk or limbs and provides more than half the effort. 0-Wdbrldueu-becnab does ALL the effort. Patient does none of the effort to complete the activity. Or, the assistance of 2 or more helpers is required for the patient to complete the activity. If activity was not attempted, code reason: 7-Patient Refused. 9-Not Applicable-not attempted and the patient did not perform the activity before the current illness, exacerbation or injury. 10-Not Attempted due to Environmental Limitations-(lack of equipment, weather restraints, etc.). 88-Not Attempted due to Medical Conditions or Safety Concerns. Prior Devices Use: Walker PT Evaluation-Current Subjective Patient in bed pre tx, doesn't open eyes or communicate in any way, she does grimace with pain during ROM. Daughter in room provides some info. She has been thrashing around in bed previously and apparently medicated now. Patient doesn't wake up or open eyes all through eval. Pt/Family Goals none stated Objective Patient Orientation: Unable to Assess Attachments: Oxygen, Cal[place]oun Catheter, IV ROM/Strength ROM Lower Extremities RLE limited due to pain Treatment RLE PROM, minimal ROM, hip flexion, knee flexion, dorsiflexion, hip abd. Patient encouraged to participate but she doesn't. Assessment/Needs Patient in bed post tx with nurse call, phone, tray, all needs met, daughter in room. Patient has impaired mobility, strength, endurance, ROM. Patient doesn't wake up or participate. Rehab Potential: Guarded PT Intermediate Goals Compass Operator Goals PT Compass Operator Goals Time Frame: Jan 14, 2021 Roll Left & Right (QC): 3 Sit to Lying (QC): 2 Lying-Sitting on Side/Bed(QC): 2 Sit to Stand (QC): 2 Chair/Uqh-qw-Vtuuw Xfer(QC): 2 PT Plan Problem List Problem List: Activity Tolerance, Functional Strength, Safety, Balance, Gait, Transfer, Bed Mobility, ROM Treatment/Plan Treatment Plan: Continue Plan of Care Treatment Plan: Bed Mobility, Education, Functional Activity Alexsandra, Functional Strength, Gait, Safety, Therapeutic Exercise, Transfers Treatment Duration: Jan 14, 2021 Frequency: 11 times per week Estimated Hrs Per Day: .25 hour per day Patient and/or Family Agrees t: Yes Safety Risks/Education Patient Education: Correct Positioning, Safety Issues Teaching Recipient: Patient Teaching Methods: Demonstration, Discussion Response to Teaching: Unable to Comprehend Discharge Recommendations Plan Patient will perform bed mobility and transfer training, balance and endurance training, functional strengthening, stair training, gait training, and education, to improve functional mobility and independence at home. Therapy Discharge Recommendati: 24 Hour Supervision, Post Acute PT Time/GCodes Time In: 1318 Time Out: 1328 Total Billed Treatment Time: 10 Total Billed Treatment 1 visit EVM 10' JUDD MAHAJAN PT Jan 07, 2021 13:37
--- NOTE | 2021-01-07 14:23 | Occ Therapy Progress Note ---
Therapy Progress Note OT orders received and chart reviewed. OT attempted tx at 0950 and 1415. Pt agitated and thrashing in the morning, unable to tolerate therapy at that time. In afternoon, pt lethargic and would not open eyes or respond to questions or her name, nor would she awaken with sternal rub. OT will attempt evaluation tomorrow, as pt is unable to participate in skilled therapy on this date. 1, visit ISIDORO MINA OT Jan 07, 2021 14:23
--- NOTE | 2021-01-07 17:46 | Progress Note - Cardiology ---
Cardiology SOAP Progress Note Subjective: Confused. Not able to provide any history. One of her daughters who is by her bedside reports a remote h/o CABG and cor stenting but does not know any details and thinks that the last cor intervention was many years ago and that all interventions have been in [place], [place] Objective: I&O/Vital Signs 01/07/21 01/07/21 01/07/21 01/07/21 06:48 07:42 08:00 08:00 Temp 36.8 Pulse 80 78 Resp 16 B/P (MAP) 161/71 (101) Pulse Ox 93 92 96 O2 Delivery Nasal Cannula Nasal Cannula Room Air O2 Flow Rate 2.00 1.50 3.00 01/07/21 01/07/21 01/07/21 01/07/21 10:13 12:00 13:27 14:32 Temp 37.0 Pulse 104 79 Resp 20 B/P (MAP) 161/77 (105) Pulse Ox 95 93 95 O2 Delivery Nasal Cannula Nasal Cannula Nasal Cannula O2 Flow Rate 2.00 1.50 3.00 01/07/21 15:45 Temp 37.0 Pulse 89 Resp 20 B/P (MAP) 155/72 (99) Pulse Ox 96 O2 Delivery Nasal Cannula O2 Flow Rate 1.50 01/07/21 00:00 Intake Total 1000 ml Output Total 700 ml Balance 300 ml Weight (Pounds): 147 Weight (Ounces): 6.0 Weight (Calculated Kilograms): 66.201697 Constitutional: No AAO x 3; other (oriented to self only) Respiratory: No accessory muscle use, No respiratory distress; chest expansion is symmetric, chest is bilaterally symmetric, lungs clear to auscultation Cardiovascular: regular rate-rhythm; No JVD; S1 and S2, systolic murmur Gastrointestional: soft, audible bowel sounds Extremities: no lower extremity edema bilateral Neurologic/Psychiatric: No oriented x 3; other (moves all extremities; right leg in traction - not manipulated) Skin: No rash on exposed areas, No ulcerations on exposed areas Results/Procedures: Labs Laboratory Tests 01/06/21 20:46: Glucometer 164H 01/07/21 05:10: White Blood Count 10.8, Red Blood Count 3.24L, Hemoglobin 9.3#L, Hematocrit 30L, Mean Corpuscular Volume 93, Mean Corpuscular Hemoglobin 29, Mean Corpuscular Hemoglobin Concent 31L, Red Cell Distribution Width 14.8H, Platelet Count 212, Mean Platelet Volume 10.7, Immature Granulocyte % (Auto) 1, Neutrophils (%) (Auto) 80H, Lymphocytes (%) (Auto) 13, Monocytes (%) (Auto) 6, Eosinophils (%) (Auto) 0, Basophils (%) (Auto) 0, Neutrophils # (Auto) 8.6H, Lymphocytes # (Auto) 1.4, Monocytes # (Auto) 0.7, Eosinophils # (Auto) 0.0, Basophils # (Auto) 0.0, Immature Granulocyte # (Auto) 0.1, Sodium Level 142, Potassium Level 4.7, Chloride Level 114H, Carbon Dioxide Level 18L, Anion Gap 10, Blood Urea Nitrogen 26H, Creatinine 1.49H, Estimat Glomerular Filtration Rate 33, BUN/Creatinine Ratio 17, Glucose Level 176H, Calcium Level 8.6, Corrected Calcium 9.3, Total Bilirubin 0.3, Aspartate Amino Transf (AST/SGOT) 16, Alanine Aminotransferase (ALT/SGPT) 13, Alkaline Phosphatase 62, Total Protein 6.5, Albumin 3.1L 01/07/21 10:56: Glucometer 142H 01/07/21 15:49: Glucometer 125H Microbiology 01/06/21 MRSA Screen - Final, Complete MRSA not isolated 01/05/21 Urine Culture - Preliminary, Resulted YEAST Laboratory Tests 01/05/21 18:49 01/06/21 05:00 01/07/21 05:10 A/P: Assessment: S/P non-syncopal fall resulting in right hip fracture - POD #1 - managed by Dr. 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 Mild to mod calcified mitral valve annulus. AoV sclerosis. HTN (per half-way history) DM 2 (per half-way history) Dementia (per half-way history) Plan: Add low-dose ASA Monitor lab closely Replace electrolytes as indicated JOSSELYN SARKAR MD [facility] Jan 07, 2021 17:46
[2021-01-07] MEDS: cefTRIAXone 1,000 MG/SWFI 10 ML IV PUSH IV SCH ×2 (20:47)
[2021-01-07] MEDS: ENOXAPARIN 30 MG/0.3 ML (LOVENOX) SYR SC SCH (22:20)
[2021-01-08 03:58] VITALS: BP 160/74
[2021-01-08] MEDS: fentaNYL INJ 100 MCG/2 ML AMP IVP PRN ×4 (05:08→20:48)
[2021-01-08 05:49] LABS: BASOPHILS % (AUTO) 0 % (0-10); EOSINOPHILS % (AUTO) 0 % (0-10); HEMATOCRIT 27 % (35-52); HEMOGLOBIN 8.2 g/dL (11.5-16.0); LYMPHOCYTES # (AUTO) 1.1 10^3/uL (1.0-4.0); LYMPHOCYTES % (AUTO) 11 % (12-44); MEAN CORPUSCULAR HEMOGLOBIN 28 pg (25-34); MEAN CORPUSCULAR HGB CONC 31 g/dL (32-36); MEAN CORPUSCULAR VOLUME 91 fL (80-99); MEAN PLATELET VOLUME 10.9 fL (9.0-12.2); MONOCYTES # (AUTO) 0.6 10^3/uL (0.0-1.0); MONOCYTES % (AUTO) 6 % (0-12); NEUTROPHILS # (AUTO) 8.1 10^3/uL (1.8-7.8); NEUTROPHILS % (AUTO) 82 % (42-75); PLATELET COUNT 205 10^3/uL (130-400)
[2021-01-08 05:59] LABS: POTASSIUM 4.1 MMOL/L (3.6-5.0)
[2021-01-08 06:01] LABS: CALCIUM 8.7 MG/DL (8.5-10.1)
[2021-01-08 06:02] LABS: TOTAL PROTEIN 6.3 GM/DL (6.4-8.2)
[2021-01-08 06:04] LABS: BILIRUBIN,TOTAL 0.3 MG/DL (0.1-1.0)
[2021-01-08 06:05] LABS: CREATININE SERUM 1.11 MG/DL (0.60-1.30)
[2021-01-08] MEDS: inSUlin ASPART (NovoLOG) 1 UNIT/0.01 ML (CHARGE PER UNIT) SC SCH ×4 (06:38→21:03)
[2021-01-08] MEDS: PANTOPRAZOLE 20 MG TABLET (PROTONIX) PO SCH (06:39)
[2021-01-08] MEDS: LACTATED RINGERS 1,000 ML IV SCH ×2 (07:25→16:28)
[2021-01-08 08:09] VITALS: BP 213/95
[2021-01-08] MEDS ORDERED: ASPIRIN 81 MG CHEW (CHILDREN'S ASA) PO SCH (09:00)
[2021-01-08] MEDS: NITROGLYCERIN 2% OINT 1 GM UNIT DOSE PACKET TOP SCH ×3 (09:07→17:05)
[2021-01-08] MEDS: SERTRALINE 50 MG (ZOLOFT) TABLET PO SCH ×2 (09:07→21:03)
[2021-01-08] MEDS: meTOprolol 5 MG/5 ML (LOPRESSOR) VIAL IV SCH ×3 (09:07→17:05)
[2021-01-08] MEDS: ENOXAPARIN 30 MG/0.3 ML (LOVENOX) SYR SC SCH (09:07)
[2021-01-08] MEDS: FLUCONAZOLE 100 MG/50 ML IVPB IV SCH ×2 (09:37)
--- NOTE | 2021-01-08 09:52 | Physical Therapy Daily Note ---
PT Daily Note-Current Subjective Patient yelling. Per RN, BP is elevated on this date. Pain Numeric Pain Scale: 10-Worst Possible Pain Location: Right Location Body Site: Hip Pain Description: Acute Comment: FLACC Mental Status Patient Orientation: Confused (unable to follow simple direction) Transfers SCALE: Activities may be completed with or without assistive devices. 3-Sqlmiafglz-aibogoa completes the activity by him/herself with no assistance from a helper. 5-Set-up or Clean-up Assistance-helper sets up or cleans up; patient completes activity. Bland assists only prior to or following the activity. 4-Supervision or Touching Assistance-helper provides verbal cues and/or touching/steadying and/or contact guard assistance as patient completes activity. Assistance may be provided throughout the activity or intermittently. 3-Partial/Moderate Assistance-helper does LESS THAN HALF the effort. Bland lifts, holds or supports trunk or limbs, but provides less than half the effort. 2-Substantial/Maximal Assistance-helper does MORE THAN HALF the effort. Bland lifts or holds trunk or limbs and provides more than half the effort. 7-Pwtegkzke-pttxhj does ALL the effort. Patient does none of the effort to complete the activity. Or, the assistance of 2 or more helpers is required for the patient to complete the activity. If activity was not attempted, code reason: 7-Patient Refused. 9-Not Applicable-not attempted and the patient did not perform the activity before the current illness, exacerbation or injury. 10-Not Attempted due to Environmental Limitations-(lack of equipment, weather restraints, etc.). 88-Not Attempted due to Medical Conditions or Safety Concerns. Sit to Lying (QC): 1 (x 2) Lying to Sitting/Side of Bed(Q: 1 (x 2) Sit to Stand (QC): 88 Chair/Urh-vc-Unpxt Xfer(QC): 88 Weight Bearing Right Lower Extremity: Right Weight Bearing/Tolerated Left Lower Extremity: Left Full Weight Bearing Exercises Supine Ex: Ankle pumps, Heel Slides Supine Reps: 12 (PROM bilaterally) Seated Therapy Exercises: Long arc quads Seated Reps: 12 (AAROM ) Assessment Current Status: Poor Progress Patient unable to follow simple direction and sat EOB x 5 min with mod assist to maintain. Patient yelling during session. Due to patient's dementia and inab ility to follow simple direction, PT to decrease frequency to 6/wk. RN notified. PT Assistant Professor Of Radiology Goals Assistant Professor Of Radiology Goals PT Assistant Professor Of Radiology Goals Time Frame: Jan 14, 2021 Roll Left & Right (QC): 3 Sit to Lying (QC): 2 Lying-Sitting on Side/Bed(QC): 2 Sit to Stand (QC): 2 Chair/Sca-oe-Odmbj Xfer(QC): 2 PT Plan Treatment/Plan Treatment Plan: Continue Plan of Care Treatment Plan: Bed Mobility, Education, Functional Activity Alexsandra, Functional Strength, Gait, Safety, Therapeutic Exercise, Transfers Treatment Duration: Jan 14, 2021 Frequency: 11 times per week Estimated Hrs Per Day: .25 hour per day Patient and/or Family Agrees t: Yes Time/GCodes Time In: 850 Time Out: 859 Total Billed Treatment Time: 9 Total Billed Treatment 1 visit EX 9 min TANVIR VIEIRA PT Jan 08, 2021 09:52
--- NOTE | 2021-01-08 09:52 | Progress Note - Ortho ---
Progress Note Subjective Date of Exam 01/08/21 Chief Complaint POD#2 Short TFN right hip for a 3 part intertrochanteric fracture HPI/Events since last exam Mrs Morocho Is 2 days postop short TFN right hip for a 3 part intertrochanteric fracture. She remains confused. She does answer some questions appropriately though. Does not sound like she has been up ambulating yet Review of Systems Reviewed and no additions or changes Allergies: Coded Allergies: cephalexin (Verified Allergy, Unknown, 02/03/18) metformin (Verified Allergy, Unknown, 02/03/18) sitagliptin (Verified Allergy, Unknown, 02/03/18) sulfamethoxazole (Verified Allergy, Unknown, 02/03/18) trimethoprim (Verified Allergy, Unknown, 02/03/18) Home Meds Reported Medications Insulin Degludec (Tresiba Flextouch U-100) 100 Unit/1 Ml Insuln.pen, 38 UNITS SC HS, UNITS 01/06/21 Empagliflozin (Jardiance) 25 Mg Tablet, 25 MG PO DAILY, TAB 01/06/21 Sertraline HCl (Sertraline HCl) 25 Mg Tablet, 25 MG PO HS, TAB 01/06/21 Oxybutynin Chloride (Oxybutynin Chloride ER) 10 Mg Tab.er.24, 10 MG PO DAILY, TAB 01/06/21 Pantoprazole Sodium (Pantoprazole Sodium) 20 Mg Tablet.dr, 20 MG PO DAILY, TAB 01/06/21 Lisinopril (Lisinopril) 20 Mg Tablet, 20 MG PO DAILY, TAB 01/06/21 Sertraline HCl (Sertraline HCl) 50 Mg Tablet, 50 MG PO DAILY, TAB 04/25/18 Clopidogrel Bisulfate (Clopidogrel) 75 Mg Tablet, 75 MG PO DAILY, TAB 04/25/18 Aspirin (Aspirin EC) 81 Mg Tablet.dr, 81 MG PO DAILY, TAB 04/25/18 Discontinued Reported Medications Metoprolol Succinate (Metoprolol Succinate) 25 Mg Tab.er.24h, 25 MG PO DAILY, TAB 05/01/18 Ranitidine HCl (Ranitidine HCl) 150 Mg Tablet, 150 MG PO BID, TAB 05/01/18 Amlodipine Besylate (Amlodipine Besylate) 2.5 Mg Tablet, 2.5 MG PO DAILY, TAB 04/25/18 Ondansetron HCl (Zofran) 4 Mg Tab, 4 MG PO Q4H PRN for NAUSEA/VOMITING-1ST LINE, TAB 04/25/18 Insulin Aspart (Novolog) 100 Unit/1 Ml Susp, SC QID for SLIDING SCALE, EA 150-199 =2 UNITS 200-249 =4 UNITS 250-299 =6 UNITS 300-349 =8 UNITS 350-399 =10 UNITS 400-999 =12 UNITS CALL PCP <60 OR >400 04/25/18 Glyburide (Glyburide) 5 Mg Tablet, 2.5 MG PO BID, TAB TAKES 1/2 (5MG) TABLET 04/25/18 Insulin Determir (Levemir) 1,000 Units/10 Ml Soln, 15 UNITS SQ DAILY, EA 04/25/18 Insulin Determir (Levemir) 1,000 Units/10 Ml Soln, 10 UNITS SQ HS, EA 04/25/18 Acetaminophen (Tylenol) 325 Mg Tablet, 650 MG PO Q4H PRN for PAIN-MILD, TAB TAKES 2 (325MG) TABLETS 04/25/18 Magnesium Hydroxide (Milk of Magnesia) 400 Mg/5 Ml Oral.susp, 30 ML PO DAILY PRN for CONSTIPATION-7TH LINE, ML 04/25/18 Discontinued Scripts Tramadol HCl (Ultram) 50 Mg Tablet, 50 MG PO Q6H PRN for PAIN-MODERATE TO SEVERE, #14 TAB Prov:SHANTE CARPENTER APRN 07/19/18 Hydrocodone Bit/Acetaminophen (LORTAB 5 MG TABLET) 1 Tab Tab, 1 EACH PO Q6H PRN for PAIN-MODERATE MDD 10, #20 TAB 0 Refills Prov:CANELO STEWART MD 05/03/18 Hydrocodone Bit/Acetaminophen (LORTAB 5 MG TABLET) 1 Tab Tab, 1 TAB PO Q6HR PRN for PAIN-MODERATE, #15 TAB Prov:SAMPSON GUTIERREZ DO 05/02/18 Objective Exam Constitutional: [] HEENT: [] Neck: [] Cardiovascular: [] Respiratory: [] Gastrointestinal: [] Genitourinary: [] Skin: [] Back/Spine: [] Extremities: [Her dressing was removed and incisions look good without redness or drainage. Some mild swelling and bruising. No calf swelling or tenderness. It appears that she has normal sensation to her feet but the patient really did not respond. Again no pulses.This is unchanged from preop] Neurologic: [] Psychiatric: [] Hematologic/lymphatic/immunologic: [] Vital Signs Vital Signs Date Time Temp Pulse Resp B/P (MAP) Pulse Ox O2 Delivery O2 Flow Rate FiO2 01/08/21 08:09 36.7 118 20 213/95 (134) 96 Nasal Cannula 3.00 01/08/21 07:01 98 Nasal Cannula 3.00 01/08/21 07:00 107 01/08/21 03:58 36.8 107 20 160/74 (102) 97 Nasal Cannula 3.00 01/08/21 02:15 96 3.00 01/08/21 01:00 107 01/07/21 23:38 36.7 101 20 146/65 (92) 94 Nasal Cannula 3.00 01/07/21 22:17 95 3.00 01/07/21 20:45 Room Air 3.00 01/07/21 19:36 36.7 107 20 175/79 (111) 95 Nasal Cannula 1.50 01/07/21 15:45 37.0 89 20 155/72 (99) 96 Nasal Cannula 1.50 01/07/21 14:32 95 Nasal Cannula 3.00 01/07/21 13:27 79 01/07/21 12:00 37.0 104 20 161/77 (105) 93 Nasal Cannula 1.50 01/07/21 10:13 95 Nasal Cannula 2.00 I & O 01/08/21 07:00 Intake Total 100 ml Output Total 2425 ml Balance -2325 ml Lab Results Laboratory Tests 01/07/21 10:56: Glucometer 142H 01/07/21 15:49: Glucometer 125H 01/07/21 20:46: Glucometer 132H 01/08/21 05:34: White Blood Count 10.0, Red Blood Count 2.91L, Hemoglobin 8.2L, Hematocrit 27L, Mean Corpuscular Volume 91, Mean Corpuscular Hemoglobin 28, Mean Corpuscular H emoglobin Concent 31L, Red Cell Distribution Width 14.6H, Platelet Count 205, Mean Platelet Volume 10.9, Immature Granulocyte % (Auto) 1, Neutrophils (%) (Auto) 82H, Lymphocytes (%) (Auto) 11L, Monocytes (%) (Auto) 6, Eosinophils (%) (Auto) 0, Basophils (%) (Auto) 0, Neutrophils # (Auto) 8.1H, Lymphocytes # (Auto) 1.1, Monocytes # (Auto) 0.6, Eosinophils # (Auto) 0.0, Basophils # (Auto) 0.0, Immature Granulocyte # (Auto) 0.1, Sodium Level 142, Potassium Level 4.1, Chloride Level 110H, Carbon Dioxide Level 20L, Anion Gap 12, Blood Urea Nitrogen 24H, Creatinine 1.11, Estimat Glomerular Filtration Rate 47, BUN/Creatinine Ratio 22, Glucose Level 140H, Calcium Level 8.7, Corrected Calcium 9.5, Total Bilirubin 0.3, Aspartate Amino Transf (AST/SGOT) 21, Alanine Aminotransferase (ALT/SGPT) 9, Alkaline Phosphatase 61, Total Protein 6.3L, Albumin 3.0L 01/08/21 09:32: Microbiology 01/06/21 MRSA Screen - Final, Complete MRSA not isolated 01/05/21 Urine Culture - Preliminary, Resulted YEAST Assessment and Plan Assessment Doing well postop day #2 but probably not a good rehab candidate. She may be able to walk short distances with a walker but for now it is basically bed to chair Problem List Unchanged Plan Continue attempted ambulation weightbearing as tolerated on the right.If she is not a good candidate for ambulation/rehab from my point of view she can probably [facility] to the [facility] tomorrow Final Diagonsis Three-part intertrochanteric fracture right hip status post short TFN Level of the visit: Level 3 Focused Exam Lactate Level 01/08/21 09:32: Lactic Acid Level Laboratory Tests Test 01/08/21 09:32 DANA AVILA MD Jan 08, 2021 09:52
[2021-01-08 11:17] VITALS: BP 154/69
--- NOTE | 2021-01-08 13:15 | Progress Note - Cardiology ---
Cardiology SOAP Progress Note Subjective: Not able to provide any history Objective: I&O/Vital Signs 01/08/21 01/08/21 01/08/21 01/08/21 02:15 03:58 07:00 07:01 Temp 36.8 Pulse 107 107 Resp 20 B/P (MAP) 160/74 (102) Pulse Ox 96 97 98 O2 Delivery Nasal Cannula Nasal Cannula O2 Flow Rate 3.00 3.00 3.00 01/08/21 01/08/21 01/08/21 01/08/21 08:00 08:09 10:42 11:17 Temp 36.7 37.2 Pulse 118 96 Resp 20 20 B/P (MAP) 213/95 (134) 154/69 (97) Pulse Ox 92 96 93 93 O2 Delivery Nasal Cannula Nasal Cannula Nasal Cannula Nasal Cannula O2 Flow Rate 1.00 3.00 3.00 1.00 01/08/21 13:00 Pulse 93 01/08/21 00:00 Intake Total 100 ml Output Total 1525 ml Balance -1425 ml Weight (Pounds): 147 Weight (Ounces): 6.0 Weight (Calculated Kilograms): 66.617403 Constitutional: No AAO x 3; other (confused, agitated from time to time, verbally non-responsive) Respiratory: No accessory muscle use, No respiratory distress; chest expansion is symmetric, chest is bilaterally symmetric, lungs clear to auscultation Cardiovascular: regular rate-rhythm; No JVD; S1 and S2, systolic murmur Gastrointestional: soft, audible bowel sounds Extremities: no lower extremity edema bilateral Neurologic/Psychiatric: No oriented x 3; other (moves all extremities; right leg in traction - not manipulated) Skin: No rash on exposed areas, No ulcerations on exposed areas Results/Procedures: Labs Laboratory Tests 01/07/21 15:49: Glucometer 125H 01/07/21 20:46: Glucometer 132H 01/08/21 05:34: White Blood Count 10.0, Red Blood Count 2.91L, Hemoglobin 8.2L, Hematocrit 27L, Mean Corpuscular Volume 91, Mean Corpuscular Hemoglobin 28, Mean Corpuscular Hemoglobin Concent 31L, Red Cell Distribution Width 14.6H, Platelet Count 205, Mean Platelet Volume 10.9, Immature Granulocyte % (Auto) 1, Neutrophils (%) (Auto) 82H, Lymphocytes (%) (Auto) 11L, Monocytes (%) (Auto) 6, Eosinophils (%) (Auto) 0, Basophils (%) (Auto) 0, Neutrophils # (Auto) 8.1H, Lymphocytes # (Auto) 1.1, Monocytes # (Auto) 0.6, Eosinophils # (Auto) 0.0, Basophils # (Auto) 0.0, Immature Granulocyte # (Auto) 0.1, Sodium Level 142, Potassium Level 4.1, Chloride Level 110H, Carbon Dioxide Level 20L, Anion Gap 12, Blood Urea Nitrogen 24H, Creatinine 1.11, Estimat Glomerular Filtration Rate 47, BUN/Creatinine Ratio 22, Glucose Level 140H, Calcium Level 8.7, Corrected Calcium 9.5, Total Bilirubin 0.3, Aspartate Amino Transf (AST/SGOT) 21, Alanine Aminotransferase (ALT/SGPT) 9, Alkaline Phosphatase 61, Total Protein 6.3L, Albumin 3.0L 01/08/21 09:32: Lactic Acid Level 1.26 01/08/21 11:23: Glucometer 128H Microbiology 01/06/21 MRSA Screen - Final, Complete MRSA not isolated 01/05/21 Urine Culture - Preliminary, Resulted YEAST Laboratory Tests 01/07/21 05:10 01/08/21 05:34 A/P: Assessment: S/P non-syncopal fall resulting in right hip fracture - POD #1 - managed by Dr. 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 Mild to mod calcified mitral valve annulus. AoV sclerosis. HTN DM 2 (per residential history) Dementia (per residential history) Plan: Agitation likely contributing to hypertension Does not appear to be able to take oral meds iv bb for bp Add low-dose ASA when able to take Monitor lab closely Replace electrolytes as indicated JOSSELYN SARKAR MD [facility] Jan 08, 2021 13:15
--- NOTE | 2021-01-08 14:10 | Occupational Therapy Eval ---
OT Evaluation-General/PLF Medical Diagnosis Admission Date Jan 05, 2021 at 21:20 Medical Diagnosis: TFN right hip Onset Date: Jan 06, 2021 Therapy Diagnosis Therapy Diagnosis: decreased ADL status Height/Weight Height (Feet): 5 Height (Inches): 3.00 Weight (Pounds): 147 Weight (Ounces): 6.0 Precautions Precautions/Isolations: Fall Prevention, Standard Precautions Referral Physician: Kalpesh Referral Reason: Evaluation/Treatment Medical History Pertinent Medical History: Arthritis, CAD, CVA, DM, Dementia, HTN, Renal Insufficiency Additional Medical History hypercholesterol, TIA, irregular heartbeat, palpitations Current History Presents with R hip fx after fall, s/p R short TFN 01/06/21 Social History Home: Assisted Living Entry Into Home: Level Entry ADL-Prior Level of Function SCALE: Activities may be completed with or without assistive devices. 2-Cozcefbxai-tcxrmwp completes the activity by him/herself with no assistance from a helper. 5-Set-up or Clean-up Assistance-helper sets up or cleans up; patient completes activity. [place] assists only prior to or following the activity. 4-Supervision or Touching Assistance-helper provides verbal cues and/or touching/steadying and/or contact guard assistance as patient completes activity. Assistance may be provided throughout the activity or intermittently. 3-Partial/Moderate Assistance-helper does LESS THAN HALF the effort. [place] lifts, holds or supports trunk or limbs, but provides less than half the effort. 2-Substantial/Maximal Assistance-helper does MORE THAN HALF the effort. [place] lifts or holds trunk or limbs and provides more than half the effort. 9-Rlpbdxpvt-rxpcbf does ALL the effort. Patient does none of the effort to complete the activity. Or, the assistance of 2 or more helpers is required for the patient to complete the activity. If activity was not attempted, code reason: 7-Patient Refused. 9-Not Applicable-not attempted and the patient did not perform the activity before the current illness, exacerbation or injury. 10-Not Attempted due to Environmental Limitations-(lack of equipment, weather restraints, etc.). 88-Not Attempted due to Medical Conditions or Safety Concerns. ADL PLOF Comments Pt independent with ADLs and functional mobility a PLOF. Able to toilet, dress and bathe self independently. Self Care: Independent Functional Cognition: Independent OT Current Status Subjective Pt laying in bed, daughter present. Pt's daughter states pt to discharge to [facility] tomorrow. Mental Status/Objective Patient Orientation: Person, Confused Attachments: Calhoun Catheter, Oxygen Current Hand Dominance: Right Upper Extremity ROM decreased, pt unable to follow instructions for formal testing Upper Extremity Coordination decreased due to difficulty following instructions Upper Extremity Strength decreased, unable to formally test due to difficulty following instructions. ADL-Treatment Eating (QC): 2 (Max A with eating. ) Oral Hygiene (QC): 2 (based on clincial judgment) Shower/Bathe Self (QC): 1 (based on clincial judgment) Lower Body Dressing (QC): 1 (based on clincial judgment) On/Off Footwear (QC): 1 (based on clincial judgment) Toileting Hygiene (QC): 1 (Pt has catheter, based on clincial judgment total assist with hygiene and clothing management) Other Treatments Pt laying in bed, lunch tray just arrived. OT obtained PLOF information from pt's daughter. Pt able to drink from straw when OT held cup to pt's mouth. Pt agreeable to eating ice cream, OT attempted to place spoon in pt's hand but she made no attempts of holding spoon. OT provided hand over hand assistance for holding spoon and bringing R hand to mouth in order to eat ice cream from spoon. Pt able to close lips around spoon to eat the ice cream. Pt ate a couple bites of ice cream and drank ~1/3 of glucerna with max A. Assist x2 to scoot pt towards HOB and position towards R side lying. Post tx, pt laying in bed, call light in reach and all needs met. Education OT Patient Education: Correct positioning, Modified ADL techniques, Progress toward Goal/Update tx plan, Purpose of tx/functional activities, Rehab process Teaching Recipient: Patient Teaching Methods: Discussion Response to Teaching: Reinforcement Needed OT Fdc Goals Fdc Goals Time Frame: Jan 16, 2021 Eating (QC): 4 Oral Hygiene (QC): 4 Toileting Hygiene (QC): 2 Shower/Bathe Self (QC): 2 Upper Body Dressing (QC): 5 Lower Body Dressing (QC): 2 On/Off Footwear (QC): 2 1=Demonstrate adherence to instructed precautions during ADL tasks. 2=Patient will verbalize/demonstrate understanding of assistive devices/modifications for ADL. 3=Patient will improve strength/tolerance for activity to enable patient to perf orm ADL's. OT Education/Plan Problem List/Assessment Assessment: Decreased Activ Tolerance, Decreased Safety Aware, Decreased UE Strength, Impaired Bed Mobility, Impaired Cognition, Impaired Coordination, Impaired Funct Balance, Impaired I ADL's, Impaired Self-Care Skills, Restricted Funct UE ROM Discharge Recommendations Plan/Recommendations: Continue POC Treatment Plan/Plan of Care Patient would benefit from OT for education, treatment and training to promote independence in ADL's, mobility, safety and/or upper extremity function for ADL's. Plan of Care: ADL Retraining, Functional Mobility, UE Funct Exercise/Act Treatment Duration: Jan 16, 2021 Frequency: 5 times per week Estimated Hrs Per Day: .25 hour per day Rehab Potential: Guarded Time/GCodes Start Time: 13:20 Stop Time: 13:38 Total Time Billed (hr/min): 18 Billed Treatment Time 1, ISIDORO AGUILAR OT Jan 08, 2021 14:10
--- NOTE | 2021-01-08 15:29 | Progress Note - Hospitalist ---
ALEXJOSÉ MANUEL 01/08/21 1529: Subjective HPI/CC On Admission Date Seen by Provider: Jan 08, 2021 Time Seen by Provider: 10:00 CC: Right hip fracture after fall HPI: This is an 85yoWF assisted living at [facility] of Dr. Davila who has a PMH of dementia, DM and chronic UTI who presented after a fall at [facility]. She was found to have a right hip fracture. Dr. Posey is in the midst of getting her cleared to go to surgery. She has a history of multiple stents and CAD and she currently has an active UTI, Rocephin was initiated. Bicarbonate is 17 consistent with chronic metabolic acidosis. CT scan was negative and CXR shows pulmonary congestion. Creatinine is 1.3. Benefits outweigh the medical risks due to significant pain issue and it would be prude to proceed on with surgery. Subjective/Events-last exam Pt was barely arousable and was not writhing around in pain this time. Hgb at 8.2 and Cr at 1.11. Urine culture showed positve yeast thus rocephin was discontinued and Diflucan (Fluconazole) was added to treatment regimen. Review of Systems General: Other (Unable to obtain due to pt condition) HEENT: Other (Unable to obtain due to pt condition) Pulmonary: Other (Unable to obtain due to pt condition) Cardiovascular: Other (Unable to obtain due to pt condition) Gastrointestinal: Other (Unable to obtain due to pt condition) Genitourinary: Other (Unable to obtain due to pt condition) Musculoskeletal: other (Unable to obtain due to pt condition) Neurological: Other (Unable to obtain due to pt condition) Focused Exam Lactate Level 01/08/21 09:32: Lactic Acid Level 1.26 Objective Exam Vital Signs Vital Signs Date Time Temp Pulse Resp B/P (MAP) Pulse Ox O2 Delivery O2 Flow Rate FiO2 01/08/21 14:55 94 Nasal Cannula 1.00 01/08/21 13:00 93 01/08/21 11:17 37.2 20 154/69 (97) Capillary Refill : General Appearance: Severe Distress HEENT: PERRL/EOMI Neck: Normal Inspection, Supple Respiratory: Chest Non Tender, Lungs Clear, Normal Breath Sounds Cardiovascular: Regular Rate, Rhythm; No No Murmur Skin: Normal Color Results/Procedures Lab Laboratory Tests 01/08/21 05:34 Patient resulted labs reviewed. Assessment/Plan Assessment and Plan Assess & Plan/Chief Complaint S/P non-syncopal fall -fall precautions Right 3 part intertrochanteric femur fx -POD #1 s/p right short TFN repair -dressing c/d/i -ortho following -Pt not a candidate for rehab and discharge to assisted in 1-2days -pain management UTI -Urine cultures showed yeast -Diflucan (Fluconazole) added to treatment regimen AMS -probably related to anesthesia, UTI, and narcotics -likely delirium Anemia -hgb 8.2 today -continue to monitor -ebl in OR of 150ml GI ppx -protonix DVT ppx -lovenox IDDM -accuchecks achs, SSI CAD -cardiology consulted HTN -monitor HLP -monitor Dementia -reorient frequently -fall precautions NURIA GUTIERREZ DO 01/09/21 0603: Subjective Subjective/Events-last exam Pt doing a little better Has become a little more alert Daughter at the bedside May go to [facility] tomorrow Hgb 8.2 PT got her on the side of the bed HR was 118 so initiated Metoprolol 5 mg IV Q6HS Overall Pt appears to be more stable Review of Systems General: Fatigue, Malaise Musculoskeletal: leg pain Neurological: Confusion Objective Exam General Appearance: No Apparent Distress, WD/WN, Chronically ill Respiratory: Lungs Clear, Normal Breath Sounds Cardiovascular: Regular Rate, Rhythm Neurologic/Psychiatric: Alert, Oriented x3 Assessment/Plan Assessment and Plan Assess & Plan/Chief Complaint Monitor closely Pain control Supervisory-Addendum Brief Verification & Attestation Participated in pt care: history, MDM, physical Personally performed: exam, history, MDM, supervision of care Care discussed with: Medical Student Procedures: n/a Results interpretation: Verified all documentation Verification and Attestation of Medical Student E/M Service A medical student performed and documented this service in my presence. I reviewed and verified all information documented by the medical student and made modifications to such information, when appropriate. I personally performed the physical exam and medical decision making. Nuria Gutierrez, Jan 09, 2021,06:02 JOSÉ MANUEL JOHNSON Jan 08, 2021 15:29 NURIA GUTIERREZ DO Jan 09, 2021 06:03
[2021-01-08 15:59] VITALS: BP 162/79
[2021-01-08 20:00] VITALS: BP 176/84
[2021-01-08 23:30] VITALS: BP 187/82
[2021-01-09] VITALS (8 sets, daily range): BP systolic 158–198; BP diastolic 70–86
[2021-01-09] MEDS: meTOprolol 5 MG/5 ML (LOPRESSOR) VIAL IV SCH ×3 (00:49→11:40)
[2021-01-09] MEDS: LACTATED RINGERS 1,000 ML IV SCH ×2 (00:50→10:16)
[2021-01-09] MEDS: NITROGLYCERIN 2% OINT 1 GM UNIT DOSE PACKET TOP SCH ×5 (00:50→23:44)
[2021-01-09] MEDS: fentaNYL INJ 100 MCG/2 ML AMP IVP PRN (03:49)
[2021-01-09 05:54] LABS: BASOPHILS % (AUTO) 0 % (0-10); EOSINOPHILS % (AUTO) 0 % (0-10); HEMATOCRIT 25 % (35-52); HEMOGLOBIN 7.8 g/dL (11.5-16.0); LYMPHOCYTES # (AUTO) 1.2 10^3/uL (1.0-4.0); LYMPHOCYTES % (AUTO) 11 % (12-44); MEAN CORPUSCULAR HEMOGLOBIN 29 pg (25-34); MEAN CORPUSCULAR HGB CONC 31 g/dL (32-36); MEAN CORPUSCULAR VOLUME 93 fL (80-99); MEAN PLATELET VOLUME 11.1 fL (9.0-12.2); MONOCYTES # (AUTO) 0.7 10^3/uL (0.0-1.0); MONOCYTES % (AUTO) 6 % (0-12); NEUTROPHILS # (AUTO) 8.5 10^3/uL (1.8-7.8); NEUTROPHILS % (AUTO) 82 % (42-75); PLATELET COUNT 215 10^3/uL (130-400); WHITE BLOOD COUNT 10.4 10^3/uL (4.3-11.0)
[2021-01-09] MEDS: inSUlin ASPART (NovoLOG) 1 UNIT/0.01 ML (CHARGE PER UNIT) SC SCH ×4 (06:06→20:47)
[2021-01-09 06:08] LABS: ALBUMIN 2.9 GM/DL (3.2-4.5)
[2021-01-09 06:09] LABS: POTASSIUM 3.9 MMOL/L (3.6-5.0)
[2021-01-09 06:10] LABS: CALCIUM 8.7 MG/DL (8.5-10.1)
[2021-01-09 06:11] LABS: TOTAL PROTEIN 6.2 GM/DL (6.4-8.2)
[2021-01-09 06:13] LABS: BILIRUBIN,TOTAL 0.5 MG/DL (0.1-1.0)
[2021-01-09 06:15] LABS: CREATININE SERUM 0.97 MG/DL (0.60-1.30)
[2021-01-09] MEDS: PANTOPRAZOLE 20 MG TABLET (PROTONIX) PO SCH (06:32)
[2021-01-09] MEDS: CLOPIDOGREL 75 MG (PLAVIX) TABLET PO SCH (09:27)
[2021-01-09] MEDS: ASPIRIN E.C. 81 MG (ECOTRIN) TAB PO SCH (09:27)
[2021-01-09] MEDS: fluCOnazole (DIFLUCAN) 100 MG TAB PO SCH (09:27)
[2021-01-09] MEDS: SERTRALINE 50 MG (ZOLOFT) TABLET PO SCH ×2 (09:28→20:50)
[2021-01-09] MEDS: ACETAMINOPHEN 325 MG TABLET PO PRN (09:28)
[2021-01-09] MEDS: ENOXAPARIN 30 MG/0.3 ML (LOVENOX) SYR SC SCH (09:28)
--- NOTE | 2021-01-09 10:11 | Progress Note - Ortho ---
Progress Note Subjective Date of Exam 01/09/21 Chief Complaint POD#3 Short TFN right hip for three-part intertrochanteric fracture HPI/Events since last exam Mrs Morocho Is 3 days postop short TFN for a 3 part intertrochanteric fracture of the right hip. Her daughter was in the room today and I spoke with her about several questions. Apparently she has been having some left shoulder pain. Upon her initial evaluation she had no pain in the upper extremities and she has not had a fall since she has been here. She seems to be doing a little bit better as far as her confusion or dementia According to her daughter.Therapy try to get her up today and was able to get her to stand Review of Systems Reviewed and no additions or changes Allergies: Coded Allergies: cephalexin (Verified Allergy, Unknown, 02/03/18) metformin (Verified Allergy, Unknown, 02/03/18) sitagliptin (Verified Allergy, Unknown, 02/03/18) sulfamethoxazole (Verified Allergy, Unknown, 02/03/18) trimethoprim (Verified Allergy, Unknown, 02/03/18) Home Meds Reported Medications Insulin Degludec (Tresiba Flextouch U-100) 100 Unit/1 Ml Insuln.pen, 38 UNITS SC HS, UNITS 01/06/21 Empagliflozin (Jardiance) 25 Mg Tablet, 25 MG PO DAILY, TAB 01/06/21 Sertraline HCl (Sertraline HCl) 25 Mg Tablet, 25 MG PO HS, TAB 01/06/21 Oxybutynin Chloride (Oxybutynin Chloride ER) 10 Mg Tab.er.24, 10 MG PO DAILY, TAB 01/06/21 Pantoprazole Sodium (Pantoprazole Sodium) 20 Mg Tablet.dr, 20 MG PO DAILY, TAB 01/06/21 Lisinopril (Lisinopril) 20 Mg Tablet, 20 MG PO DAILY, TAB 01/06/21 Sertraline HCl (Sertraline HCl) 50 Mg Tablet, 50 MG PO DAILY, TAB 04/25/18 Clopidogrel Bisulfate (Clopidogrel) 75 Mg Tablet, 75 MG PO DAILY, TAB 04/25/18 Aspirin (Aspirin EC) 81 Mg Tablet.dr, 81 MG PO DAILY, TAB 04/25/18 Discontinued Reported Medications Metoprolol Succinate (Metoprolol Succinate) 25 Mg Tab.er.24h, 25 MG PO DAILY, TAB 05/01/18 Ranitidine HCl (Ranitidine HCl) 150 Mg Tablet, 150 MG PO BID, TAB 05/01/18 Amlodipine Besylate (Amlodipine Besylate) 2.5 Mg Tablet, 2.5 MG PO DAILY, TAB 04/25/18 Ondansetron HCl (Zofran) 4 Mg Tab, 4 MG PO Q4H PRN for NAUSEA/VOMITING-1ST LINE, TAB 04/25/18 Insulin Aspart (Novolog) 100 Unit/1 Ml Susp, SC QID for SLIDING SCALE, EA 150-199 =2 UNITS 200-249 =4 UNITS 250-299 =6 UNITS 300-349 =8 UNITS 350-399 =10 UNITS 400-999 =12 UNITS CALL PCP <60 OR >400 04/25/18 Glyburide (Glyburide) 5 Mg Tablet, 2.5 MG PO BID, TAB TAKES 1/2 (5MG) TABLET 04/25/18 Insulin Determir (Levemir) 1,000 Units/10 Ml Soln, 15 UNITS SQ DAILY, EA 04/25/18 Insulin Determir (Levemir) 1,000 Units/10 Ml Soln, 10 UNITS SQ HS, EA 04/25/18 Acetaminophen (Tylenol) 325 Mg Tablet, 650 MG PO Q4H PRN for PAIN-MILD, TAB TAKES 2 (325MG) TABLETS 04/25/18 Magnesium Hydroxide (Milk of Magnesia) 400 Mg/5 Ml Oral.susp, 30 ML PO DAILY PRN for CONSTIPATION-7TH LINE, ML 04/25/18 Discontinued Scripts Tramadol HCl (Ultram) 50 Mg Tablet, 50 MG PO Q6H PRN for PAIN-MODERATE TO SEVERE, #14 TAB Prov:SHANTE CARPENTER APRN 07/19/18 Hydrocodone Bit/Acetaminophen (LORTAB 5 MG TABLET) 1 Tab Tab, 1 EACH PO Q6H PRN for PAIN-MODERATE MDD 10, #20 TAB 0 Refills Prov:CANELO STEWART MD 05/03/18 Hydrocodone Bit/Acetaminophen (LORTAB 5 MG TABLET) 1 Tab Tab, 1 TAB PO Q6HR PRN for PAIN-MODERATE, #15 TAB Prov:SAMPSON GUTIERREZ DO 05/02/18 Objective Exam Constitutional: [] HEENT: [] Neck: [] Cardiovascular: [] Respiratory: [] Gastrointestinal: [] Genitourinary: [] Skin: [] Back/Spine: [] Extremities: [Left upper extremityno pain at the hand, wrist, forearm or elbow. With gentle range of motion of shoulder she does have pain. No crepitation. No deformity. No swelling or bruising. She holds both lower extremities out in extension and even motion of the left leg she groans in pain. Her dressing is intact to the right hip. She has no swelling of either calf.] Neurologic: [] Psychiatric: [] Hematologic/lymphatic/immunologic: [] Vital Signs Vital Signs Date Time Temp Pulse Resp B/P (MAP) Pulse Ox O2 Delivery O2 Flow Rate FiO2 01/09/21 08:00 Nasal Cannula 2.00 01/09/21 07:35 36.8 87 18 183/74 (110) 93 Nasal Cannula 2.00 01/09/21 07:00 88 01/09/21 07:00 99 Nasal Cannula 2.00 01/09/21 06:26 97 182/77 (112) 01/09/21 04:25 176/78 (110) 01/09/21 03:34 37.0 104 18 () 95 Nasal Cannula 2.00 01/09/21 02:38 96 Nasal Cannula 2.00 01/09/21 01:00 90 01/08/21 23:30 37.1 98 20 187/82 (117) 95 Nasal Cannula 2.00 01/08/21 20:45 Nasal Cannula 2.00 01/08/21 20:00 36.8 121 24 176/84 (114) 96 Nasal Cannula 2.00 01/08/21 19:00 100 01/08/21 18:58 92 Nasal Cannula 1.00 01/08/21 15:59 37.0 98 24 162/79 (106) 94 Nasal Cannula 1.00 01/08/21 14:55 94 Nasal Cannula 1.00 01/08/21 13:00 93 01/08/21 11:17 37.2 96 20 154/69 (97) 93 Nasal Cannula 1.00 01/08/21 10:42 93 Nasal Cannula 3.00 I & O 01/09/21 07:00 Intake Total 170 ml Output Total 2800 ml Balance -2630 ml Lab Results Laboratory Tests 01/08/21 11:23: Glucometer 128H 01/08/21 16:06: Glucometer 136H 01/08/21 20:48: Glucometer 193H 01/09/21 05:20: White Blood Count 10.4, Red Blood Count 2.68L, Hemoglobin 7.8L, Hematocrit 25L, Mean Corpuscular Volume 93, Mean Corpuscular Hemoglobin 29, Mean Corpuscular Hemoglobin Concent 31L, Red Cell Distribution Width 14.6H, Platelet Count 215, Mean Platelet Volume 11.1, Immature Granulocyte % (Auto) 1, Neutrophils (%) (Auto) 82H, Lymphocytes (%) (Auto) 11L, Monocytes (%) (Auto) 6, Eosinophils (%) (Auto) 0, Basophils (%) (Auto) 0, Neutrophils # (Auto) 8.5H, Lymphocytes # (Auto) 1.2, Monocytes # (Auto) 0.7, Eosinophils # (Auto) 0.0, Basophils # (Auto) 0.0, Immature Granulocyte # (Auto) 0.1, Sodium Level 140, Potassium Level 3.9, Chloride Level 108H, Carbon Dioxide Level 25, Anion Gap 7, Blood Urea Nitrogen 27H, Creatinine 0.97, Estimat Glomerular Filtration Rate 54, BUN/Creatinine Ratio 28, Glucose Level 114H, Calcium Level 8.7, Corrected Calcium 9.6, Total Bilirubin 0.5, Aspartate Amino Transf (AST/SGOT) 23, Alanine Aminotransferase (ALT/SGPT) 10, Alkaline Phosphatase 57, Total Protein 6.2L, Albumin 2.9L 01/09/21 05:48: Glucometer 107 01/09/21 07:45: SARS-CoV-2 RNA (RT-PCR) Not Detected Microbiology 01/06/21 MRSA Screen - Final, Complete MRSA not isolated 01/05/21 Urine Culture - Final, Complete YEAST Strep agalactiae Group B Assessment and Plan Assessment Slow improvement third day postop Problem List Unchanged Plan Continue with physical therapy. I talked to her daughter and told her that I did not think she had a fracture of her shoulder but at this age she may have some rotator cuff arthropathy. The daughter would appreciate if we get an x-ray of the shoulder prior to her discharge. It [place] [facility] [place] If she is discharged I can see her in the office at 2 weeks postop for x-rays and staple removal or if it is easier for the [place] [facility] have her x-rayed by portable x-ray company and they can take the jyotsna out and we can talk to them about the patient and her incisions and her progress without having her come in. Final Diagonsis Three-part intertrochanteric fracture right hip status post short TFN Level of the visit: Level 3 Focused Exam Lactate Level 01/08/21 09:32: Lactic Acid Level 1.26 DANA AVILA MD Jan 09, 2021 10:11
--- NOTE | 2021-01-09 10:17 | Physical Therapy Daily Note ---
PT Daily Note-Current Subjective Patient daughter agrees to PT. Mental Status Patient Orientation: Confused Attachments: Oxygen, [place] Catheter, IV Transfers SCALE: Activities may be completed with or without assistive devices. 3-Oiojnthplf-dykjbbq completes the activity by him/herself with no assistance from a helper. 5-Set-up or Clean-up Assistance-helper sets up or cleans up; patient completes activity. [place] assists only prior to or following the activity. 4-Supervision or Touching Assistance-helper provides verbal cues and/or touching/steadying and/or contact guard assistance as patient completes activity. Assistance may be provided throughout the activity or intermittently. 3-Partial/Moderate Assistance-helper does LESS THAN HALF the effort. [place] lifts, holds or supports trunk or limbs, but provides less than half the effort. 2-Substantial/Maximal Assistance-helper does MORE THAN HALF the effort. [place] lifts or holds trunk or limbs and provides more than half the effort. 8-Oscojlyfk-wuzfta does ALL the effort. Patient does none of the effort to complete the activity. Or, the assistance of 2 or more helpers is required for the patient to complete the activity. If activity was not attempted, code reason: 7-Patient Refused. 9-Not Applicable-not attempted and the patient did not perform the activity before the current illness, exacerbation or injury. 10-Not Attempted due to Environmental Limitations-(lack of equipment, weather restraints, etc.). 88-Not Attempted due to Medical Conditions or Safety Concerns. Sit to Lying (QC): 1 (x 2) Lying to Sitting/Side of Bed(Q: 1 (x 2) Sit to Stand (QC): 1 (x 2 with minimal clearing off of bed) sit to stand x 3 sets to FWW Weight Bearing Right Lower Extremity: Right Weight Bearing/Tolerated Left Lower Extremity: Left Full Weight Bearing Exercises Supine Ex: Heel Slides, Straight leg raise, Hip abd/add Supine Reps: 12 (PROM) Assessment Patient tolerated treatment and returned to bed with needs met. Plan dismissal to [place] on this date per report. PT S[employer] Pulper Goals S[employer] Pulper Goals PT Longterm Goals Time Frame: Jan 14, 2021 Roll Left & Right (QC): 3 Sit to Lying (QC): 2 Lying-Sitting on Side/Bed(QC): 2 Sit to Stand (QC): 2 Chair/Sjv-xm-Qiyiv Xfer(QC): 2 PT Plan Treatment/Plan Treatment Plan: Continue Plan of Care Treatment Plan: Bed Mobility, Education, Functional Activity Alexsandra, Functional Strength, Gait, Safety, Therapeutic Exercise, Transfers Treatment Duration: Jan 14, 2021 Frequency: 11 times per week Estimated Hrs Per Day: .25 hour per day Patient and/or Family Agrees t: Yes Time/GCodes Time In: 941 Time Out: 951 Total Billed Treatment Time: 10 Total Billed Treatment 1 visit EX 10 min TANVIR VIEIRA PT Jan 09, 2021 10:17
[2021-01-09] MEDS ORDERED: BISACODYL 10 MG SUPP (DULCOLAX) PR PRN (11:15)
[2021-01-09] MEDS: polyethylene glycoL POWDER 17 GM (MIRALAX) PACK PO SCH ×2 (11:40→20:46)
[2021-01-09] MEDS: LACTULOSE SYRUP 10GM/15ML (ENULOSE) 30ML UDC PO SCH ×2 (11:40→20:46)
[2021-01-09] MEDS: DOCUSATE SODIUM 100 MG (COLACE) CAP PO SCH ×2 (11:40→20:46)
--- NOTE | 2021-01-09 12:06 | Occupational Ther Daily Note ---
OT Current Status-Daily Note Subjective Pt in bed, daughter at bedside. Pt's daughter indicates pt has a lot of hair matted at back of head. Mental Status/Objective Attachments: Oxygen ADL-Treatment Therapy Code Descriptions/Definitions Functional [place] Measure: 0=Not Assessed/NA 4=Minimal Assistance 1=Total Assistance 5=Supervision or Setup 2=Maximal Assistance 6=Modified [place] 3=Moderate Assistance 7=Complete IndependenceSCALE: Activities may be completed with or without assistive devices. 4-Szgzgewzpa-oeyvbds completes the activity by him/herself with no assistance from a helper. 5-Set-up or Clean-up Assistance-helper sets up or cleans up; patient completes activity. [place] assists only prior to or following the activity. 4-Supervision or Touching Assistance-helper provides verbal cues and/or touching/steadying and/or contact guard assistance as patient completes activity. Assistance may be provided throughout the activity or intermittently. 3-Partial/Moderate Assistance-helper does LESS THAN HALF the effort. [place] lifts, holds or supports trunk or limbs, but provides less than half the effort. 2-Substantial/Maximal Assistance-helper does MORE THAN HALF the effort. [place] lifts or holds trunk or limbs and provides more than half the effort. 6-Mayjfexdz-biajlr does ALL the effort. Patient does none of the effort to complete the activity. Or, the assistance of 2 or more helpers is required for the patient to complete the activity. If activity was not attempted, code reason: 7-Patient Refused. 9-Not Applicable-not attempted and the patient did not perform the activity before the current illness, exacerbation or injury. 10-Not Attempted due to Environmental Limitations-(lack of equipment, weather restraints, etc.). 88-Not Attempted due to Medical Conditions or Safety Concerns. Oral Hygiene (QC): 3 (Pt able to take drink, sometimes needs assist with cup, other times brings cup to mouth.) Other Treatment Pt laying in bed, OT assisted pt's daughter wtih attempting to comb out matted hair at back of head. Total assist required overall with hair brushing. Pt drank water, sometimes assistance required to bring cup to mouth, other times she is a ble to bring it to her mouth herself. Pt's daughter indicates pt ate breakfast and brought drinks to mouth this morning by herself. Assist with cutting food provided. Post tx, pt seated upright in bed, call light in reach and all needs met, daughter present. Education OT Patient Education: Correct positioning, Modified ADL techniques, Progress toward Goal/Update tx plan, Purpose of tx/functional activities Teaching Recipient: Patient, Family Teaching Methods: Discussion OT Field Ironworker Goals Field Ironworker Goals Time Frame: Jan 16, 2021 Eating (QC): 4 Oral Hygiene (QC): 4 Toileting Hygiene (QC): 2 Shower/Bathe Self (QC): 2 Upper Body Dressing (QC): 5 Lower Body Dressing (QC): 2 On/Off Footwear (QC): 2 1=Demonstrate adherence to instructed precautions during ADL tasks. 2=Patient will verbalize/demonstrate understanding of assistive devices/modifications for ADL. 3=Patient will improve strength/tolerance for activity to enable patient to perform ADL's. OT Education/Plan Problem List/Assessment Assessment: Decreased Activ Tolerance, Decreased UE Strength, Impaired Bed Mobility, Impaired Funct Balance, Impaired I ADL's, Impaired Self-Care Skills, Restricted Funct UE ROM Discharge Recommendations Plan/Recommendations: Continue POC Treatment Plan/Plan of Care Patient would benefit from OT for education, treatment and training to promote independence in ADL's, mobility, safety and/or upper extremity function for ADL's. Plan of Care: ADL Retraining, Functional Mobility, UE Funct Exercise/Act Treatment Duration: Jan 16, 2021 Frequency: 5 times per week Estimated Hrs Per Day: .25 hour per day Rehab Potential: Guarded Time/GCodes Start Time: 11:40 Stop Time: 12:00 Total Time Billed (hr/min): 20 Billed Treatment Time 1, ADL ISIDORO MINA OT Jan 09, 2021 12:06
--- NOTE | 2021-01-09 13:07 | Progress Note - Hospitalist ---
ALEXJOSÉ MANUEL 01/09/21 1307: Subjective HPI/CC On Admission Date Seen by Provider: Jan 09, 2021 Time Seen by Provider: 08:00 CC: Right hip fracture after fall HPI: This is an 85yoWF assisted living at [facility] of Dr. Davila who has a PMH of dementia, DM and chronic UTI who presented after a fall at [facility]. She was found to have a right hip fracture. Dr. Posey is in the midst of getting her cleared to go to surgery. She has a history of multiple stents and CAD and she currently has an active UTI, Rocephin was initiated. Bicarbonate is 17 consistent with chronic metabolic acidosis. CT scan was negative and CXR shows pulmonary congestion. Creatinine is 1.3. Benefits outweigh the medical risks due to significant pain issue and it would be prude to proceed on with surgery. Subjective/Events-last exam History obtained from daughter who is DPOA. Reports pt is having some left arm pain with skin tears. Pt is eating better being able to eat half her breakfast. Small bowel movement today. Hgb at 7.8. HR 87. Pending covid test. Plans to take out cath today and ortho will take a shoulder xray. Possible discharge tomorrow. Review of Systems General: Appetite, Other (Daughter denied any other symptoms) HEENT: Other (Daughter denied any other symptoms) Pulmonary: Other (Daughter denied any other symptoms) Cardiovascular: Other (Daughter denied any other symptoms) Gastrointestinal: Other (Daughter denied any other symptoms) Genitourinary: Other (Daughter denied any other symptoms) Musculoskeletal: arm pain (L arm pain per daughter) Neurological: Other (Daughter denied any other symptoms) Focused Exam Lactate Level 01/08/21 09:32: Lactic Acid Level 1.26 Objective Exam Vital Signs Vital Signs Date Time Temp Pulse Resp B/P (MAP) Pulse Ox O2 Delivery O2 Flow Rate FiO2 01/09/21 12:49 84 01/09/21 11:28 36.6 18 187/72 (110) 96 Nasal Cannula 2.00 Capillary Refill : General Appearance: Chronically ill, Moderate Distress HEENT: PERRL/EOMI Neck: Non Tender, Supple Respiratory: Chest Non Tender, Lungs Clear Cardiovascular: Regular Rate, Rhythm Gastrointestinal: Non Tender, Soft Neurologic/Psychiatric: Alert Results/Procedures Lab Laboratory Tests 01/09/21 05:20 Patient resulted labs reviewed. Assessment/Plan Assessment and Plan Assess & Plan/Chief Complaint S/P non-syncopal fall -fall precautions Right 3 part intertrochanteric femur fx -POD #1 s/p right short TFN repair -dressing c/d/i -ortho following -Pt not a candidate for rehab and discharge to [facility] in 1-2days -pain management UTI -Urine cultures showed yeast and group B strep -Diflucan (Fluconazole) and Rocephin -Catheter removal AMS -probably related to anesthesia, UTI, and narcotics -likely delirium Anemia -hgb 7.8 today -continue to monitor -ebl in OR of 150ml GI ppx -protonix DVT ppx -lovenox IDDM -accuchecks achs, SSI CAD -cardiology consulted HTN -monitor HLP -monitor Dementia -reorient frequently -fall precautions NURIA GUTIERREZ DO 01/10/21 0623: Subjective Subjective/Events-last exam Pt doing a little better Still fatigued and sleepy Has Group B strep on the urine culture s/p Rocephin for three days and that covered that Diflucan for the yeast on urine culture Hgb 7.8 today so will need to monitor that Heart rate 87 Right shoulder X-ray due to pain from the fall Became awake and alert and daughter was able to talk to her a bit Had a small BM so will increase laxatives Review of Systems General: Fatigue, Malaise Objective Exam General Appearance: No Apparent Distress, Chronically ill Respiratory: Decreased Breath Sounds Cardiovascular: Regular Rate, Rhythm Neurologic/Psychiatric: Alert, Disoriented Assessment/Plan Assessment and Plan Assess & Plan/Chief Complaint Pain control Increase p.o. intake Laxatives DC catheter Supervisory-Addendum Brief Verification & Attestation Participated in pt care: history, MDM, physical Personally performed: exam, history, MDM, supervision of care Care discussed with: Medical Student Procedures: n/a Results interpretation: Verified all documentation Verification and Attestation of Medical Student E/M Service A medical student performed and documented this service in my presence. I reviewed and verified all information documented by the medical student and made modifications to such information, when appropriate. I personally performed the physical exam and medical decision making. Nuria Gutierrez Jan 10, 2021,06:21 JOSÉ MANUEL JOHNSON Jan 09, 2021 13:07 NURIA GUTIERREZ DO Jan 10, 2021 06:23
--- NOTE | 2021-01-09 14:57 | Diagnostic Imaging Report ---
INDICATION: Left shoulder pain. Fall. COMPARISON: None. FINDINGS: Two radiographic views of the left shoulder were obtained. There is no acute fracture or dislocation. Osseous structures are intact. Joint spaces are maintained. Degenerative changes of the AC joint are noted. Included portions of the left hemithorax are clear. No unexpected radiopaque foreign bodies are seen. IMPRESSION: 1. No acute fracture or dislocation of the left shoulder. Dictated by: Dictated on workstation # [id number]
--- NOTE | 2021-01-09 16:18 | Progress Note - Cardiology ---
Cardiology SOAP Progress Note Subjective: Does not report cp or palp or shortness of breath Appears confused and mildly agitated Objective: I&O/Vital Signs 01/09/21 01/09/21 01/09/21 01/09/21 04:25 06:26 07:00 07:00 Pulse 97 88 B/P (MAP) 176/78 (110) 182/77 (112) Pulse Ox 99 O2 Delivery Nasal Cannula O2 Flow Rate 2.00 01/09/21 01/09/21 01/09/21 01/09/21 07:35 08:00 11:28 12:49 Temp 36.8 36.6 Pulse 87 91 84 Resp 18 18 B/P (MAP) 183/74 (110) 187/72 (110) Pulse Ox 93 96 O2 Delivery Nasal Cannula Nasal Cannula Nasal Cannula O2 Flow Rate 2.00 2.00 2.00 01/09/21 16:00 Temp 36.2 Pulse 90 Resp 18 B/P (MAP) 158/70 (99) Pulse Ox 95 O2 Delivery Nasal Cannula O2 Flow Rate 0.50 01/09/21 00:00 Intake Total 120 ml Output Total 1700 ml Balance -1580 ml Weight (Pounds): 147 Weight (Ounces): 6.0 Weight (Calculated Kilograms): 66.255145 Constitutional: No AAO x 3; other (confused, agitated from time to time) Respiratory: No accessory muscle use, No respiratory distress; chest expansion is symmetric, chest is bilaterally symmetric, lungs clear to auscultation Cardiovascular: regular rate-rhythm; No JVD; S1 and S2, systolic murmur Gastrointestional: soft, audible bowel sounds Extremities: no lower extremity edema bilateral Neurologic/Psychiatric: No oriented x 3; other (appears to move all limbs, cannot cooperate with a neuro exam on account of confusion) Skin: No rash on exposed areas, No ulcerations on exposed areas Results/Procedures: Labs Laboratory Tests 01/08/21 20:48: Glucometer 193H 01/09/21 05:20: White Blood Count 10.4, Red Blood Count 2.68L, Hemoglobin 7.8L, Hematocrit 25L, Mean Corpuscular Volume 93, Mean Corpuscular Hemoglobin 29, Mean Corpuscular Hemoglobin Concent 31L, Red Cell Distribution Width 14.6H, Platelet Count 215, Mean Platelet Volume 11.1, Immature Granulocyte % (Auto) 1, Neutrophils (%) (Auto) 82H, Lymphocytes (%) (Auto) 11L, Monocytes (%) (Auto) 6, Eosinophils (%) (Auto) 0, Basophils (%) (Auto) 0, Neutrophils # (Auto) 8.5H, Lymphocytes # (Auto) 1.2, Monocytes # (Auto) 0.7, Eosinophils # (Auto) 0.0, Basophils # (Auto) 0.0, Immature Granulocyte # (Auto) 0.1, Sodium Level 140, Potassium Level 3.9, Chloride Level 108H, Carbon Dioxide Level 25, Anion Gap 7, Blood Urea Nitrogen 27H, Creatinine 0.97, Estimat Glomerular Filtration Rate 54, BUN/Creatinine Ratio 28, Glucose Level 114H, Calcium Level 8.7, Corrected Calcium 9.6, Total Bilirubin 0.5, Aspartate Amino Transf (AST/SGOT) 23, Alanine Aminotransferase (ALT/SGPT) 10, Alkaline Phosphatase 57, Total Protein 6.2L, Albumin 2.9L 01/09/21 05:48: Glucometer 107 01/09/21 07:45: SARS-CoV-2 RNA (RT-PCR) Not Detected 01/09/21 11:53: Glucometer 165H 01/09/21 15:42: Glucometer 176H Microbiology 01/06/21 MRSA Screen - Final, Complete MRSA not isolated 01/05/21 Urine Culture - Final, Complete YEAST Strep agalactiae Group B Laboratory Tests 01/08/21 05:34 01/09/21 05:20 A/P: Assessment: S/P non-syncopal fall resulting in right hip fracture - POD #1 - managed by Dr. 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 Mild to mod calcified mitral valve annulus. AoV sclerosis. HTN DM 2 (per alf history) Dementia (per alf history) Plan: Agitation likely contributing to hypertension Change beta-wendy to oral Continue antiplatelet therapy unless contraindicated from surgical or medical standpoint Monitor lab closely Replace electrolytes as indicated JOSSELYN SARKAR MD [facility]S Jan 09, 2021 16:18
[2021-01-09] MEDS ORDERED: meTOprolol SUCCINATE 100 MG (TOPROL XL) TAB PO NR (16:30)
[2021-01-10] VITALS (7 sets, daily range): BP systolic 133–185; BP diastolic 61–75
[2021-01-10] MEDS: fentaNYL INJ 100 MCG/2 ML AMP IVP PRN ×2 (04:24→18:14)
[2021-01-10 05:53] LABS: BASOPHILS % (AUTO) 0 % (0-10); EOSINOPHILS # (AUTO) 0.1 10^3/uL (0.0-0.3); EOSINOPHILS % (AUTO) 1 % (0-10); HEMATOCRIT 26 % (35-52); LYMPHOCYTES # (AUTO) 1.4 10^3/uL (1.0-4.0); LYMPHOCYTES % (AUTO) 16 % (12-44); MEAN CORPUSCULAR HEMOGLOBIN 29 pg (25-34); MEAN CORPUSCULAR HGB CONC 31 g/dL (32-36); MEAN CORPUSCULAR VOLUME 93 fL (80-99); MEAN PLATELET VOLUME 10.7 fL (9.0-12.2); MONOCYTES # (AUTO) 0.7 10^3/uL (0.0-1.0); MONOCYTES % (AUTO) 7 % (0-12); NEUTROPHILS # (AUTO) 6.9 10^3/uL (1.8-7.8); NEUTROPHILS % (AUTO) 75 % (42-75); PLATELET COUNT 225 10^3/uL (130-400); WHITE BLOOD COUNT 9.3 10^3/uL (4.3-11.0)
[2021-01-10 06:08] LABS: POTASSIUM 3.7 MMOL/L (3.6-5.0)
[2021-01-10 06:09] LABS: CALCIUM 8.8 MG/DL (8.5-10.1)
[2021-01-10 06:10] LABS: TOTAL PROTEIN 6.5 GM/DL (6.4-8.2)
[2021-01-10 06:12] LABS: BILIRUBIN,TOTAL 0.7 MG/DL (0.1-1.0)
[2021-01-10 06:14] LABS: CREATININE SERUM 1.02 MG/DL (0.60-1.30)
[2021-01-10] MEDS: NITROGLYCERIN 2% OINT 1 GM UNIT DOSE PACKET TOP SCH ×3 (06:33→17:25)
[2021-01-10] MEDS: PANTOPRAZOLE 20 MG TABLET (PROTONIX) PO SCH (06:35)
[2021-01-10] MEDS: inSUlin ASPART (NovoLOG) 1 UNIT/0.01 ML (CHARGE PER UNIT) SC SCH ×4 (06:35→21:31)
--- NOTE | 2021-01-10 06:38 | Progress Note - Hospitalist ---
Subjective HPI/CC On Admission Date Seen by Provider: Jan 10, 2021 Time Seen by Provider: 11:00 CC: Right hip fracture after fall HPI: This is an 85yoWF assisted living at [facility] of Dr. Davila who has a PMH of dementia, DM and chronic UTI who presented after a fall at [facility]. She was found to have a right hip fracture. Dr. Posey is in the midst of getting her cleared to go to surgery. She has a history of multiple stents and CAD and she currently has an active UTI, Rocephin was initiated. Bicarbonate is 17 consistent with chronic metabolic acidosis. CT scan was negative and CXR shows pulmonary congestion. Creatinine is 1.3. Benefits outweigh the medical risks due to significant pain issue and it would be prude to proceed on with surgery. Subjective/Events-last exam Patient much improved today Hemoglobin stable Iron infusion ordered Bowels are moving after laxatives Eating and drinking a lot better Daughter at the bedside [place] catheter discontinued and she is voiding Check meds and labs Overall much improved status Medical [place] on Tuesday Review of Systems General: Fatigue, Malaise Neurological: Weakness, Confusion Focused Exam Lactate Level 01/08/21 09:32: Lactic Acid Level 1.26 Objective Exam Vital Signs Vital Signs Date Time Temp Pulse Resp B/P (MAP) Pulse Ox O2 Delivery O2 Flow Rate FiO2 01/11/21 03:26 36.2 70 16 160/70 (100) 98 Nasal Cannula 1.00 Capillary Refill : General Appearance: No Apparent Distress, WD/WN, Chronically ill Respiratory: Lungs Clear, Decreased Breath Sounds Cardiovascular: Regular Rate, Rhythm Neurologic/Psychiatric: Alert, Depressed Affect, Disoriented Results/Procedures Lab Patient resulted labs reviewed. Assessment/Plan Assessment and Plan Assess & Plan/Chief Complaint Assessment: Status post hip fracture repair Delirium Dementia CAD Postop constipation Acute blood loss anemia Pain control Increase p.o. intake Laxatives DC catheter Iron infusions Monitor closely SAMPSON GUTIERREZ DO Jan 10, 2021 06:38
[2021-01-10] MEDS: DOCUSATE SODIUM 100 MG (COLACE) CAP PO SCH ×2 (07:24→19:26)
[2021-01-10] MEDS: polyethylene glycoL POWDER 17 GM (MIRALAX) PACK PO SCH ×2 (07:24→19:26)
[2021-01-10] MEDS: LACTULOSE SYRUP 10GM/15ML (ENULOSE) 30ML UDC PO SCH ×2 (07:24→19:26)
--- NOTE | 2021-01-10 07:52 | Physical Therapy Daily Note ---
PT Daily Note-Current Subjective States that she will try therapy. Transfers SCALE: Activities may be completed with or without assistive devices. 6-Ddfhhaitta-qgffpkh completes the activity by him/herself with no assistance from a helper. 5-Set-up or Clean-up Assistance-helper sets up or cleans up; patient completes activity. [place] assists only prior to or following the activity. 4-Supervision or Touching Assistance-helper provides verbal cues and/or touching/steadying and/or contact guard assistance as patient completes activity. Assistance may be provided throughout the activity or intermittently. 3-Partial/Moderate Assistance-helper does LESS THAN HALF the effort. [place] lif ts, holds or supports trunk or limbs, but provides less than half the effort. 2-Substantial/Maximal Assistance-helper does MORE THAN HALF the effort. [place] lifts or holds trunk or limbs and provides more than half the effort. 6-Ksaajmmjh-jjqiol does ALL the effort. Patient does none of the effort to complete the activity. Or, the assistance of 2 or more helpers is required for the patient to complete the activity. If activity was not attempted, code reason: 7-Patient Refused. 9-Not Applicable-not attempted and the patient did not perform the activity before the current illness, exacerbation or injury. 10-Not Attempted due to Environmental Limitations-(lack of equipment, weather restraints, etc.). 88-Not Attempted due to Medical Conditions or Safety Concerns. Sit to Lying (QC): 2 Lying to Sitting/Side of Bed(Q: 2 Patient unable to safely stand today secondary to dizziness. Weight Bearing Right Lower Extremity: Right Weight Bearing/Tolerated Left Lower Extremity: Left Full Weight Bearing Exercises Supine Ex: LE Protocol Supine Reps: 20 Assessment Current Status: Good Progress Patient did well with bed exercises however she did have dizziness which didn't allow her to stand. PT Venetian Blind Cleaner Goals Venetian Blind Cleaner Goals PT Venetian Blind Cleaner Goals Time Frame: Jan 14, 2021 Roll Left & Right (QC): 3 Sit to Lying (QC): 2 Lying-Sitting on Side/Bed(QC): 2 Sit to Stand (QC): 2 Chair/Cxy-ve-Xnuxe Xfer(QC): 2 PT Plan Treatment/Plan Treatment Plan: Continue Plan of Care Treatment Plan: Bed Mobility, Education, Functional Activity Alexsandra, Functional Strength, Gait, Safety, Therapeutic Exercise, Transfers Treatment Duration: Jan 14, 2021 Frequency: 11 times per week Estimated Hrs Per Day: .25 hour per day Patient and/or Family Agrees t: Yes Time/GCodes Time In: 730 Time Out: 745 Total Billed Treatment Time: 15 Total Billed Treatment 1, EX x 15 MAGALYS ANDRADE PT Jan 10, 2021 07:52
[2021-01-10] MEDS: meTOprolol SUCCINATE 100 MG (TOPROL XL) TAB PO SCH (08:20)
[2021-01-10] MEDS: ASPIRIN E.C. 81 MG (ECOTRIN) TAB PO SCH (08:20)
[2021-01-10] MEDS: SERTRALINE 50 MG (ZOLOFT) TABLET PO SCH ×2 (08:20→21:32)
[2021-01-10] MEDS: ENOXAPARIN 30 MG/0.3 ML (LOVENOX) SYR SC SCH (08:20)
[2021-01-10] MEDS: ACETAMINOPHEN 325 MG TABLET PO PRN (08:20)
[2021-01-10] MEDS: BACLOFEN 10 MG (LIORESAL) TAB PO PRN (08:20)
[2021-01-10] MEDS: fluCOnazole (DIFLUCAN) 100 MG TAB PO SCH (08:20)
[2021-01-10] MEDS: CLOPIDOGREL 75 MG (PLAVIX) TABLET PO SCH (08:20)
[2021-01-10] MEDS: IRON SUCROSE 200 MG/10 ML (VENOFER) VIAL IV SCH (08:20)
--- NOTE | 2021-01-10 11:05 | Cardiology Progress Note ---
Subjective Date Seen by Provider: Jan 10, 2021 Time Seen by Provider: 11:03 Subjective/Events-last exam Patient is laying down in bed, feeling better. No new complaint. No chest pain or shortness of breath Review of Systems General: No Chills, No Night Sweats, No Fatigue, No Malaise, No Appetite, No Other HEENT: No Head Aches, No Visual Changes, No Eye Pain, No Ear Pain, No Dysphasia, No Sinus Congestion, No Post Nasal Drip, No Sore Throat, No Other Pulmonary: No Dyspnea, No Cough, No Pleuritic Chest Pain, No Other Cardiovascular: No: Chest Pain, Palpitations, Orthopnea, Paroxysmal Noc. Dyspnea, Edema, Lt Headedness, Other Focused Exam Lactate Level 01/08/21 09:32: Lactic Acid Level 1.26 Objective-Cardiology Exam Last Set of Vital Signs Vital Signs 01/09/21 01/10/21 01/10/21 01/10/21 23:35 07:13 08:00 10:29 Temp 36.5 Pulse 75 Resp 20 B/P (MAP) 133/75 (94) Pulse Ox 94 O2 Delivery Room Air O2 Flow Rate 0.50 I&O Intake and Output 01/09/21 23:59 Intake Total 3200 ml Output Total 2125 ml Balance 1075 ml Intake Oral 1200 ml IV Total 2000 ml Output Urine Total 2125 ml # Bowel Movements 4 General: Alert, Oriented X3, Cooperative HEENT: Atraumatic, PERRLA Neck: Supple, No JVD, No Thyromegaly Lungs: Clear to Auscultation, Normal Air Movement Heart: Regular Rate, Normal S1, Normal S2, No Murmurs Abdomen: Normal Bowel Sounds, Soft, No Tenderness, No Hepatosplenomegaly, No Masses Extremities: No Clubbing, No Cyanosis, No Edema, Normal Pulses, No Tenderness/Swelling Skin: No Rashes, No Significant Lesion Neuro: Normal Gait, Normal Speech, Normal Tone, Sensation Intact Psych/Mental Status: Mental Status NL, Mood NL Results Lab Laboratory Tests 01/10/21 05:40 A/P-Cardiology Admission Diagnosis Hip fracture Coronary artery disease Hypertension Diabetes mellitus Assessment/Plan Hip fracture after none syncopal fall, managed by Dr. Posey, postop day #2. Coronary artery disease, history of thoracotomy possible CABG. Currently stable. Continue to monitor Hypertension, labile, blood pressure is better controlled, I checked it today and it was 133/80. Echocardiogram done on January 06, 2021 showing normal LV size, EF 65 to 70%, mild to moderate calcification on the mitral annulus, aortic valve sclerosis no stenosis. Diabetes mellitus, followed and managed by primary care physician GEOFF Vanegas MD Jan 10, 2021 11:05
[2021-01-10] MEDS: DICLOFENAC 1% GEL 100 GM (VOLTAREN) TUBE TOP PRN (12:08)
[2021-01-11] MEDS: NITROGLYCERIN 2% OINT 1 GM UNIT DOSE PACKET TOP SCH ×4 (00:08→17:31)
[2021-01-11 03:26] VITALS: BP 160/70
[2021-01-11] MEDS: inSUlin ASPART (NovoLOG) 1 UNIT/0.01 ML (CHARGE PER UNIT) SC SCH ×4 (05:24→20:41)
[2021-01-11] MEDS: BACLOFEN 10 MG (LIORESAL) TAB PO PRN ×2 (05:57→14:03)
[2021-01-11] MEDS: PANTOPRAZOLE 20 MG TABLET (PROTONIX) PO SCH (05:57)
[2021-01-11 06:17] LABS: BASOPHILS % (AUTO) 1 % (0-10); EOSINOPHILS # (AUTO) 0.2 10^3/uL (0.0-0.3); EOSINOPHILS % (AUTO) 3 % (0-10); HEMATOCRIT 26 % (35-52); HEMOGLOBIN 7.9 g/dL (11.5-16.0); LYMPHOCYTES # (AUTO) 1.3 10^3/uL (1.0-4.0); LYMPHOCYTES % (AUTO) 15 % (12-44); MEAN CORPUSCULAR HEMOGLOBIN 29 pg (25-34); MEAN CORPUSCULAR HGB CONC 31 g/dL (32-36); MEAN CORPUSCULAR VOLUME 93 fL (80-99); MEAN PLATELET VOLUME 10.7 fL (9.0-12.2); MONOCYTES # (AUTO) 0.6 10^3/uL (0.0-1.0); MONOCYTES % (AUTO) 7 % (0-12); NEUTROPHILS % (AUTO) 73 % (42-75); PLATELET COUNT 236 10^3/uL (130-400); WHITE BLOOD COUNT 8.2 10^3/uL (4.3-11.0)
[2021-01-11 06:31] LABS: ALBUMIN 2.9 GM/DL (3.2-4.5)
[2021-01-11 06:32] LABS: POTASSIUM 3.9 MMOL/L (3.6-5.0)
[2021-01-11 06:33] LABS: CALCIUM 8.5 MG/DL (8.5-10.1)
[2021-01-11 06:34] LABS: TOTAL PROTEIN 6.5 GM/DL (6.4-8.2)
[2021-01-11 06:36] LABS: BILIRUBIN,TOTAL 0.7 MG/DL (0.1-1.0)
[2021-01-11 06:38] LABS: CREATININE SERUM 1.09 MG/DL (0.60-1.30)
[2021-01-11 07:16] VITALS: BP 178/80
[2021-01-11] MEDS: DOCUSATE SODIUM 100 MG (COLACE) CAP PO SCH ×2 (07:52→19:09)
[2021-01-11] MEDS: polyethylene glycoL POWDER 17 GM (MIRALAX) PACK PO SCH ×2 (07:53→19:10)
[2021-01-11] MEDS: LACTULOSE SYRUP 10GM/15ML (ENULOSE) 30ML UDC PO SCH ×2 (07:53→19:10)
[2021-01-11] MEDS: DICLOFENAC 1% GEL 100 GM (VOLTAREN) TUBE TOP PRN (08:55)
[2021-01-11] MEDS: ACETAMINOPHEN 325 MG TABLET PO PRN ×2 (08:58→18:34)
[2021-01-11] MEDS: ASPIRIN E.C. 81 MG (ECOTRIN) TAB PO SCH (08:58)
[2021-01-11] MEDS: CLOPIDOGREL 75 MG (PLAVIX) TABLET PO SCH (08:58)
[2021-01-11] MEDS: SERTRALINE 50 MG (ZOLOFT) TABLET PO SCH ×2 (08:58→21:13)
[2021-01-11] MEDS: fluCOnazole (DIFLUCAN) 100 MG TAB PO SCH (08:58)
[2021-01-11] MEDS: LOSARTAN 25 MG (COZAAR) TAB PO SCH (08:58)
[2021-01-11] MEDS: meTOprolol SUCCINATE 100 MG (TOPROL XL) TAB PO SCH (08:58)
[2021-01-11] MEDS: ENOXAPARIN 30 MG/0.3 ML (LOVENOX) SYR SC SCH (08:59)
[2021-01-11 11:04] VITALS: BP 157/74
--- NOTE | 2021-01-11 11:07 | Cardiology Progress Note ---
Subjective Date Seen by Provider: Jan 11, 2021 Time Seen by Provider: 11:06 Subjective/Events-last exam Patient was seen at bedside, laying down comfortably. Review of Systems General: No Chills, No Night Sweats, No Fatigue, No Malaise, No Appetite, No Other HEENT: No Head Aches, No Visual Changes, No Eye Pain, No Ear Pain, No Dysphasia, No Sinus Congestion, No Post Nasal Drip, No Sore Throat, No Other Pulmonary: No Dyspnea, No Cough, No Pleuritic Chest Pain, No Other Cardiovascular: No: Chest Pain, Palpitations, Orthopnea, Paroxysmal Noc. Dyspnea, Edema, Lt Headedness, Other Objective-Cardiology Exam Last Set of Vital Signs Vital Signs 01/11/21 01/11/21 07:16 08:00 Temp 36.2 Pulse 78 Resp 16 B/P (MAP) 178/80 (112) Pulse Ox 97 O2 Delivery Nasal Cannula O2 Flow Rate 1.00 I&O Intake and Output 01/11/21 00:00 Intake Total 910 ml Output Total 950 ml Balance -40 ml Intake Oral 910 ml Output Urine Total 950 ml # Voids 3 # Bowel Movements 5 General: Alert, Cooperative HEENT: Atraumatic, PERRLA Neck: Supple, No JVD, No Thyromegaly Lungs: Clear to Auscultation, Normal Air Movement Heart: Regular Rate, Normal S1, Normal S2, No Murmurs Abdomen: Normal Bowel Sounds, Soft, No Tenderness, No Hepatosplenomegaly, No Masses Extremities: No Clubbing, No Cyanosis, No Edema, Normal Pulses, No Tendernes s/Swelling Skin: No Rashes, No Significant Lesion Neuro: Normal Gait, Normal Speech, Normal Tone, Sensation Intact Psych/Mental Status: Mental Status NL, Mood NL Results Lab Laboratory Tests 01/11/21 06:08 A/P-Cardiology Admission Diagnosis Hip fracture Coronary artery disease Hypertension Diabetes mellitus Assessment/Plan Hip fracture after none syncopal fall, managed by Dr. Posey, postop day #2. Coronary artery disease, history of thoracotomy possible CABG. Currently stable. Continue to monitor Hypertension, labile, I added losartan 25 mg daily, monitor blood pressure response. Echocardiogram done on January 06, 2021 showing normal LV size, EF 65 to 70%, mild to moderate calcification on the mitral annulus, aortic valve sclerosis no stenosis. Diabetes mellitus, followed and managed by primary care physician Dementia GEOFF ATKINS MD Jan 11, 2021 11:07
--- NOTE | 2021-01-11 11:09 | Progress Note - Hospitalist ---
Subjective HPI/CC On Admission Date Seen by Provider: Jan 11, 2021 Time Seen by Provider: 11:00 CC: Right hip fracture after fall HPI: This is an 85yoWF assisted living at [facility] of Dr. Davila who has a PMH of dementia, DM and chronic UTI who presented after a fall at [facility]. She was found to have a right hip fracture. Dr. Posey is in the midst of getting her cleared to go to surgery. She has a history of multiple stents and CAD and she currently has an active UTI, Rocephin was initiated. Bic arbonate is 17 consistent with chronic metabolic acidosis. CT scan was negative and CXR shows pulmonary congestion. Creatinine is 1.3. Benefits outweigh the medical risks due to significant pain issue and it would be prude to proceed on with surgery. Subjective/Events-last exam Patient doing well Little bit drowsy today Daughter at the bedside Check meds and labs Hemoglobin 7.9 Pain when moving leg Long recovery expected if recovers Review of Systems General: Fatigue, Malaise Musculoskeletal: leg pain Neurological: Confusion Objective Exam Vital Signs Vital Signs Date Time Temp Pulse Resp B/P (MAP) Pulse Ox O2 Delivery O2 Flow Rate FiO2 01/11/21 11:04 36.5 66 20 157/74 (101) 95 Nasal Cannula 0.50 Capillary Refill : General Appearance: No Apparent Distress, WD/WN, Chronically ill Respiratory: Lungs Clear, Normal Breath Sounds, Decreased Breath Sounds Cardiovascular: Regular Rate, Rhythm Neurologic/Psychiatric: Alert, Oriented x3, Disoriented Results/Procedures Lab Laboratory Tests 01/11/21 06:08 Patient resulted labs reviewed. Assessment/Plan Assessment and Plan Assess & Plan/Chief Complaint Assessment: Status post hip fracture repair Delirium Dementia CAD Postop constipation Acute blood loss anemia Pain control Increase p.o. intake Laxatives DC catheter Iron infusions Monitor closely 01/11/2021: Supportive care Monitor hemoglobin Pain control longterm tomorrow SAMPSON GUTIERREZ DO Jan 11, 2021 11:09
[2021-01-11] MEDS: fentaNYL INJ 100 MCG/2 ML AMP IVP PRN (14:03)
[2021-01-11 16:38] VITALS: BP 128/55
[2021-01-11 20:46] VITALS: BP 168/58
[2021-01-12] VITALS: BP 153/90
[2021-01-12] MEDS: NITROGLYCERIN 2% OINT 1 GM UNIT DOSE PACKET TOP SCH ×3 (01:03→12:26)
[2021-01-12 03:24] VITALS: BP 170/70
[2021-01-12] MEDS: BACLOFEN 10 MG (LIORESAL) TAB PO PRN ×2 (05:19→11:39)
[2021-01-12] MEDS: PANTOPRAZOLE 20 MG TABLET (PROTONIX) PO SCH (05:19)
[2021-01-12] MEDS: inSUlin ASPART (NovoLOG) 1 UNIT/0.01 ML (CHARGE PER UNIT) SC SCH ×2 (05:25→11:27)
[2021-01-12 05:56] LABS: BASOPHILS % (AUTO) 1 % (0-10); EOSINOPHILS # (AUTO) 0.3 10^3/uL (0.0-0.3); EOSINOPHILS % (AUTO) 4 % (0-10); HEMATOCRIT 27 % (35-52); LYMPHOCYTES # (AUTO) 1.5 10^3/uL (1.0-4.0); LYMPHOCYTES % (AUTO) 18 % (12-44); MEAN CORPUSCULAR HEMOGLOBIN 29 pg (25-34); MEAN CORPUSCULAR HGB CONC 30 g/dL (32-36); MEAN CORPUSCULAR VOLUME 98 fL (80-99); MEAN PLATELET VOLUME 11.3 fL (9.0-12.2); MONOCYTES # (AUTO) 0.6 10^3/uL (0.0-1.0); MONOCYTES % (AUTO) 7 % (0-12); NEUTROPHILS # (AUTO) 5.8 10^3/uL (1.8-7.8); NEUTROPHILS % (AUTO) 70 % (42-75); PLATELET COUNT 249 10^3/uL (130-400); WHITE BLOOD COUNT 8.4 10^3/uL (4.3-11.0)
[2021-01-12 06:17] LABS: ALBUMIN 2.9 GM/DL (3.2-4.5)
[2021-01-12 06:18] LABS: CALCIUM 8.5 MG/DL (8.5-10.1)
[2021-01-12 06:20] LABS: TOTAL PROTEIN 6.5 GM/DL (6.4-8.2)
[2021-01-12 06:22] LABS: BILIRUBIN,TOTAL 0.8 MG/DL (0.1-1.0)
[2021-01-12 06:23] LABS: CREATININE SERUM 1.11 MG/DL (0.60-1.30)
[2021-01-12 06:30] VITALS: BP 130/55
[2021-01-12 08:00] VITALS: BP 134/62
[2021-01-12] MEDS: CLOPIDOGREL 75 MG (PLAVIX) TABLET PO SCH (08:33)
[2021-01-12] MEDS: meTOprolol SUCCINATE 100 MG (TOPROL XL) TAB PO SCH (08:33)
[2021-01-12] MEDS: SERTRALINE 50 MG (ZOLOFT) TABLET PO SCH (08:33)
[2021-01-12] MEDS: ACETAMINOPHEN 325 MG TABLET PO PRN (08:33)
[2021-01-12] MEDS: fluCOnazole (DIFLUCAN) 100 MG TAB PO SCH (08:33)
[2021-01-12] MEDS: LOSARTAN 25 MG (COZAAR) TAB PO SCH (08:33)
[2021-01-12] MEDS: fentaNYL INJ 100 MCG/2 ML AMP IVP PRN (08:33)
[2021-01-12] MEDS: ASPIRIN E.C. 81 MG (ECOTRIN) TAB PO SCH (08:33)
[2021-01-12] MEDS: ENOXAPARIN 30 MG/0.3 ML (LOVENOX) SYR SC SCH (08:33)
[2021-01-12] MEDS: IRON SUCROSE 200 MG/10 ML (VENOFER) VIAL IV SCH (08:34)
[2021-01-12] MEDS: DOCUSATE SODIUM 100 MG (COLACE) CAP PO SCH (09:30)
[2021-01-12] MEDS: LACTULOSE SYRUP 10GM/15ML (ENULOSE) 30ML UDC PO SCH (09:32)
[2021-01-12] MEDS: polyethylene glycoL POWDER 17 GM (MIRALAX) PACK PO SCH (09:32)
--- NOTE | 2021-01-12 10:35 | Progress Note - Ortho ---
Progress Note Subjective Date of Exam 01/12/21 Chief Complaint POD#6 Short TFN right hip for a displaced three-part intertrochanteric fracture HPI/Events since last exam Mrs. Morocho is 6 days postop short TFN right hip for displaced three-part intertrochanteric fracture. I spoke with her daughter and she stated she was in a lot of pain this morning so she was given some fentanyl. When I saw her she was sleeping comfortably in bed. Review of Systems Unchanged Allergies: Coded Allergies: cephalexin (Unverified Allergy, Unknown, 01/10/21) Patient was treated with both Rocephin and Ancef and had no reaction metformin (Verified Allergy, Unknown, 02/03/18) sitagliptin (Verified Allergy, Unknown, 02/03/18) sulfamethoxazole (Verified Allergy, Unknown, 02/03/18) trimethoprim (Verified Allergy, Unknown, 02/03/18) Home Meds Reported Medications Insulin Degludec (Tresiba Flextouch U-100) 100 Unit/1 Ml Insuln.pen, 38 UNITS SC HS, UNITS 01/06/21 Empagliflozin (Jardiance) 25 Mg Tablet, 25 MG PO DAILY, TAB 01/06/21 Sertraline HCl (Sertraline HCl) 25 Mg Tablet, 25 MG PO HS, TAB 01/06/21 Oxybutynin Chloride (Oxybutynin Chloride ER) 10 Mg Tab.er.24, 10 MG PO DAILY, TAB 01/06/21 Pantoprazole Sodium (Pantoprazole Sodium) 20 Mg Tablet.dr, 20 MG PO DAILY, TAB 01/06/21 Lisinopril (Lisinopril) 20 Mg Tablet, 20 MG PO DAILY, TAB 01/06/21 Sertraline HCl (Sertraline HCl) 50 Mg Tablet, 50 MG PO DAILY, TAB 04/25/18 Clopidogrel Bisulfate (Clopidogrel) 75 Mg Tablet, 75 MG PO DAILY, TAB 04/25/18 Aspirin (Aspirin EC) 81 Mg Tablet.dr, 81 MG PO DAILY, TAB 04/25/18 Discontinued Reported Medications Metoprolol Succinate (Metoprolol Succinate) 25 Mg Tab.er.24h, 25 MG PO DAILY, TAB 05/01/18 Ranitidine HCl (Ranitidine HCl) 150 Mg Tablet, 150 MG PO BID, TAB 05/01/18 Amlodipine Besylate (Amlodipine Besylate) 2.5 Mg Tablet, 2.5 MG PO DAILY, TAB 04/25/18 Ondansetron HCl (Zofran) 4 Mg Tab, 4 MG PO Q4H PRN for NAUSEA/VOMITING-1ST LINE, TAB 04/25/18 Insulin Aspart (Novolog) 100 Unit/1 Ml Susp, SC QID for SLIDING SCALE, EA 150-199 =2 UNITS 200-249 =4 UNITS 250-299 =6 UNITS 300-349 =8 UNITS 350-399 =10 UNITS 400-999 =12 UNITS CALL PCP <60 OR >400 04/25/18 Glyburide (Glyburide) 5 Mg Tablet, 2.5 MG PO BID, TAB TAKES 1/2 (5MG) TABLET 04/25/18 Insulin Determir (Levemir) 1,000 Units/10 Ml Soln, 15 UNITS SQ DAILY, EA 04/25/18 Insulin Determir (Levemir) 1,000 Units/10 Ml Soln, 10 UNITS SQ HS, EA 04/25/18 Acetaminophen (Tylenol) 325 Mg Tablet, 650 MG PO Q4H PRN for PAIN-MILD, TAB TAKES 2 (325MG) TABLETS 04/25/18 Magnesium Hydroxide (Milk of Magnesia) 400 Mg/5 Ml Oral.susp, 30 ML PO DAILY PRN for CONSTIPATION-7TH LINE, ML 04/25/18 Discontinued Scripts Tramadol HCl (Ultram) 50 Mg Tablet, 50 MG PO Q6H PRN for PAIN-MODERATE TO SEVERE, #14 TAB Prov:SHANTE CARPENTER RESEARCH ANIMAL ATTENDANT 07/19/18 Hydrocodone Bit/Acetaminophen (LORTAB 5 MG TABLET) 1 Tab Tab, 1 EACH PO Q6H PRN for PAIN-MODERATE MDD 10, #20 TAB 0 Refills Prov:CANELO STEWART MD 05/03/18 Hydrocodone Bit/Acetaminophen (LORTAB 5 MG TABLET) 1 Tab Tab, 1 TAB PO Q6HR PRN for PAIN-MODERATE, #15 TAB Prov:SAMPSON GUTIERREZ DO 05/02/18 Objective Exam Constitutional: [] HEENT: [] Neck: [] Cardiovascular: [] Respiratory: [] Gastrointestinal: [] Genitourinary: [] Skin: [] Back/Spine: [] Extremities: [Dressing is intact. No calf swelling or redness or warmth. Pain with motion right hip.] Neurologic: [] Psychiatric: [] Hematologic/lymphatic/immunologic: [] Vital Signs Vital Signs Date Time Temp Pulse Resp B/P (MAP) Pulse Ox O2 Delivery O2 Flow Rate FiO2 01/12/21 08:00 Nasal Cannula 1.00 01/12/21 08:00 36.4 50 20 134/62 (86) 98 Nasal Cannula 1.00 01/12/21 06:30 130/55 (80) 01/12/21 03:24 35.9 65 16 170/70 (103) 99 Nasal Cannula 1.00 01/12/21 00:00 35.6 60 18 153/90 (111) 100 Nasal Cannula 1.00 01/11/21 20:46 36.3 65 20 168/58 (94) 98 Nasal Cannula 1.00 01/11/21 19:45 Nasal Cannula 1.00 01/11/21 16:38 35.8 61 18 128/55 (79) 98 Nasal Cannula 0.50 01/11/21 11:04 36.5 66 20 157/74 (101) 95 Nasal Cannula 0.50 I & O 01/12/21 06:59 Intake Total 920 ml Balance 920 ml Lab Results Laboratory Tests 01/11/21 11:01: Glucometer 179H 01/11/21 15:40: Glucometer 202H 01/11/21 20:32: Glucometer 172H 01/12/21 05:25: Glucometer 141H, White Blood Count 8.4, Red Blood Count 2.78L, Hemoglobin 8.0L, Hematocrit 27L, Mean Corpuscular Volume 98, Mean Corpuscular Hemoglobin 29, Mean Corpuscular Hemoglobin Concent 30L, Red Cell Distribution Width 14.5, Platelet Count 249, Mean Platelet Volume 11.3, Immature Granulocyte % (Auto) 1, Neutrophils (%) (Auto) 70, Lymphocytes (%) (Auto) 18, Monocytes (%) (Auto) 7, Eosinophils (%) (Auto) 4, Basophils (%) (Auto) 1, Neutrophils # (Auto) 5.8, Lymphocytes # (Auto) 1.5, Monocytes # (Auto) 0.6, Eosinophils # (Auto) 0.3, Basophils # (Auto) 0.0, Immature Granulocyte # (Auto) 0.1, Sodium Level 143, Potassium Level 4.0, Chloride Level 110H, Carbon Dioxide Level 25, Anion Gap 8, Blood Urea Nitrogen 35H, Creatinine 1.11, Estimat Glomerular Filtration Rate 47, BUN/Creatinine Ratio 32, Glucose Level 157H, Calcium Level 8.5, Corrected Calcium 9.4, Total Bilirubin 0.8, Aspartate Amino Transf (AST/SGOT) 18, Alanine Aminotransferase (ALT/SGPT) 10, Alkaline Phosphatase 64, Total Protein 6.5, Albumin 2.9L Microbiology 01/06/21 MRSA Screen - Final, Complete MRSA not isolated 01/05/21 Urine Culture - Final, Complete YEAST Strep agalactiae Group B Assessment and Plan Assessment No significant improvement Problem List Unchanged Plan Continue to attempt ambulation although I do not think the patient is a good candidate for ambulation. At most I think she will be bed to chair and less she shows improvement in her dementia/confusion. It sounds like [facility] may [facility] today. If that is the case we will contact the prison and see if they want the patient to come over to the office physically for an x-ray and staple removal and recheck or they want to use a mobile x-ray service and take the jyotsna out and let us know how the wound looks. At this time with Covid they may want to just x-ray her at the prison and although look at the results online. Final Diagonsis Three-part intertrochanteric fracture right hip status post short TFN Level of the visit: Level 3 DANA AVILA MD Jan 12, 2021 10:35
--- NOTE | 2021-01-12 12:24 | Discharge Summary ---
LEELEE ENGLAND MD 01/12/21 1224: Diagnosis/Chief Complaint Date of Admission Jan 05, 2021 at 21:20 Date of Discharge Discharge Summary-Simple/Stand Consultations Discharge Physical Examination Allergies: Coded Allergies: cephalexin (Unverified Allergy, Unknown, 01/10/21) Patient was treated with both Rocephin and Ancef and had no reaction metformin (Verified Allergy, Unknown, 02/03/18) sitagliptin (Verified Allergy, Unknown, 02/03/18) sulfamethoxazole (Verified Allergy, Unknown, 02/03/18) trimethoprim (Verified Allergy, Unknown, 02/03/18) Vitals & I&Os Vital Sign - Last 12Hours Date Time Temp Pulse Resp B/P (MAP) Pulse Ox O2 Delivery O2 Flow Rate FiO2 01/12/21 08:00 Nasal Cannula 1.00 01/12/21 08:00 36.4 50 20 134/62 (86) 98 Intake and Output 01/12/21 00:00 Intake Total 820 ml Balance 820 ml Hospital Course See final discharge diagnosis. Radiology Reviewed NAME: BHUPINDER RAJPUT Osbaldo [facility] REC#: [id number] PT STATUS: ADM IN : 1935 PHYSICIAN: FLOR PIKE MD ADMIT DATE: 01/05/21 Signed Date of Exam:01/05/21 CHEST 1 VIEW, AP/PA ONLY HISTORY: Fall, chest injury TECHNIQUE: Frontal view of the chest. COMPARISON: 12/03/2020 FINDINGS: Lung volumes are low. There appears to be mild central vascular congestion which may be accentuated by the low lung volumes. There are old right-sided rib fractures. No definite acute displaced rib fracture is seen. The cardiac silhouette is stable in size. Sternotomy wires and post-CABG changes are seen. There is no pneumothorax or pleural effusion. IMPRESSION: 1. Prominent interstitial markings, may represent edema/congestion. Dictated by: Dictated on workstation # [id number] Dict: 01/05/212041 Trans: 01/05/212336 [facility] [id number] Interpreted by: ARNAV LORENZO MD Electronically signed by: ARNAV LORENZO MD 01/05/217 Discharge Instructions to patient/family Please see electronic discharge instructions given to patient. Discharge Medications Reviewed and agree with Discharge Medication list on patient's Discharge Instruction sheet TALIA GOMEZ 01/12/21 1433: Discharge Summary-Simple/Stand Discharge Physical Examination Allergies: Coded Allergies: cephalexin (Unverified Allergy, Unknown, 01/10/21) Patient was treated with both Rocephin and Ancef and had no reaction metformin (Verified Allergy, Unknown, 02/03/18) sitagliptin (Verified Allergy, Unknown, 02/03/18) sulfamethoxazole (Verified Allergy, Unknown, 02/03/18) trimethoprim (Verified Allergy, Unknown, 02/03/18) LEELEE ENGLAND MD Jan 12, 2021 12:24 TALIA GOMEZ Jan 12, 2021 14:33
--- NOTE | 2021-01-12 12:27 | Discharge Summary ---
Discharge Summary Reconcile Patient Problems Problems Reviewed?: Yes Hospital Course Hospital Course Date of Admission: Jan 05, 2021 at 21:20 Admission Diagnosis : Family Physician/Provider: Donnell Oquendo MD Date of Discharge: 01/12/21 Discharge Diagnosis: Hip Fracture s/p repair CAD Post Op Anemia Constipation Dementia Hospital Course: 85 yo F with dementia that suffered hip fracture and underwent repair. Post op patient has had anemia and constipation. She has been having decreased PO intake but that is improving. Daughter desires patient to get SNF. Ok to D.c today Labs and Pending Lab Test: Laboratory Tests 01/11/21 15:40: Glucometer 202H 01/11/21 20:32: Glucometer 172H 01/12/21 05:25: Glucometer 141H, White Blood Count 8.4, Red Blood Count 2.78L, Hemoglobin 8.0L, Hematocrit 27L, Mean Corpuscular Volume 98, Mean Corpuscular Hemoglobin 29, Mean Corpuscular Hemoglobin Concent 30L, Red Cell Distribution Width 14.5, Platelet Count 249, Mean Platelet Volume 11.3, Immature Granulocyte % (Auto) 1, Neutrophils (%) (Auto) 70, Lymphocytes (%) (Auto) 18, Monocytes (%) (Auto) 7, Eosinophils (%) (Auto) 4, Basophils (%) (Auto) 1, Neutrophils # (Auto) 5.8, Lymphocytes # (Auto) 1.5, Monocytes # (Auto) 0.6, Eosinophils # (Auto) 0.3, Basophils # (Auto) 0.0, Immature Granulocyte # (Auto) 0.1, Sodium Level 143, Potassium Level 4.0, Chloride Level 110H, Carbon Dioxide Level 25, Anion Gap 8, Blood Urea Nitrogen 35H, Creatinine 1.11, Estimat Glomerular Filtration Rate 47, BUN/Creatinine Ratio 32, Glucose Level 157H, Calcium Level 8.5, Corrected Calcium 9.4, Total Bilirubin 0.8, Aspartate Amino Transf (AST/SGOT) 18, Alanine Aminotransferase (ALT/SGPT) 10, Alkaline Phosphatase 64, Total Protein 6.5, Albumin 2.9L 01/12/21 11:14: Glucometer 145H Microbiology 01/06/21 MRSA Screen - Final, Complete MRSA not isolated 01/05/21 Urine Culture - Final, Complete YEAST Strep agalactiae Group B Home Meds Active Reported Tresiba Flextouch U-100 (Insulin Degludec) 100 Unit/1 Ml Insuln.pen 38 Units SC HS Jardiance (Empagliflozin) 25 Mg Tablet 25 Mg PO DAILY Sertraline HCl 25 Mg Tablet 25 Mg PO HS Oxybutynin Chloride ER (Oxybutynin Chloride) 10 Mg Tab.er.24 10 Mg PO DAILY Pantoprazole Sodium 20 Mg Tablet. 20 Mg PO DAILY Lisinopril 20 Mg Tablet 20 Mg PO DAILY Sertraline HCl 50 Mg Tablet 50 Mg PO DAILY Clopidogrel (Clopidogrel Bisulfate) 75 Mg Tablet 75 Mg PO DAILY Aspirin EC (Aspirin) 81 Mg Tablet. 81 Mg PO DAILY Follow Up Appt.: Lore Machado will see in facility Skilled NF Admit to: [facility] Certification () I certify that SNF services are required to be given on an inpatient basis because of the above named patient's need for longterm care on a contin uing basis for the conditions(s) for which he/she was receiving inpatient hospital services prior to his/her transfer to the SNF. [facility] Facility Order: Nursing Services, Supervisor Dry Cleaning-Evaluate & Treat, Physical Therapy-Evaluate & Treat, Speech Language-Evaluate & Treat Oxygen Delivery Method: Nasal Cannula Discharge Diet: Soft Diet Daily Activity as Tolerated: Yes Resuscitation Status: Do Not Resuscitate Danni Sinha Jan 12, 2021 12:24 Discharge Physical Exam General: Alert, Other (disoriented ) Lungs: Clear to Auscultation, Normal Air Movement Heart: Regular Rate, No Murmurs Abdomen: Normal Bowel Sounds, Soft, No Tenderness, No Masses Extremities: No Tenderness/Swelling DANNI SINHA MD Jan 12, 2021 12:27
[2021-01-12] MEDS ORDERED: EMPA25TA PO (12:32)
[2021-01-12] MEDS ORDERED: ACHD5005 PO (12:32)
[2021-01-12] MEDS ORDERED: MTP100TCR PO (12:32)
[2021-01-12] MEDS ORDERED: LOSA25TA41 PO (12:32)
[2021-01-12] MEDS ORDERED: FLUC100T6 PO (12:32)
[2021-01-12] MEDS ORDERED: BACL10TA PO (12:32)
[2021-01-12 13:25] VITALS: BP 134/62
== END 2021-01-12 13:25 | DRG 481 ==
LOC: EDUNIT# 18:37 → ER 18:38 → 4TH 21:20
PROVIDERS: ADMIT Internal Medicine; ATTEND Family Medicine
PROC: 0QH634Z Insertion of Internal Fixation Device into Right Upper Femur, Percutaneous Approach (ICD-10-PCS; principal; 2021-01-06 11:11)
DX: S72.141A Displaced intertrochanteric fracture of right femur, initial encounter for closed fracture (principal); B37.41 Candidal cystitis and urethritis; E87.2 Acidosis; D62 Acute posthemorrhagic anemia; F05 Delirium due to known physiological condition; J44.9 Chronic obstructive pulmonary disease, unspecified; E11.9 Type 2 diabetes mellitus without complications; Z66 Do not resuscitate; Z20.822 Contact with and (suspected) exposure to COVID-19; I25.10 Atherosclerotic heart disease of native coronary artery without angina pectoris; I10 Essential (primary) hypertension; E78.00 Pure hypercholesterolemia, unspecified; F03.90 Unspecified dementia, unspecified severity, without behavioral disturbance, psychotic disturbance, mood disturbance, and anxiety; K59.09 Other constipation; M19.91 Primary osteoarthritis, unspecified site; I08.0 Rheumatic disorders of both mitral and aortic valves; I25.2 Old myocardial infarction; Z86.73 Personal history of transient ischemic attack (TIA), and cerebral infarction without residual deficits; Z95.5 Presence of coronary angioplasty implant and graft; Z79.82 Long term (current) use of aspirin; Z79.4 Long term (current) use of insulin; Z88.1 Allergy status to other antibiotic agents; Z88.2 Allergy status to sulfonamides; Z88.8 Allergy status to other drugs, medicaments and biological substances; W19.XXXA Unspecified fall, initial encounter
CPT/HCPCS: 36415; 51702; 70450; 71045; 72125; 73030; 73502; 73590; 76000; 80053; 81000; 82947; 83540; 83605; 85025; 87077; 87081; 87088; 87636; 93005; 93306; 94760; 96361; 96372; 96374; 96375; 96376

== ENCOUNTER 2021-01-17 13:09 | Emergency (ER) | payer MEDICARE, MEDICAID ==
[~2021-01-17] VITALS: Ht 152.4 cm; Wt 66.2 kg
[~2021-01-17 13:09] MED LIST changes: +BACL10TA PO; +EMPA25TA PO; +FLUC100T6 PO; +INSU100I32 SC; +LISI20TA26 PO; +LOSA25TA41 PO; +MTP100TCR PO; +OXYB10TA29 PO; +PANT20TA18 PO; +SERT-412 PO
[2021-01-17 13:43] LABS: BASOPHILS % (AUTO) 0 % (0-10); EOSINOPHILS # (AUTO) 0.2 10^3/uL (0.0-0.3); EOSINOPHILS % (AUTO) 2 % (0-10); HEMATOCRIT 30 % (35-52); LYMPHOCYTES # (AUTO) 1.5 10^3/uL (1.0-4.0); LYMPHOCYTES % (AUTO) 17 % (12-44); MEAN CORPUSCULAR HEMOGLOBIN 30 pg (25-34); MEAN CORPUSCULAR HGB CONC 30 g/dL (32-36); MEAN CORPUSCULAR VOLUME 98 fL (80-99); MEAN PLATELET VOLUME 10.7 fL (9.0-12.2); MONOCYTES # (AUTO) 0.6 10^3/uL (0.0-1.0); MONOCYTES % (AUTO) 7 % (0-12); NEUTROPHILS # (AUTO) 6.5 10^3/uL (1.8-7.8); NEUTROPHILS % (AUTO) 74 % (42-75); PLATELET COUNT 296 10^3/uL (130-400); WHITE BLOOD COUNT 8.9 10^3/uL (4.3-11.0)
--- NOTE | 2021-01-17 13:47 | Diagnostic Imaging Report ---
EXAMINATION: AP view of the pelvis. Comparison is made with radiographs of the right hip from 01/05/2021. INDICATION: Hip pain. Evaluate for hip dislocation. FINDINGS: Single view of the pelvis demonstrates no evidence of current hip dislocation. There has been prior repair of the patient's intertrochanteric fracture with an antegrade intramedullary nail and spiral blade plate. Background arthritic changes within the hips are unchanged. The pelvic ring appears intact. IMPRESSION: Recent ORIF of an intertrochanteric fracture of the right femur. There are no current findings on this single view to suggest hip dislocation. Dictated by: Dictated on workstation # [id number]
[2021-01-17 13:53] LABS: POTASSIUM 4.3 MMOL/L (3.6-5.0)
[2021-01-17 13:55] LABS: CALCIUM 8.4 MG/DL (8.5-10.1)
[2021-01-17 13:59] LABS: CREATININE SERUM 1.07 MG/DL (0.60-1.30)
--- NOTE | 2021-01-17 14:02 | Diagnostic Imaging Report ---
EXAMINATION: Right foot radiographs, 3 views. COMPARISON: MR 15 2017. HISTORY: 85-year-old female, ulcer. Right foot pain. FINDINGS: There is normal variant congenital fusion of the fifth digit middle and distal phalanges. There is severe joint space loss of the first metatarsophalangeal joint. There is a small calcaneal heel spur. There are vascular calcifications. There is no identified acute fracture. There is no cortical or aggressive bone destruction. There is no radiopaque foreign body. IMPRESSION: 1. No radiographic evidence of osteomyelitis or other acute bony abnormality. 2. 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 Dictated by: Dictated on workstation # [id number]
--- NOTE | 2021-01-17 14:38 | Diagnostic Imaging Report ---
EXAMINATION: Right femur radiographs, 2 views, 4 images. COMPARISON: May 23, 2018. HISTORY: 85-year-old female, right leg pain. FINDINGS: There is an intramedullary brittney in the right proximal femur with dynamic fixation screw traversing across a displaced right intertrochanteric femur fracture which is without prominent bony callus bridging. There are skin jyotsna laterally. There are vascular calcifications. The right hip is not dislocated. There is no additional identified more distally located fracture of the right femur. There is no right knee joint effusion. There is arthritis of the right knee. IMPRESSION: 1. Right intertrochanteric femur fracture fixated with an intramedullary brittney and dynamic fixation screw at the lateral skin jyotsna suggesting recent open reduction and internal fixation. 2. Additional radiographic evaluation of the right femur is without identified acute bony abnormality. Dictated by: Dictated on workstation # [id number]
[2021-01-17 15:01] LABS: BILIRUBIN,URINE NEGATIVE (NEGATIVE); CLARITY,URINE SL CLOUDY; COLOR,URINE YELLOW; GLUCOSE, URINE (UA) NEGATIVE (NEGATIVE); KETONES,URINE NEGATIVE (NEGATIVE); LEUKOCYTE ESTERASE ,URINE 3+ (NEGATIVE); NITRITE,URINE NEGATIVE (NEGATIVE); PH,URINE 6.5 (5-9); PROTEIN,URINE 1+ (NEGATIVE)
[2021-01-17 15:12] LABS: BACTERIA,URINE NEGATIVE /HPF; RBC,URINE RARE /HPF; WBC,URINE 50-100 /HPF; YEAST,URINE FEW /HPF
[2021-01-17] MEDS ORDERED: FLUCONAZOLE 150 MG TABLET (ED ONLY) PO ONE (15:30)
--- NOTE | 2021-01-17 15:40 | ED General ---
General Chief Complaint: Post OP Complications/Pain Stated Complaint: R HIP DISLOCATION Nursing Triage Note: PT TO ROOM 06 [facility]IA [facility] FROM [facility]F WITH C/O RIGHT HIP PAIN. PT REPORTS THAT SHE RECENTLY HAD TOTAL RIGHT HIP REPLACEMENT. ALF DENIES INJURY. Source of Information: Patient Exam Limitations: No Limitations History of Present Illness Date Seen by Provider: Jan 17, 2021 Time Seen by Provider: 13:10 Initial Comments This 85-year-old woman presents to the emergency room with initial complaints of right hip pain that started while transferring her at the custodial. Nursing staff was concerned that she may have dislocated her hip. She had a fall on January 08 resulting in right hip fracture requiring surgical repair. On arrival patient complains of pain in her right foot, not her hip. She has a large necrotic decubitus ulceration on her right heel. She is in a soft boot. Allergies and Home Medications Allergies Coded Allergies: cephalexin (Unverified Allergy, Unknown, 01/10/21) Patient was treated with both Rocephin and Ancef and had no reaction metformin (Verified Allergy, Unknown, 02/03/18) sitagliptin (Verified Allergy, Unknown, 02/03/18) sulfamethoxazole (Verified Allergy, Unknown, 02/03/18) trimethoprim (Verified Allergy, Unknown, 02/03/18) Patient Home Medication List Home Medication List Reviewed: Yes Aspirin (Aspirin EC) 81 Mg Tablet.dr, 81 MG PO DAILY, (Reported) Entered as Reported by: MARY KIM on 04/25/18 0920 Baclofen (Baclofen) 10 Mg Tablet, 10 MG PO Q4HR PRN for MUSCLE SPASMS Prescribed by: LEELEE ENGLAND on 01/12/21 1232 Clopidogrel Bisulfate (Clopidogrel) 75 Mg Tablet, 75 MG PO DAILY, (Reported) Entered as Reported by: MARY KIM on 04/25/18 0920 Empagliflozin (Jardiance) 25 Mg Tablet, 25 MG PO DAILY Prescribed by: LEELEE ENGLAND on 01/12/21 1232 Fluconazole (Fluconazole) 100 Mg Tablet, 100 MG PO DAILY Prescribed by: LEELEE ENGLAND on 01/12/21 1232 Fluconazole (Diflucan) 150 Mg Tablet, 150 MG PO UD Prescribed by: HANNA SULLIVAN on 01/17/21 1543 Hydrocodone/Acetaminophen (Hydrocodone-Acetamin 5-325 mg) 1 Each Tablet, 1 TAB PO Q8H PRN for PAIN-MODERATE (5-7) Prescribed by: LEELEE ENGLAND on 01/12/21 1235 Insulin Degludec (Tresiba Flextouch U-100) 100 Unit/1 Ml Insuln.pen, 38 UNITS SC HS, (Reported) Entered as Reported by: SIVA LUJAN on 01/06/21829 Losartan Potassium (Losartan Potassium) 25 Mg Tablet, 25 MG PO DAILY Prescribed by: LEELEE ENGLAND on 01/12/21 1232 Metoprolol Succinate (Metoprolol Succinate) 100 Mg Tab.er.24h, 100 MG PO DAILY Prescribed by: LEELEE ENGLAND on 01/12/21 123 Pantoprazole Sodium (Pantoprazole Sodium) 20 Mg Tablet.dr, 20 MG PO DAILY, (Reported) Entered as Reported by: SIVA LUJAN on 01/06/21829 Sertraline HCl (Sertraline HCl) 50 Mg Tablet, 50 MG PO DAILY, (Reported) Entered as Reported by: MARY KIM on 04/25/18 0920 Sertraline HCl (Sertraline HCl) 25 Mg Tablet, 25 MG PO HS, (Reported) Entered as Reported by: SIVA LUJAN on 01/06/21829 Discontinued Medications Lisinopril (Lisinopril) 20 Mg Tablet, 20 MG PO DAILY, (Reported) Entered as Reported by: SIVA LUJAN on 01/06/21829 Oxybutynin Chloride (Oxybutynin Chloride ER) 10 Mg Tab.er.24, 10 MG PO DAILY, (Reported) Entered as Reported by: SIVA LUJAN on 01/06/21829 Review of Systems Review of Systems Constitutional: no symptoms reported EENTM: no symptoms reported Respiratory: no symptoms reported Cardiovascular: no symptoms reported Gastrointestinal: no symptoms reported : No Musculoskeletal: see HPI Skin: see HPI Psychiatric/Neurological: No Symptoms Reported Hematologic/Lymphatic: No Symptoms Reported Past Jrpajak-Roxbni-Uwcgdd Hx Patient Social History Tobacco Use?: No Smokeless Tobacco Frequency: Never a User Substance use?: No Alcohol Use?: No Pt feels they are or have been: No Immunizations Up To Date Tetanus Booster (TDap): Unknown Seasonal Allergies Seasonal Allergies: No Past Medical History Surgery/Hospitalization HX: CARDIAC CATHS--STENTS X 8, PER PT Surgeries: Yes Coronary Stent, Orthopedic (Right hip fracture ORIF) Respiratory: Yes COPD Cardiac: Yes (STENTS X 8; CHRONIC CP, PALPITATIONS, TACHYCARDIA) Coronary Artery Disease, High Cholesterol, Hypertension Neurological: Yes Dementia Genitourinary: Yes Renal Failure, UTI-Chronic Gastrointestinal: No Musculoskeletal: Yes Arthritis Endocrine: Yes Diabetes, Insulin dep HEENT: No Cancer: No Psychosocial: No Integumentary: No Blood Disorders: No Family Medical History No Pertinent Family Hx Physical Exam Vital Signs Vital Signs - First Documented 01/17/21 01/17/21 13:09 16:06 Temp 34.5 Pulse 54 Resp 17 B/P (MAP) 156/54 (88) Pulse Ox 96 O2 Delivery Room Air Capillary Refill : Less Than 3 Seconds Height, Weight, BMI Height: 5'3.00" Weight: 147lbs. 6.0oz. 66.058425cz; 28.00 BMI Method:Estimated General Appearance: WD/WN, Mild Distress HEENT: PERRL/EOMI, Normal ENT Inspection Neck: Normal Inspection Respiratory: Lungs Clear, Normal Breath Sounds, No Accessory Muscle Use Cardiovascular: Regular Rate, Rhythm, No Edema, Systolic Murmur Gastrointestinal: Non Tender, Soft; No Distended Extremity: Other (Postoperative changes to the right hip including incisional jyotsna and bruising. No unexpected tenderness or deformity of the right hip. No significant pain in the right hip with rotation. She has an area of skin necrosis and tenderness on the left heel from pressure ulcer. Sensation, warmth, capillary refill, and pedal pulse intact in the right foot.) Neurologic/Psychiatric: Alert, Oriented x3, Normal Mood/Affect, gusset edger II-XII Norm as Tested Skin: Normal Color, Warm/Dry, Other (See above) Progress/Results/Core Measures Suspected Sepsis SIRS Temperature: Pulse: 54 Respiratory Rate: 17 Laboratory Tests 01/17/21 13:33: White Blood Count 8.9 Blood Pressure 156 /54 Mean: 88 Laboratory Tests 01/17/21 13:33: Creatinine 1.07, Platelet Count 296 Results/Orders Lab Results Laboratory Tests Test 01/17/21 13:33 01/17/21 14:52 Range/Units White Blood Count 8.9 4.3-11.0 10^3/uL Red Blood Count 3.04 L 3.80-5.11 10^6/uL Hemoglobin 9.0 L 11.5-16.0 g/dL Hematocrit 30 L 35-52 % Mean Corpuscular Volume 98 80-99 fL Mean Corpuscular Hemoglobin 30 25-34 pg Mean Corpuscular Hemoglobin Concent 30 L 32-36 g/dL Red Cell Distribution Width 16.9 H 10.0-14.5 % Platelet Count 296 130-400 10^3/uL Mean Platelet Volume 10.7 9.0-12.2 fL Immature Granulocyte % (Auto) 1 % Neutrophils (%) (Auto) 74 42-75 % Lymphocytes (%) (Auto) 17 12-44 % Monocytes (%) (Auto) 7 0-12 % Eosinophils (%) (Auto) 2 0-10 % Basophils (%) (Auto) 0 0-10 % Neutrophils # (Auto) 6.5 1.8-7.8 10^3/uL Lymphocytes # (Auto) 1.5 1.0-4.0 10^3/uL Monocytes # (Auto) 0.6 0.0-1.0 10^3/uL Eosinophils # (Auto) 0.2 0.0-0.3 10^3/uL Basophils # (Auto) 0.0 0.0-0.1 10^3/uL Immature Granulocyte # (Auto) 0.1 0.0-0.1 10^3/uL Sodium Level 141 135-145 MMOL/L Potassium Level 4.3 3.6-5.0 MMOL/L Chloride Level 111 H 98-107 MMOL/L Carbon Dioxide Level 20 L 21-32 MMOL/L Anion Gap 10 5-14 MMOL/L Blood Urea Nitrogen 36 H 7-18 MG/DL Creatinine 1.07 0.60-1.30 MG/DL Estimat Glomerular Filtration Rate 49 BUN/Creatinine Ratio 34 Glucose Level 74 70-105 MG/DL Calcium Level 8.4 L 8.5-10.1 MG/DL Urine Color YELLOW Urine Clarity SL CLOUDY Urine pH 6.5 5-9 Urine Specific [place] 1.015 L 1.016-1.022 Urine Protein 1+ H NEGATIVE Urine Glucose (UA) NEGATIVE NEGATIVE Urine Ketones NEGATIVE NEGATIVE Urine Nitrite NEGATIVE NEGATIVE Urine Bilirubin NEGATIVE NEGATIVE Urine Urobilinogen 0.2 < = 1.0 MG/DL Urine Leukocyte Esterase 3+ H NEGATIVE Urine RBC (Auto) TRACE-I NEGATIVE Urine RBC RARE /HPF Urine WBC 50-100 H /HPF Urine Squamous Epithelial Cells 2-5 /HPF Urine Crystals NONE /LPF Urine Bacteria NEGATIVE /HPF Urine Casts NONE /LPF Urine Mucus NEGATIVE /LPF Urine Yeast FEW H /HPF Urine Culture Indicated YES My Orders Orders - HANNA DEAN MD Femur, Right, 2 Views (01/17/21 14:25) Fluconazole Tablet (Ed Only) (Diflucan T (01/17/21 15:30) Medications Given in ED Current Medications Medications Dose Ordered Sig/Johnny Route Start Time Stop Time Status Last Admin Dose Admin Fluconazole 150 mg ONCE ONCE PO 01/17/21 15:30 01/17/21 15:31 DC 01/17/21 15:40 150 MG Vital Signs/I&O 01/17/21 01/17/21 13:09 16:06 Temp 34.5 Pulse 54 61 Resp 17 16 B/P (MAP) 156/54 (88) 137/66 Pulse Ox 96 O2 Delivery Room Air Room Air Capillary Refill : Less Than 3 Seconds Blood Pressure Mean: 88 Progress Note : Progress Note X-rays were obtained of the pelvis and the right femur. No disruption of the hardware, dislocation, or fracture was identified. Right foot showed no evidence of bone involvement and infection. I had long conversations with the patient's daughter. We discussed the need to offload any weight whatsoever from the right heel. I suggested that the lower leg rest on the calf with no weight resting on the heel at all. Her daughter requested urinalysis. One had been ordered earlier in the week but was not obtained. A UA here demonstrated yeast with many leukocytes present. No bacteria was present. She was treated with Diflucan. She was discharged back to the custodial with staff. See discharge instructions. Diagnostic Imaging Plain Films/CT/US/NM/MRI: pelvis Comments Pelvis x-ray viewed by me and report reviewed. See report below: NAME: BHUPINDER RAJPUT [facility] REC#: [id number] PT STATUS: REG ER : 1935 PHYSICIAN: SHANTE CARPENTER APRN ADMIT DATE: 01/17/21/ER Signed Date of Exam:01/17/21 PELVIS EXAMINATION: AP view of the pelvis. Comparison is made with radiographs of the right hip from 01/05/2021. INDICATION: Hip pain. Evaluate for hip dislocation. FINDINGS: Single view of the pelvis demonstrates no evidence of current hip dislocation. There has been prior repair of the patient's intertrochanteric fracture with an antegrade intramedullary nail and spiral blade plate. Background arthritic changes within the hips are unchanged. The pelvic ring appears intact. IMPRESSION: Recent ORIF of an intertrochanteric fracture of the right femur. There are no current findings on this single view to suggest hip dislocation. Dictated by: Dictated on workstation # [id number] Dict: 01/17/21 1340 Trans: 01/17/21 1350 [facility] [id number] Interpreted by: CATHERINE MONROE MD Electronically signed by: CATHERINE MONROE MD 01/17/21 7000 Diagonstic Imaging: Xray Plain Films/CT/US/NM/MRI: leg (Right femur) Comments Right femur x-ray viewed by me and report reviewed. See report below: NAME: BHUPINDER RAJPUT [facility] REC#: [id number] PT STATUS: REG ER : 1935 PHYSICIAN: HANNA DEAN MD ADMIT DATE: 01/17/21/ER Signed Date of Exam:01/17/21 FEMUR, RIGHT, 2 VIEWS EXAMINATION: Right femur radiographs, 2 views, 4 images. COMPARISON: May 23, 2018. HISTORY: 85-year-old female, right leg pain. FINDINGS: There is an intramedullary brittney in the right proximal femur with dynamic fixation screw traversing across a displaced right intertrochanteric femur fracture which is without prominent bony callus bridging. There are skin jyotsna laterally. There are vascular calcifications. The right hip is not dislocated. There is no additional identified more distally located fracture of the right femur. There is no right knee joint effusion. There is arthritis of the right knee. IMPRESSION: 1. Right intertrochanteric femur fracture fixated with an intramedullary brittney and dynamic fixation screw at the lateral skin jyotsna suggesting recent open reduction and internal fixation. 2. Additional radiographic evaluation of the right femur is without identified acute bony abnormality. Dictated by: Dictated on workstation # [id number] Dict: 01/17/21 1433 Trans: 01/17/21 1538 [facility] [id number] Interpreted by: JOSE CRENSHAW MD Electronically signed by: JOSE CRENSHAW MD 01/17/21 1538 Diagonstic Imaging: Xray Plain Films/CT/US/NM/MRI: other (Right foot) Comments Right foot x-ray viewed by me and report reviewed. See report below: NAME: BHUPINDER RAJPUT [facility] REC#: [id number] PT STATUS: REG ER : 1935 PHYSICIAN: SHANTE CARPENTER APRN ADMIT DATE: 01/17/21/ER Signed Date of Exam:01/17/21 FOOT, RIGHT, 3 VIEW EXAMINATION: Right foot radiographs, 3 views. COMPARISON: MR 15 2017. HISTORY: 85-year-old female, ulcer. Right foot pain. FINDINGS: There is normal variant congenital fusion of the fifth digit middle and distal phalanges. There is severe joint space loss of the first metatarsophalangeal joint. There is a small calcaneal heel spur. There are vascular calcifications. There is no identified acute fracture. There is no cortical or aggressive bone destruction. There is no radiopaque foreign body. IMPRESSION: 1. No radiographic evidence of osteomyelitis or other acute bony abnormality. 2. 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 Dictated by: Dictated on workstation # [id number] Dict: 01/17/21 1347 Trans: 01/17/21 1538 [facility] [id number] Interpreted by: JOSE CRENSHAW MD Electronically signed by: JOSE CRENSHAW MD 01/17/21 1538 Departure Impression Primary Impression: Postoperative pain Additional Impressions: Urinary tract infection Qualified Codes: N39.0 - Urinary tract infection, site not specified Decubitus ulcer of heel Qualified Codes: L89.616 - Pressure-induced deep tissue damage of right heel Disposition: 01 HOME, SELF-CARE Condition: Stable Departure-Patient Inst. Decision time for Depature: 15:36 Referrals: KATIE LAMAR MD (PCP/Family) Primary Care Physician Patient Instructions: Urinary Tract Infection, Adult (DC) Add. Discharge Instructions: Drink plenty of clear liquids. Work on frequent position changes to offset pressure on your heels. Try to elevate the right heel above the surface of the bed so that it is not contacting any surfaces. Even with the soft boot on there may be enough pressure to worsen the decubitus injury. Use the Diflucan as prescribed. Consider consultation with wound care. You may contact wound care at [phone]. Follow-up with your primary care provider soon as possible. Call with questions or concerns. Return to the ER if there are worsening symptoms or concerns. Scripts Fluconazole (Diflucan) 150 Mg Tablet 150 MG PO UD, #2 TAB Take on 01/20/21 and 01/23/21 Prov: HANNA DEAN MD 01/17/21 Copy Copies To 1: KATIE LAMAR MD Copies To 2: DANA AVILA MD, JOSHUA T MD Jan 17, 2021 15:40
[2021-01-17] MEDS ORDERED: FLUC150T PO (15:43)
[2021-01-17 16:06] VITALS: BP 137/66
== END 2021-01-17 16:06 | disposition home or self-care (01) ==
LOC: EDUNIT# 13:09 → ER 13:10
DX: G89.18 Other acute postprocedural pain (principal); N39.0 Urinary tract infection, site not specified; L89.624 Pressure ulcer of left heel, stage 4; J44.9 Chronic obstructive pulmonary disease, unspecified; I10 Essential (primary) hypertension; E11.9 Type 2 diabetes mellitus without complications; F03.90 Unspecified dementia, unspecified severity, without behavioral disturbance, psychotic disturbance, mood disturbance, and anxiety; Z79.01 Long term (current) use of anticoagulants; Z79.4 Long term (current) use of insulin; Z79.899 Other long term (current) drug therapy
CPT/HCPCS: 36415; 72170; 73552; 73630; 80048; 81000; 85025; 87088

== ENCOUNTER → 2021-02-03 | Outpatient (CLI) | payer MEDICARE, MEDICAID ==
[~2021-02-03] MED LIST changes: +FLUC150T PO
[2021-02-03 17:33] LABS: BILIRUBIN,URINE NEGATIVE (NEGATIVE); CLARITY,URINE TURBID; COLOR,URINE YELLOW; GLUCOSE, URINE (UA) 3+ (NEGATIVE); KETONES,URINE NEGATIVE (NEGATIVE); LEUKOCYTE ESTERASE ,URINE 2+ (NEGATIVE); NITRITE,URINE NEGATIVE (NEGATIVE); PH,URINE 5.5 (5-9); PROTEIN,URINE 1+ (NEGATIVE)
[2021-02-03 17:44] LABS: BACTERIA,URINE LARGE /HPF; RBC,URINE TNTC /HPF; WBC,URINE TNTC /HPF; YEAST,URINE LARGE /HPF
== END ==
PROVIDERS: ATTEND Internal Medicine
DX: N39.0 Urinary tract infection, site not specified (principal)
CPT/HCPCS: 81000; 87088